=== PATIENT | female | born 1945 | race Caucasian/White ===

== ENCOUNTER → 2017-08-07 15:39 | Outpatient (CLI) | payer MEDICARE, MEDICAID, SELFPAY ==
[2017-08-07 17:14] LABS: Absolute Neutrophil Count 3.9 X10^3/uL (2.0-7.7); Basophil# 0.03 X10^3/uL; Basophil% 0.4 % (0-1); Eosinophil# 0.11 X10^3/uL; Eosinophils% 1.4 % (0-5); Hematocrit 46.2 % (37-47); Hemoglobin 15.4 g/dl (12.0-15.0); Lymphocyte % 35.1 % (19-41); Mean Corp Hgb Conc 33.3 g/gl (32-36); Mean Corpuscular Hgb 33.2 pg (27.0-32.0); Mean Corpuscular Volume 99.6 fL (81-99); Mean Platelet Vol. 10.3 fl (6.2-12.0); Monocyte# 0.91 X10^3/uL; Monocyte% 11.8 % (0-10); Neutrophil # 3.93 X10^3/uL (2.7-7.7); Platelet Count 203 K/mm3 (150-450); RBC Distribution Width CV 13.8 % (11.6-14.6); RBC Distribution Width SD 50.1 fl (35.1-43.9); Red Blood Count 4.64 M/mm3 (4.2-5.4); White Blood Count 7.7 K/mm3 (4.4-11.0)
[2017-08-07 17:15] LABS: POSITIVE COUNT NO; POSITIVE DIFFERENTIAL NO; POSITIVE MORPHOLOGY NO
[2017-08-07 17:47] LABS: AST(SGOT) 27 U/L (15-37); Alanine Aminotransfer ALT/SGPT 27 U/L (13-56); Albumin, Serum 3.8 g/dL (3.2-5.0); Alkaline Phosphatase 56 U/L (45-117); Anion Gap 10 (5-15); BUN 7 mg/dL (7-18); BUN/Creat Ratio 7.7 RATIO (10-20); Calcium,Total 9.1 mg/dL (8.5-10.1); Chloride 103 mmol/L (98-107); EST Glomerular Filtration Rate 65 mL/min (>60); Est Glom Filt Rate - Afr Amer 78 mL/min (>60); Globulin 3.9 g/dL (2.2-4.2); Glucose 137 mg/dL (74-106); Potassium 4.1 mmol/L (3.5-5.1); Protein, Total 7.7 g/dL (6.4-8.2); Sodium Level 139 mmol/L (136-145)
[2017-08-07 18:44] LABS: Hemoglobin A1c 7.1 % (4.2-6.3)
== END ==
PROVIDERS: Family Provider Family Medicine; PCP Family Medicine; Visit Provider Family Medicine
DX: E11.9 Type 2 diabetes mellitus without complications (principal); Z79.4 Long term (current) use of insulin; Z79.1 Long term (current) use of non-steroidal anti-inflammatories (NSAID)
CPT/HCPCS: 36415; 80053; 83036; 85025

== ENCOUNTER → 2017-10-03 17:30 | Outpatient (CLI) | payer MEDICARE, MEDICAID, SELFPAY | PROVIDERS: Family Provider Family Medicine; PCP Family Medicine; Visit Provider Family Medicine | DX: Z12.31 Encounter for screening mammogram for malignant neoplasm of breast (principal) | CPT/HCPCS: 77063; 77067 ==

== ENCOUNTER 2018-05-09 14:57 | Emergency (ER) | payer MEDICARE, SELFPAY ==
[2018-05-09 14:58] VITALS: BP 134/109; PULSE 110; RESP 18; TEMP 36.8; O2SAT 94; BMI 28.3
--- NOTE | 2018-05-09 15:58 | ED.DCSUM_ITS ---
- ER Visit Summary Date of Service: 05/09/18 Chief Complaint: Left flank pain with nausea History of Present Illness: The patient is a 73 F history of diabetes and COPD. Prior appendectomy and cholecystectomy. Patient states for last 3 days she has not been feeling well. Fever as high as 101. With nausea but no vomiting or diarrhea. States she had cloudy urine but drank a lot of fluids and cranberry juice and says that is clearing up. Denies any gross hematuria no history of kidney stones. She has a chronic cough that is not new. Physical Examination: Older female no acute distress vital signs are stable. Currently she is afebrile. H EENT exam was unremarkable. Moist weeks membranes. Neck nontender no lymphadenopathy. Lungs clear to auscultation bilaterally. No rales, rhonchi or wheezing. Equal symmetrical. Heart regular rhythm no murmur. Abdomen soft. Nondistended. Normal bowel sounds no peritoneal signs. No hernias or masses. No signs of obstruction. Patient is moving all 4 extremities. No edema. Neurologically she is awake alert with no focal motor deficits. She has mild left flank tenderness but not CVA tenderness. Test Results: White count of 10. Hemoglobin 13. Electrolytes unremarkable. Gap of 8. Normal BUN and creatinine. Lipase 45 and normal. Urine consistent with UTI with positive nitrates, 10-25 white cells and 2+ bacteria. Urine culture sent. Patient had several episodes of transient hypotension lactic acid was obtained and was normal at 1.1. Emergency Department Course and Treatment: 1 L normal saline. IV Zofran. Tylenol. IV Rocephin Patient's blood pressure is currently 110/65. She had a long discussion of outpatient treatment versus admission. Due to her transient hypotension her and the family were concerned because she lives alone that she would not do well and will were requesting admission overnight for further IV antibiotics. Treatment Plan: We will speak to the hospitalist about admission. I have already started her on IV Rocephin. Dr. Lux Borrero the hospitalist came down to evaluate the patient had a long lengthy discussion with her and he felt current with her being discharged to home and patient and family decided that they would be discharged. Disposition: Admission Impression: Acute left flank pain secondary to a acute UTI rule out early pyelonephritis Transient hypotension resolved History of diabetes This note was generated with [employer] software. It may contain incorrect words, spelling, and punctuation that were not noted in review of the chart prior to signing ED Disposition - Plan for ED Patient: Referrals: Reece Salas [Primary Care Provider] -
[2018-05-09 16:37] LABS: Absolute Lymphocyte Count 1.49 X10^3/ul (0.83-4.51); Absolute Neutrophil Count 8.1 X10^3/uL (2.0-7.7); Basophil# 0.01 X10^3/uL; Basophil% 0.1 % (0-1); Hematocrit 39.8 % (37-47); Hemoglobin 13.3 g/dl (12.0-15.0); Lymphocyte # 1.49 X10^3/ul (4.0); Lymphocyte % 13.8 % (19-41); Mean Corp Hgb Conc 33.4 g/gl (32-36); Mean Corpuscular Hgb 32.5 pg (27.0-32.0); Mean Corpuscular Volume 97.3 fL (81-99); Mean Platelet Vol. 9.9 fl (6.2-12.0); Monocyte# 1.21 X10^3/uL; Monocyte% 11.2 % (0-10); Neutrophil # 8.08 X10^3/uL (2.7-7.7); Neutrophil % 74.7 % (47-70); POSITIVE COUNT NO; POSITIVE DIFFERENTIAL NO; POSITIVE MORPHOLOGY NO; Platelet Count 150 K/mm3 (150-450); RBC Distribution Width CV 13.5 % (11.6-14.6); RBC Distribution Width SD 47.8 fl (35.1-43.9); Red Blood Count 4.09 M/mm3 (4.2-5.4); White Blood Count 10.8 K/mm3 (4.4-11.0)
[2018-05-09] MEDS: Acetaminophen 500 MG Tablet 1000 MG PO (16:38)
[2018-05-09] MEDS: 0.9% Normal Saline 1,000 ML 1000 ML IV (16:38)
[2018-05-09] MEDS: Ondansetron 4 MG/2 ML Vial IV (16:39)
[2018-05-09 16:44] LABS: Anion Gap 8 (5-15); BUN 7 mg/dL (7-18); BUN/Creat Ratio 6.4 RATIO (10-20); Calcium,Total 9.1 mg/dL (8.5-10.1); Chloride 100 mmol/L (98-107); Creatinine, Serum 1.09 mg/dL (0.55-1.02); EST Glomerular Filtration Rate 52 mL/min (>60); Est Glom Filt Rate - Afr Amer 63 mL/min (>60); Glucose 266 mg/dL (74-106); Lipase 45 U/L (73-393); Potassium 3.6 mmol/L (3.5-5.1); Sodium Level 135 mmol/L (136-145)
[2018-05-09 16:51] VITALS: TEMP 36.8
[2018-05-09 16:53] VITALS: BP 127/87; PULSE 94; RESP 16; O2SAT 95
[2018-05-09 17:53] LABS: Mucous, Urine 0 SEEN /hpf (<or=2+); Red Blood Cells-Urine 0 SEEN /hpf (0-5)
[2018-05-09 18:10] LABS: Color, Urine Yellow (Yellow); Glucose, Dipstick 50 mg/dl (Normal); Ketone-Dipstick Negative (Negative); Leukocyte Esterase-Dipstick 500 /ul (Negative); Nitrite-Dipstick Positive (Negative); Occult Blood-Urine 10 /ul (Negative); Protein-Dipstick 30 mg/dl (Negative); Urine Bilirubin Dipstick Negative (Negative); Urine Clarity Clear (Clear); Urine Urobilinogen Normal (Normal)
[2018-05-09 18:16] LABS: Bacteria 2+ /hpf (None Seen); Squamous Epithelial Cells - UA 0-5 SEEN /hpf (5-10); White Blood Cells 10-25 SEEN /hpf (0-5)
[2018-05-09 18:57] VITALS: BP 110/62; PULSE 84; RESP 16; O2SAT 98
[2018-05-09] MEDS: Ceftriaxone 1 GM/50 ML BAG IV (18:57)
[2018-05-09 19:03] LABS: Lactic Acid 1.1 mmol/L (0.4-2.0)
--- NOTE | 2018-05-09 20:14 | ED.DEP ---
ED Disposition - Plan for ED Patient: Disposition: Home or Assisted Living Instructions: ED UTI Cystitis Female Prescriptions: Ondansetron [Zofran Odt] 4 mg PO Q8H PRN PRN #10 tab PRN Reason: Nausea Cephalexin [Keflex] 500 mg PO Q6 10 Days cap Referrals: Reece Salas [Primary Care Provider] - 3-5 Days if not improving Additional Instructions: Plenty of fluids and rest. Keflex 1 pill 4 times a day for 10 days for the urinary tract infection. Zofran as needed for nausea. Follow-up with your doctor to be reevaluated. Return to the ER if you are feeling worse.
[2018-05-09] MEDS: Ondansetron ODT 4 MG Tablet 8 MG PO (20:21)
[2018-05-09 20:22] VITALS: BP 119/50; PULSE 91; RESP 18; O2SAT 96
== END 2018-05-09 20:23 | disposition home or self-care (01) ==
PROVIDERS: Emergency Provider Emergency Medicine; Family Provider Family Medicine; PCP Family Medicine
DX: N39.0 Urinary tract infection, site not specified (principal); I95.9 Hypotension, unspecified; E11.9 Type 2 diabetes mellitus without complications; J44.9 Chronic obstructive pulmonary disease, unspecified; Z72.0 Tobacco use; Z90.49 Acquired absence of other specified parts of digestive tract; Z79.82 Long term (current) use of aspirin; Z79.4 Long term (current) use of insulin; Z79.899 Other long term (current) drug therapy
CPT/HCPCS: 80048; 81001; 83605; 83690; 85025; 87086; 87088; 87186; 99285; J7030; J7050; A4216; J2405

== ENCOUNTER 2018-05-10 03:26 | Inpatient (IN) | payer MEDICARE, MEDICAID, SELFPAY ==
[2018-05-09 14:58] VITALS: BMI 28.3
[2018-05-10] VITALS (13 sets, daily range): BP systolic 105–132; BP diastolic 51–71; PULSE 80–129; RESP 16–24; TEMP 37–39.2; O2SAT 91–98; BMI 13.8; BMI 29.3
--- NOTE | 2018-05-10 03:35 | EKG12_ITS ---
Test Reason : TACHYCARDIA Blood Pressure : / mmHG Vent. Rate : 094 BPM Atrial Rate : 094 BPM P-R Int : 148 ms QRS Dur : 066 ms QT Int : 368 ms P-R-T Axes : 060 010 017 degrees QTc Int : 460 ms Normal sinus rhythm Nonspecific ST abnormality Abnormal ECG Confirmed by ARLEN BASURTO, DENNIS ([id number]), content editor JOYCELYN QUINTEROS ([id number]) on 05/13/2018 10:58:50 AM Referred By: Confirmed By:DENNIS MCKINLEY MD
[2018-05-10] MEDS: 0.9% Normal Saline 1,000 ML 1000 ML IV (03:39)
--- NOTE | 2018-05-10 03:45 | ED.VISSUMM ---
- ER Visit Summary Date of Service: 05/10/18 Chief Complaint: Nausea vomiting and weakness History of Present Illness: The patient is a 73 F who presents with nausea vomiting and weakness. She was seen in the ER about 8 or 9 hours ago. She complains of 3 days of nausea vomiting headache generalized weakness decreased oral intake and left flank pain. She also was having dysuria although this had improved in the last couple of days. She noted cloudy urine. She was seen in the emergency department and underwent laboratory studies. She had transient hypotension but her lactic acid was normal. She did have a UTI and was treated with IV Rocephin. She was ultimately discharged on oral antibiotics. After discharge she states she is worsened and developed worsening nausea vomiting and weakness. Physical Examination: Temperature 101.5, heart rate 129, respiratory rate 24, pulse ox 91% on room air, blood pressure normal Patient is ill-appearing Moist mucous membranes Heart is regular tachycardia Lungs are clear The abdomen is soft she does have some left flank tenderness no CVA tenderness Alert Test Results: EKG shows normal sinus rhythm at a rate of 94. Labs notable for platelets 136. Blood cultures were sent. Hepatic function and lipase are unremarkable. Lactic acid normal at 1.5. Patient Mike had urine culture from recent ER visit. Chest x-ray shows a large hiatal hernia. CT of the abdomen and pelvis on my review did show left perinephric stranding and a large hiatal hernia I did not appreciate any ureteral calculus although formal radiology read is pending at the time of this dictation. Emergency Department Course and Treatment: Patient was treated with IV fluids Tylenol. She was given Zofran prior to arrival for nausea. She meets sepsis criteria but at this time does not meet criteria for severe sepsis or septic shock. She has already received broad-spectrum antibiotics only 9 hours ago so she does not need additional antibiotics at this time. I spoke to the hospitalist who agrees to admit but also requested a CT of the abdomen to rule out calculus. Imaging as above although radiology read pending. Treatment Plan: [] Disposition: Admit Impression: Pyelonephritis Sepsis syndrome This note was generated with [employer] dictation software. It may contain incorrect words, spelling, and punctuation that were not noted in review of the chart prior to signing ED Disposition - Plan for ED Patient: Disposition: Acute Care [facility]
[2018-05-10] MEDS: Acetaminophen 325 MG Tablet 650 MG PO ×3 (03:51→15:54)
[2018-05-10 03:59] LABS: Hematocrit 37.4 % (37-47); Hemoglobin 12.6 g/dl (12.0-15.0); Mean Corp Hgb Conc 33.7 g/gl (32-36); Mean Corpuscular Hgb 32.6 pg (27.0-32.0); Mean Corpuscular Volume 96.6 fL (81-99); Mean Platelet Vol. 9.8 fl (6.2-12.0); Platelet Count 136 K/mm3 (150-450); RBC Distribution Width CV 13.2 % (11.6-14.6); RBC Distribution Width SD 45.1 fl (35.1-43.9); Red Blood Count 3.87 M/mm3 (4.2-5.4); White Blood Count 9.5 K/mm3 (4.4-11.0)
[2018-05-10 04:02] LABS: Scan Indicated on CBC? Y/N NO
[2018-05-10 04:13] LABS: AST(SGOT) 14 U/L (15-37); Alanine Aminotransfer ALT/SGPT 17 U/L (13-56); Alkaline Phosphatase 54 U/L (45-117); Anion Gap 9 (5-15); BUN 7 mg/dL (7-18); BUN/Creat Ratio 6.6 RATIO (10-20); Bilirubin, Direct 0.16 mg/dL (0.00-0.30); Calcium,Total 8.4 mg/dL (8.5-10.1); Chloride 104 mmol/L (98-107); Creatinine, Serum 1.06 mg/dL (0.55-1.02); EST Glomerular Filtration Rate 54 mL/min (>60); Est Glom Filt Rate - Afr Amer 65 mL/min (>60); Estimated Creatinine Clearance 26.87 ml/min; Globulin 3.8 g/dL (2.2-4.2); Glucose 251 mg/dL (74-106); Lipase 48 U/L (73-393); Potassium 3.5 mmol/L (3.5-5.1); Protein, Total 6.8 g/dL (6.4-8.2); Sodium Level 137 mmol/L (136-145)
[2018-05-10 04:36] LABS: Lactic Acid 1.5 mmol/L (0.4-2.0)
--- NOTE | 2018-05-10 04:50 | RAD_ITS ---
STUDY: X-RAY CHEST REASON FOR EXAM: Female, 73 years old. Cough TECHNIQUE: Single AP portable view of the chest. COMPARISON: None. FINDINGS: The lungs are clear and expanded. There is no demonstrated pleural abnormality. Normal size heart. Normal mediastinum and seun. Normal visualized pulmonary arteries. Normal visualized aortic arch and descending thoracic aorta. Normal visualized thoracic spine. Normal visualized ribs, clavicles, and shoulders. There is a hiatal hernia measures 14 cm. RAD/Chest 1 View (Portable) IMPRESSION: Hiatal hernia measures 14 cm. Electronically Signed: Guero Kwong, at 5:43 EDT Tel , Service support ,
--- NOTE | 2018-05-10 04:51 | CT_ITS ---
STUDY: CT ABDOMEN AND PELVIS WITHOUT CONTRAST REASON FOR EXAM: Female, 73 years old. FLANK PAIN,FEVER,vomiting and weakness,seen earlier and treated for uti Hx:htn,diabetes,copd,mi,mvp Surgery:appendectomy,,cholecystectomy RADIATION DOSAGE (If Supplied By Facility): CTDIvol = ( 12.15 ) mGy, DLP = ( 610.30 ) mGycm TECHNIQUE: Transaxial images were obtained from the dome of the diaphragm to the symphysis pubis without oral contrast, and without intravenous contrast. Sagittal and coronal images were reconstructed. Individualized dose optimization techniques were used for this CT. COMPARISON: None. FINDINGS: The visualized lung bases are unremarkable. The visualized portions of the heart are within normal limits. Normal liver. There are surgical clips in the gallbladder fossa consistent with a prior cholecystectomy. Normal spleen. Normal pancreas. Normal bilateral adrenal glands. Normal right kidney. There is mild left hydronephrosis with perirenal fat stranding suggesting pyelonephritis. There is possible stone measures 3 mm in the distal left ureter. Normal visualized stomach. Normal small intestine. There are multiple colonic diverticula consistent with diverticulosis. There is non-visualization of the appendix. Normal abdominal aorta. Normal inferior vena cava. Normal retroperitoneum. Normal urinary bladder. Normal abdominal wall. There are diffuse degenerative changes of the visualized lumbar spine. CT/Abdomen/Pelvis without Cont IMPRESSION: There is mild left hydronephrosis with perirenal fat stranding suggesting pyelonephritis. There is possible stone measures 3 mm in the distal left ureter. Electronically Signed: Guero Kwong, at 7:15 EDT Tel , Service support ,
--- NOTE | 2018-05-10 05:59 | PCM.HP.STD ---
Problem List (1) Nausea and vomiting Status: Acute Qualifiers: Vomiting type: unspecified Vomiting Intractability: intractable Qualified Code(s): R11.2 - Nausea with vomiting, unspecified (2) Cystitis Status: Acute History of Present Illness Date of Admission: 05/10/18 Chief Complaint: Nausea and vomiting, cystitis The patient is a 73 year old F seen in the emergency room this morning at [facility] after she returned with complaints of persistent nausea and vomiting. Patient had been seen in the evening of 05/09/18 and was diagnosed as having cystitis, at that time it was felt that she could be discharged home after she was given IV antibiotics. 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 Labs were redrawn, her white blood cell count remained normal at 9.5, creatinine was 1.06, glucose was 251. She is temperature was 101.5, her chest x-ray showed a hiatal hernia. CT of the abdomen and pelvis was pending at the time of this dictation. Patient will be admitted to PCU for acute sepsis, acute cystitis, and uncontrolled nausea and vomiting. She will be given IV fluids, IV antiemetics, and she will remain on IV Rocephin-her next scheduled dose will be at 5 PM today. Past Medical History Past Medical History (Chronic Problems): Chronic Problems (Last Updated 01/22/17 @ 08:07 by Stanton Harris NP-C) Syncope (Chronic) Hyperlipemia, mixed (Chronic) Anxiety and depression (Chronic) PTSD (post-traumatic stress disorder) (Chronic) Osteoporosis (Chronic) Panic attacks (Chronic) Hypothyroid (Chronic) MVP (mitral valve prolapse) (Chronic) ECHO at [facility] in May of 2014 showed no MVP Dyslipidemia (Chronic) COPD, mild (Chronic) PVC's (premature ventricular contractions) (Chronic) Nicotine addiction (Chronic) Medical History: Medical History (Last Updated 01/22/17 @ 08:07 by Stanton Harris NP-C) Syncope (Chronic) R55 Hyperlipemia, mixed (Chronic) E78.2 Anxiety and depression (Chronic) F41.9, F32.9 PTSD (post-traumatic stress disorder) (Chronic) F43.10 Osteoporosis (Chronic) M81.0 Panic attacks (Chronic) F41.0 Hypothyroid (Chronic) E03.9 MVP (mitral valve prolapse) (Chronic) I34.1 ECHO at [facility] in May of 2014 showed no MVP Dyslipidemia (Chronic) E78.5 COPD, mild (Chronic) J44.9 PVC's (premature ventricular contractions) (Chronic) I49.3 Dizziness (Acute) R42 Pre-syncope (Acute) Heart palpitations (Acute) R00.2 Nicotine addiction (Chronic) F17.200 COPD (chronic obstructive pulmonary disease) (Suspected) J44.9 Diabetes mellitus E11.9 Allergies Penicillins Allergy (Verified 05/10/18 03:27) Swelling Home Medications: Ambulatory Orders Medication Instructions Recorded Acetaminophen/Codeine #3 [Tylenol 1 tab PO BID PRN 05/22/14 #3 Tablet] Aspirin [Aspirin, Baby] 81 mg PO DAILY@0800 05/22/14 Gabapentin [Neurontin] 300 mg PO BIDCM 05/22/14 Levothyroxine [Synthroid] 75 mcg PO DAILY 05/22/14 Loratadine [Claritin] 10 mg PO DAILY 05/22/14 Raloxifene HCl [Evista] 60 mg PO DAILY 05/22/14 Simvastatin [Zocor] 40 mg PO QHS 05/22/14 Celecoxib [Celebrex] 200 mg PO BID 09/19/15 Magnesium Oxide [Mag-Ox 400] 400 mg PO BID 09/19/15 metoprolol succinate ER 25 mg 25 mg PO DAILY 01/18/17 tablet,extended release 24 hr alprazolam 0.25 mg tablet 0.5 mg PO .as needed tab 02/27/17 Cephalexin [Keflex] 500 mg PO Q6 10 Days cap 05/09/18 Krill/Om3/Dha/Epa/Om6/Lip/Astx 1 each PO DAILY 05/09/18 [Krill Oil 1,500 mg Softgel] Meclizine HCl 12.5 mg PO TID 05/09/18 Metformin HCl [Glucophage] 250 mg PO MOWEFR 05/09/18 Ondansetron [Zofran Odt] 4 mg PO Q8H PRN PRN #10 tab 05/09/18 Pantoprazole Sodium [Protonix] 40 mg PO DAILY 05/09/18 Surgical History: appendectomy, cholecystectomy, - - Exploratory laparotomy, , jaw surgery secondary to trauma, knee surgery Psychiatric History: Anxiety - 30 cigarettes a day 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 Denies: Anorexia, Chills, Night Sweats, Weight Change Eyes: Denies: Cataracts, Conjunctivae Inflammation, Double vision, Drainage HEENT: Denies: Difficulty Swallowing, Dysphasia, Ear Pain, Eye Pain, Hearing Changes, Nasal bleeding, Nasal Congestion, Post Nasal Drip Cardiovascular: Denies: Chest Pain, Claudication, Chest Pressure, Chest Tightness, Edema, Heaviness, Palpitations, Paroxysmal Noc. Dyspnea Respiratory: Denies: Cough, Hemoptysis, Pleuritic Pain, Shortness of Breath, Shortness of breath at rest, Shortness of breath upon exertion, Sputum production Gastrointestinal: Reports: Abdominal Pain - Complains of left flank pain. Denies: Constipation, Diarrhea, Hematemesis, Hematochezia, Nausea, Melena, Vomiting Genitourinary: Denies: Dysuria, Frequency, Hematuria, Hesitancy, Urgency Gynecological: Denies: Breast symptoms Musculoskeletal: Denies: Foot Pain, Hand Pain, Joint Pain, Joint stiffness, Joint swelling, Joint Tenderness, Leg Pain Skin: Denies: Dryness, Jaundice, Pruritis, Rash, Wounds Neurological: Denies: Blurred vision, Double vision, Change in Speech, Slurred speech, Difficulty swallowing, Focal weakness, Headaches, Incoordination, Numbness, Tingling Psychiatric: Denies: Anxiety, Depression, Homicidal Ideations, Suicidal Ideations Endocrine: Denies: Change in Body Habitus, Heat/ Cold Intolerance, Polydipsia, Polyuria Hematologic/ Lymphatic: Denies: Adenopathy, Anemia, Easy Bruising, Easy Bleeding, Petechiae, Purpura VTE Information - Inpt Only VTE Present on Admission: No VTE Mechan Device Prophylaxis: None VTE Pharm Prophylaxis ordered?: Yes Patient Problems: Active and Suspected Problems (Last Updated 01/22/17 @ 08:07 by Stanton Harris NP-C) Nausea and vomiting (Acute) Cystitis (Acute) - Physical Exam General: Alert, Oriented x3, Cooperative, No apparent distress, Well developed, Well nourished HEENT: Atraumatic, PERRLA, EOMI, Normocephalic Oral: Moist Mucosa Neck: Supple, No JVD, Negative Carotid Bruits, No Nuchal Rigidity, Trachea Midline, Thyroid Normal Size and Texture Lungs: Clear to auscultation, Normal air movement, No rhonchi, No wheeze, No rales Cardiovascular: Regular rate, Regular Rhythm, Normal S1, Normal S2, No murmurs, No Ectopic Activity Abdomen: Bowel Sounds Present, Soft, Non Tender, Non-Distended, No hernias noted Extremities: No clubbing, No cyanosis, No edema, Capillary Refill Less than 3 Seconds Skin: No rashes, No breakdown Musculoskeletal: No Tenderness to Palpation of Joints or Extremities Neurological: Cranial nerves II-XII grossly intact, Neuro grossly intact, Sensory exam intact to light touch and pain, Coordination normal Psych/Mental Status: Normal Affect, Appropriate, Alert and oriented to time, place, person, mood and affect Vital Signs Temp Pulse Resp BP Pulse Ox 99.8 F H 86 19 H 105/57 L 96 05/10/18 05:58 05/10/18 05:58 05/10/18 05:58 05/10/18 05:58 05/10/18 05:58 Oxygen Delivery Method Room Air Weight: 36.56 kg Body Mass Index (BMI) 13.8 Laboratory Tests Past 24 Hrs 05/10/18 05/10/18 05/10/18 03:45 03:45 03:45 WBC 9.5 RBC 3.87 L Hgb 12.6 Hct 37.4 MCV 96.6 MCH 32.6 H MCHC 33.7 RDW 13.2 RDW Differential 45.1 H Plt Count 136 L MPV 9.8 Sodium 137 Potassium 3.5 Chloride 104 Carbon Dioxide 24.0 Anion Gap 9 BUN 7 Creatinine 1.06 H Estim Creat Clear Calc 26.87 Est GFR (MDRD) Af Amer 65 Est GFR (MDRD) Non-Af 54 L BUN/Creatinine Ratio 6.6 L Glucose 251 H Lactic Acid 1.5 Calcium 8.4 L Total Bilirubin 0.50 Direct Bilirubin 0.16 AST 14 L ALT 17 Alkaline Phosphatase 54 Total Protein 6.8 Albumin 3.0 L Globulin 3.8 Lipase 48 L Assessment/Plan All Active Problems (Last Updated 01/22/17 @ 08:07 by Stanton Harris, [employer]-C) Nausea and vomiting (Acute) Cystitis (Acute) Dizziness (Acute) Pre-syncope (Acute) Heart palpitations (Acute) #1 acute sepsis secondary to acute cystitis-from gram-negative bacteria-patient will be admitted to [facility], IV fluids will be administered, she will remain on IV Rocephin #2 uncontrolled nausea and vomiting-etiology unclear, patient will be given IV fluids and antiemetics #3 type 2 diabetes-patient will be placed on sliding scale insulin per fingerstick blood sugar #4 chronic obstructive pulmonary disease #5 hyperlipidemia #6 hypothyroidism Code Visit Inpatient E&M: 87250 Init Hosp L3
--- NOTE | 2018-05-10 06:03 | HP.PCM_ITS ---
Problem List (1) Nausea and vomiting Status: Acute Qualifiers: Vomiting type: unspecified Vomiting Intractability: intractable Qualified Code(s): R11.2 - Nausea with vomiting, unspecified (2) Cystitis Status: Acute History of Present Illness Date of Admission: 05/10/18 Chief Complaint: Nausea and vomiting, cystitis The patient is a 73 year old F seen in the emergency room this morning at [facility] after she returned with complaints of persistent nausea and vomiting. Patient had been seen in the evening of 05/09/18 and was diagnosed as having cystitis, at that time it was felt that she could be discharged home after she was given IV antibiotics. After discussing this with the patient and her family, patient agreed that she would like to go home but she subsequently returned in the horse racer hours of 05/10/18 with persistent nausea and vomiting and malaise. Labs were redrawn, her white blood cell count remained normal at 9.5, creatinine was 1.06, glucose was 251. She is temperature was 101.5, her chest x-ray showed a hiatal hernia. CT of the abdomen and pelvis was pending at the time of this dictation. Patient will be admitted to PCU for acute sepsis, acute cystitis, and uncontrolled nausea and vomiting. She will be given IV fluids, IV antiemetics, and she will remain on IV Rocephin-her next scheduled dose will be at 5 PM today. Past Medical History Past Medical History (Chronic Problems): Chronic Problems (Last Updated 01/22/17 @ 08:07 by Stanton Harris NP-C) Syncope (Chronic) Hyperlipemia, mixed (Chronic) Anxiety and depression (Chronic) PTSD (post-traumatic stress disorder) (Chronic) Osteoporosis (Chronic) Panic attacks (Chronic) Hypothyroid (Chronic) MVP (mitral valve prolapse) (Chronic) ECHO at [facility] in May of 2014 showed no MVP Dyslipidemia (Chronic) COPD, mild (Chronic) PVC's (premature ventricular contractions) (Chronic) Nicotine addiction (Chronic) Medical History: Medical History (Last Updated 01/22/17 @ 08:07 by Stanton Harris NP-C) Syncope (Chronic) R55 Hyperlipemia, mixed (Chronic) E78.2 Anxiety and depression (Chronic) F41.9, F32.9 PTSD (post-traumatic stress disorder) (Chronic) F43.10 Osteoporosis (Chronic) M81.0 Panic attacks (Chronic) F41.0 Hypothyroid (Chronic) E03.9 MVP (mitral valve prolapse) (Chronic) I34.1 ECHO at [facility] in May of 2014 showed no MVP Dyslipidemia (Chronic) E78.5 COPD, mild (Chronic) J44.9 PVC's (premature ventricular contractions) (Chronic) I49.3 Dizziness (Acute) R42 Pre-syncope (Acute) Heart palpitations (Acute) R00.2 Nicotine addiction (Chronic) F17.200 COPD (chronic obstructive pulmonary disease) (Suspected) J44.9 Diabetes mellitus E11.9 Allergies Penicillins Allergy (Verified 05/10/18 03:27) Swelling Home Medications: Ambulatory Orders Medication Instructions Recorded Acetaminophen/Codeine #3 [Tylenol 1 tab PO BID PRN 05/22/14 #3 Tablet] Aspirin [Aspirin, Baby] 81 mg PO DAILY@0800 05/22/14 Gabapentin [Neurontin] 300 mg PO BIDCM 05/22/14 Levothyroxine [Synthroid] 75 mcg PO DAILY 05/22/14 Loratadine [Claritin] 10 mg PO DAILY 05/22/14 Raloxifene HCl [Evista] 60 mg PO DAILY 05/22/14 Simvastatin [Zocor] 40 mg PO QHS 05/22/14 Celecoxib [Celebrex] 200 mg PO BID 09/19/15 Magnesium Oxide [Mag-Ox 400] 400 mg PO BID 09/19/15 metoprolol succinate ER 25 mg 25 mg PO DAILY 01/18/17 tablet,extended release 24 hr alprazolam 0.25 mg tablet 0.5 mg PO .as needed tab 02/27/17 Cephalexin [Keflex] 500 mg PO Q6 10 Days cap 05/09/18 Krill/Om3/Dha/Epa/Om6/Lip/Astx 1 each PO DAILY 05/09/18 [Krill Oil 1,500 mg Softgel] Meclizine HCl 12.5 mg PO TID 05/09/18 Metformin HCl [Glucophage] 250 mg PO MOWEFR 05/09/18 Ondansetron [Zofran Odt] 4 mg PO Q8H PRN PRN #10 tab 05/09/18 Pantoprazole Sodium [Protonix] 40 mg PO DAILY 05/09/18 Surgical History: appendectomy, cholecystectomy, - - Exploratory laparotomy, C- section, jaw surgery secondary to trauma, knee surgery Psychiatric History: Anxiety - 30 cigarettes a day 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 Denies: Anorexia, Chills, Night Sweats, Weight Change Eyes: Denies: Cataracts, Conjunctivae Inflammation, Double vision, Drainage HEENT: Denies: Difficulty Swallowing, Dysphasia, Ear Pain, Eye Pain, Hearing Changes, Nasal bleeding, Nasal Congestion, Post Nasal Drip Cardiovascular: Denies: Chest Pain, Claudication, Chest Pressure, Chest Tightness, Edema, Heaviness, Palpitations, Paroxysmal Noc. Dyspnea Respiratory: Denies: Cough, Hemoptysis, Pleuritic Pain, Shortness of Breath, Shortness of breath at rest, Shortness of breath upon exertion, Sputum production Gastrointestinal: Reports: Abdominal Pain - Complains of left flank pain. Denies: Constipation, Diarrhea, Hematemesis, Hematochezia, Nausea, Melena, Vomiting Genitourinary: Denies: Dysuria, Frequency, Hematuria, Hesitancy, Urgency Gynecological: Denies: Breast symptoms Musculoskeletal: Denies: Foot Pain, Hand Pain, Joint Pain, Joint stiffness, Joint swelling, Joint Tenderness, Leg Pain Skin: Denies: Dryness, Jaundice, Pruritis, Rash, Wounds Neurological: Denies: Blurred vision, Double vision, Change in Speech, Slurred speech, Difficulty swallowing, Focal weakness, Headaches, Incoordination, Numbness, Tingling Psychiatric: Denies: Anxiety, Depression, Homicidal Ideations, Suicidal Ideations Endocrine: Denies: Change in Body Habitus, Heat/ Cold Intolerance, Polydipsia, Polyuria Hematologic/ Lymphatic: Denies: Adenopathy, Anemia, Easy Bruising, Easy Bleeding, Petechiae, Purpura VTE Information - Inpt Only VTE Present on Admission: No VTE Mechan Device Prophylaxis: None VTE Pharm Prophylaxis ordered?: Yes Patient Problems: Active and Suspected Problems (Last Updated 01/22/17 @ 08:07 by Stanton Harris NP- C) Nausea and vomiting (Acute) Cystitis (Acute) - Physical Exam General: Alert, Oriented x3, Cooperative, No apparent distress, Well developed, Well nourished HEENT: Atraumatic, PERRLA, EOMI, Normocephalic Oral: Moist Mucosa Neck: Supple, No JVD, Negative Carotid Bruits, No Nuchal Rigidity, Trachea Midline, Thyroid Normal Size and Texture Lungs: Clear to auscultation, Normal air movement, No rhonchi, No wheeze, No rales Cardiovascular: Regular rate, Regular Rhythm, Normal S1, Normal S2, No murmurs, No Ectopic Activity Abdomen: Bowel Sounds Present, Soft, Non Tender, Non-Distended, No hernias noted Extremities: No clubbing, No cyanosis, No edema, Capillary Refill Less than 3 Seconds Skin: No rashes, No breakdown Musculoskeletal: No Tenderness to Palpation of Joints or Extremities Neurological: Cranial nerves II-XII grossly intact, Neuro grossly intact, Sensory exam intact to light touch and pain, Coordination normal Psych/Mental Status: Normal Affect, Appropriate, Alert and oriented to time, place, person, mood and affect Vital Signs Temp Pulse Resp BP Pulse Ox 99.8 F H 86 19 H 105/57 L 96 05/10/18 05:58 05/10/18 05:58 05/10/18 05:58 05/10/18 05:58 05/10/18 05:58 Oxygen Delivery Method Room Air Weight: 36.56 kg Body Mass Index (BMI) 13.8 Laboratory Tests Past 24 Hrs 05/10/18 05/10/18 05/10/18 03:45 03:45 03:45 WBC 9.5 RBC 3.87 L Hgb 12.6 Hct 37.4 MCV 96.6 MCH 32.6 H MCHC 33.7 RDW 13.2 RDW Differential 45.1 H Plt Count 136 L MPV 9.8 Sodium 137 Potassium 3.5 Chloride 104 Carbon Dioxide 24.0 Anion Gap 9 BUN 7 Creatinine 1.06 H Estim Creat Clear Calc 26.87 Est GFR (MDRD) Af Amer 65 Est GFR (MDRD) Non-Af 54 L BUN/Creatinine Ratio 6.6 L Glucose 251 H Lactic Acid 1.5 Calcium 8.4 L Total Bilirubin 0.50 Direct Bilirubin 0.16 AST 14 L ALT 17 Alkaline Phosphatase 54 Total Protein 6.8 Albumin 3.0 L Globulin 3.8 Lipase 48 L Assessment/Plan All Active Problems (Last Updated 01/22/17 @ 08:07 by Stanton Harris, COMPUTER LANGUAGE CODER-C) Nausea and vomiting (Acute) Cystitis (Acute) Dizziness (Acute) Pre-syncope (Acute) Heart palpitations (Acute) #1 acute sepsis secondary to acute cystitis-from gram-negative bacteria-patient will be admitted to [facility], IV fluids will be administered, she will remain on IV Rocephin #2 uncontrolled nausea and vomiting-etiology unclear, patient will be given IV fluids and antiemetics #3 type 2 diabetes-patient will be placed on sliding scale insulin per fingerstick blood sugar #4 chronic obstructive pulmonary disease #5 hyperlipidemia #6 hypothyroidism Code Visit Inpatient E&M: 58034 Init Hosp L3
--- NOTE | 2018-05-10 06:40 | NURSING ---
321 TERELETSKY UNCONTROLLED N, V, SEPSIS, CYSTITIS
[2018-05-10] MEDS: 0.9% Normal Saline 1,000 ML 125 ML IV ×3 (08:01→23:55)
[2018-05-10] MEDS: 0.9% NaCl Peripheral Flush Adult/Peds IV ×2 (08:02→10:15)
[2018-05-10 08:10] LABS: Bedside Glucose 278 mg/dL (70-110)
[2018-05-10] MEDS: Insulin Lispro 100 UNIT/ML INSULN.PEN SC ×2 (08:12→21:29)
[2018-05-10] MEDS: Aspirin 81 MG TAB.CHEW PO (08:57)
[2018-05-10] MEDS: Gabapentin 300 MG Capsule PO ×2 (08:57→17:27)
[2018-05-10] MEDS: Raloxifene HCl 60 MG Tablet PO (10:08)
[2018-05-10] MEDS: Levothyroxine 75 MCG Tablet PO (10:08)
[2018-05-10] MEDS: Pantoprazole Sodium 40 MG Tablet PO (10:08)
[2018-05-10] MEDS: Enoxaparin 30 MG/0.3 ML Syringe SC (10:08)
[2018-05-10] MEDS: Metoprolol(XL)Succ 25 MG Tablet PO (10:09)
[2018-05-10] MEDS: Ondansetron 4 MG/2 ML Vial IV ×2 (10:15→21:40)
[2018-05-10 12:11] LABS: Bedside Glucose 139 mg/dL (70-110)
--- NOTE | 2018-05-10 13:10 | PN_ITS ---
Patient Problems: Active and Suspected Problems (Last Updated 01/22/17 @ 08:07 by Stanton Harris NP- C) Nausea and vomiting (Acute) Cystitis (Acute) Subjective: Rocephin day #2 The patient is a 73-year-old female admitted to the hospital on 05/10/2018 with acute sepsis secondary to urinary tract infection with uncontrolled nausea/vo miting. She had been seen in the emergency department by Dr. Snyder on 05/09/2018 and diagnosed with a urinary tract infection. She was given Rocephin and sent home with a prescription for Keflex and Zofran. Past medical history is significant for hyperlipidemia, anxiety/depression, diabetes mellitus type 2, PTSD, osteoporosis, hypothyroidism, hiatal hernia, mitral valve prolapse, COPD and tobacco dependence. All events of the past 24 hours been reviewed. T-max is 101.5 and current temp is 99.4. White blood cell count is 9.5 With mild left shift. BMP is remarkable for a creatinine of 1.06 with a BUN of 7. The creatinine in July 2017 was 0.9. Random blood sugar was 251. LFTs are unremarkable. Chest x-ray showed no infiltrates, pleural effusions or pulmonary vascular congestion. She has a large hiatal hernia. CT scan of the abdomen and pelvis showed mild left hydronephrosis with perirenal fat stranding suggesting pyelonephritis. There was a possible stone measuring 3 mm in the distal left ureter. Urine culture done on 05/09/2018 is positive for presumptive E. coli, greater than 100,000 colonies. Blood cultures are pending. Appetite is poor. She complains of mild nausea with no emesis. She has left flank pain. She denies dysuria. She denies any history of nephrolithiasis in the past. No chest pain no shortness of breath. - Physical Exam General: Alert, Oriented x3, Cooperative, No apparent distress, Well developed, Well nourished HEENT: Atraumatic, PERRLA, Normocephalic Oral: Dry Mucosa Neck: Supple, No JVD, Trachea Midline Lungs: Clear to auscultation Cardiovascular: Regular rate, Regular Rhythm, Normal S1, Normal S2, No murmurs, No rub noted, No Gallop Abdomen: Bowel Sounds Present, Soft, Non Tender, Non-Distended, - - She has pain with palpation at the left flank Extremities: No clubbing, No cyanosis, No edema, No Calf Tenderness Neurological: Cranial nerves II-XII grossly intact, Neuro grossly intact Psych/Mental Status: Normal Affect, Appropriate Vital Signs Temp Pulse Resp BP Pulse Ox 99.4 F H 88 18 118/64 98 05/10/18 09:56 05/10/18 10:15 05/10/18 09:56 05/10/18 09:56 05/10/18 09:56 Oxygen Delivery Method Room Air Weight: 170 lb 13.732 oz Body Mass Index (BMI) 29.3 Intake and Output for Last 24 Hours 05/08/18 05/09/18 05/10/18 23:59 23:59 23:59 Intake Total 659 / 659 Output Total 500 / 500 Balance 159 / 159 Laboratory Tests Past 24 Hrs 05/10/18 05/10/18 05/10/18 03:45 03:45 03:45 WBC 9.5 RBC 3.87 L Hgb 12.6 Hct 37.4 MCV 96.6 MCH 32.6 H MCHC 33.7 RDW 13.2 RDW Differential 45.1 H Plt Count 136 L MPV 9.8 Sodium 137 Potassium 3.5 Chloride 104 Carbon Dioxide 24.0 Anion Gap 9 BUN 7 Creatinine 1.06 H Estim Creat Clear Calc 26.87 Est GFR (MDRD) Af Amer 65 Est GFR (MDRD) Non-Af 54 L BUN/Creatinine Ratio 6.6 L Glucose 251 H Lactic Acid 1.5 Calcium 8.4 L Total Bilirubin 0.50 Direct Bilirubin 0.16 AST 14 L ALT 17 Alkaline Phosphatase 54 Total Protein 6.8 Albumin 3.0 L Globulin 3.8 Lipase 48 L POC Glucose 05/10/18 05/10/18 12:04 08:07 POC Glucose 139 H 278 H Medical Necessity - Tobacco Use Smoking Status: Current every day smoker Tobacco Use: Cigarettes Assessment/Plan All Active Problems (Last Updated 01/22/17 @ 08:07 by Stanton Harris NP-C) Nausea and vomiting (Acute) Cystitis (Acute) Dizziness (Acute) Pre-syncope (Acute) Heart palpitations (Acute) Impressions 1. Sepsis secondary to pyelonephritis 2. Left hydronephrosis and left hydroureter secondary to calculus in the distal left ureter 3. Nephrolithiasis 4. Diabetes mellitus type 2 5. COPD 6. Hyperlipidemia 7. Hypothyroidism Continue Rocephin Stone may pass without intervention - it is only 3 mm. If it does not pass will consult Dr. Chappell await the results of the Urine and blood cultures Recheck lab in the a.m.
--- NOTE | 2018-05-10 15:56 | CM.UR ---
RN CM Assessment Met face to face with patient for initial transition planning/care coordination assessment. Introduced myself and my role. Verb understanding and agreement for assessment. Presentation: Was sick and presented to ER. Dc w/uti and sent home on po antibiotics. Came back 8-9 hours later d/t worsening NV and weakness. PCP: Josue Specialists: Dr. Zhang. Preferred Pharmacy: [facility] Insurance: [facility] Prescription Benefit: Yes LNOK: Samara Allen (daughter) Hung Elizalde (son) Home: Mobile home w/4 steps w/railing. No access issues. 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 Does errands, house work, shower, dress, etc. Transportation: LAUNDR[employer] ROOM ATTENDANT or family. She can't drive d/t dizziness related to tinnitus. DME: Grab bars, shower chair, walker, handheld shower. SNF/HHC: No skilled Passport/waiver services mgr: Breanne Thorne or [facility]. 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 Advance Directives: None on file but states she has them. DPOA is Samara Allen (daughter) first and alternate is son, Hung Elizalde. DC PLAN: To go stay with granddaughter Liyah so that she is not left alone. She will notify [place] on Saturday. Denies any other needs at this time. Rosario Torres RN, [facility].
[2018-05-10 16:05] LABS: Bedside Glucose 142 mg/dL (70-110)
[2018-05-10] MEDS: Ensure Clear 120 ML Liquid PO (17:27)
[2018-05-10] MEDS: Ibuprofen 400 MG Tablet PO (21:27)
[2018-05-10] MEDS: Atorvastatin Calcium 20 MG Tablet PO (21:29)
[2018-05-11] VITALS (9 sets, daily range): BP systolic 101–138; BP diastolic 43–82; PULSE 68–87; RESP 16–20; TEMP 36.7–38.2; O2SAT 93–99
--- NOTE | 2018-05-11 05:55 | RAD_ITS ---
STUDY: X-RAY - ABDOMEN/PELVIS REASON FOR EXAM: Female, 73 years old. Abdominal pain TECHNIQUE: Supine COMPARISON: CT from yesterday FINDINGS: Hiatal hernia noted. There is an unremarkable bowel gas pattern. There is no demonstrated free abdominal air. The visualized liver, spleen and kidneys are grossly normal in size and morphology. Normal soft tissue structures. Stable degenerative changes and scoliosis of the lumbar spine. RAD/Abdomen Single View IMPRESSION: Nonobstructive bowel gas pattern. Electronically Signed: Nato Da Silva MD at 10:12 EDT , Service support ,
[2018-05-11] MEDS: Levothyroxine 75 MCG Tablet PO (06:31)
[2018-05-11] MEDS: Acetaminophen 325 MG Tablet 650 MG PO ×3 (06:31→20:05)
[2018-05-11] MEDS: 0.9% Normal Saline 1,000 ML 125 ML IV (06:35)
[2018-05-11] MEDS: Ondansetron 4 MG/2 ML Vial IV (06:35)
[2018-05-11 06:45] LABS: Bedside Glucose 132 mg/dL (70-110)
[2018-05-11 07:16] LABS: Absolute Neutrophil Count 4.4 X10^3/uL (2.0-7.7); Basophil# 0.01 X10^3/uL; Basophil% 0.2 % (0-1); Eosinophil# 0.01 X10^3/uL; Eosinophils% 0.2 % (0-5); Hematocrit 31.2 % (37-47); Hemoglobin 10.4 g/dl (12.0-15.0); Lymphocyte % 15.5 % (19-41); Mean Corp Hgb Conc 33.3 g/gl (32-36); Mean Corpuscular Hgb 32.5 pg (27.0-32.0); Mean Corpuscular Volume 97.5 fL (81-99); Mean Platelet Vol. 9.8 fl (6.2-12.0); Monocyte# 0.53 X10^3/uL; Monocyte% 9.1 % (0-10); Neutrophil # 4.35 X10^3/uL (2.7-7.7); Neutrophil % 74.8 % (47-70); POSITIVE COUNT NO; POSITIVE DIFFERENTIAL NO; POSITIVE MORPHOLOGY NO; Platelet Count 119 K/mm3 (150-450); RBC Distribution Width CV 13.5 % (11.6-14.6); RBC Distribution Width SD 48.8 fl (35.1-43.9); White Blood Count 5.8 K/mm3 (4.4-11.0)
[2018-05-11 07:31] LABS: Anion Gap 8 (5-15); BUN 6 mg/dL (7-18); BUN/Creat Ratio 6.7 RATIO (10-20); Calcium,Total 7.4 mg/dL (8.5-10.1); Chloride 109 mmol/L (98-107); EST Glomerular Filtration Rate 65 mL/min (>60); Est Glom Filt Rate - Afr Amer 79 mL/min (>60); Estimated Creatinine Clearance 47.36 ml/min; Glucose 139 mg/dL (74-106); Magnesium 1.7 mg/dL (1.6-2.6); Potassium 3.4 mmol/L (3.5-5.1); Sodium Level 139 mmol/L (136-145)
[2018-05-11 07:35] LABS: Phosphorus 1.8 mg/dL (2.5-4.9)
--- NOTE | 2018-05-11 07:47 | EKG12_ITS ---
Test Reason : CP Blood Pressure : / mmHG Vent. Rate : 067 BPM Atrial Rate : 067 BPM P-R Int : 142 ms QRS Dur : 066 ms QT Int : 408 ms P-R-T Axes : 064 020 005 degrees QTc Int : 431 ms Normal sinus rhythm Normal ECG Confirmed by ZAKI BASURTO, MESSI ([id number]), staff editor MEDINA CALHOUN ([id number]) on 05/19/2018 11:57:54 AM Referred By: ALEK Confirmed By:MESSI HAINES MD
--- NOTE | 2018-05-11 08:17 | RAD_ITS ---
STUDY: X-RAY CHEST REASON FOR EXAM: Female, 73 years old. Shortness of breath, chest tightness TECHNIQUE: AP COMPARISON: 05/10/2018 FINDINGS: Patient is rotated. Large size hiatal hernia is noted. No airspace consolidation. There is no demonstrated pleural abnormality. Normal size heart. Normal mediastinum and seun. Normal visualized pulmonary arteries. Normal visualized aortic arch and descending thoracic aorta. No acute bony process. There is no demonstrated abnormality of the visualized soft tissue structures of the upper abdomen. RAD/Chest 1 View (Portable) IMPRESSION: 1. Stable exam. Electronically Signed: Nato Da Silva MD at 11:59 EDT , Service support ,
[2018-05-11] MEDS: Albuterol 2.5 MG/3 ML VIAL.NEB. INHALATION (08:32)
[2018-05-11 08:40] LABS: Hemoglobin A1c 8.3 % (4.2-6.3)
[2018-05-11] MEDS: Raloxifene HCl 60 MG Tablet PO (09:29)
[2018-05-11] MEDS: Aspirin 81 MG TAB.CHEW PO (09:29)
[2018-05-11] MEDS: Enoxaparin 30 MG/0.3 ML Syringe SC (09:29)
[2018-05-11] MEDS: Gabapentin 300 MG Capsule PO ×2 (09:29→17:22)
[2018-05-11] MEDS: Ensure Clear 120 ML Liquid PO ×3 (09:29→17:22)
[2018-05-11] MEDS: Pantoprazole Sodium 40 MG Tablet PO (09:29)
[2018-05-11 10:58] LABS: BNP,B-Type NATRIURETIC PEPTIDE 206.5 pg/mL (0-100)
[2018-05-11] MEDS: Insulin Lispro 100 UNIT/ML INSULN.PEN SC ×2 (12:54→22:02)
[2018-05-11 13:16] LABS: Bedside Glucose 178 mg/dL (70-110)
[2018-05-11 17:30] LABS: Bedside Glucose 115 mg/dL (70-110)
--- NOTE | 2018-05-11 19:17 | PCM.PROGNOTE ---
Patient Problems: Active and Suspected Problems (Last Updated 01/22/17 @ 08:07 by Stanton Harris AD OPERATIONS COORDINATOR-C) Nausea and vomiting (Acute) Cystitis (Acute) Subjective: Day #3 Shanda Patient is a 73-year-old female admitted to the hospital on 05/10/2018 with a diagnosis of acute sepsis secondary to pyelonephritis with uncontrolled nausea/vomiting and mild left hydroureter and left hydronephrosis secondary to a 3 mm stone at the ureterovesical junction. Significant past medical history includes hyperlipidemia, anxiety/depression, diabetes mellitus type 2, hypothyroidism, hiatal hernia, COPD and tobacco dependence. All events of the past 24 hours been reviewed. She is now afebrile. T-max over the past 24 hours was 102.5 at 10 PM last night. Vital signs are stable Pulse ox ranges from 93-99% on room air White blood cell count is 5.8 today with 75% neutrophils. Hemoglobin is 10.4, down from 12.6 with hydration. Platelets are 119,000, down from 136,000. Potassium is 3.4 and supplementation was ordered. Creatinine is 0.9. Phosphorus is low at 1.8 and K-Phos riders were ordered. Blood sugars are well controlled. She experienced some shortness of breath today and chest tightness. EKG showed normal sinus rhythm with no ischemic changes. Chest x-ray showed no acute changes. She had no significant improvement with an albuterol aerosol. She has been laying in bed trying to use the incentive spirometer and it is not very effective this way. When I had her do it properly she had cough with deep breath. She has no rales and no wheezing. She tells me that she has less left flank pain today and she is feeling better. She denies nausea and she has had no emesis. Objective: - Physical Exam General: Alert, Oriented x3, Cooperative, No apparent distress, Well developed, Well nourished HEENT: Atraumatic, PERRLA, Normocephalic Oral: Dry Mucosa Neck: Supple, No JVD, Trachea Midline Lungs: Clear to auscultation without wheezes, rhonchi or rales. When she takes a deep breath she coughs. Cough is nonproductive. Cardiovascular: Regular rate, Regular Rhythm, Normal S1, Normal S2, No murmurs, No rub noted, No Gallop Abdomen: Bowel Sounds Present, Soft, Non Tender, Non-Distended, - - She has pain with palpation at the left flank Extremities: No clubbing, No cyanosis, No edema, No Calf Tenderness Neurological: Cranial nerves II-XII grossly intact, Neuro grossly intact Psych/Mental Status: Normal Affect, Appropriate - Physical Exam Vital Signs Temp Pulse Resp BP Pulse Ox 98.0 F 72 18 117/82 H 99 05/11/18 17:10 05/11/18 17:10 05/11/18 17:10 05/11/18 17:10 05/11/18 17:10 Oxygen Flow Rate (L/min) 2 Oxygen Delivery Method Room Air Weight: 170 lb 13.732 oz Body Mass Index (BMI) 29.3 Intake and Output for Last 24 Hours 05/09/18 05/10/18 05/11/18 23:59 23:59 23:59 Intake Total 2414 / 2414 4313 / 4313 Output Total 500 / 500 2100 / 2100 Balance 4 / 4 2213 / 2213 Laboratory Tests Past 24 Hrs 05/11/18 05/11/18 05/11/18 07:04 07:04 07:04 WBC 5.8 RBC 3.20 L Hgb 10.4 L Hct 31.2 L MCV 97.5 MCH 32.5 H MCHC 33.3 RDW 13.5 RDW Differential 48.8 H Plt Count 119 L MPV 9.8 Immature Gran % (Auto) 0.200 Neut % (Auto) 74.8 H Lymph % (Auto) 15.5 L Ripley % (Auto) 9.1 Eos % (Auto) 0.2 Baso % (Auto) 0.2 Absolute Neuts (auto) 4.4 Absolute Lymphs (auto) 0.90 Total Counted Not Reportable Sodium 139 Potassium 3.4 L Chloride 109 H Carbon Dioxide 22.0 Anion Gap 8 BUN 6 L Creatinine 0.90 Estim Creat Clear Calc 47.36 Est GFR (MDRD) Af Amer 79 Est GFR (MDRD) Non-Af 65 BUN/Creatinine Ratio 6.7 L Glucose 139 H Hemoglobin A1c Calcium 7.4 L Phosphorus 1.8 L Magnesium 1.7 B-Natriuretic Peptide 05/11/18 05/11/18 07:04 07:04 WBC RBC Hgb Hct MCV MCH MCHC RDW RDW Differential Plt Count MPV Immature Gran % (Auto) Neut % (Auto) Lymph % (Auto) Ripley % (Auto) Eos % (Auto) Baso % (Auto) Absolute Neuts (auto) Absolute Lymphs (auto) Total Counted Sodium Potassium Chloride Carbon Dioxide Anion Gap BUN Creatinine Estim Creat Clear Calc Est GFR (MDRD) Af Amer Est GFR (MDRD) Non-Af BUN/Creatinine Ratio Glucose Hemoglobin A1c 8.3 H Calcium Phosphorus Magnesium B-Natriuretic Peptide 206.5 H POC Glucose 05/11/18 05/11/18 05/11/18 17:20 12:50 06:39 POC Glucose 115 H 178 H 132 H Medical Necessity - Tobacco Use Smoking Status: Current every day smoker Tobacco Use: Cigarettes Assessment/Plan All Active Problems (Last Updated 01/22/17 @ 08:07 by Stanton Harris NP-C) Nausea and vomiting (Acute) Cystitis (Acute) Dizziness (Acute) Pre-syncope (Acute) Heart palpitations (Acute) Impressions 1. Sepsis secondary to pyelonephritis 2. Left hydronephrosis and left hydroureter secondary to calculus in the distal left ureter 3. Nephrolithiasis 4. Diabetes mellitus type 2 5. COPD 6. Hyperlipidemia 7. Hypothyroidism 8. Atelectasis 9. Hypophosphatemia 10. Hypokalemia stone was not visualized on the KUB ....she has less flank pain so it might have passed NO urine culture was sent from the ED, only blood cultures. The Rocephin is obviously effective because she is no longer febrile and she feels better....will continue and send home with a third generation cephalosporin/Omnicef Possible DC in the next 24-48 hours Supplement the phosphorus and potassium Recheck lab in the a.m. Up to the chair with meals. Use the IS for 10 breaths an hour and must be sitting upright in the bed with use or in the chair....this was explained to her Follow up in the office with Dr. Chappell after DC for the stone and also for urinary incontinence
[2018-05-11] MEDS: 0.9% Normal Saline 1,000 ML 40 ML IV (19:30)
[2018-05-11] MEDS: Atorvastatin Calcium 20 MG Tablet PO (22:02)
[2018-05-12] VITALS (12 sets, daily range): BP systolic 111–158; BP diastolic 59–78; PULSE 65–91; RESP 16–20; TEMP 37–39.2; O2SAT 92–98
[2018-05-12 01:41] LABS: Bedside Glucose 175 mg/dL (70-110)
[2018-05-12 01:56] LABS: Bedside Glucose 151 mg/dL (70-110)
[2018-05-12] MEDS: Ondansetron 4 MG/2 ML Vial IV ×2 (02:40→20:47)
[2018-05-12] MEDS: 0.9% Normal Saline 1,000 ML 40 ML IV (02:49)
[2018-05-12] MEDS: Albuterol 2.5 MG/3 ML VIAL.NEB. INHALATION ×2 (03:33→19:59)
[2018-05-12] MEDS: Acetaminophen 325 MG Tablet 650 MG PO ×3 (06:29→23:04)
[2018-05-12] MEDS: Levothyroxine 75 MCG Tablet PO (06:30)
[2018-05-12] MEDS: Insulin Lispro 100 UNIT/ML INSULN.PEN SC ×2 (06:31→22:11)
[2018-05-12 06:51] LABS: Bedside Glucose 152 mg/dL (70-110)
[2018-05-12 07:06] LABS: Anion Gap 7 (5-15); BUN 4 mg/dL (7-18); BUN/Creat Ratio 4.7 RATIO (10-20); Calcium,Total 7.7 mg/dL (8.5-10.1); Chloride 109 mmol/L (98-107); Creatinine, Serum 0.84 mg/dL (0.55-1.02); EST Glomerular Filtration Rate 70 mL/min (>60); Est Glom Filt Rate - Afr Amer 85 mL/min (>60); Estimated Creatinine Clearance 50.74 ml/min; Glucose 154 mg/dL (74-106); Phosphorus 2.2 mg/dL (2.5-4.9); Potassium 3.5 mmol/L (3.5-5.1); Sodium Level 140 mmol/L (136-145)
[2018-05-12] MEDS: Aspirin 81 MG TAB.CHEW PO (08:51)
[2018-05-12] MEDS: Raloxifene HCl 60 MG Tablet PO (08:51)
[2018-05-12] MEDS: Gabapentin 300 MG Capsule PO ×2 (08:51→18:37)
[2018-05-12] MEDS: Metoprolol(XL)Succ 25 MG Tablet PO (08:52)
[2018-05-12] MEDS: Pantoprazole Sodium 40 MG Tablet PO (08:52)
[2018-05-12] MEDS: Enoxaparin 30 MG/0.3 ML Syringe SC (08:52)
[2018-05-12 11:31] LABS: Bedside Glucose 135 mg/dL (70-110)
--- NOTE | 2018-05-12 11:50 | PCM.PN.HOSP ---
Patient Problems: Active and Suspected Problems (Last Updated 01/22/17 @ 08:07 by Stanton Harris COMPLAINTS COORDINATOR-C) Nausea and vomiting (Acute) Cystitis (Acute) Subjective: Patient was seen and examined. She complained of feeling very weak. Still having spikes of fever and chills. Nausea is better. No more vomiting. Vitals/I&O's: Vital Signs Temp Pulse Resp BP Pulse Ox 99.2 F H 73 18 111/59 L 94 05/12/18 08:20 05/12/18 08:52 05/12/18 08:20 05/12/18 08:52 05/12/18 08:20 Oxygen Flow Rate (L/min) 2 Oxygen Delivery Method Room Air Weight: 77.5 kg Body Mass Index (BMI) 29.3 Intake and Output for Last 24 Hours 05/10/18 05/11/18 05/12/18 23:59 23:59 23:59 Intake Total 2414 / 2414 4313 / 4313 411 / 411 Output Total 500 / 500 2700 / 2700 Balance 1913 / 1913 1613 / 1613 411 / 411 General: Alert, Oriented x3, Cooperative, - - in mild distress HEENT: Atraumatic, PERRLA, EOMI, Normocephalic Oral: Moist Mucosa Neck: Supple Lungs: Clear to auscultation, Normal air movement Cardiovascular: Regular rate, Regular Rhythm, Normal S1, Normal S2, No murmurs Abdomen: Bowel Sounds Present, Soft, Non-Distended, No Hepato-splenomegaly, Tender - mild left flank tenderness Extremities: No edema Skin: No rashes, No breakdown Musculoskeletal: No Tenderness to Palpation of Joints or Extremities Lymphatic: No Cervical, Supraclavicular, or Inguinal Adenopathy Neurological: Cranial nerves II-XII grossly intact, Neuro grossly intact Psych/Mental Status: Normal Affect, Appropriate Microbiology Past 72 Hours 05/10/18 03:45 Blood Culture (Wb) - Anticubital Left Blood Culture - Preliminary No growth in 48 hours. 05/10/18 03:50 Blood Culture (Wb) - Anticubital Right Blood Culture - Preliminary No growth in 48 hours. Laboratory Results 05/10/18 21:21: POC Glucose 151 H 05/11/18 12:50: POC Glucose 178 H 05/11/18 17:20: POC Glucose 115 H 05/11/18 21:58: POC Glucose 175 H 05/12/18 06:20: Sodium 140, Potassium 3.5, Chloride 109 H, Carbon Dioxide 24.0, Anion Gap 7, BUN 4 L, Creatinine 0.84, Estim Creat Clear Calc 50.74, Est GFR (MDRD) Af Amer 85, Est GFR (MDRD) Non-Af 70, BUN/Creatinine Ratio 4.7 L, Glucose 154 H, Calcium 7.7 L, Phosphorus 2.2 L 05/12/18 06:31: POC Glucose 152 H 05/12/18 11:17: POC Glucose 135 H Current Medications Acetaminophen (Tylenol) 650 mg PO Q6H PRN PRN PRN Reason: Mild Pain (1-3)/Temp > 100.7 F Last Admin: 05/12/18 06:29 Dose: 650 mg Albuterol Sulfate (Ventolin Aerosols) 2.5 mg INHALATION Q2H PRN PRN PRN Reason: SOB &/OR WHEEZING Last Admin: 05/12/18 03:33 Dose: 2.5 mg Aspirin (Aspirin, Baby) 81 mg PO DAILY@0800 [facility] Last Admin: 05/12/18 08:51 Dose: 81 mg Atorvastatin Calcium (Lipitor) 20 mg PO QHS [facility] Last Admin: 05/11/18 22:02 Dose: 20 mg Enoxaparin Sodium (Lovenox) 30 mg SC DAILY@1000 [facility] Last Admin: 05/12/18 08:52 Dose: 30 mg Gabapentin (Neurontin) 300 mg PO BIDCM [facility] Last Admin: 05/12/18 08:51 Dose: 300 mg Ceftriaxone Sodium 2 gm/ (Sodium Chloride) 50 mls @ 100 mls/hr IV Q24 [facility] Last Admin: 05/12/18 10:35 Dose: 100 mls/hr Sodium Chloride () 1,000 mls @ 40 mls/hr IV .Q25H [facility] Last Admin: 05/12/18 02:49 Dose: 40 mls/hr Insulin Human Lispro (Humalog Kwikpen (Bkc)) 0 unit SC ACHS [facility]; Protocol Last Admin: 05/12/18 06:31 Dose: 2 u Lactobacillus Acidophilus (Acidophilus) 1 tablet PO BID [facility] Last Admin: 05/12/18 08:51 Dose: 1 tablet Levothyroxine Sodium (Synthroid) 75 mcg PO DAILY@0600 [facility] Last Admin: 05/12/18 06:30 Dose: 75 mcg Metoprolol Succinate (Toprol Xl (Beta Beni)) 25 mg PO DAILY [facility] Last Admin: 05/12/18 08:52 Dose: 25 mg Nutritional Formula (Lactose Free) (Ensure Clear) 120 ml PO 4X/DAY [facility] Last Admin: 05/12/18 08:34 Dose: Not Given Ondansetron HCl (Zofran) 4 mg IV Q6H PRN PRN PRN Reason: NAUSEA Last Admin: 05/12/18 02:40 Dose: 4 mg Pantoprazole Sodium (Protonix) 40 mg PO DAILY [facility] Last Admin: 05/12/18 08:52 Dose: 40 mg Raloxifene HCl (Evista) 60 mg PO DAILY [facility] Last Admin: 05/12/18 08:51 Dose: 60 mg Sodium Chloride () 5 - 15 ml IV UD PRN PRN Reason: SALINE FLUSH Last Admin: 05/10/18 10:15 Dose: 10 ml Medical Necessity - Tobacco Use Smoking Status: Current every day smoker Tobacco Use: Cigarettes Assessment/Plan All Active Problems (Last Updated 01/22/17 @ 08:07 by Stanton Harris, COMPLAINTS COORDINATOR-C) Nausea and vomiting (Acute) Cystitis (Acute) Dizziness (Acute) Pre-syncope (Acute) Heart palpitations (Acute) 73-year-old female with multiple comorbidities admitted with intractable nausea and vomiting and found to have acute sepsis secondary to acute pyelonephritis 1. Sepsis secondary to acute pyelonephritis/cystitis, suspect gram-negative, on IV ceftriaxone 2. Type II DM, BS are controlled, continue with Accu-Cheks and insulin sliding scale 3. COPD, not in acute exacerbation 4. Hyperlipidemia, on statins 5. Hypothyroidism, on replacement 6. Hypertension, on etoprolol, continue same 7. DVT PPx- Lovenox SC Code Visit Inpatient E&M: 83913 Subs Hosp L2
--- NOTE | 2018-05-12 12:18 | CASEMGMT ---
Social Work Note RN SUSSY Fonseca updated this worker that pt would like TCU or RU at discharge. TCU doesn't take pt insurance and pt doesn't have qualifying diagnosis for RU. AMADO ordered PT/OT for pt. AMADO met with pt, introduced self and role at [facility]. Pt is alert and orientated x4. AMADO informed pt that TCU doesn't take pt's insurance and pt doesn't have qualifying diagnosis for RU. AMADO provided pt with list of area SNF and informed pt that pt will need to work with PT/OT and this worker will return to speak with pt regarding SNF once pt works with PT/OT. Pt states understanding. Plan: SNF pending acceptance and pre-cert Adele Rodriguez SUPERVISOR OVENS, MEDICAL STAFF MANAGER
--- NOTE | 2018-05-12 16:00 | CASEMGMT ---
Social Work Note PT/OT notes are still not available for pt. SW met with pt in regards to SNF. Informed pt that this worker can send initial referral to SNF but that pre-cert won't be able to be submitted until PT/OT notes are available. Pt states that her preference for [facility]. SW faxed referral to [facility]. SW will fax PT/OT notes when available. Plan: [facility] pending acceptance and pre-cert Adele Rodriguez HOSE MENDER, HAND STRIPER
[2018-05-12 16:50] LABS: Bedside Glucose 143 mg/dL (70-110)
[2018-05-12] MEDS: Glucerna Shake 120 ML LIQUID PO (18:39)
[2018-05-12] MEDS: Atorvastatin Calcium 20 MG Tablet PO (22:11)
[2018-05-12 22:26] LABS: Bedside Glucose 194 mg/dL (70-110)
[2018-05-13 02:17] VITALS: BP 112/63; PULSE 83; RESP 18; TEMP 37.6; O2SAT 93
[2018-05-13 05:49] LABS: Absolute Lymphocyte Count 1.71 X10^3/ul (0.83-4.51); Absolute Neutrophil Count 3.8 X10^3/uL (2.0-7.7); Basophil# 0.01 X10^3/uL; Basophil% 0.2 % (0-1); Eosinophil# 0.02 X10^3/uL; Eosinophils% 0.3 % (0-5); Hematocrit 30.6 % (37-47); Hemoglobin 10.2 g/dl (12.0-15.0); Lymphocyte # 1.71 X10^3/ul (4.0); Lymphocyte % 27.1 % (19-41); Mean Corp Hgb Conc 33.3 g/gl (32-36); Mean Corpuscular Hgb 32.3 pg (27.0-32.0); Mean Corpuscular Volume 96.8 fL (81-99); Mean Platelet Vol. 9.7 fl (6.2-12.0); Monocyte# 0.79 X10^3/uL; Monocyte% 12.5 % (0-10); Neutrophil # 3.77 X10^3/uL (2.7-7.7); Neutrophil % 59.6 % (47-70); Platelet Count 149 K/mm3 (150-450); RBC Distribution Width CV 13.5 % (11.6-14.6); RBC Distribution Width SD 48.2 fl (35.1-43.9); Red Blood Count 3.16 M/mm3 (4.2-5.4); White Blood Count 6.3 K/mm3 (4.4-11.0)
[2018-05-13 05:56] LABS: Anion Gap 6 (5-15); BUN 4 mg/dL (7-18); BUN/Creat Ratio 5.3 RATIO (10-20); Chloride 109 mmol/L (98-107); Creatinine, Serum 0.76 mg/dL (0.55-1.02); EST Glomerular Filtration Rate 79 mL/min (>60); Est Glom Filt Rate - Afr Amer 96 mL/min (>60); Estimated Creatinine Clearance 42.62 ml/min; Glucose 143 mg/dL (74-106); Potassium 3.3 mmol/L (3.5-5.1); Sodium Level 141 mmol/L (136-145)
[2018-05-13 06:00] LABS: POSITIVE COUNT NO; POSITIVE DIFFERENTIAL NO; POSITIVE MORPHOLOGY NO
[2018-05-13] MEDS: Levothyroxine 75 MCG Tablet PO (06:24)
[2018-05-13 06:40] LABS: Bedside Glucose 131 mg/dL (70-110)
[2018-05-13 07:03] VITALS: O2SAT 95
[2018-05-13 08:06] VITALS: TEMP 37.1
[2018-05-13] MEDS: ALPRAZolam 0.5 MG Tablet PO (08:16)
[2018-05-13] MEDS: Acetaminophen 325 MG Tablet 650 MG PO (08:16)
[2018-05-13] MEDS: Aspirin 81 MG TAB.CHEW PO (08:16)
[2018-05-13] MEDS: Gabapentin 300 MG Capsule PO ×2 (08:16→16:43)
[2018-05-13] MEDS: Glucerna Shake 120 ML LIQUID PO (08:19)
[2018-05-13 08:52] VITALS: BP 128/61; PULSE 73; RESP 20; TEMP 37.2; O2SAT 93
[2018-05-13 08:55] VITALS: PULSE 72
[2018-05-13] MEDS: Enoxaparin 30 MG/0.3 ML Syringe SC (08:55)
[2018-05-13] MEDS: Metoprolol(XL)Succ 25 MG Tablet PO (08:55)
[2018-05-13] MEDS: Pantoprazole Sodium 40 MG Tablet PO (08:55)
[2018-05-13] MEDS: Raloxifene HCl 60 MG Tablet PO (08:55)
--- NOTE | 2018-05-13 09:43 | CASEMGMT ---
Addendum entered by Adele Rodriguez 05/13/18 09:56: AMADO spoke with Raven at [facility]. Raven states she spoke with her business office who states pt's primary insurance is Medicare and secondary is [employer]. AMADO met with pt to confirm insurance. Pt confirms that her primary is Medicare and secondary is [employer]. SW updated pt on acceptance to [facility]. Pt states understanding. Original Note: Social Work Note SW received message from Raven at [facility] stating she is able to accept pt. PT/OT notes are still not available. AMADO spoke with PT who states they will evaluate pt this morning. Plan: [facility] pending pre-cert Adele Rodriguez MANUFACTURING TEAM LEADER, MYSQL DEVELOPER
--- NOTE | 2018-05-13 11:11 | PCM.TXEXTCAR ---
- Diet 05/11/18 11:48 Diet: Cardiac, Calorie Controlled Dietary Modifications:: Mechanical Soft Diet Is pt able to select menu?: Yes How many daily calories?: 1800 calorie - Routine Orders/Code Status Routine Lab Work: CBC - within 3 days, BMP - within 3 days Code Status: Full Code - Therapies Weight Bearing: Weight bearing as tolerated Physical Therapy: Eval and Treat Occupational Therapy: Eval and Treat - Allergies/Procedures Done in Hospital Allergies/Adverse Reactions: Allergies Penicillins Allergy (Verified 05/10/18 03:27) Swelling Procedures: None - Type of Care/Length of Stay Estimated LOS: Convalescent Care Less Than 30 days Type of Care Needed: Skilled Rehab Potential: Good Prognosis: Good - Additional Orders/Day of Discharge Day of Discharge: 05/13/18 - Dietary and Speech Recommendations Dietitian Recommendations/Changes: Rec diet advancement as tolerated by pt and as medically indicated to Cardiac/1600 calorie controlled diet. Will add Ensure Clear 120 ml w/ medpass to increase calorie/protein intake. - Follow Up Care Primary Care Physician: Reece Salas [Primary Care Provider] - Please follow up with your Primary Care Physician in: within 1-2 weeks post discharge from SNF
[2018-05-13] MEDS: Insulin Lispro 100 UNIT/ML INSULN.PEN SC (11:19)
--- NOTE | 2018-05-13 11:34 | DS.PCM_ITS ---
Discharge Date and Diagnosis - Problem List Patient Problems: Active and Suspected Problems (Last Updated 01/22/17 @ 08:07 by MAUDE Price) Nausea and vomiting (Acute) Cystitis (Acute) Date of Admission: 05/10/18 Date of Discharge: 05/13/18 - Primary Discharge Diagnosis Active and Suspected Problems (Last Updated 01/22/17 @ 08:07 by MAUDE Price) Intractable nausea and vomiting Sepsis secondary to acute left pyelonephritis/cystitis - Secondary Discharge Diagnosis Chronic Problems (Last Updated 01/22/17 @ 08:07 by TOBI Price) Syncope (Chronic) Hyperlipemia, mixed (Chronic) Anxiety and depression (Chronic) PTSD (post-traumatic stress disorder) (Chronic) Osteoporosis (Chronic) Panic attacks (Chronic) Hypothyroid (Chronic) MVP (mitral valve prolapse) (Chronic) ECHO at [facility] in May of 2014 showed no MVP Dyslipidemia (Chronic) COPD, mild (Chronic) PVC's (premature ventricular contractions) (Chronic) Nicotine addiction (Chronic) Hospital Course and Treatment Imaging Results: Clinical Impression(s) from Imaging Studies Chest X-Ray 05/10/18 04:50 IMPRESSION: Hiatal hernia measures 14 cm. Electronically Signed: Guero Kwong, at 5:43 EDT Tel , Service support , Abdomen/Pelvis CT 05/10/18 04:51 IMPRESSION: There is mild left hydronephrosis with perirenal fat stranding suggesting pyelonephritis. There is possible stone measures 3 mm in the distal left ureter. Electronically Signed: Guero Kwong, at 7:15 EDT Tel , Service support , KUB X-Ray 05/11/18 05:55 IMPRESSION: Nonobstructive bowel gas pattern. Electronically Signed: Nato Da Silva MD at 10:12 EDT , Service support , Chest X-Ray 05/11/18 08:17 IMPRESSION: 1. Stable exam. Electronically Signed: Nato Da Silva MD at 11:59 EDT , Service support , None Operations: None Procedures: None Summary of Care Provided: 73-year-old female with multiple comorbidities admitted with intractable nausea and vomiting and found to have acute sepsis secondary to acute pyelonephritis 1. Sepsis secondary to acute pyelonephritis/cystitis, suspect gram-negative, Blood and urine cultures were negative, managed on IV ceftriaxone, discharged on Omnicef twice daily for 5 more days 2. Type II DM, BS are controlled, managed with Accu-Cheks and insulin sliding scale 3. COPD, not in acute exacerbation 4. Hyperlipidemia, on statins 5. Hypothyroidism, on replacement 6. Hypertension, on metoprolol 7. Anxiety disorder, on prn Xanax Patient Problems: Active and Suspected Problems (Last Updated 01/22/17 @ 08:07 by Stanton Harris, SIEVE MAKER- C) Nausea and vomiting (Acute) Cystitis (Acute) Subjective: The day of discharge, patient was seen and examined. She felt a little impr abbe. No fevers. Denied any nausea or vomiting. Able to tolerate her diet. Objective: Physical exam: General: Alert, Oriented x3, Cooperative HEENT: Atraumatic, PERRLA, EOMI, Normocephalic Oral: Moist Mucosa Neck: Supple Lungs: Clear to auscultation, Normal air movement Cardiovascular: Regular rate, Regular Rhythm, Normal S1, Normal S2, No murmurs Abdomen: Bowel Sounds Present, Soft, Non-Distended, No Hepato-splenomegaly, Tender - mild left flank tenderness Extremities: No edema Skin: No rashes, No breakdown Musculoskeletal: No Tenderness to Palpation of Joints or Extremities Lymphatic: No Cervical, Supraclavicular, or Inguinal Adenopathy Neurological: Cranial nerves II-XII grossly intact, Neuro grossly intact Psych/Mental Status: Normal Affect, Appropriate - Physical Exam Vital Signs Temp Pulse Resp BP Pulse Ox 98.9 F 72 20 H 128/61 H 93 05/13/18 08:52 05/13/18 08:55 05/13/18 08:52 05/13/18 08:52 05/13/18 08:52 Oxygen Flow Rate (L/min) 2 Oxygen Delivery Method Room Air Weight: 77.5 kg Body Mass Index (BMI) 29.3 Intake and Output for Last 24 Hours 05/11/18 05/12/18 05/13/18 23:59 23:59 23:59 Intake Total 4313 / 4313 1911 / 1911 1563 / 1563 Output Total 2700 / 2700 1450 / 1450 1700 / 1700 Balance 1613 / 1613 461 / 461 -137 / -137 Microbiology Past 72 Hours 05/11/18 21:09 Urine Culture - Final Urine, Clean Catch Culture exhibits no growth. 05/10/18 03:45 Blood Culture - Preliminary Blood Culture (Wb) - Anticubital Left No growth in 48 hours. 05/10/18 03:50 Blood Culture - Preliminary Blood Culture (Wb) - Anticubital Right No growth in 48 hours. Laboratory Tests Past 24 Hrs 05/13/18 05/13/18 05:10 05:10 WBC 6.3 RBC 3.16 L Hgb 10.2 L Hct 30.6 L MCV 96.8 MCH 32.3 H MCHC 33.3 RDW 13.5 RDW Differential 48.2 H Plt Count 149 L MPV 9.7 Immature Gran % (Auto) 0.300 Neut % (Auto) 59.6 Lymph % (Auto) 27.1 Mcculloch % (Auto) 12.5 H Eos % (Auto) 0.3 Baso % (Auto) 0.2 Absolute Neuts (auto) 3.8 Absolute Lymphs (auto) 1.71 Total Counted Not Reportable Sodium 141 Potassium 3.3 L Chloride 109 H Carbon Dioxide 26.0 Anion Gap 6 BUN 4 L Creatinine 0.76 Estim Creat Clear Calc 42.62 Est GFR (MDRD) Af Amer 96 Est GFR (MDRD) Non-Af 79 BUN/Creatinine Ratio 5.3 L Glucose 143 H Calcium 8.0 L POC Glucose 05/13/18 05/12/18 05/12/18 06:23 22:10 16:41 POC Glucose 131 H 194 H 143 H Discharge Diet: Low fat/ Low Cholesterol, 2000 mg Sodium Diet Discharge Activity: Return to Normal Activity Home Medications: Medications to take at Discharge Acetaminophen/Codeine #3 [Tylenol #3 Tablet] 1 tab PO BID PRN 05/22/14 Aspirin [Aspirin, Baby] 81 mg PO DAILY@0800 04/11/15 Gabapentin [Neurontin] 300 mg PO BIDCM 05/22/14 Levothyroxine [Synthroid] 75 mcg PO DAILY 05/22/14 Loratadine [Claritin] 10 mg PO DAILY 05/22/14 Raloxifene HCl [Evista] 60 mg PO DAILY 05/22/14 Simvastatin [Zocor] 40 mg PO QHS 05/22/14 Magnesium Oxide [Mag-Ox 400] 400 mg PO BID 09/19/15 metoprolol succinate ER 25 mg tablet,extended release 24 hr 25 mg PO DAILY 01/18/17 Metformin HCl [Glucophage] 250 mg PO MOWEFR 05/09/18 Pantoprazole Sodium [Protonix] 40 mg PO DAILY 05/09/18 ALPRAZolam [Xanax] 0.5 mg PO DAILY #5 tab 05/13/18 Acetaminophen [Tylenol Tablet] 650 mg PO Q6H PRN PRN tablet 05/13/18 Albuterol Aerosols [Ventolin Aerosols] 2.5 mg INHALATION Q2H PRN PRN vial.neb. 05/13/18 Cefdinir [Omnicef [equiv]] 300 mg PO Q12H #10 capsule 05/13/18 Glucerna Shake 120 ml PO TIDCM liquid 05/13/18 Insulin Lispro [Humalog KwikPen] See Protocol SC ACHS insuln.pen 05/13/18 Lactobacillus Acidophilus [Acidophilus] 1 tablet PO BID tablet 05/13/18 Following Prescrptions Were Given to Patient: ALPRAZolam [Xanax] 0.5 mg PO DAILY #5 tab Cefdinir [Omnicef [equiv]] 300 mg PO Q12H #10 capsule Primary Care Physician: Reece Salas [Primary Care Provider] - Please follow up with your Primary Care Physician in: within 1-2 weeks post discharge from SNF Disposition: [facility]it[facility]iary facility Minutes spent on discharge:: 40 Patient Condition:: Stable Medical Necessity - Tobacco Use Smoking Status: Current every day smoker Tobacco Use: Cigarettes Meaningful Use Info Meaningful Use Diagnoses (Choose all that apply): None applicable Code Visit Inpatient E&M: 27165 Disch Hosp
[2018-05-13 11:36] LABS: Bedside Glucose 163 mg/dL (70-110)
--- NOTE | 2018-05-13 12:11 | CASEMGMT ---
Social Work Note Pt is discharging to [facility] today. AMADO faxed completed discharge paperwork to [facility] including transfer to extended care facility, signed medication list and any scripts. Original in SNF folder and copy on pt's chart. AMADO completed convalescent [facility] in [facility]. Original in SNF folder and copy on pt's chart. SW spoke with pt, updated her on discharge to [facility] today. Pt states that her granddaughter and her should be able to transport pt today and gave this worker permission to call her granddaughter to confirm she is able to transport. AMADO placed a call to pt's granddaughter Miri. Miri states that her gets off work around 4:00pm and will be able to transport pt if that time is ok. AMADO informed Miri that 4:00pm is fine and that this worker will update staff at [facility] and [facility] on transportation time. Miri states understanding and that her will be at [facility] between 4:00-5:00pm to transport pt to [facility]. AMADO updated RN and placed a call to [facility] and updated Louise on transportation time. Plan: Pt to discharge to [facility] skilled today with family transportation between 4:00-5:00pm. Adele Rodriguez FIRER KILN, CONCRETE CRUSHER LOADER OPERATOR
[2018-05-13 14:41] VITALS: BP 135/66; PULSE 68; RESP 20; TEMP 36.7; O2SAT 93
== END 2018-05-13 18:50 | disposition skilled nursing facility (03) | DRG 872 ==
LOC: ED 06:07 → MS3 06:34
PROVIDERS: Internal Medicine; Admitting Provider Internal Medicine; Emergency Provider Emergency Medicine; Family Provider Family Medicine; PCP Family Medicine; Visit Provider Internal Medicine
DX: A41.9 Sepsis, unspecified organism (principal); N10 Acute pyelonephritis; N13.6 Pyonephrosis; I95.9 Hypotension, unspecified; E78.5 Hyperlipidemia, unspecified; I34.1 Nonrheumatic mitral (valve) prolapse; J44.9 Chronic obstructive pulmonary disease, unspecified; M81.0 Age-related osteoporosis without current pathological fracture; E03.9 Hypothyroidism, unspecified; F41.9 Anxiety disorder, unspecified; F32.9 Major depressive disorder, single episode, unspecified; F43.10 Post-traumatic stress disorder, unspecified; F41.0 Panic disorder [episodic paroxysmal anxiety]; E11.9 Type 2 diabetes mellitus without complications; I10 Essential (primary) hypertension; F17.210 Nicotine dependence, cigarettes, uncomplicated; E83.39 Other disorders of phosphorus metabolism; E87.6 Hypokalemia; K44.9 Diaphragmatic hernia without obstruction or gangrene; Z79.82 Long term (current) use of aspirin; Z79.4 Long term (current) use of insulin; Z79.899 Other long term (current) drug therapy
CPT/HCPCS: 36415; 71045; 74018; 74176; 80048; 80076; 81001; 82962; 83036; 83605; 83690; 83735; 83880; 84100; 85025; 85027; 87040; 87086; 87088; 87186; 93005; 94640; 96361; 96365; 96375; 97162; 97166; 97802; 99285; 99406; J7030; J7050; A4216; J0696; J2405

== ENCOUNTER 2018-08-30 18:09 | Emergency (ER) | payer MEDICARE, MEDICAID, SELFPAY ==
[2018-05-10 07:05] VITALS: BMI 29.3
[2018-08-30 18:10] VITALS: BP 152/67; PULSE 85; RESP 18; TEMP 36.6; O2SAT 95; BMI 27.4
--- NOTE | 2018-08-30 18:27 | ED.VISSUMM ---
- ER Visit Summary Date of Service: 08/30/18 Chief Complaint: Dysuria History of Present Illness: The patient is a 73 F was admitted in June with UTI/sepsis. She went to rehab had another UTI there. She states that prior to June she had never had one before. Today she is to experience some dysuria and frequency. She notes some stress incontinence that actually has been better since June. She has 6 children. She has been referred to urology has not seen them yet. Physical Examination: Afebrile vital signs are stable Gen: Well-nourished well-developed Head: Normocephalic atraumatic Eyes: Perrl EOMI ENT: TMs clear no rhinorrhea moist mucous membranes Neck: Supple no lymphadenopathy no JVD nontender CVS: Regular rate rhythm no murmurs normal S1-S2 Respiratory: No distress clear to auscultation bilaterally chest nontender Abdomen: Soft nontender nondistended normal bowel sounds no masses Back: Nontender Extremity: Nontender no edema Skin: Normal color no rash Neuro: alert orientated ?3 CN II-XII intact normal strength sensation reflexes gait cerebellar Psych: Normal affect normal mood Test Results: Urinalysis is obtained. Positive nitrates and leukocyte esterase. Greater than 100 white blood cells 1+ bacteria. This will be sent for culture. Emergency Department Course and Treatment: Based on her last culture I am going to prescribe Cipro. We talked about discontinuing it if she starts to have pain in her tendons. I will also write for Pyridium. Follow-up with urology as scheduled. Impression: 1. Acute cystitis This note was generated with Surgient dictation software. It may contain incorrect words, spelling, and punctuation that were not noted in review of the chart prior to signing ED Disposition - Plan for ED Patient: Disposition: Home or Assisted Living Instructions: Bladder Infection, Female (Adult) Prescriptions: Ciprofloxacin [Cipro] 500 mg PO BID #14 tab Prescription Printed Phenazopyridine HCl [Pyridium] 200 mg PO TID #9 tab Prescription Printed Referrals: Zenia Chappell MD [STAFF PHYSICIAN] -
[2018-08-30 18:41] LABS: Mucous, Urine 0 SEEN /hpf (<or=2+); Red Blood Cells-Urine 0 SEEN /hpf (0-5)
[2018-08-30 18:47] LABS: Color, Urine Yellow (Yellow); Glucose, Dipstick Normal (Normal); Ketone-Dipstick 5 mg/dl (Negative); Leukocyte Esterase-Dipstick 500 /ul (Negative); Nitrite-Dipstick Positive (Negative); Occult Blood-Urine 50 /ul (Negative); Protein-Dipstick 100 mg/dl (Negative); Specific Gravity, Urine 1.015 (1.002-1.030); Urine Bilirubin Dipstick Negative (Negative); Urine Clarity Turbid (Clear); Urine Urobilinogen 1 mg/dl (Normal)
[2018-08-30 18:56] LABS: Bacteria 1+ /hpf (None Seen); Squamous Epithelial Cells - UA 0-5 SEEN /hpf (5-10); White Blood Cells >100 SEEN /hpf (0-5)
[2018-08-30 19:21] VITALS: BP 134/69
== END 2018-08-30 19:35 | disposition home or self-care (01) ==
PROVIDERS: Emergency Provider Emergency Medicine; Family Provider Family Medicine; PCP Family Medicine
DX: N30.00 Acute cystitis without hematuria (principal); R35.0 Frequency of micturition; N39.3 Stress incontinence (female) (male); J44.9 Chronic obstructive pulmonary disease, unspecified; E11.9 Type 2 diabetes mellitus without complications; I10 Essential (primary) hypertension; Z72.0 Tobacco use; Z79.82 Long term (current) use of aspirin; Z79.4 Long term (current) use of insulin; Z79.899 Other long term (current) drug therapy; Z87.440 Personal history of urinary (tract) infections
CPT/HCPCS: 81001; 87077; 87086; 87088; 87186; 99282

== ENCOUNTER → 2018-09-29 14:18 | Outpatient (CLI) | payer MEDICARE, SELFPAY ==
[2018-08-30 18:10] VITALS: BMI 27.4
--- NOTE | 2018-09-29 14:23 | US_ITS ---
STUDY: RENAL ULTRASOUND - COMPLETE REASON FOR EXAM: Female, 73 years old. Urinary tract infection. History of stones. TECHNIQUE: Ultrasound evaluation of the kidneys was performed with real-time and static goldberg-scale imaging. COMPARISON: May 10, 2018 FINDINGS: RIGHT KIDNEY: Normal location of the right kidney, which is normal in size. The right kidney measures 9.4 cm in length. There is a normal cortex of the right kidney. There is no right renal mass or cyst. There are no right renal calculi. There is no right hydronephrosis. DISTAL RIGHT URETER: There is a visualized right ureteral jet. LEFT KIDNEY: Normal location of the left kidney, which is normal in size. The left kidney measured 9.8 cm in length. There is a normal cortex of the left kidney. There is no left renal mass or cyst. There are no left renal calculi. There is no left hydronephrosis. DISTAL LEFT URETER: There is a visualized left ureteral jet. BLADDER: The distended urinary bladder has a volume of 239 ml. There is a normal wall thickness of the distended urinary bladder. There is no demonstrated mass within the urinary bladder. There are no demonstrated bladder calculi. US/Kidney and Bladder IMPRESSION: Within normal limits ultrasound of the kidneys and urinary bladder. Electronically Signed: Malissa Zuniga MD at 17:40 EDT Tel , Service support ,
== END ==
PROVIDERS: Family Provider Family Medicine; PCP Family Medicine; Referring Provider Urology; Visit Provider Urology
DX: N39.0 Urinary tract infection, site not specified (principal); N20.1 Calculus of ureter
CPT/HCPCS: 76770

== ENCOUNTER → 2018-10-24 15:06 | Outpatient (CLI) | payer MEDICARE, SELFPAY ==
[2018-10-24 15:11] LABS: Bacteria 0 SEEN /hpf (None Seen); Mucous, Urine 0 SEEN /hpf (<or=2+); Red Blood Cells-Urine 0 SEEN /hpf (0-5); White Blood Cells 0 SEEN /hpf (0-5)
[2018-10-24 17:50] LABS: Color, Urine Yellow (Yellow); Glucose, Dipstick Normal (Normal); Ketone-Dipstick Negative (Negative); Leukocyte Esterase-Dipstick Negative /ul (Negative); Nitrite-Dipstick Negative (Negative); Occult Blood-Urine Negative /ul (Negative); Protein-Dipstick Negative (Negative); Urine Bilirubin Dipstick Negative (Negative); Urine Clarity Sl. Cloudy (Clear); Urine Urobilinogen Normal (Normal)
[2018-10-24 18:05] LABS: Squamous Epithelial Cells - UA 0-5 SEEN /hpf (5-10)
== END ==
PROVIDERS: Family Provider Family Medicine; PCP Family Medicine; Referring Provider Urology; Visit Provider Urology
DX: R30.0 Dysuria (principal)
CPT/HCPCS: 81001; 87086; 87088

== ENCOUNTER → 2018-11-07 16:26 | Outpatient (CLI) | payer MEDICARE, SELFPAY ==
[2018-11-07 17:06] LABS: Absolute Lymphocyte Count 3.19 X10^3/uL (0.83-4.51); Absolute Neutrophil Count 3.7 X10^3/uL (2.0-7.7); Basophil# 0.04 X10^3/uL; Basophil% 0.5 % (0-1); Eosinophil# 0.11 X10^3/uL; Eosinophils% 1.4 % (0-5); Hematocrit 46.7 % (37-47); Lymphocyte # 3.19 X10^3/ul (4.0); Lymphocyte % 41.3 % (19-41); Mean Corp Hgb Conc 32.1 g/dL (32-36); Mean Corpuscular Hgb 32.5 pg (27.0-32.0); Mean Corpuscular Volume 101.3 fL (81-99); Mean Platelet Vol. 9.5 fl (6.2-12.0); Monocyte# 0.61 X10^3/uL; Monocyte% 7.9 % (0-10); NRBC Flagged by Analyzer 0 % (0-5); Neutrophil # 3.74 X10^3/uL (2.7-7.7); Neutrophil % 48.5 % (47-70); Platelet Count 225 K/mm3 (150-450); RBC Distribution Width CV 14.3 % (11.6-14.6); RBC Distribution Width SD 54.7 fl (35.1-43.9); Red Blood Count 4.61 M/mm3 (4.2-5.4); White Blood Count 7.7 K/mm3 (4.4-11.0)
[2018-11-07 17:23] LABS: Hemoglobin A1c 6.5 % (4.2-6.3)
[2018-11-07 17:34] LABS: ALB/GLOB Ratio 0.9 RATIO (0.9-2.4); AST(SGOT) 22 U/L (15-37); Alanine Aminotransfer ALT/SGPT 21 U/L (13-56); Albumin, Serum 3.7 g/dL (3.2-5.0); Alkaline Phosphatase 45 U/L (45-117); Anion Gap 7 (5-15); BUN 8 mg/dL (7-18); BUN/Creat Ratio 8.3 RATIO (10-20); Calcium,Total 9.5 mg/dL (8.5-10.1); Chloride 106 mmol/L (98-107); Cholesterol 167 mg/dL (200); Creatinine, Serum 0.96 mg/dL (0.55-1.02); EST Glomerular Filtration Rate 60 mL/min (>60); Est Glom Filt Rate - Afr Amer 73 mL/min (>60); Glucose 117 mg/dL (74-106); High Density Lipoprotein 55 mg/dL; Potassium 4.4 mmol/L (3.5-5.1); Protein, Total 7.7 g/dL (6.4-8.2); Sodium Level 140 mmol/L (136-145); Triglycerides 240 mg/dL; Very Low Density Lipoprotein 48 mg/dL (5-40)
== END ==
PROVIDERS: Family Provider Family Medicine; PCP Family Medicine; Referring Provider Family Medicine; Visit Provider Family Medicine
DX: E11.9 Type 2 diabetes mellitus without complications (principal); E78.2 Mixed hyperlipidemia
CPT/HCPCS: 36415; 80053; 80061; 83036; 85025

== ENCOUNTER → 2018-11-17 13:48 | Outpatient (CLI) | payer MEDICARE, SELFPAY ==
--- NOTE | 2018-11-17 13:52 | CT_ITS ---
STUDY: CT BRAIN WITH AND WITHOUT CONTRAST REASON FOR EXAM: Female, 73 years old. HEADACHE FRONTAL AREA Tamp; AROUND BILAT EYES RADIATION DOSAGE (If Supplied By Facility): CTDIvol = ( 44.99 ) mGy, DLP = ( 1547.23 ) mGycm TECHNIQUE: Transaxial CT imaging of the brain was performed pre and post contrast administration. The examination was performed with intravenous administration of IV Isovue 370 50CC. Individualized dose optimization techniques were used for this CT. COMPARISON: None. FINDINGS: Normal soft tissue structures. Normal calvarium. Normal size ventricles and extra-axial spaces for the patient's age. There are areas of decreased attenuation within the white matter tracts of the supratentorial brain, consistent with microvascular disease changes. Normal basal ganglia and thalami. Normal brainstem. Normal cerebellum. There is no intracranial hemorrhage. There are no findings of an acute ischemic infarction. Normal visualized paranasal sinuses. CT/Brain/Head W/WO Contrast IMPRESSION: Chronic involutional changes of the brain. Electronically Signed: Guero Kwong, at 3:26 EDT Tel , Service support ,
== END ==
PROVIDERS: Family Provider Family Medicine; PCP Family Medicine; Referring Provider Family Medicine; Visit Provider Family Medicine
DX: R51 Headache (principal)
CPT/HCPCS: 70470; Q9967

== ENCOUNTER 2018-11-27 13:20 | Emergency (ER) | payer MEDICARE, SELFPAY ==
[2018-11-27 13:20] VITALS: BP 156/77; PULSE 79; RESP 16; TEMP 36.8; O2SAT 98; BMI 28.3
--- NOTE | 2018-11-27 13:38 | RAD_ITS ---
STUDY: X-RAY - LEFT SHOULDER REASON FOR EXAM: Female, 73 years old. Left arm pain and shoulder pain following a lifting injury. TECHNIQUE: 4 view(s) of the shoulder. COMPARISON: None. FINDINGS: Normal glenohumeral articulation. Normal acromioclavicular joint. Normal acromion. Normal humeral head and visualized proximal humerus. The soft tissue structures are unremarkable. Normal visualized pulmonary apex. RAD/Shoulder min 2 Views IMPRESSION: Normal x-ray examination of the shoulder. Electronically Signed: Yohannes Bentley, at 14:24 EDT , Service support ,
--- NOTE | 2018-11-27 14:00 | RAD_ITS ---
STUDY: X-RAY - CERVICAL SPINE REASON FOR EXAM: Female, 73 years old. Left shoulder pain and arm pain following a lifting injury. TECHNIQUE: 5 view(s) of the cervical spine were obtained. COMPARISON: None FINDINGS: There are degenerative changes of the anterior atlantoaxial articulation. Normal odontoid process. Normal cervical lordosis. Mild degree of anterior spondylosis at the C5-C6 and C6-C7 levels. There is multi-level degenerative disc disease with multilevel disc space narrowing. Normal visualized intervertebral neuroforamina. The soft tissue structures are unremarkable. RAD/Cerv Spine 4 or 5 Views IMPRESSION: Disc space narrowing and anterior spondylosis at the C5-C6 and C6-C7 levels. Electronically Signed: Yohannes Bentley, at 14:24 EDT , Service support ,
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
[2018-11-27 14:36] LABS: Bedside Glucose 168 mg/dL (70-110)
--- NOTE | 2018-11-28 15:06 | ED.VISSUMM ---
- ER Visit Summary Date of Service: 11/28/18 Chief Complaint: Prescription was called into designated pharmacy. Apparently prescription that was written and signed for yesterday did not go to designated pharmacy. Please read/review original documentation on the date of service. History of Present Illness: The patient is a 73 F [] Physical Examination: [] Test Results: [] Emergency Department Course and Treatment: [] Treatment Plan: [] Disposition: [] Impression: [] This note was generated with [employer] dictation software. It may contain incorrect words, spelling, and punctuation that were not noted in review of the chart prior to signing ED Disposition - Plan for ED Patient: Disposition: Home or Assisted Living Diagnosis: Impingement syndrome of left shoulder region, Cervical radicular pain Instructions: NECK PAIN, No Trauma, Shoulder Impingement Syndrome Prescriptions: Prednisone [Deltasone] 40 mg PO DAILY #10 tab Prescription Printed Prednisone [Deltasone] 40 mg PO DAILY #10 tab Transmission Status: Received by [id number] Referrals: Reeec Salas [Primary Care Provider] - 1 Week if not improving
== END 2018-11-27 15:07 | disposition home or self-care (01) ==
PROVIDERS: Emergency Provider Emergency Medicine; Family Provider Family Medicine; PCP Family Medicine
DX: M75.42 Impingement syndrome of left shoulder (principal); M47.22 Other spondylosis with radiculopathy, cervical region; J44.9 Chronic obstructive pulmonary disease, unspecified; E03.9 Hypothyroidism, unspecified; E78.5 Hyperlipidemia, unspecified; I34.1 Nonrheumatic mitral (valve) prolapse; M19.90 Unspecified osteoarthritis, unspecified site; F32.9 Major depressive disorder, single episode, unspecified; F41.9 Anxiety disorder, unspecified; F43.12 Post-traumatic stress disorder, chronic; X58.XXXA Exposure to other specified factors, initial encounter; Y93.9 Activity, unspecified; Y92.9 Unspecified place or not applicable; Y99.9 Unspecified external cause status; Z79.82 Long term (current) use of aspirin; Z79.4 Long term (current) use of insulin; Z79.899 Other long term (current) drug therapy; Z87.891 Personal history of nicotine dependence; Z88.0 Allergy status to penicillin; Z90.49 Acquired absence of other specified parts of digestive tract
CPT/HCPCS: 72050; 73030; 82962; 99282

== ENCOUNTER → 2019-04-27 14:59 | Outpatient (CLI) | payer MEDICARE, SELFPAY | PROVIDERS: PCP Family Medicine; Referring Provider Urology; Visit Provider Urology | DX: N39.0 Urinary tract infection, site not specified (principal); N94.10 Unspecified dyspareunia | CPT/HCPCS: 87077; 87086; 87088; 87186 ==

== ENCOUNTER → 2020-01-28 | Outpatient (CLI) | payer MEDICARE, MEDICAID, SELFPAY | END | disposition home or self-care (01) | LOC: LABSPEC 18:12 | PROVIDERS: PCP Family Medicine; Referring Provider Family Medicine; Visit Provider Family Medicine | DX: Z20.828 Contact with and (suspected) exposure to other viral communicable diseases (principal) | CPT/HCPCS: 87635; C9803; U0003 ==

== ENCOUNTER → 2020-02-29 15:49 | Outpatient (CLI) | payer MEDICARE, MEDICAID, SELFPAY ==
--- NOTE | 2020-02-29 15:52 | BI_ITS ---
MAMMOGRAPHY - BILATERAL SCREENING REASON FOR EXAM: Female, 75 years old. Routine annual screening examination. PERTINENT HISTORY: Sister with breast cancer. TECHNIQUE: Digital bilateral breast boris (3D mammographic acquisition) in the CC and MLO projections. 2-D mediolateral oblique (MLO) and craniocaudad (CC) views of both breasts were obtained. CAD: Full Field Digital Mammography with Computer Added Detection was performed. COMPARISON: Comparison is made with prior study dated 10/03/2017 and 05/21/2016. FINDINGS: Breast Composition: The breasts are heterogeneously dense, which may obscure small masses. There are no dominant masses or suspicious calcifications. Stable 2 cm x 1.6 cm lobular density in the upper slightly medial aspect of the left breast. Stable scattered bilateral calcifications. No other significant abnormalities are identified. There has been no significant change since the prior study. BI/SCRN MAMM (CAD)W/BORIS BILAT IMPRESSION: Stable bilateral screening mammogram. Yearly follow-up mammogram recommended. (A) ASSESSMENT CATEGORY: BIRADS Category 2: Benign. A letter regarding these results will be sent to the patient by the facility within 30 days. Approximately 10% of breast cancers are not detected by mammography. A normal mammogram should not delay biopsy of a clinically suspicious abnormality. [id number] Electronically Signed: Yohannes Bentley MD at 8:22 EST , Service support ,
== END ==
PROVIDERS: PCP Family Medicine; Referring Provider Family Medicine; Visit Provider Family Medicine
DX: Z12.31 Encounter for screening mammogram for malignant neoplasm of breast (principal); Z80.3 Family history of malignant neoplasm of breast
CPT/HCPCS: 77063; 77067

== ENCOUNTER 2020-04-23 03:00 | Outpatient (RCR) | payer MEDICARE, MEDICAID, SELFPAY ==
[2020-04-19] MEDS: COVID-19 VACC, MRNA(PFIZER)/PF 30 MCG/0.3 ML SYRINGE IM (18:36)
[2020-05-26] MEDS: COVID-19 VACC, MRNA(PFIZER)/PF 30 MCG/0.3 ML SYRINGE IM (10:15)
== END 2020-07-19 23:59 ==
LOC: IMMUN 03:00
PROVIDERS: PCP Family Medicine; Visit Provider Family Medicine
DX: Z23 Encounter for immunization (principal)
CPT/HCPCS: 0001A; 0002A; 91300

== ENCOUNTER → 2020-09-08 17:58 | Outpatient (CLI) | payer MEDICARE, MEDICAID, SELFPAY ==
--- NOTE | 2020-09-08 18:03 | CT_ITS ---
STUDY: LOW DOSE CT LUNG CANCER SCREENING REASON FOR EXAM: Female, 75 years old. Current smoker 62 pack-year history. COPD and diabetes. RADIATION DOSAGE (If Supplied By Facility): CTDIvol = ( 3.02 ) mGy, DLP = ( 100.05 ) mGycm TECHNIQUE: No contrast was administered. Low dose technique was utilized (average mAS-38 and kVp 120). 1.25 mm axial source images with a slice interval of 1.25-mm were reconstructed in lung windows. 2.5 mm axial source images with a slice interval of 2.5-mm were reconstructed in lung windows. 5.0 mm axial source images with a slice interval of 5.0-mm were reconstructed in soft tissue windows. Nodule measured using lung windows on PACS and/or independent workstation with automated measurement of minimum and maximum diameter. Nodule measurement reported as average diameter rounded to the nearest whole number. Growth is defined as an increase ins size of greater than 1.5 mm. COMPARISON: Chest, 05/11/2018. NODULES: Total lung nodules (excluding granulomas): 0 Emphysema: There are diffuse emphysematous changes of lungs. There is no evidence trait. Endobronchial lesion: None Aorta: Atherosclerotic tortuosity without aneurysm. Coronary arteries: Mild coronary artery calcifications. Heart: The heart is normal in size. Pulmonary artery: Normal Mediastinal nodes: Nonspecific subcentimeter mediastinal lymphadenopathy. Other chest and abdominal findings: Large retrocardiac hiatal hernia. Mild degenerative changes of the thoracic spine. CT/Low Dose CT Lung Screening IMPRESSION: Lung-RADS category 1 - Continue annual screening with LDCT in 12 months. IMPORTANT NOTES FOR USE: ACR Lung-RADS Version 1.1 Assessment Categories Release Date: 2018 Category: Coded 0-4 bases on nodule(s) with highest degree of suspicion. Negative screen is defined as categories 1 and 2; a positive screen is defined as categories 3 and 4. Category 3 and 4A nodules that are unchanged on interval CT should be coded as category 2, and individuals returned to screening in 12 months. Category 4X: Category 3 or 4 nodules with additional imaging findings that increase the suspicion of lung cancer, such as spiculation, GGN that doubles in size in 1 year, enlarged lymph notes, etc. Category Modifiers: S (significant finding unrelated to lung cancer) Electronically Signed: Santhosh Macias DO at 21:19 EDT Tel [phone], Service support ,
== END ==
PROVIDERS: PCP Family Medicine
DX: Z12.2 Encounter for screening for malignant neoplasm of respiratory organs (principal); F17.210 Nicotine dependence, cigarettes, uncomplicated
CPT/HCPCS: 71271

== ENCOUNTER 2020-10-30 18:36 | Inpatient (IN) | payer MEDICARE, MEDICAID, SELFPAY ==
[2020-10-30 18:37] VITALS: BP 114/80; PULSE 99; RESP 18; TEMP 36.7; O2SAT 97; BMI 28.3
--- NOTE | 2020-10-30 20:07 | CT_ITS ---
STUDY: CT FACIAL BONES WITH CONTRAST REASON FOR EXAM: Female, 75 years old. Left-sided pain and swelling. Dental procedure one month ago. RADIATION DOSAGE (If Supplied By Facility): CTDIvol = ( 29.38 ) mGy, DLP = ( 657.65 ) mGycm TECHNIQUE: The patient was scanned in a multi detector CT scanner. Transaxial imaging was performed following the intravenous administration of IV 100mL Isovue-370. Sagittal and coronal images were reconstructed. Individualized dose optimization techniques were used for this CT. COMPARISON: CT brain 11/17/2018. FINDINGS: 0.6 x 1.8 x 1.5 cm TRV X AP X CC subperiosteal abscess along the outer aspect of the left distal mandibular body/proximal mandibular symphysis, overlying the left mental foramen. No acute fracture or osseous destruction. A small periapical lucency surrounds the root of the left mandibular posterior premolar. While there is no jayme osseous destruction, the adjacent mandibular marrow is heterogenous, extending toward the left mandibular mental foramen underlying the abscess. The maxilla is edentulous. The bilateral mandibular molars and right mandibular premolar are absent. The residual mandibular teeth of several small dental caries. Cerclage wire in the more proximal left mandibular angle. Fascial thickening and edema superficial to the abscess and extending inferiorly in the left neck. The submandibular and parotid glands are unremarkable. Globes have normal contour, no proptosis. Chronic right medial orbital wall fracture. Vascular structures patent. CT/Sinus/Facial Bone WITH Contras IMPRESSION: 1.5 cm in greatest dimension subperiosteal abscess along the outer aspect of the left distal mandibular body/proximal mandibular symphysis. This abscess overlies the left mental foramen, and may communicate via this foramen, with a periapical lucency surrounding the root of the nearby left mandibular posterior premolar. Overlying cellulitis extending inferiorly in the anterior neck. Electronically Signed: Kenrick Cota MD at 23:05 EDT Tel , Service support ,
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
[2020-10-30] MEDS: morphine 8 MG/ML Syringe IV (20:26)
[2020-10-30] MEDS: Ondansetron 4 MG/2 ML Vial IV (20:26)
[2020-10-30 20:27] VITALS: BP 114/80; PULSE 99; RESP 18; TEMP 36.7; O2SAT 97
[2020-10-30 20:55] LABS: Absolute Lymphocyte Count 1.98 X10^3/uL (0.83-4.51); Absolute Neutrophil Count 5.7 X10^3/uL (2.0-7.7); Basophil# 0.02 X10^3/uL; Basophil% 0.2 % (0-1); Eosinophil# 0.06 X10^3/uL; Eosinophils% 0.7 % (0-5); Hematocrit 45.3 % (37-47); Hemoglobin 14.5 g/dL (12.0-15.0); Lymphocyte # 1.98 X10^3/ul (0.83-4.51); Lymphocyte % 22.9 % (19-41); Mean Corpuscular Hgb 32.7 pg (27.0-32.0); Mean Platelet Vol. 9.9 fl (6.2-12.0); Monocyte# 0.82 X10^3/uL; Monocyte% 9.5 % (0-10); NRBC Flagged by Analyzer 0 % (0-5); Neutrophil % 66.1 % (47-70); Platelet Count 209 K/mm3 (150-450); RBC Distribution Width CV 13.5 % (11.6-14.6); RBC Distribution Width SD 51.4 fl (35.1-43.9); Red Blood Count 4.44 M/mm3 (4.2-5.4); White Blood Count 8.6 K/mm3 (4.4-11.0)
[2020-10-30 21:25] LABS: Anion Gap 5 (5-15); BUN 8 mg/dL (7-18); BUN/Creat Ratio 9.3 RATIO (10-20); Calcium,Total 9.4 mg/dL (8.5-10.1); Chloride 106 mmol/L (98-107); Creatinine, Serum 0.86 mg/dL (0.55-1.02); EST Glomerular Filtration Rate 68 mL/min (>60); Est Glom Filt Rate - Afr Amer 82 mL/min (>60); Estimated Creatinine Clearance 48.06 ml/min; Glucose 117 mg/dL (74-106); Potassium 3.9 mmol/L (3.5-5.1); Sodium Level 139 mmol/L (136-145)
[2020-10-30] MEDS: morphine 10 MG/ML Syringe 6 MG IV (22:10)
[2020-10-30 22:12] VITALS: BP 140/87; PULSE 102; RESP 18; TEMP 36.6; O2SAT 100
[2020-10-30 22:25] VITALS: BP 140/87; PULSE 102; RESP 18; TEMP 36.6; O2SAT 100
--- NOTE | 2020-10-30 22:33 | HP.PCM.HOS_ITS ---
[facility] - General General Date of Admission: 10/30/20 HPI Narrative DIAN PAUL, is a 75 F with a significant history of COPD; anxiety and depression; and a previous positive surgery who presenting to the emergency department with progressively worsening swelling of her left cheek that started 3 days before presentation. Of note patient had dental filling about a month ago. Then after he developed pain in her lips. She reported that 2 days before presentation she was started on clindamycin and because she had a severe symptoms she actually increase the dosage of her prescribed clindamycin yet her symptoms progress. Also she reported that 2 days before presentation she was given Novocain shots for her dental pain with temporary relief. [facility] Medical History Anxiety and depression COPD (chronic obstructive pulmonary disease) COPD, mild Diabetes mellitus Dizziness Dyslipidemia Heart palpitations Hyperlipemia, mixed Hypothyroid MVP (mitral valve prolapse) Nicotine addiction Osteoporosis Panic attacks Pre-syncope PTSD (post-traumatic stress disorder) PVC's (premature ventricular contractions) Syncope Home Medications acetaminophen-codeine 1 tab PO BID PRN 05/22/14 [History Last Taken Unknown] aspirin 81 mg PO DAILY@0800 05/22/14 [History Last Taken 05/09/18 81 mg] gabapentin 300 mg PO BIDCM 05/22/14 [History Last Taken 09/19/15] levothyroxine 75 mcg PO DAILY 05/22/14 [History Last Taken 05/09/18 75 mcg] loratadine 10 mg PO DAILY 05/22/14 [History Last Taken 05/09/18 10 mg] raloxifene 60 mg PO DAILY 05/22/14 [History Last Taken 05/09/18 60 mg] simvastatin 40 mg PO QHS 05/22/14 [History Last Taken 09/18/15] magnesium oxide 400 mg PO BID 09/19/15 [History Last Taken 09/19/15] metoprolol succinate 25 mg tablet,extended release 24 hr 25 mg PO DAILY 01/18/17 [History Last Taken 05/09/18 25 mg] metformin 250 mg PO MOWEFR 05/09/18 [History Last Taken Unknown] pantoprazole 40 mg PO DAILY 05/09/18 [History Last Taken Unknown] acetaminophen [Tylenol] 650 mg PO Q6H PRN PRN tablet 05/13/18 [Rx Last Taken Unknown] acidophilus-pectin, citrus 1 tab PO BID tablet 05/13/18 [Rx Last Taken Unknown] albuterol sulfate 2.5 mg INHALATION Q2H PRN PRN vial.neb. 05/13/18 [Rx Last Taken Unknown] alprazolam 0.5 mg PO DAILY PRN 10/30/20 [History Last Taken Unknown] celecoxib [Celebrex] 200 mg PO DAILY 10/30/20 [History Last Taken Unknown] clindamycin HCl 150 mg PO Q6H 10/30/20 [History Last Taken Unknown] Allergy/AdvReac Type Severity Reaction Status Date / Time Penicillins Allergy Swelling Verified 10/30/20 18:40 Family History Mother CAD (coronary artery disease) Surgical History (Updated 10/30/20 @ 23:[address] Fox Quijano MD) History of appendectomy History of gastric surgery Previous section Social History Smoking Status: Current every day smoker tobacco type: cigarettes ROS ROS Narrative Constitutional: Reports chills, and fatigue. Denies change in weight Eyes: Denies blurry vision, change in eye color, change in vision, discharge from eye(s), double vision, erythema, eye pain, loss of vision or other HEENT: Denies abnormal hearing, dysphagia, ear pain, epistaxis, headache(s), hearing loss, nasal congestion, nasal discharge, post nasal drip, sinus pressure, sore throat or other Cardiovascular: Denies chest pain or palpitations. Denies dyspnea on exertion, orthopnea and paroxysmal nocturnal dyspnea Respiratory/Chest: Denies cough, excessive phlegm production, shortness of breath with exertion and wheezing Gastrointestinal: Denies abdominal pain, coffee ground emesis, constipation, diarrhea, dyspepsia, hematemesis, hematochezia, loose stools, melena, nausea, vomiting or other Genitourinary: Denies burning urination, difficulty urinating, dysuria, hem aturia, nocturia, urinary frequency, urinary hesitancy, urinary incontinence, urinary urgency or other Musculoskeletal: Denies arthralgias, back pain, joint pain, joint stiffness, joint swelling, myalgias, neck pain or other Neurologic: Denies abnormal gait, abnormal speech, confusion, disequilibrium, dizziness, focal weakness, headache(s), numbness, paresthesias, seizure-like activity, seizures, syncope, tingling, tremor(s) or other Psychiatric: Denies anxiety, depression, homicidal ideation, suicidal ideation or other Endocrinology: Denies change in body appearance, cold intolerance, excessive sweating, heat intolerance, polydipsia, polyuria or other Hematologic/Lymphatic: Denies anemia, easy bleeding, easy bruising, lymphadenopathy or other Integumentary: Denies rashes Allergic/Immunologic: Denies rhinitis, hives, eczema, asthma or other Vital Signs Vital Signs Vital Signs: 10/30/20 18:37 10/30/20 20:27 10/30/20 22:12 Temperature 98.0 F 98.0 F 98 F Temperature Source Temporal Temporal Temporal Pulse Rate 99 99 102 H Respiratory Rate 18 18 18 Blood Pressure 114/80 114/80 140/87 H Blood Pressure Mean 91 91 104 Pulse Ox 97 97 100 Oxygen Delivery Method Room Air Room Air Room Air 10/30/20 22:25 Temperature 98 F Temperature Source Temporal Pulse Rate 102 H Respiratory Rate 18 Blood Pressure 140/87 H Blood Pressure Mean 104 Pulse Ox 100 Oxygen Delivery Method Room Air Weight Weight: 74.843 kg Body Mass Index (BMI) 28.3 Physical Exam Narrative Physical exam: General: Well-nourished, well-developed. Head: Normocephalic, atraumatic, no tenderness Eyes: PERRLA, EOMI ENT: Swelling of left jaw. moist mucous membranes. Neck: Nontender, full range of motion, no spinal tenderness, deformities, step- off CVS: Tachycardia. S1-S2 present. No murmur, gallop or rub. Respiratory : clear to auscultation bilaterally, chest wall nontender, no wh eezing Abdomen: Soft, nontender, nondistended, normal bowel sounds, no masses : Deferred Back: Nontender, no CVA tenderness, no midline spinal tenderness, deformities, step-offs Extremities: Nontender full range of motion, no trauma Skin: Normal color, no trauma, abrasions Neuro: Alert, oriented, cranial nerves II through XII grossly intact. Psychiatry: Normal mood. Normal affect. Not depressed. Not anxious. Results Lab / Micro Data Result Diagrams: 10/30/20 20:24 10/30/20 20:24 Labs: Laboratory Results - last 24 hr 10/30/20 20:24: WBC 8.6, RBC 4.44, Hgb 14.5, Hct 45.3, MCV 102.0 H, MCH 32.7 H, MCHC 32.0, RDW Std Deviation 51.4 H, RDW Coeff of Dru 13.5, Plt Count 209, MPV 9.9, Immature Gran % (Auto) 0.600, Neut % (Auto) 66.1, Lymph % (Auto) 22.9, Eddy % (Auto) 9.5, Eos % (Auto) 0.7, Baso % (Auto) 0.2, Absolute Neuts (auto) 5.7, Absolute Lymphs (auto) 1.98, Nucleated RBC % 0 10/30/20 20:24: Sodium 139, Potassium 3.9, Chloride 106, Carbon Dioxide 28.0, Anion Gap 5, BUN 8, Creatinine 0.86, Estim Creat Clear Calc 48.06, Est GFR (MDRD) Af Amer 82, Est GFR (MDRD) Non-Af 68, BUN/Creatinine Ratio 9.3 L, Glucose 117 H, Calcium 9.4 Assessment & Plan Assessment/Plan (1) Dental infection: PLAN: Dental infection CT of facial/sinus bone with contrast. Awaiting radiology interpretation Took clindamycin at home and given IV clindamycin at the emergency department. Will continue IV clindamycin. Will add vancomycin. Will consult orofacial surgeon. Facial/sinus CT is pending. Morphine IV as needed. Antiemetics and bowel protocol in place. Review of CBC showed normal white counts. BMP is unremarkable To mechanical soft diet at this time. N.p.o. after midnight. Diabetes mellitus Blood glucose is controlled. Take Metformin 3 times in a week. Hold Metformin the hospital setting. Trend BMP. Tobacco abuse Counseled Declined nicotine patch. Hypothyroidism-Synthroid continued. DVT prophylaxis: SCD ordered. Charges/Coding Multi Select Codes Visit Charges Visit Charges: 21822 Init Hosp L3
[2020-10-30 23:10] VITALS: BP 147/76; PULSE 106; RESP 18; TEMP 36.9; O2SAT 94
[2020-10-30 23:12] VITALS: BMI 28.1
--- NOTE | 2020-10-30 23:22 | NURSING ---
pandemic charting initiated
--- NOTE | 2020-10-30 23:54 | PCM.RX.CS ---
Consult Pharmacy has been consulted to manage selected antiobiotic: Vancomycin Type of Consult: New start Suspected Infection: Skin/Soft tissue Prior Doses of Antibiotics Received/Current Regimen: Medications Vancomycin HCl () 500 mg in 100 mls @ 100 mls/hr IV Q12H SHEILA Vancomycin HCl 2,000 mg/ (Sodium Chloride) 540 mls @ 250 mls/hr IV X1 ONE Stop: 10/31/20 01:39 Last Admin: 10/30/20 23:42 Dose: 250 mls/hr Labs: Sodium 139 mmol/L (136-145) 10/30/20 20:24 Potassium 3.9 mmol/L (3.5-5.1) 10/30/20 20:24 Chloride 106 mmol/L (98-107) 10/30/20 20:24 Carbon Dioxide 28.0 mmol/L (21.0-32.0) 10/30/20 20:24 Anion Gap 5 (5-15) 10/30/20 20:24 BUN 8 mg/dL (7-18) 10/30/20 20:24 Creatinine 0.86 mg/dL (0.55-1.02) 10/30/20 20:24 Est GFR (MDRD) Af Amer 82 mL/min (>60) 10/30/20 20:24 Est GFR (MDRD) Non-Af 68 mL/min (>60) 10/30/20 20:24 BUN/Creatinine Ratio 9.3 RATIO (10-20) L 10/30/20 20:24 Glucose 117 mg/dL (74-106) H 10/30/20 20:24 Weight used for dosin.5 kg Estimated Creatinine Clearance: 48 Goal Trough: 15-20 mcg/mL Pharmacy Plan for Drug Dosing: Pharmacy Service will continue to monitor and adjust dosing as required. Follow-Up Labs: Trough Vancomycin Labs to be done on [date and time ordered]: 11/01/20 @1100
[2020-10-31 05:10] VITALS: BP 128/57; PULSE 113; RESP 18; TEMP 36.9; O2SAT 93
[2020-10-31] MEDS: Levothyroxine 75 MCG Tablet PO (05:16)
[2020-10-31 05:52] LABS: Absolute Lymphocyte Count 1.46 X10^3/uL (0.83-4.51); Absolute Neutrophil Count 8.1 X10^3/uL (2.0-7.7); Basophil# 0.02 X10^3/uL; Basophil% 0.2 % (0-1); Eosinophil# 0.04 X10^3/uL; Eosinophils% 0.4 % (0-5); Hematocrit 42.3 % (37-47); Hemoglobin 13.6 g/dL (12.0-15.0); Lymphocyte # 1.46 X10^3/ul (0.83-4.51); Mean Corp Hgb Conc 32.2 g/dL (32-36); Mean Corpuscular Hgb 33.2 pg (27.0-32.0); Mean Corpuscular Volume 103.2 fL (81-99); Mean Platelet Vol. 10.1 fl (6.2-12.0); Monocyte# 0.82 X10^3/uL; Monocyte% 7.9 % (0-10); NRBC Flagged by Analyzer 0 % (0-5); Neutrophil # 8.05 X10^3/uL (2.7-7.7); Neutrophil % 77.1 % (47-70); Platelet Count 209 K/mm3 (150-450); RBC Distribution Width CV 13.9 % (11.6-14.6); RBC Distribution Width SD 52.8 fl (35.1-43.9); White Blood Count 10.4 K/mm3 (4.4-11.0)
[2020-10-31 06:32] LABS: Anion Gap 7 (5-15); BUN 6 mg/dL (7-18); BUN/Creat Ratio 7.6 RATIO (10-20); Calcium,Total 8.7 mg/dL (8.5-10.1); Chloride 104 mmol/L (98-107); Creatinine, Serum 0.79 mg/dL (0.55-1.02); EST Glomerular Filtration Rate 75 mL/min (>60); Est Glom Filt Rate - Afr Amer 91 mL/min (>60); Estimated Creatinine Clearance 41.33 ml/min; Glucose 157 mg/dL (74-106); Potassium 3.8 mmol/L (3.5-5.1); Sodium Level 138 mmol/L (136-145)
[2020-10-31 08:10] VITALS: BP 105/54; PULSE 100; RESP 18; TEMP 37.3; O2SAT 89
[2020-10-31 09:45] VITALS: BP 114/47; PULSE 106; RESP 18; TEMP 37.3; O2SAT 95
[2020-10-31] MEDS: Raloxifene HCl 60 MG Tablet PO (09:51)
[2020-10-31] MEDS: Aspirin 81 MG TAB.CHEW PO (09:51)
[2020-10-31] MEDS: Magnesium Chloride 64 MG Delay Rel.Tablet 128 MG PO ×2 (09:52→20:39)
[2020-10-31] MEDS: Loratadine 10 MG Tablet PO (09:52)
[2020-10-31] MEDS: Gabapentin 300 MG Capsule PO ×2 (09:53→17:14)
[2020-10-31] MEDS: Celecoxib 200 MG Capsule PO (09:53)
--- NOTE | 2020-10-31 10:45 | CASEMGMT ---
MALENA HI assessment: Face to Face with patient for initial transition planning/care coordination assessment. MALENA HI introduced self and role at [facility], pt voices understanding and consents to assessment. Pt is lying in bed in no distress on room air. Pt is A/Ox4 and answers all questions appropriately. Pt's granddaughter is at bedside during assessment. Care providers, pharmacy, and demographics verified/updated. Presentation: Pt has been taking antibx, tylenol, and ibuprofen since saturday after dental work and c/o increased redness/swelling since Admitting dx: Dental abscess PCP: Josue Specialists: Misti uro; Jose C pod; [place] cardio(used to see Zhang, unsure of who new provider will be) Preferred Pharmacy: [facility] Insurance: [facility] A/B, [facility] Prescription Benefit: [employer] Living Will/HPOA: Pt states does not have LW/HPOA and pt is provided with AD info per request at this time. Pt is aware that [facility] SW can complete but pt states she would like to complete with her granddaughter. LNOK: Miri Aguirre, granddaughter Living Arrangements: Pt states lives alone in mobile home with 4 steps in and states no concerns at home. Pt states is independent with ADL's. Transportation: Pt states drives self and states no transportation concerns. DME/HHC: Pt states has a cane and rollator at home. Pt states no need for any further DME. Pt states has had HHC in the past and has been to [facility]. Pt states has an aide thru [place] for a total of 10 hours on MWF. Pt states no concerns with going home at time of discharge. Pt is retired. Pt states smokes a 1-2 packs cigarettes daily and rarely drinks ETOH. Pt states no further concerns/needs. CM to follow for any further discharge planning/needs. Advised pt to ask for CM if any further questions/concerns/needs arise, voices understanding. Pt Goal: Home Plan: Home [place] MALENA HI
[2020-10-31 11:15] LABS: M R Staph aureus DNA By PCR Negative (Negative); Probe Check PASS; Specimen Processing Control PASS; Staph aureus DNA By PCR NEGATIVE (Negative)
--- NOTE | 2020-10-31 12:34 | PCM.CONS.GEN ---
Assessment & Plan Assessment/Plan (1) Dental abscess: PLAN: Would continue IV antibiotics and I feel she can return to a normal diet. If continues to get better on antibiotics would swith to oral antibiotics and she can follow up with her Dentist for extraction of the offending tooth. HPI Consult Data Date of Consult: 10/31/20 HPI Narrative Reason for Consultation: Patient seen for acute left mandibular abscess presumably teeth as source HPI Narrative: DIAN PAUL, is a 75 F who presents [facility] Medical History (Updated 10/31/20 @ 12:[address] Butch Cooley, DDS) Anxiety and depression Chronic pain COPD (chronic obstructive pulmonary disease) COPD, mild Diabetes mellitus Dizziness Dyslipidemia GERD (gastroesophageal reflux disease) Heart palpitations Hyperlipemia, mixed Hypertension Hypothyroid Kidney stones MVP (mitral valve prolapse) Nicotine addiction Osteoporosis Panic attacks Pre-syncope PTSD (post-traumatic stress disorder) PVC's (premature ventricular contractions) Rheumatoid arthritis Sleep apnea Smoker Syncope Home Medications acetaminophen-codeine 1 tab PO BID PRN 05/22/14 [History Last Taken Unknown] aspirin 81 mg PO DAILY@0800 05/22/14 [History Last Taken 05/09/18 81 mg] gabapentin 300 mg PO BIDCM 05/22/14 [History Last Taken 09/19/15] levothyroxine 75 mcg PO DAILY 05/22/14 [History Last Taken 05/09/18 75 mcg] loratadine 10 mg PO DAILY 05/22/14 [History Last Taken 05/09/18 10 mg] raloxifene 60 mg PO DAILY 05/22/14 [History Last Taken 05/09/18 60 mg] simvastatin 40 mg PO QHS 05/22/14 [History Last Taken 09/18/15] magnesium oxide 400 mg PO BID 09/19/15 [History Last Taken 09/19/15] metoprolol succinate 25 mg tablet,extended release 24 hr 25 mg PO DAILY 01/18/17 [History Last Taken 10/29/20 23:00] metformin 250 mg PO MOWEFR 05/09/18 [History Last Taken Unknown] pantoprazole 40 mg PO DAILY 05/09/18 [History Last Taken Unknown] acetaminophen [Tylenol] 650 mg PO Q6H PRN PRN tablet 05/13/18 [Rx Last Taken Unknown] acidophilus-pectin, citrus 1 tab PO BID tablet 05/13/18 [Rx Last Taken Unknown] albuterol sulfate 2.5 mg INHALATION Q2H PRN PRN vial.neb. 05/13/18 [Rx Last Taken Unknown] alprazolam 0.5 mg PO DAILY PRN 10/30/20 [History Last Taken Unknown] celecoxib [Celebrex] 200 mg PO DAILY 10/30/20 [History Last Taken Unknown] clindamycin HCl 150 mg PO Q6H 10/30/20 [History Last Taken Unknown] Allergy/AdvReac Type Severity Reaction Status Date / Time Penicillins Allergy Swelling Verified 10/30/20 18:40 Family History Mother CAD (coronary artery disease) Surgical History (Updated 10/30/20 @ 23:[address] Fox Quijano MD) History of appendectomy History of gastric surgery Previous section Social History Smoking Status: Current every day smoker tobacco type: cigarettes ROS Constitutional Constitutional: Reports as per HPI Eyes Eyes: Reports other Details: no eye signs for maxillofacial involvement ENT HEENT: Reports other Details: Patient states swelling has decreased since admission. Respiratory/Chest Respiratory/Chest: Reports as per HPI Gastrointestinal Gastrointestinal: Reports as per HPI Genitourinary Genitourinary: Reports as per HPI Musculoskeletal Musculoskeletal: Reports as per HPI Integumentary Integumentary: Reports as per HPI Neurologic Neurologic: Reports as per HPI Psychiatric Psychiatric: Reports as per HPI Endocrine Endocrinology: Reports as per HPI Hematologic/Lymphatic Hematologic/Lymphatic: Reports as per HPI Allergic/Immunologic Allergic/Immunologic: Reports as per HPI Physical Exam Const alert, oriented x3 and no apparent distress Constitutional Narrative: Improved dramatically from admission. General Appearance: cooperative, comfortable, well developed and other Does not appear toxic Orientation / Consciousness: awake, oriented to person, oriented to place and oriented to time Exam Limitations: no limitations HEENT normocephalic and head/scalp atraumatic HEENT Narrative: Left cheek swelling with erythema into submandibular region. No trismus or inability to swallow or breathe Head and Scalp: normocephalic and atraumatic Face and Sinus: facial erythema left and fluctuance Nose: external nose normal External Ear: external ears normal and no preauricular adenopathy Mouth: oral and palatal mucosa normal, tongue normal and other Other Details: left buccal vestibule swelling which is soft. Teeth and Gingiva: other Other Details: Probable abscessed lower left bicuspid tooth by history and clinical exam Throat: posterior oropharynx normal and uvula midline Eyes PERRL Neck Neck Narrative: Leftt submandibular swelling and erythema General: trachea midline and lymphadenopathy submandibular (left submandibular lymphadenopathy) Lab / Micro Data Result Diagrams: 10/31/20 04:30 10/31/20 04:30 Labs: Laboratory Results - last 24 hr 10/30/20 20:24: WBC 8.6, RBC 4.44, Hgb 14.5, Hct 45.3, MCV 102.0 H, MCH 32.7 H, MCHC 32.0, RDW Std Deviation 51.4 H, RDW Coeff of Dru 13.5, Plt Count 209, MPV 9.9, Immature Gran % (Auto) 0.600, Neut % (Auto) 66.1, Lymph % (Auto) 22.9, Conway % (Auto) 9.5, Eos % (Auto) 0.7, Baso % (Auto) 0.2, Absolute Neuts (auto) 5.7, Absolute Lymphs (auto) 1.98, Nucleated RBC % 0 10/30/20 20:24: Sodium 139, Potassium 3.9, Chloride 106, Carbon Dioxide 28.0, Anion Gap 5, BUN 8, Creatinine 0.86, Estim Creat Clear Calc 48.06, Est GFR (MDRD) Af Amer 82, Est GFR (MDRD) Non-Af 68, BUN/Creatinine Ratio 9.3 L, Glucose 117 H, Calcium 9.4 10/31/20 04:30: WBC 10.4, RBC 4.10 L, Hgb 13.6, Hct 42.3, MCV 103.2 H, MCH 33.2 H, MCHC 32.2, RDW Std Deviation 52.8 H, RDW Coeff of Dru 13.9, Plt Count 209, MPV 10.1, Immature Gran % (Auto) 0.400, Neut % (Auto) 77.1 H, Lymph % (Auto) 14.0 L, Conway % (Auto) 7.9, Eos % (Auto) 0.4, Baso % (Auto) 0.2, Absolute Neuts (auto) 8.1 H, Absolute Lymphs (auto) 1.46, Nucleated RBC % 0 10/31/20 04:30: Sodium 138, Potassium 3.8, Chloride 104, Carbon Dioxide 27.0, Anion Gap 7, BUN 6 L, Creatinine 0.79, Estim Creat Clear Calc 41.33, Est GFR (MDRD) Af Amer 91, Est GFR (MDRD) Non-Af 75, BUN/Creatinine Ratio 7.6 L, Glucose 157 H, Calcium 8.7 10/31/20 09:01: S.aureus Protein A PCR NEGATIVE, MRSA (PCR) Negative Radiology Impression Facial/Sinus 10/30/20 20:07 IMPRESSION: 1.5 cm in greatest dimension subperiosteal abscess along the outer aspect of the left distal mandibular body/proximal mandibular symphysis. This abscess overlies the left mental foramen, and may communicate via this foramen, with a periapical lucency surrounding the root of the nearby left mandibular posterior premolar. Overlying cellulitis extending inferiorly in the anterior neck. Electronically Signed: Kenrick Cota MD at 23:05 EDT Tel , Service support ,
[2020-10-31 15:30] VITALS: BP 111/65; PULSE 98; RESP 16; TEMP 37; O2SAT 94
--- NOTE | 2020-10-31 16:30 | NURSING ---
This RN reviewed SN charting
[2020-10-31] MEDS: Pantoprazole Sodium 40 MG Tablet PO (17:14)
[2020-10-31] MEDS: Acetaminophen 325 MG Tablet 650 MG PO (17:14)
--- NOTE | 2020-10-31 17:52 | PCM.PN.HOSP ---
Subjective Subjective Patient states her pain is controlled but she is feeling that the swelling has moved a little bit into the anterior neck on the left side. She indicates she did have some drainage from her tooth yesterday but no further drainage today. She does indicate she had recent dental work done. Objective Data Objective Data Vital Signs: Vital Signs Temp Pulse Resp BP Pulse Ox 98.6 F 98 16 111/65 94 10/31/20 15:30 10/31/20 15:30 10/31/20 15:30 10/31/20 15:30 10/31/20 15:30 Oxygen Delivery Method Room Air Weight: 74.5 kg Body Mass Index (BMI) 28.1 Intake & Output: Intake and Output for Last 24 Hours 10/29/20 10/30/20 10/31/20 23:59 23:59 23:59 Intake Total 346 / 346 1608 / 1608 Balance 346 / 346 1608 / 1608 Lab / Micro Data Result Diagrams: 10/31/20 04:30 10/31/20 04:30 Labs: Laboratory Results - last 24 hr 10/30/20 20:24: WBC 8.6, RBC 4.44, Hgb 14.5, Hct 45.3, MCV 102.0 H, MCH 32.7 H, MCHC 32.0, RDW Std Deviation 51.4 H, RDW Coeff of Dru 13.5, Plt Count 209, MPV 9.9, Immature Gran % (Auto) 0.600, Neut % (Auto) 66.1, Lymph % (Auto) 22.9, [place] % (Auto) 9.5, Eos % (Auto) 0.7, Baso % (Auto) 0.2, Absolute Neuts (auto) 5.7, Absolute Lymphs (auto) 1.98, Nucleated RBC % 0 10/30/20 20:24: Sodium 139, Potassium 3.9, Chloride 106, Carbon Dioxide 28.0, Anion Gap 5, BUN 8, Creatinine 0.86, Estim Creat Clear Calc 48.06, Est GFR (MDRD) Af Amer 82, Est GFR (MDRD) Non-Af 68, BUN/Creatinine Ratio 9.3 L, Glucose 117 H, Calcium 9.4 10/31/20 04:30: WBC 10.4, RBC 4.10 L, Hgb 13.6, Hct 42.3, MCV 103.2 H, MCH 33.2 H, MCHC 32.2, RDW Std Deviation 52.8 H, RDW Coeff of Dru 13.9, Plt Count 209, MPV 10.1, Immature Gran % (Auto) 0.400, Neut % (Auto) 77.1 H, Lymph % (Auto) 14.0 L, [place] % (Auto) 7.9, Eos % (Auto) 0.4, Baso % (Auto) 0.2, Absolute Neuts (auto) 8.1 H, Absolute Lymphs (auto) 1.46, Nucleated RBC % 0 10/31/20 04:30: Sodium 138, Potassium 3.8, Chloride 104, Carbon Dioxide 27.0, Anion Gap 7, BUN 6 L, Creatinine 0.79, Estim Creat Clear Calc 41.33, Est GFR (MDRD) Af Amer 91, Est GFR (MDRD) Non-Af 75, BUN/Creatinine Ratio 7.6 L, Glucose 157 H, Calcium 8.7 10/31/20 09:01: S.aureus Protein A PCR NEGATIVE, MRSA (PCR) Negative Radiography Diagnostic Testing: Radiology Impression Facial/Sinus 10/30/20 20:07 IMPRESSION: 1.5 cm in greatest dimension subperiosteal abscess along the outer aspect of the left distal mandibular body/proximal mandibular symphysis. This abscess overlies the left mental foramen, and may communicate via this foramen, with a periapical lucency surrounding the root of the nearby left mandibular posterior premolar. Overlying cellulitis extending inferiorly in the anterior neck. Electronically Signed: Kenrick Cota MD at 23:05 EDT Tel , Service support , Physical Exam Const alert, oriented x3, no apparent distress and healthy appearing Constitutional Narrative: Overweight white female lying in bed lying on her right side, appears comfortable, nontoxic Exam Limitations: no limitations HEENT head/scalp atraumatic and moist oral mucous membranes HEENT Narrative: Edema with some firmness in the left jaw, some erythema in the left face spread to the left anterior neck, patient managing secretions well, able to open jaw adequately Head and Scalp: normocephalic Resp normal respiratory effort, no retractions and no use of accessory muscles Resp Narrative: Diminished but clear Cardio regular rate, regular rhythm, S1 normal heart sound, S2 normal heart sound, no murmurs, no rub, no gallops, no clicks and no JVD GI normal to inspection, nondistended, normoactive bowel sounds, soft to palpation, non-tender and non-distended Extremity no clubbing, cyanosis or edema Peripheral Pulses: Yes pulses 2+ throughout Neuro oriented x3, moves all extremities and no focal motor deficits Sensorium / Orientation: awake and alert Speech: speech normal Psych affect normal Assessment & Plan Assessment/Plan (1) Dental abscess: (2) Facial cellulitis: PLAN: Left facial cellulitis secondary to left-sided dental abscess -CT of the face shows a 1.5 cm subperiosteal abscess along the outer aspect of the left distal mandibular body and overlying cellulitis extending inferiorly into the anterior neck -Continue clindamycin -Stop vancomycin as there are no signs of necrotizing fasciitis -Patient with penicillin allergy at baseline -Oral surgery consulted and they would like us to continue antibiotics with possible I&D tomorrow if she does not improve clinically -Continue to monitor and if no improvement we discussed case with oral surgery -Continue morphine for pain at this time and convert to orals if patient tolerates p.o. diet Hyperlipidemia -Continue simvastatin Osteoporosis -Continue raloxifene GERD -Continue Protonix DM-2 -Patient takes very low-dose Metformin at baseline -Hold while inpatient and restart at discharge -Glucose is not markedly elevated Hypothyroidism -Continue levothyroxine Neuropathy -Continue gabapentin Hypertension -continue metoprolol DVT prophylaxis -Patient low risk -Ambulation protocol Charges/Coding Visit Charges Inpatient E&M: 73702 [facility] L2
--- NOTE | 2020-10-31 20:37 | NURSING ---
RNs cannot access [facility] in rooms. All medications and pt verified with Ni GUY
[2020-10-31] MEDS: Atorvastatin Calcium 20 MG Tablet PO (20:39)
[2020-10-31 21:00] VITALS: BP 108/87; PULSE 79; RESP 16; TEMP 36.4; O2SAT 98
[2020-11-01 00:58] VITALS: BP 131/69; PULSE 82; RESP 14; TEMP 37; O2SAT 97
[2020-11-01] MEDS: Acetaminophen 325 MG Tablet 650 MG PO ×2 (01:00→21:04)
[2020-11-01] MEDS: ALPRAZolam 0.5 MG Tablet PO (03:37)
[2020-11-01 05:27] VITALS: BP 116/55; PULSE 74; RESP 12; TEMP 36.6; O2SAT 98
[2020-11-01] MEDS: 0.9% Saline Lock 10 ML Syringe IV ×2 (05:30→21:04)
[2020-11-01] MEDS: Levothyroxine 75 MCG Tablet PO (05:30)
--- NOTE | 2020-11-01 08:23 | PN.HOSP_ITS ---
Subjective Subjective Patient seen still complains of significant swelling involving the left face. Remains on broad-spectrum antibiotic therapy with clindamycin. Added Solu- Medrol to her therapy. Objective Data Objective Data Vital Signs: Vital Signs Temp Pulse Resp BP Pulse Ox 97.8 F 74 12 116/55 L 98 11/01/20 05:27 11/01/20 05:27 11/01/20 05:27 11/01/20 05:27 11/01/20 05:27 Oxygen Delivery Method Room Air Weight: 74.5 kg Body Mass Index (BMI) 28.1 Intake & Output: Intake and Output for Last 24 Hours 10/30/20 10/31/20 11/01/20 23:59 23:59 23:59 Intake Total 346 / 346 1662 / 1662 54 / 54 Balance 346 / 346 1662 / 1662 54 / 54 Lab / Micro Data Result Diagrams: 10/31/20 04:30 10/31/20 04:30 Labs: Laboratory Results - last 24 hr 10/31/20 09:01: S.aureus Protein A PCR NEGATIVE, MRSA (PCR) Negative Physical Exam Narrative GENERAL: cooperative HEENT: Significant swelling involving the lower part of the face and left submandibular region EYES; Anicteric, Normal Conjunctiva NECK; supple, normal thyroid, RESPIRATORY: Diminished to auscultation CARDIOVASCULAR: Regular S1 S2, GI: soft, normoactive bowel sounds, : No Renal angle tenderness; EXTREMITIES: No edema, no clubbing, MUSCULOSKELETAL: no muscle waisting NEURO: Awake; no lateralizing signs. SKIN: No Rash PSYCH; Flat affect Assessment & Plan Assessment/Plan (1) Dental abscess: (2) Facial cellulitis: PLAN: Patient is a 75-year-old lady admitted with left-sided facial swelling. An assessment of left facial cellulitis secondary to left-sided dental abscess made admitted to regular nursing floor for further management 1. Left facial cellulitis secondary to left-sided dental abscess ?Admitted to regular nursing floor started on broad-spectrum antibiotic therapy with clindamycin. CT ordered demonstrated a 1.5 cm subperiosteal abscess along the outer aspect of the left distal mandibular body and overlying cellulitis extending inferiorly into the anterior neck consult was also placed to maxillofacial surgery Dr. Cooley 2. Dyslipidemia -Patient is on statin therapy, continued at home dose 3. Hyperlipidemia -Continue simvastatin 4. Osteoporosis -Continue raloxifene 5. GERD -Continue Protonix 6. Hypothyroidism - Patient is on levothyroxine home dose continued 7. Diabetes mellitus type II -patient's oral hypoglycemics held. Placed on long acting insulin, Accu-Cheks a.c. and at bedtime and covered with sliding scale insulin 8. Neuropathy -Continue gabapentin 9. Hypertension -continue metoprolol 10. DVT prophylaxis - On enoxaparin Charges/Coding Visit Charges Inpatient E&M: 86140 Subs Hosp L2
[2020-11-01] MEDS: Morphine 2 MG/ML Syringe IV (09:11)
[2020-11-01] MEDS: Gabapentin 300 MG Capsule PO ×2 (09:11→17:45)
[2020-11-01] MEDS: Aspirin 81 MG TAB.CHEW PO (09:11)
[2020-11-01] MEDS: Magnesium Chloride 64 MG Delay Rel.Tablet 128 MG PO ×2 (09:12→21:04)
[2020-11-01] MEDS: Raloxifene HCl 60 MG Tablet PO (09:12)
[2020-11-01] MEDS: Celecoxib 200 MG Capsule PO (09:12)
[2020-11-01 09:13] VITALS: PULSE 65
[2020-11-01] MEDS: Metoprolol(XL)Succ 25 MG Tablet PO (09:13)
[2020-11-01] MEDS: Loratadine 10 MG Tablet PO (09:13)
[2020-11-01 09:17] VITALS: BP 140/78; PULSE 65; RESP 14; TEMP 36.6; O2SAT 94
[2020-11-01] MEDS: MethylPREDNISolone 125 MG/2 ML Vial 60 MG IV (09:21)
[2020-11-01 11:37] LABS: Vancomycin, Trough Level 4.6 ug/mL (5.0-15.0)
[2020-11-01 15:53] VITALS: BP 132/64; PULSE 74; RESP 16; TEMP 36.8; O2SAT 96
[2020-11-01] MEDS: Pantoprazole Sodium 40 MG Tablet PO (17:45)
[2020-11-01] MEDS: Atorvastatin Calcium 20 MG Tablet PO (21:04)
[2020-11-01 21:50] VITALS: BP 147/79; PULSE 65; RESP 14; TEMP 36.6; O2SAT 97
[2020-11-02] VITALS (13 sets, daily range): BP systolic 92–143; BP diastolic 49–98; PULSE 51–106; RESP 14–20; TEMP 35.9–36.7; O2SAT 92–99; BMI 28.1
[2020-11-02] MEDS: ALPRAZolam 0.5 MG Tablet PO ×2 (02:24→22:44)
[2020-11-02] MEDS: Levothyroxine 75 MCG Tablet PO (05:57)
--- NOTE | 2020-11-02 07:20 | PCM.PN.BLA ---
Progress Note Patient is doing well this morning and reports feeling good. She is able to open her mouth well and swallows without difficulty. The abscess is well localized and the presumed source is from an infected tooth. If able to get OR time today I would drain the abscess and remove the offending tooth. The patient has been on IV antibiotics for several days now without resolution and feel discharge home on oral antibiotics is not the best choice. If I can not get operative time today then will perform tomorrow. She is very stable for now.
[2020-11-02] MEDS: Morphine 2 MG/ML Syringe IV (07:54)
[2020-11-02] MEDS: 0.9% Saline Lock 10 ML Syringe IV ×2 (07:57→22:43)
--- NOTE | 2020-11-02 08:10 | PCM.PN.HOSP ---
Subjective Subjective Patient seen still complains of significant pain as well as swelling involving the left lower jaw. Objective Data Objective Data Vital Signs: Vital Signs Temp Pulse Resp BP Pulse Ox 98.0 F 64 14 140/65 H 96 11/02/20 03:50 11/02/20 03:50 11/02/20 03:50 11/02/20 03:50 11/02/20 03:50 Oxygen Delivery Method Room Air Weight: 74.5 kg Body Mass Index (BMI) 28.1 Intake & Output: Intake and Output for Last 24 Hours 10/31/20 11/01/20 11/02/20 23:59 23:59 23:59 Intake Total 1662 / 1662 1362 / 1362 54 / 54 Balance 1662 / 1662 1362 / 1362 54 / 54 Lab / Micro Data Result Diagrams: 11/02/20 09:12 11/02/20 09:12 Labs: Laboratory Results - last 24 hr 11/01/20 11:00: Vancomycin Trough 4.6 L Physical Exam Narrative GENERAL: cooperative HEENT: Significant swelling involving the lower part of the face and left submandibular region EYES; Anicteric, Normal Conjunctiva NECK; supple, normal thyroid, RESPIRATORY: Diminished to auscultation CARDIOVASCULAR: Regular S1 S2, GI: soft, normoactive bowel sounds, : No Renal angle tenderness; EXTREMITIES: No edema, no clubbing, MUSCULOSKELETAL: no muscle waisting NEURO: Awake; no lateralizing signs. SKIN: No Rash PSYCH; Flat affect Assessment & Plan Assessment/Plan (1) Dental abscess: (2) Facial cellulitis: PLAN: Patient is a 75-year-old lady admitted with left-sided facial swelling. An assessment of left facial cellulitis secondary to left-sided dental abscess made admitted to regular nursing floor for further management 1. Left facial cellulitis secondary to left-sided dental abscess ?Admitted to regular nursing floor started on broad-spectrum antibiotic therapy with clindamycin. CT ordered demonstrated a 1.5 cm subperiosteal abscess along the outer aspect of the left distal mandibular body and overlying cellulitis extending inferiorly into the anterior neck consult was also placed to maxillofacial surgery Dr. Cooley -11/02/2020; patient scheduled to undergo surgical intervention 2. Dyslipidemia -Patient is on statin therapy, continued at home dose 3. Hyperlipidemia -Continue simvastatin 4. Osteoporosis -Continue raloxifene 5. GERD -Continue Protonix 6. Hypothyroidism - Patient is on levothyroxine home dose continued 7. Diabetes mellitus type II -patient's oral hypoglycemics held. Placed on long acting insulin, Accu-Cheks a.c. and at bedtime and covered with sliding scale insulin 8. Neuropathy -Continue gabapentin 9. Hypertension -continue metoprolol 10. DVT prophylaxis - On enoxaparin Charges/Coding Visit Charges Inpatient E&M: 40894 Subs Hosp L2
--- NOTE | 2020-11-02 08:32 | EKG12_ITS ---
Test Reason : PRE-OP Blood Pressure : / mmHG Vent. Rate : 055 BPM Atrial Rate : 055 BPM P-R Int : 146 ms QRS Dur : 070 ms QT Int : 468 ms P-R-T Axes : 061 015 029 degrees QTc Int : 447 ms Sinus bradycardia Otherwise normal ECG When compared with ECG of 11-MAY-2018 08:00, No significant change was found Confirmed by ARLEN BASURTO, DENNIS ([id number]), order editor LLOYD KENYON ([id number]) on 11/03/2020 1:50:55 PM Referred By: TIM Confirmed By:DENNIS MCKINLEY MD
[2020-11-02 09:27] LABS: Mean Corp Hgb Conc 32.5 g/dL (32-36); Mean Corpuscular Hgb 32.9 pg (27.0-32.0); Mean Corpuscular Volume 101.3 fL (81-99); Mean Platelet Vol. 9.5 fl (6.2-12.0); Platelet Count 229 K/mm3 (150-450); RBC Distribution Width CV 13.2 % (11.6-14.6); RBC Distribution Width SD 49.4 fl (35.1-43.9); Red Blood Count 3.95 M/mm3 (4.2-5.4); White Blood Count 8.7 K/mm3 (4.4-11.0)
[2020-11-02 09:39] LABS: Anion Gap 4 (5-15); BUN 5 mg/dL (7-18); BUN/Creat Ratio 6.8 RATIO (10-20); Calcium,Total 9.1 mg/dL (8.5-10.1); Chloride 109 mmol/L (98-107); Creatinine, Serum 0.74 mg/dL (0.55-1.02); EST Glomerular Filtration Rate 82 mL/min (>60); Est Glom Filt Rate - Afr Amer 99 mL/min (>60); Estimated Creatinine Clearance 41.33 ml/min; Glucose 133 mg/dL (74-106); Potassium 3.9 mmol/L (3.5-5.1); Sodium Level 138 mmol/L (136-145)
[2020-11-02] MEDS: Metoprolol(XL)Succ 25 MG Tablet PO (10:10)
[2020-11-02] MEDS: Lidocaine 2% /Epi 1:100 (50ml) 50 ML Vial (14:25)
--- NOTE | 2020-11-02 14:55 | PCM.OPRPT ---
Report of Operation Date of Procedure: 11/02/20 Pre-Operative Diagnosis: Left buccal space abscess mandible Post-Operative Diagnosis: Same Surgery/Procedure Performed:: Incision and drainage of left buccal space and left lingual space abscess Type of Anesthesia: General/Regional Special Medications: None Specimen's removed: Abscessed tooth #20 Drains: Drains none Estimated Blood Loss (mL): Less than Description of Procedure: Patient was seen in preoperative holding area with daughter where the indications for the procedure were given including failure to respond to antibiotics. After consent was obtained patient was taken to the operating room placed into the supine position on the operating room table. Appropriate anesthetic monitors were then placed. IV general anesthesia was given and the patient was intubated via the oral endotracheal route without complications. Patient was then prepped and draped in a sterile fashion for oral and maxillofacial procedures. At this time local anesthesia was given by left inferior alveolar nerve block injections. Full-thickness mucoperiosteal incision was made along the left buccal vestibule carried anteriorly and dissection to the inferior border of the mandible both on the buccal and lingual aspects. There was no actual purulent exudate expressed tooth #20 was grossly fractured and removed. The surgical sites were then irrigated and loose suturing with 3-0 Chromic Gut suture was performed. This essentially ended the operation patient was then extubated awakened in the operating room in stable condition and taken to PACU in stable condition. Grafts/Implants Used: None Complications None
[2020-11-02] MEDS: Albuterol 2.5 MG/3 ML VIAL.NEB. INHALATION (15:10)
[2020-11-02] MEDS: Lactated Ringers 1,000 ML 75 ML IV (17:04)
[2020-11-02] MEDS: Acetaminophen 325 MG Tablet 650 MG PO (22:44)
[2020-11-02] MEDS: Magnesium Chloride 64 MG Delay Rel.Tablet 128 MG PO (22:44)
[2020-11-02] MEDS: Atorvastatin Calcium 20 MG Tablet PO (22:44)
[2020-11-03 00:32] VITALS: BP 110/64; PULSE 65; RESP 14; TEMP 36.6; O2SAT 98
--- NOTE | 2020-11-03 03:44 | NURSING ---
Pt called in RN complaining of SOB and abd pain. Having excessive wheezing. RT gave breathing tx around 0200. TC to . x1 dose of Ativan 0.5mg PO given. RT in room at this time to give a second breathing tx. Pt more relaxed. will continue to monitor.
[2020-11-03 04:32] VITALS: BP 124/74; PULSE 55; RESP 14; TEMP 36.4; O2SAT 100
[2020-11-03] MEDS: Levothyroxine 75 MCG Tablet PO (05:20)
[2020-11-03] MEDS: 0.9% Saline Lock 10 ML Syringe IV (05:20)
[2020-11-03] MEDS: ALPRAZolam 0.5 MG Tablet PO (05:24)
[2020-11-03 07:52] VITALS: BP 123/66; PULSE 55; RESP 14; TEMP 36.3; O2SAT 96
[2020-11-03] MEDS: Acetaminophen 325 MG Tablet 650 MG PO (07:54)
[2020-11-03] MEDS: Loratadine 10 MG Tablet PO (07:55)
[2020-11-03] MEDS: Gabapentin 300 MG Capsule PO ×2 (07:55→17:08)
[2020-11-03 07:56] VITALS: BP 123/66; PULSE 55
[2020-11-03] MEDS: Aspirin 81 MG TAB.CHEW PO (07:56)
[2020-11-03] MEDS: Metoprolol(XL)Succ 25 MG Tablet PO (07:56)
[2020-11-03] MEDS: Pantoprazole Sodium 40 MG Tablet PO (07:57)
[2020-11-03] MEDS: Raloxifene HCl 60 MG Tablet PO (07:58)
[2020-11-03] MEDS: Celecoxib 200 MG Capsule PO (07:58)
[2020-11-03] MEDS: Magnesium Chloride 64 MG Delay Rel.Tablet 128 MG PO (08:04)
--- NOTE | 2020-11-03 08:08 | PN.HOSP_ITS ---
Subjective Subjective Patient underwent incision and drainage of left buccal space and left lingual space abscess on 11/02/2020 Objective Data Objective Data Vital Signs: Vital Signs Temp Pulse Resp BP Pulse Ox 97.4 F L 55 L 14 123/66 H 96 11/03/20 07:52 11/03/20 07:56 11/03/20 07:52 11/03/20 07:56 11/03/20 07:52 Oxygen Flow Rate (L/min) 2 Oxygen Delivery Method Room Air Weight: 74.5 kg Body Mass Index (BMI) 28.1 Intake & Output: Intake and Output for Last 24 Hours 11/01/20 11/02/20 11/03/20 23:59 23:59 23:59 Intake Total 1362 / 1362 533 / 533 754 / 754 Balance 1362 / 1362 533 / 533 754 / 754 Lab / Micro Data Result Diagrams: 11/02/20 09:12 11/02/20 09:12 Labs: Laboratory Results - last 24 hr 11/02/20 09:12: WBC 8.7, RBC 3.95 L, Hgb 13.0, Hct 40.0, MCV 101.3 H, MCH 32.9 H , MCHC 32.5, RDW Std Deviation 49.4 H, RDW Coeff of Dru 13.2, Plt Count 229, MPV 9.5 11/02/20 09:12: Sodium 138, Potassium 3.9, Chloride 109 H, Carbon Dioxide 25.0, Anion Gap 4 L, BUN 5 L, Creatinine 0.74, Estim Creat Clear Calc 41.33, Est GFR (MDRD) Af Amer 99, Est GFR (MDRD) Non-Af 82, BUN/Creatinine Ratio 6.8 L, Glucose 133 H, Calcium 9.1 Physical Exam Narrative GENERAL: cooperative HEENT: Significant swelling involving the lower part of the face and left submandibular region EYES; Anicteric, Normal Conjunctiva NECK; supple, normal thyroid, RESPIRATORY: Diminished to auscultation CARDIOVASCULAR: Regular S1 S2, GI: soft, normoactive bowel sounds, : No Renal angle tenderness; EXTREMITIES: No edema, no clubbing, MUSCULOSKELETAL: no muscle waisting NEURO: Awake; no lateralizing signs. SKIN: No Rash PSYCH; Flat affect Assessment & Plan Assessment/Plan (1) Dental abscess: (2) Facial cellulitis: PLAN: Patient is a 75-year-old lady admitted with left-sided facial swelling. An assessment of left facial cellulitis secondary to left-sided dental abscess made admitted to regular nursing floor for further management 1. Left facial cellulitis secondary to left-sided dental abscess ?Admitted to regular nursing floor started on broad-spectrum antibiotic therapy with clindamycin. CT ordered demonstrated a 1.5 cm subperiosteal abscess along the outer aspect of the left distal mandibular body and overlying cellulitis extending inferiorly into the anterior neck consult was also placed to maxillofacial surgery Dr. Cooley -11/02/2020; patient scheduled to undergo surgical intervention -11/03/2020; patient underwent incision and drainage of left buccal space and left lingual space abscess on 11/02/2020. Plan is to observe patient for 1 additional day with possible discharge in a.m. 2. Dyslipidemia -Patient is on statin therapy, continued at home dose 3. Hyperlipidemia -Continue simvastatin 4. Osteoporosis -Continue raloxifene 5. GERD -Continue Protonix 6. Hypothyroidism - Patient is on levothyroxine home dose continued 7. Diabetes mellitus type II -patient's oral hypoglycemics held. Placed on long acting insulin, Accu-Cheks a.c. and at bedtime and covered with sliding scale insulin 8. Neuropathy -Continue gabapentin 9. Hypertension -continue metoprolol 10. DVT prophylaxis - On enoxaparin Charges/Coding Visit Charges Inpatient E&M: 67633 [facility] Hosp L2
--- NOTE | 2020-11-03 13:52 | DS.PCM_ITS ---
Providers Date of Admission: 10/30/20 Primary Care Physician: Dr. Reece Salas, DO Consultations 10/31/20 08:15 Consult: Oral Surgeon Routine Consulting Provider: Butch Cooley Reason for Consult: dental abcess EMERGENT Consult: No MD Notified: Yes Date Notified: 10/31/20 Time Notified: 08:15 Method of Notification: telephone Reason For Visit: DENTAL ABSCESS Diagnosis Discharge Diagnosis (1) Dental abscess: Status: Acute Code(s): K04.7 - Periapical abscess without sinus (2) Facial cellulitis: Status: Acute Code(s): L03.211 - Cellulitis of face Medications at Discharge Home Medications acetaminophen-codeine 1 tab PO BID PRN 05/22/14 aspirin 81 mg PO DAILY@0800 05/22/14 gabapentin 300 mg PO BIDCM 05/22/14 levothyroxine 75 mcg PO DAILY 05/22/14 loratadine 10 mg PO DAILY 05/22/14 raloxifene 60 mg PO DAILY 05/22/14 simvastatin 40 mg PO QHS 05/22/14 magnesium oxide 400 mg PO BID 09/19/15 metoprolol succinate 25 mg tablet,extended release 24 hr 25 mg PO DAILY 01/18/17 metformin 250 mg PO MOWEFR 05/09/18 pantoprazole 40 mg PO DAILY 05/09/18 acetaminophen [Tylenol] 650 mg PO Q6H PRN PRN tablet 05/13/18 acidophilus-pectin, citrus 1 tab PO BID tablet 05/13/18 albuterol sulfate 2.5 mg INHALATION Q2H PRN PRN vial.neb. 05/13/18 alprazolam 0.5 mg PO BID 10/30/20 celecoxib [Celebrex] 200 mg PO DAILY 10/30/20 clindamycin HCl 150 mg PO Q6H #20 cap 11/03/20 Hospital Course Summary of Care Provided Minutes Spent on Discharge: 35 Hospital Course: Patient is a 75-year-old lady admitted with left-sided facial swelling. An assessment of left facial cellulitis secondary to left-sided dental abscess made admitted to regular nursing floor for further management 1. Left facial cellulitis secondary to left-sided dental abscess ?Admitted to regular nursing floor started on broad-spectrum antibiotic therapy with clindamycin. CT ordered demonstrated a 1.5 cm subperiosteal abscess along the outer aspect of the left distal mandibular body and overlying cellulitis extending inferiorly into the anterior neck consult was also placed to [facility] Dr. Cooley -11/02/2020; patient scheduled to undergo surgical intervention -11/03/2020; patient underwent incision and drainage of left buccal space and left lingual space abscess on 11/02/2020. Patient was discharged home with 5 more days of clindamycin with instructions for patient to follow-up with PCP within 1 week 2. Dyslipidemia -Patient is on statin therapy, continued at home dose 3. Hyperlipidemia -Continue simvastatin 4. Osteoporosis -Continue raloxifene 5. GERD -Continue Protonix 6. Hypothyroidism - Patient is on levothyroxine home dose continued 7. Diabetes mellitus type II -patient's oral hypoglycemics held. Placed on long acting insulin, Accu-Cheks a.c. and at bedtime and covered with sliding scale insulin 8. Neuropathy -Continue gabapentin 9. Hypertension -continue metoprolol 10. DVT prophylaxis - On enoxaparin Physical Exam Narrative GENERAL: cooperative HEENT: swelling involving the lower part of the face and left submandibular region significantly down EYES; Anicteric, Normal Conjunctiva NECK; supple, normal thyroid, RESPIRATORY: Diminished to auscultation CARDIOVASCULAR: Regular S1 S2, GI: soft, normoactive bowel sounds, : No Renal angle tenderness; EXTREMITIES: No edema, no clubbing, MUSCULOSKELETAL: no muscle waisting NEURO: Awake; no lateralizing signs. SKIN: No Rash PSYCH; Flat affect Weight / BMI Weight Weight: 74.5 kg Body Mass Index (BMI) 28.1 ABG / Lab / Microbiology Data Result Diagrams: 11/02/20 09:12 11/02/20 09:12 Microbiology: Microbiology 11/02/20 Unknown Wound Abcess - Aerobic & Anaerobic Swabs Gram Stain - Final 11/02/20 Unknown Wound Abcess - Aerobic & Anaerobic Swabs Wound Culture - Preliminary Mixed Gram Positive Organisms D/C Instructions Discharge Diet: No restrictions Discharge Activity: Return to Normal Activity Call your doctor if you observe: Fever of 101 or Higher, Shortness of breath, Fainting spells and Chest pain Meaningful Use Info Meaningful Use Diagnoses (Choose all that apply): None applicable Discharge Plan Admission Admit Date/Time: 10/30/20 22:21 Attending Provider: Randall León Primary Care Provider: Reece Salas Consulting Providers: Butch Cooley Discharge Orders/Prescriptions Prescriptions: Continued acetaminophen-codeine 1 TABLET tablet 1 tab PO BID PRN (Reason: Pain) RF: 0 levothyroxine 75 MCG tablet 75 mcg PO DAILY RF: 0 simvastatin 20 MG tablet 40 mg PO QHS RF: 0 aspirin 81 MG tablet,chewable 81 mg PO DAILY@0800 RF: 0 raloxifene 60 MG tablet 60 mg PO DAILY RF: 0 loratadine 10 MG tablet 10 mg PO DAILY RF: 0 gabapentin 300 MG capsule 300 mg PO BIDCM RF: 0 magnesium oxide 400 MG tablet 400 mg PO BID RF: 0 metformin 500 MG tablet 250 mg PO MOWEFR RF: 0 pantoprazole 40 MG tablet 40 mg PO DAILY RF: 0 acetaminophen [Tylenol] 325 MG tablet 650 mg PO Q6H PRN PRN (Reason: Mild Pain (1-3)/Temp > 100.7 F) RF: 0 albuterol sulfate 2.5 MG/3 ML solution for nebulization 2.5 mg inhalation Q2H PRN PRN (Reason: SOB &/OR WHEEZING) RF: 0 acidophilus-pectin, citrus 1 TABLET tablet 1 tab PO BID RF: 0 celecoxib [Celebrex] 200 mg Capsule 200 mg PO DAILY RF: 0 alprazolam 0.25 mg tablet 0.5 mg PO BID RF: 0 clindamycin HCl 150 mg capsule 150 mg PO Q6H Qty: 20 RF: 0 metoprolol succinate [Toprol XL] 25 mg tablet extended release 24 hr 25 mg PO DAILY RF: 0 Referrals / Follow Up: Reece Salas DO [Primary Care Provider] - In 1 Week Disposition Disposition (needs filled in before D/C Order can be placed): Home, Self Care Charges/Coding Visit Charges Inpatient E&M: 28955 Disch Hosp
[2020-11-03 15:00] VITALS: BP 105/50; PULSE 73; RESP 16; O2SAT 93
--- NOTE | 2020-11-04 13:41 | CASEMGMT ---
[facility] F/U Phone Call LACE: 12 Strata: 3 Discharge date: 11/03/20 Call date: 11/04/20 Admission dx: Dental abscess Pt states awoke this am with some swelling to jaw again and pt states doesn't know what to do. [facility] provided pt with number to reach Dr. Cooley and she states she will call him at this time. Pt voices no further questions/concerns/needs for this [facility] at this time. [place] [facility]
== END 2020-11-03 21:05 | disposition home or self-care (01) | DRG 137 ==
LOC: ED 22:19 → PCU 22:45
PROVIDERS: Anesthesiology; Dentist Oral and Maxillofacial Surgery; Internal Medicine; Admitting Provider Hospitalist; Emergency Provider Emergency Medicine; PCP Family Medicine; Visit Provider Internal Medicine
PROC: 0C940ZZ Drainage of Buccal Mucosa, Open Approach (ICD-10-PCS; principal; 2020-11-02 13:50)
DX: K04.7 Periapical abscess without sinus (principal); L03.211 Cellulitis of face; I10 Essential (primary) hypertension; I34.1 Nonrheumatic mitral (valve) prolapse; E78.2 Mixed hyperlipidemia; E03.9 Hypothyroidism, unspecified; E11.40 Type 2 diabetes mellitus with diabetic neuropathy, unspecified; J44.9 Chronic obstructive pulmonary disease, unspecified; K21.9 Gastro-esophageal reflux disease without esophagitis; M81.0 Age-related osteoporosis without current pathological fracture; M06.9 Rheumatoid arthritis, unspecified; F17.210 Nicotine dependence, cigarettes, uncomplicated; Z79.82 Long term (current) use of aspirin; Z79.890 Hormone replacement therapy; Z79.84 Long term (current) use of oral hypoglycemic drugs; Z79.899 Other long term (current) drug therapy
CPT/HCPCS: 36415; 70487; 80048; 80202; 85025; 85027; 87070; 87075; 87077; 87186; 87205; 87640; 93005; 94640; 99283; 99406; J7030; J7040; J7120; Q9967; A4216; J2405

== ENCOUNTER 2021-04-07 14:36 | Outpatient (CLI) | payer MEDICARE, MEDICAID, SELFPAY ==
[2021-04-07 14:48] LABS: Mucous, Urine 0 SEEN /hpf (<or=2+); Squamous Epithelial Cells - UA 0 SEEN /hpf (5-10)
[2021-04-07 15:23] LABS: Absolute Neutrophil Count 3.4 X10^3/uL (2.0-7.7); Basophil# 0.04 X10^3/uL; Basophil% 0.6 % (0-1); Eosinophil# 0.19 X10^3/uL; Eosinophils% 2.7 % (0-5); Hematocrit 39.5 % (37-47); Hemoglobin 13.1 g/dL (12.0-15.0); Lymphocyte % 35.6 % (19-41); Mean Corp Hgb Conc 33.2 g/dL (32-36); Mean Corpuscular Hgb 31.9 pg (27.0-32.0); Mean Corpuscular Volume 96.1 fL (81-99); Mean Platelet Vol. 9.6 fl (6.2-12.0); Monocyte# 0.85 X10^3/uL; Monocyte% 12.1 % (0-10); NRBC Flagged by Analyzer 0 % (0-5); Neutrophil % 48.4 % (47-70); Platelet Count 220 K/mm3 (150-450); RBC Distribution Width CV 14.1 % (11.6-14.6); RBC Distribution Width SD 49.8 fl (35.1-43.9); Red Blood Count 4.11 M/mm3 (4.2-5.4)
[2021-04-07 15:45] LABS: Color, Urine Yellow (Yellow); Glucose, Dipstick Normal (Normal); Ketone-Dipstick Negative (Negative); Leukocyte Esterase-Dipstick 500 /ul (Negative); Nitrite-Dipstick Negative (Negative); Occult Blood-Urine Negative /ul (Negative); Protein-Dipstick Negative (Negative); Urine Bilirubin Dipstick Negative (Negative); Urine Clarity Sl. Cloudy (Clear); Urine Urobilinogen Normal (Normal)
[2021-04-07 15:58] LABS: Bacteria RARE /hpf (None Seen); Red Blood Cells-Urine 0-5 SEEN /hpf (0-5); White Blood Cells 25-50 SEEN /hpf (0-5)
[2021-04-07 16:03] LABS: Hemoglobin A1c 7.4 % (3.8-5.6)
[2021-04-07 16:05] LABS: ALB/GLOB Ratio 0.9 RATIO (0.9-2.4); AST(SGOT) 18 U/L (15-37); Alanine Aminotransfer ALT/SGPT 16 U/L (13-56); Albumin, Serum 3.3 g/dL (3.2-5.0); Alkaline Phosphatase 56 U/L (45-117); Anion Gap 4 (5-15); BUN 9 mg/dL (7-18); BUN/Creat Ratio 9.8 RATIO (10-20); Calcium,Total 9.2 mg/dL (8.5-10.1); Chloride 106 mmol/L (98-107); Cholesterol 163 mg/dL (200); Creatinine, Serum 0.92 mg/dL (0.55-1.02); EST Glomerular Filtration Rate 63 mL/min (>60); Est Glom Filt Rate - Afr Amer 76 mL/min (>60); Globulin 3.6 g/dL (2.2-4.2); Glucose 159 mg/dL (74-106); High Density Lipoprotein 55 mg/dL; Potassium 4.1 mmol/L (3.5-5.1); Protein, Total 6.9 g/dL (6.4-8.2); Sodium Level 139 mmol/L (136-145); Triglycerides 199 mg/dL; Very Low Density Lipoprotein 40 mg/dL (5-40)
== END 2021-04-07 23:59 | disposition home or self-care (01) ==
PROVIDERS: PCP Family Medicine; Visit Provider Family Medicine
DX: N39.0 Urinary tract infection, site not specified (principal); E11.9 Type 2 diabetes mellitus without complications; E78.2 Mixed hyperlipidemia
CPT/HCPCS: 36415; 80053; 80061; 81001; 83036; 85025

== ENCOUNTER 2021-05-03 15:58 | Outpatient (CLI) | payer MEDICARE, MEDICAID, SELFPAY ==
--- NOTE | 2021-05-03 16:07 | US_ITS ---
EXAM: US RETROPERITONEAL LIMITED, RENAL : 1945 CLINICAL INDICATION: L FLANK PAIN TECHNIQUE: Limited grayscale and color Doppler sonographic evaluation of the retroperitoneum was performed. This report was created using Ever[employer] report generation technology. COMPARISON: 09/29/18 FINDINGS: RIGHT KIDNEY: Atrophic, measuring 8.3 cm. No hydronephrosis. No shadowing calculus. No perinephric collection is demonstrated. LEFT KIDNEY: Atrophic, measuring 8.4 cm. No hydronephrosis. No shadowing calculus. No perinephric collection is demonstrated. BLADDER: No filling defects identified in the bladder. US/Kidney and Bladder IMPRESSION: 1. No acute abnormality is identified involving the kidneys or bladder. 2. Bilateral renal atrophy likely indicating chronic medical renal disease. at 2332 Reported and signed by: Beck Doss MD Electronically Signed: Beck Doss MD at 23:31 EDT ,
== END 2021-05-03 23:59 | disposition home or self-care (01) ==
PROVIDERS: PCP Family Medicine; Visit Provider Family Medicine
DX: R10.9 Unspecified abdominal pain (principal); G89.29 Other chronic pain
CPT/HCPCS: 76770

== ENCOUNTER → 2021-10-09 | Outpatient (CLI) | payer MEDICARE, MEDICAID, SELFPAY ==
--- NOTE | 2021-10-09 14:18 | CT_ITS ---
STUDY: CT ABDOMEN AND PELVIS WITH AND WITHOUT CONTRAST REASON FOR EXAM: Female, 76 years old. FLANK PAIN RADIATION DOSAGE (If Supplied By Facility): CTDIvol = ( 22.67 ) mGy, DLP = ( 3781.83 ) mGycm TECHNIQUE: Transaxial images were obtained from the dome of the diaphragm to the symphysis pubis without oral contrast. IV 100mL Isovue-300 was administered. Sagittal and coronal images were reconstructed. Individualized dose optimization techniques were used for this CT. COMPARISON: Comparison is made with prior study dated 05/10/2018. FINDINGS: The visualized lung bases are unremarkable. The visualized portions of the heart are within normal limits. There is decreased attenuation of the liver consistent with steatosis. Small cysts are seen in the right and left lobes of the liver. There has been no change. The patient is status post cholecystectomy. Normal spleen. There is diffuse atrophy of the pancreas. Normal bilateral adrenal glands. Normal right kidney. Normal left kidney. There is a large hiatal hernia composed mostly of the fundus of the stomach. Normal small intestine. There are scattered colonic diverticula consistent with diverticulosis. The appendix is visualized and appears normal. There is scattered atherosclerotic calcification of the abdominal aorta, without a demonstrated aneurysm. Normal inferior vena cava. Normal retroperitoneum. Normal urinary bladder. The patient is status post right ventral hernia repair. There are degenerative changes of the visualized lumbar spine. Stable grade 1 anterior listhesis of L4 on L5. CT/CT Abd/Pelvis W/WO Contrast IMPRESSION: Large hiatal hernia. Stable hepatic cysts. Fatty infiltration of the liver. Electronically Signed: Yohannes Bentley MD at 14:37 EDT ,
[2021-10-09 14:26] LABS: CREATININE FINGERSTICK 1.1 mg/dL (0.55-1.02)
--- NOTE | 2021-10-09 14:57 | BI_ITS ---
MAMMOGRAPHY - BILATERAL SCREENING REASON FOR EXAM: Female, 76 years old. Routine annual screening examination. PERTINENT HISTORY: Sister with breast cancer. TECHNIQUE: Digital bilateral breast boris (3D mammographic acquisition) in the CC and MLO projections. 2-D mediolateral oblique (MLO) and craniocaudad (CC) views of both breasts were obtained. CAD: Full Field Digital Mammography with Computer Added Detection was performed. COMPARISON: Comparison is made with prior study dated 02/29/2020 and 10/03/2017. FINDINGS: Breast Composition: The breasts are heterogeneously dense, which may obscure small masses. Stable 1.7 cm x 0.9 cm lobulated nodule in the slightly upper central portion of the left breast. This most likely represents a small lymph node. Stable bilateral scattered microcalcifications. There are no dominant masses or suspicious calcifications. No other significant abnormalities are identified. There has been no significant change since the prior study. BI/SCRN MAMM (CAD)W/BORIS BILAT IMPRESSION: Stable bilateral screening mammogram. Yearly follow-up mammogram recommended. (A) ASSESSMENT CATEGORY: BIRADS Category 2: Benign. A letter regarding these results will be sent to the patient by the facility within 30 days. Approximately 10% of breast cancers are not detected by mammography. A normal mammogram should not delay biopsy of a clinically suspicious abnormality. [id number] Electronically Signed: Yohannes Bentley MD at 15:28 EDT ,
== END | disposition home or self-care (01) ==
PROVIDERS: PCP Family Medicine; Referring Provider Urology; Visit Provider Family Medicine
DX: N39.0 Urinary tract infection, site not specified (principal); K44.9 Diaphragmatic hernia without obstruction or gangrene; K76.0 Fatty (change of) liver, not elsewhere classified; K76.89 Other specified diseases of liver; Z12.31 Encounter for screening mammogram for malignant neoplasm of breast; Z80.3 Family history of malignant neoplasm of breast
CPT/HCPCS: 74178; 77063; 77067; Q9967

== ENCOUNTER → 2021-11-14 | Outpatient (CLI) | payer MEDICARE, MEDICAID, SELFPAY ==
--- NOTE | 2021-11-14 14:40 | US_ITS ---
HISTORY: RECURRENT CYSTITIS. TECHNIQUE: Estrada scale and color doppler images were obtained of the kidneys. 51 images. COMPARISON: CT 10/09/2021. FINDINGS: RIGHT KIDNEY: 8 cm in length with a cortical thickness of 1.1 cm. Echogenicity unremarkable. No hydronephrosis. No gross renal mass demonstrated. LEFT KIDNEY: 9.5 cm in length with a cortical thickness of 1.2 cm. Echogenicity unremarkable. No hydronephrosis. No gross renal mass demonstrated. URINARY BLADDER: Partially distended at 63 cc with a wall thickness of 6 mm. US/Kidney and Bladder IMPRESSION: Unremarkable examination of the kidneys. Electronically Signed: Katie Dutta MD at 16:34 EDT ,
--- NOTE | 2021-11-14 14:40 | CT_ITS ---
STUDY: LOW DOSE CT LUNG CANCER SCREENING REASON FOR EXAM: Female, 76 years old. SCREENING. 1PPD X 63 YEARS RADIATION DOSAGE (If Supplied By Facility): CTDIvol = ( 3.02 ) mGy, DLP = ( 87.99 ) mGycm TECHNIQUE: No contrast was administered. Low dose technique was utilized (average mAS-38 and kVp 120). 1.25 mm axial source images with a slice interval of 1.25-mm were reconstructed in lung windows. 2.5 mm axial source images with a slice interval of 2.5-mm were reconstructed in lung windows. 5.0 mm axial source images with a slice interval of 5.0-mm were reconstructed in soft tissue windows. COMPARISON: 09/08/2020 FINDINGS: Lung windows show underlying emphysema. Chronic interstitial changes noted in both lung santiago without a superimposed acute pulmonary process. Stable 3 mm pleural-based nodule in the left lower lobe on axial image 151. No new suspicious noncalcified mass or nodule. There is a prominent hiatal hernia causing bilateral lower lobe atelectasis. Soft tissue windows show no suspicious adenopathy. Peripheral calcifications noted in the thoracic aorta without aneurysm. There are calcified coronary vessels. Limited cuts through the upper abdomen do not show a suspicious solid organ abnormality. Bony structures show degenerative change. CT/Low Dose CT Lung Screening IMPRESSION: Lung-RADS category 1 - Continue annual screening with LDCT in 12 months. IMPORTANT NOTES FOR USE: ACR Lung-RADS Version 1.1 Assessment Categories Release Date: 2018 Category: Coded 0-4 bases on nodule(s) with highest degree of suspicion. Negative screen is defined as categories 1 and 2; a positive screen is defined as categories 3 and 4. Category 3 and 4A nodules that are unchanged on interval CT should be coded as category 2, and individuals returned to screening in 12 months. Category 4X: Category 3 or 4 nodules with additional imaging findings that increase the suspicion of lung cancer, such as spiculation, GGN that doubles in size in 1 year, enlarged lymph notes, etc. Category Modifiers: S (significant finding unrelated to lung cancer) Electronically Signed: Franky Valencia MD at 15:39 EDT ,
--- NOTE | 2021-11-14 15:20 | RAD_ITS ---
HISTORY: DDD -- HAS CT AND US. TECHNIQUE: XR Spine Lumbar Min 4 Views. COMPARISON: 09/11/2016. FINDINGS: VERTEBRAE: Vertebral body heights preserved. Posterior elements appear intact. ALIGNMENT: Chronic mild retrolisthesis of L1-2 and L2-3. Chronic anterolisthesis of L4-5. Increased levoscoliosis. INTERVERTEBRAL DISCS: Degenerative endplate changes with intervertebral disc space narrowing at T11-12. Degenerative endplate changes with intervertebral disc space narrowing at multiple levels in the lumbar spine, progressed at L5-S1. SOFT TISSUES: Postoperative changes over the right upper quadrant. RAD/L/S Spine Min 4 Views IMPRESSION: No acute fracture or dislocation identified in the lumbar spine. Multilevel degenerative changes above. Electronically Signed: Katie Dutta MD at 16:39 EDT ,
== END | disposition home or self-care (01) ==
LOC: CT 14:38
PROVIDERS: PCP Family Medicine; Referring Provider Family Medicine; Visit Provider Family Medicine
DX: Z12.2 Encounter for screening for malignant neoplasm of respiratory organs (principal); F17.210 Nicotine dependence, cigarettes, uncomplicated; N30.90 Cystitis, unspecified without hematuria; M51.36 Other intervertebral disc degeneration, lumbar region
CPT/HCPCS: 71271; 72110; 76770

== ENCOUNTER → 2022-05-04 | Outpatient (CLI) | payer MEDICAID, MEDICARE, SELFPAY ==
--- NOTE | 2022-05-04 15:11 | RAD_ITS ---
INDICATION: BRONCHITIS EXAMINATION/TECHNIQUE: X-RAY - XR Chest 2 Views COMPARISON: 05/11/2018 FINDINGS: LINES/DEVICES: None. LUNGS: Patient rotated. No consolidation, vascular congestion or pleural effusion. MEDIASTINUM AND CARDIOVASCULAR STRUCTURES: Cardiac silhouette stable within normal limits. Large retrocardiac hiatal hernia with fluid level again demonstrated. BONES AND SOFT TISSUES: No acute changes. RAD/Chest PA and Lateral IMPRESSION: No radiographic evidence of acute cardiopulmonary disease. Electronically Signed: Navi Monahan MD at 20:38 EDT ,
== END | disposition home or self-care (01) ==
LOC: RAD 15:05
PROVIDERS: PCP Family Medicine; Referring Provider Family Medicine; Visit Provider Family Medicine
DX: J40 Bronchitis, not specified as acute or chronic (principal)
CPT/HCPCS: 71046

== ENCOUNTER → 2022-10-12 | Outpatient (CLI) | payer MEDICARE, MEDICAID, SELFPAY ==
[2022-10-12 14:58] LABS: Absolute Lymphocyte Count 2.88 X10^3/uL (0.83-4.51); Absolute Neutrophil Count 3.1 X10^3/uL (2.0-7.7); Basophil# 0.05 X10^3/uL; Basophil% 0.7 % (0-1); Eosinophil# 0.17 X10^3/uL; Eosinophils% 2.5 % (0-5); Hematocrit 41.3 % (37-47); Hemoglobin 12.7 g/dL (12.0-15.0); Lymphocyte # 2.88 X10^3/ul (0.83-4.51); Lymphocyte % 41.6 % (19-41); Mean Corp Hgb Conc 30.8 g/dL (32-36); Mean Corpuscular Hgb 30.2 pg (27.0-32.0); Mean Corpuscular Volume 98.1 fL (81-99); Mean Platelet Vol. 10.1 fl (6.2-12.0); Monocyte# 0.73 X10^3/uL; Monocyte% 10.5 % (0-10); NRBC Flagged by Analyzer 0 % (0-5); Neutrophil # 3.06 X10^3/uL (2.7-7.7); Neutrophil % 44.3 % (47-70); Platelet Count 234 K/mm3 (150-450); RBC Distribution Width CV 15.1 % (11.6-14.6); RBC Distribution Width SD 54.2 fl (35.1-43.9); Red Blood Count 4.21 M/mm3 (4.2-5.4); White Blood Count 6.9 K/mm3 (4.4-11.0)
[2022-10-12 15:30] LABS: Thyroid Stim Hormone (TSH) 7.55 uIU/mL (0.358-3.74)
[2022-10-12 15:32] LABS: Hemoglobin A1c 7.6 % (3.8-5.6)
== END | disposition home or self-care (01) ==
PROVIDERS: PCP Family Medicine; Referring Provider Family Medicine; Visit Provider Family Medicine
DX: I10 Essential (primary) hypertension (principal)
CPT/HCPCS: 36415; 83036; 84443; 85025

== ENCOUNTER 2023-02-08 16:47 | Emergency (ER) | payer MEDICARE, MEDICAID, SELFPAY ==
[2023-02-08 16:48] VITALS: BP 169/82; PULSE 103; RESP 18; TEMP 36.8; O2SAT 96
[2023-02-08 16:59] VITALS: BP 147/78; PULSE 104; RESP 16; O2SAT 97
[2023-02-08 17:00] VITALS: BMI 30.2
--- NOTE | 2023-02-08 17:29 | CT_ITS ---
EXAM: CT ABDOMEN AND PELVIS WITH INTRAVENOUS CONTRAST CLINICAL INDICATION: distension -- OK to wait for labs TECHNIQUE: Helically acquired images were obtained of the abdomen and pelvis with intravenous contrast. This CT exam was performed using one or more of the following dose reduction techniques: automated exposure control, adjustment of the mA and/or kV according to patient size, and/or use of iterative reconstruction technique. CONTRAST: IV 100mL Isovue-370 COMPARISON: 10/09/2021. FINDINGS: LOWER THORAX: Moderate hiatal hernia containing the gastric body and pancreatic body and tail. No change compared to prior. Lung bases are clear. No cardiomegaly. No significant pericardial effusion. ABDOMEN: LIVER: Multiple low-attenuation lesions in the liver measuring up to 1.3 cm. These are not characterized on the current examination but show no significant change compared to the prior study. GALLBLADDER AND BILE DUCTS: Unremarkable. No calcified gallstones. No gallbladder distention or wall edema. No intra- or extrahepatic biliary ductal dilation. PANCREAS: Unremarkable. No focal cystic or solid mass. SPLEEN: Unremarkable. Normal size without focal cystic or solid mass. ADRENALS: Unremarkable. No nodules. KIDNEYS AND URETERS: Unremarkable. Normal renal size and position. No hydronephrosis. STOMACH AND BOWEL: Diverticulosis. No acute diverticulitis. No stomach or bowel distention. PELVIS: APPENDIX: No evidence of acute appendicitis. BLADDER: Unremarkable. REPRODUCTIVE: Unremarkable as visualized. No mass. ABDOMEN and PELVIS: INTRAPERITONEAL SPACE: Unremarkable. No ascites or other fluid collection. No free air. BONES/JOINTS: Unremarkable. No suspicious lytic or blastic abnormality. SOFT TISSUES: Unremarkable. No discrete abdominal or pelvic wall hernia. VASCULATURE: Unremarkable. Abdominal aorta is normal in caliber. LYMPH NODES: Unremarkable. No enlarged lymph nodes. CT/Abdomen/Pelvis W IV Cont ONLY IMPRESSION: 1. No acute findings. 2. Moderate hiatal hernia, unchanged. 3. Multiple hepatic hypodensities, unchanged. Electronically Signed: Rosy Ho MD at 19:39 EST Reading Location ID and State: [id number] / Tel , Service support ,
--- NOTE | 2023-02-08 17:31 | EDS_ITS ---
HPI History of Present Illness Chief Complaint: Lower Extremity Injury Informant: patient Narrative Narrative: Patient presents to the ER because of 2 weeks of swelling in the right foot and ankle that seems worse today to her, as well as what feels like swelling in her abdomen. She states she does not know how to describe her abdominal discomfort other than when she moves back and forth and walks, my belly feels like a bowl of jelly. She states this is new and different for her and she has never had this before. She denies having any pain or nausea/vomiting, or any changes in bowel movements. She is afraid that the swelling is all coming from the same place. She denies any history of blood clots in the past and is not anticoagulated for any reason. She has chronic mild dyspnea with exertion in context of her COPD and states that is no different in the past couple weeks. She states that seem to start after she was on clindamycin for a tooth ache. She had a little bit of loose stool with the clindamycin when she was on it, but she took some home remedies and that resolved. This was all 2-3 weeks ago. She denies any orthopnea or chest discomfort. No fevers or chills. She denies any pain in her leg or abdomen. [facility] Medical History Anxiety and depression Chronic pain COPD (chronic obstructive pulmonary disease) COPD, mild Diabetes mellitus Dizziness Dyslipidemia GERD (gastroesophageal reflux disease) Heart palpitations Hyperlipemia, mixed Hypertension Hypothyroid Kidney stones MVP (mitral valve prolapse) Nicotine addiction Osteoporosis Panic attacks Pre-syncope PTSD (post-traumatic stress disorder) PVC's (premature ventricular contractions) Rheumatoid arthritis Sleep apnea Smoker Syncope Home Medications acetaminophen 300 mg-codeine 30 mg tablet 1 tab PO BID PRN Pain 05/22/14 [History Last Taken Unknown] aspirin 81 mg chewable tablet 81 mg PO DAILY@0800 cardiovascular 05/22/14 [History Last Taken 05/09/18 81 mg] gabapentin 300 mg capsule 300 mg PO BIDCM nerve pain 05/22/14 [History Last Taken 09/19/15] levothyroxine 75 mcg tablet 75 mcg PO DAILY hypothyroid 05/22/14 [History Last Taken 05/09/18 75 mcg] loratadine 10 mg tablet 10 mg PO DAILY allergies 05/22/14 [History Last Taken 05/09/18 10 mg] raloxifene 60 mg tablet 60 mg PO DAILY osteoarthritis 05/22/14 [History Last Taken 05/09/18 60 mg] simvastatin 20 mg tablet 40 mg PO QHS high cholesterol 05/22/14 [History Last Taken 09/18/15] magnesium oxide 400 mg (241.3 mg magnesium) tablet 400 mg PO BID electrolyte 09/19/15 [History Last Taken 09/19/15] metoprolol succinate 25 mg tablet,extended release 24 hr (Toprol XL) 25 mg PO DAILY Cardiovascular 01/18/17 [History Last Taken 10/29/20 23:00] metformin 500 mg tablet 250 mg PO MOWEFR diabetes 05/09/18 [History Last Taken Unknown] pantoprazole 40 mg tablet,delayed release 40 mg PO DAILY reflux 05/09/18 [History Last Taken Unknown] acetaminophen 325 mg tablet (Tylenol) 650 mg (2 x 325 mg) PO Q6H PRN PRN Mild Pain (1-3)/Temp > 100.7 F 05/13/18 [Rx Last Taken Unknown] acidophilus 25 million cell-pectin, citrus 100 mg tablet 1 tab PO BID 05/13/18 [Rx Last Taken Unknown] albuterol sulfate 2.5 mg/3 mL (0.083 %) solution for nebulization 2.5 mg (3 mL) inhalation Q2H PRN PRN SOB &/OR WHEEZING 05/13/18 [Rx Last Taken Unknown] alprazolam 0.25 mg tablet 0.5 mg PO BID anxiety 10/30/20 [History Last Taken Unknown] celecoxib 200 mg capsule (Celebrex) 200 mg PO DAILY 10/30/20 [History Last Taken Unknown] clindamycin HCl 150 mg capsule 150 mg PO Q6H #20 caps 11/03/20 [Rx Last Taken Unknown] hydrochlorothiazide 25 mg tablet 25 mg PO DAILY #30 tabs 02/08/23 [Rx Last Taken Unknown] Allergy/AdvReac Type Severity Reaction Status Date / Time Penicillins Allergy Swelling Verified 02/08/23 16:48 Family History Mother CAD (coronary artery disease) Surgical History History of appendectomy History of gastric surgery Previous section Social History Smoking Status: Current every day smoker tobacco type: cigarettes ROS ROS ED Constitutional Constitutional ED: Denies chills or fever(s) Eyes Eyes: Denies change in vision or diplopia ENT ENT ED: Denies rhinorrhea or sore throat Cardiovascular Cardiovascular: Reports other Details: Right lower leg edema only ; Denies chest pain or palpitations Respiratory/Chest Respiratory/Chest: Denies cough or dyspnea Gastrointestinal Gastrointestinal: Reports other Details: Abdominal distention see HPI ; Denies abdominal pain, diarrhea, hematemesis, hematochezia, melena, nausea or vomiting Genitourinary Genitourinary ED: Denies dysuria or hematuria Musculoskeletal Musculoskeletal: Denies back pain or neck pain Integumentary Denies abscess or rash Neurologic Neurologic: Denies headache(s), paresthesias or weakness Psychiatric Psychiatric: Denies anxiety or suicidal thoughts EXAM Physical Exam Const Vital Signs: 02/08/23 16:48 02/08/23 16:59 02/08/23 17:02 Temperature 98.3 F Temperature Source Temporal Pulse Rate 103 H 104 H Respiratory Rate 18 16 Respiratory Effort Normal Non-Labored Respiratory Pattern Normal Blood Pressure 169/82 H 147/78 H Blood Pressure Mean 111 101 Pulse Ox 96 97 Oxygen Delivery Method Room Air Room Air Positive well nourished and well developed General Appearance ED: well developed and NAD HEENT Reports moist mucous membranes normocephalic and atraumatic Eyes PERRL and EOMs intact bilaterally Neck full ROM, supple and no JVD Resp normal respiratory effort and clear to auscultation bilaterally Cardio regular rate, regular rhythm and no murmurs GI non-tender and non-distended GI Narrative: Mid section of abdomen feels fatty, no gross distention on exam. No hernias palpable. Auscultation: normoactive bowel sounds Palpation: soft Back/Spine no CVA tenderness General Back: other FROM Extremity normal to inspection Extremity Narrative: No calf tenderness bilaterally. No palpable cords. No inguinal lymphadenopathy. General Extremety ED: Yes edema; Negative for pulses abnormal or tenderness General Extremity: edema right lower extremity (No edema left.) moderate (Only in peroneal aspect of right foot and the right ankle); Negative for pulses abnormal Neuro oriented x3, CN's II-XII intact bilaterally and no sensory deficits noted Sensorium / Orientation: awake and alert Motor Exam: strength 5/5 throughout Skin no rashes or lesions noted and no wounds MDM MDM MDM Narrative Medical decision making narrative: Edema in the right leg and possibly the abdomen, although I do not see any peau d'orange appearance of the abdominal wall and I do not grossly detect any ascites, differential here if it includes the abdomen includes DVT that may be also involving the IVC, liver pathology, renal pathology, cancer, etc. Given all this, duplex ultrasound of the right lower extremity was obtained in addition to labs including liver enzymes and renal function and obtaining urinalysis to assess for proteinuria or other kidney issues, and a CT of the abdomen/pelvis with IV contrast she does not have anemia, elevated liver enzymes, signs of cirrhosis on the CT, or renal failure. Furthermore her BNP is 37.3, ruling out acute decompensated congestive heart failure. I reviewed the CT images and report which I agree with, it is negative for anything acute. She does have a moderate hiatal hernia which I think is incidental. She does have subcutaneous fat of the abdominal wall as well as mesenteric fat but there is no ascites or any signs of inflammation or edema. DVT duplex ultrasound right lower extremity is negative for any clots. This time there is no emergent condition, and she is stable to follow-up as an outpatient with regards to the swelling in the right foot and ankle. I do not think we need to be aggressive in treating this right now since it is not painful or limiting her. She does not appear to be on any calcium channel blockers that we could discontinue. She is a little hypertensive so may be reasonable to add a mild diuretic such as HCTZ. Lab Data Attestation: I reviewed the patient's lab results. Labs: Laboratory Results - last 24 hr 02/08/23 17:10 WBC 6.8 RBC 4.02 L Hgb 12.2 Hct 38.5 MCV 95.8 MCH 30.3 MCHC 31.7 L RDW Std Deviation 52.7 H RDW Coeff of Dru 15.1 H Plt Count 221 MPV 10.2 Immature Gran % (Auto) 0.400 Neut % (Auto) 58.7 Lymph % (Auto) 26.8 Keith % (Auto) 9.7 Eos % (Auto) 3.7 Baso % (Auto) 0.7 Absolute Neuts (auto) 4.0 Absolute Lymphs (auto) 1.82 Nucleated RBC % 0 Sodium 142 Potassium 4.0 Chloride 109 H Carbon Dioxide 25.0 Anion Gap 8 BUN 8 Creatinine 0.94 Estim Creat Clear Calc 42.59 Est GFR (MDRD) Af Amer 74 Est GFR (MDRD) Non-Af 61 BUN/Creatinine Ratio 8.5 L Glucose 173 H Calcium 8.6 Total Bilirubin 0.20 AST 34 ALT 22 Alkaline Phosphatase 45 B-Natriuretic Peptide 37.3 Total Protein 6.7 Albumin 3.2 Globulin 3.5 Albumin/Globulin Ratio 0.9 Radiography Diagnostic Testing: Clinical Impression(s) from Imaging Studies Abdomen/Pelvis CT 02/08/23 17:29 IMPRESSION: 1. No acute findings. 2. Moderate hiatal hernia, unchanged. 3. Multiple hepatic hypodensities, unchanged. Electronically Signed: Rosy Ho MD at 19:39 EST Reading Location ID and State: Kenisha Small MD Tel , Service support , Venous Duplex 02/08/23 17:35 IMPRESSION: No DVT. Small popliteal cyst. Electronically Signed: Rosy Ho MD at 19:41 EST Reading Location ID and State: Kenisha Small MD Tel , Service support , Discharge Plan Triage Chief Complaint: Lower Extremity Injury ED Provider: Dagoberto Hein Dx/Rx/DC Orders Clinical Impression: Abdominal distension, Right ankle swelling, Accelerated hypertension Instructions: ED Peripheral Edema, Unilateral Prescriptions: New hydrochlorothiazide 25 mg tablet 25 mg PO DAILY Qty: 30 0RF No Action acetaminophen-codeine 1 TABLET tablet 1 tab PO BID PRN (Reason: Pain) Patient Comments: pain levothyroxine 75 MCG tablet 75 mcg PO DAILY Patient Comments: thyroid simvastatin 20 MG tablet 40 mg PO QHS Patient Comments: cholesterol aspirin 81 MG tablet,chewable 81 mg PO DAILY@0800 Patient Comments: heart health raloxifene 60 MG tablet 60 mg PO DAILY Patient Comments: bone health loratadine 10 MG tablet 10 mg PO DAILY Patient Comments: allergies gabapentin 300 MG capsule 300 mg PO BIDCM Patient Comments: neuropathy/pain magnesium oxide 400 MG tablet 400 mg PO BID Patient Comments: supplement metformin 500 MG tablet 250 mg PO MOWEFR pantoprazole 40 MG tablet 40 mg PO DAILY acetaminophen [Tylenol] 325 MG tablet 650 mg PO Q6H PRN PRN (Reason: Mild Pain (1-3)/Temp > 100.7 F) 0RF albuterol sulfate 2.5 MG/3 ML solution for nebulization 2.5 mg inhalation Q2H PRN PRN (Reason: SOB &/OR WHEEZING) 0RF acidophilus-pectin, citrus 1 TABLET tablet 1 tab PO BID 0RF celecoxib [Celebrex] 200 mg Capsule 200 mg PO DAILY alprazolam 0.25 mg tablet 0.5 mg PO BID clindamycin HCl 150 mg capsule 150 mg PO Q6H Qty: 20 0RF metoprolol succinate [Toprol XL] 25 mg tablet extended release 24 hr 25 mg PO DAILY Primary Care Provider: Reece Salas Referrals: Reece Salas DO [Primary Care Provider] - 1-2 Weeks Disposition Disposition: Home, Self Care
--- NOTE | 2023-02-08 17:35 | US_ITS ---
EXAM: US DUPLEX RIGHT LOWER EXTREMITY VEINS CLINICAL INDICATION: RT FOOT SWELLING TECHNIQUE: Real-time duplex ultrasound scan of the right lower extremity veins integrating B-mode two-dimensional vascular structure, Doppler spectral analysis, color flow Doppler imaging and compression. COMPARISON: No relevant prior studies available. FINDINGS: DEEP VEINS: Unremarkable. No DVT in the visualized common femoral, femoral, proximal deep femoral or popliteal veins. The veins demonstrate normal color flow, are normally compressible, with normal phasic flow and/or augmentation response. SUPERFICIAL VEINS: Unremarkable. No thrombus in the visualized great saphenous vein. SOFT TISSUES: No acute findings. Small popliteal cyst. US/Venous Duplex Imag/Limited/Uni IMPRESSION: No DVT. Small popliteal cyst. Electronically Signed: Rosy Ho MD at 19:41 EST Reading Location ID and State: [id number] / Tel , Service support ,
[2023-02-08 17:54] LABS: Absolute Lymphocyte Count 1.82 X10^3/uL (0.83-4.51); Basophil# 0.05 X10^3/uL; Basophil% 0.7 % (0-1); Eosinophil# 0.25 X10^3/uL; Eosinophils% 3.7 % (0-5); Hematocrit 38.5 % (37-47); Hemoglobin 12.2 g/dL (12.0-15.0); Lymphocyte # 1.82 X10^3/ul (0.83-4.51); Lymphocyte % 26.8 % (19-41); Mean Corp Hgb Conc 31.7 g/dL (32-36); Mean Corpuscular Hgb 30.3 pg (27.0-32.0); Mean Corpuscular Volume 95.8 fL (81-99); Mean Platelet Vol. 10.2 fl (6.2-12.0); Monocyte# 0.66 X10^3/uL; Monocyte% 9.7 % (0-10); NRBC Flagged by Analyzer 0 % (0-5); Neutrophil # 3.99 X10^3/uL (2.7-7.7); Neutrophil % 58.7 % (47-70); Platelet Count 221 K/mm3 (150-450); RBC Distribution Width CV 15.1 % (11.6-14.6); RBC Distribution Width SD 52.7 fl (35.1-43.9); Red Blood Count 4.02 M/mm3 (4.2-5.4); White Blood Count 6.8 K/mm3 (4.4-11.0)
[2023-02-08 18:17] LABS: ALB/GLOB Ratio 0.9 RATIO (0.9-2.4); AST(SGOT) 34 U/L (15-37); Alanine Aminotransfer ALT/SGPT 22 U/L (13-56); Albumin, Serum 3.2 g/dL (3.2-5.0); Alkaline Phosphatase 45 U/L (45-117); Anion Gap 8 (5-15); BUN 8 mg/dL (7-18); BUN/Creat Ratio 8.5 RATIO (10-20); Calcium,Total 8.6 mg/dL (8.5-10.1); Chloride 109 mmol/L (98-107); Creatinine, Serum 0.94 mg/dL (0.55-1.02); EST Glomerular Filtration Rate 61 mL/min (>60); Est Glom Filt Rate - Afr Amer 74 mL/min (>60); Estimated Creatinine Clearance 42.59 ml/min; Globulin 3.5 g/dL (2.2-4.2); Glucose 173 mg/dL (74-106); Protein, Total 6.7 g/dL (6.4-8.2); Sodium Level 142 mmol/L (136-145)
[2023-02-08 18:25] LABS: BNP,B-Type NATRIURETIC PEPTIDE 37.3 pg/mL (0-100)
[2023-02-08 19:48] LABS: Bacteria 0 SEEN /hpf (None Seen); Mucous, Urine 0 SEEN /hpf (<or=2+); Red Blood Cells-Urine 0 SEEN /hpf (0-5); White Blood Cells 0 SEEN /hpf (0-5)
[2023-02-08 19:52] LABS: Color, Urine Yellow (Yellow); Glucose, Dipstick Normal (Normal); Ketone-Dipstick Negative (Negative); Leukocyte Esterase-Dipstick Negative /ul (Negative); Nitrite-Dipstick Negative (Negative); Occult Blood-Urine Negative /ul (Negative); Protein-Dipstick Negative (Negative); Specific Gravity, Urine 1.005 (1.002-1.030); Urine Bilirubin Dipstick Negative (Negative); Urine Clarity Clear (Clear); Urine Urobilinogen Normal (Normal)
[2023-02-08 20:05] VITALS: PULSE 69; RESP 16
[2023-02-08 20:06] VITALS: PULSE 69; RESP 16; O2SAT 94
[2023-02-08 20:06] LABS: Squamous Epithelial Cells - UA 0-5 SEEN /hpf (5-10); Yeast-Urine RARE /hpf (None Seen)
--- OUTSIDE RECORDS SUMMARY | 2023-02-08 20:47 | XMS RPT_ITS | CCD ---
Author Name Unknown Address [address] [place] [address] Organization [facility] Care Team Providers Care Child Advocate Name Role Phone Reece Salas Primary Care Provider [phone] REECE SALAS Primary Care Unavailable CRISS, LENI Referring Unavailable YUAN, LENI Attending Unavailable YUAN, LENI Referring Unavailable CRISS, LENI Attending Unavailable REECE SALAS Primary Care Unavailable Reece Salas DO Primary Care Provider [phone] Reece Salas DO Primary Care Provider [phone] REECE SALAS Attending Unavailable HA CARRASCO Attending Unavailable PETRIEUGENIAA, REECE Primary Care Unavailable JOSUE, REECE Attending Unavailable JOSUE, REECE Primary Care Unavailable JOSUE, REECE Attending Unavailable PETRILLA, REECE Primary Care Unavailable LINHA, REECE Attending Unavailable LINHA, REECE Primary Care Unavailable Allergies Allergy Classification Reported Allergen(s) Allergy Type Date of Onset Reaction(s) Facility (8 sources) Penicillin; Translations: [PENICILLIN] Drug Allergy 9 Hives [facility] (18 sources) Penicillins Drug Intolerance 5 Hives, Rash [facility] (6 sources) Other Propensity to adverse reactions 3 Other [facility] Medications Current Medications Medication Drug Class(es) Dates Sig (Normalized) Sig (Original) acetaminophen 300 mg / codeine phosphate 30 mg oral tablet (20 sources) Opioid Agonist Start: 12-19-2022 End: 03-01-2023 take 1 tablet by mouth twice daily as needed for pain acetaminophen-cod eine (Tylenol #3) 300-30 MG tablet Indications: DDD (degenerative disc disease), lumbar Take 1 tablet by mouth 2 times daily as needed for severe pain (7-10). 60 tablet 1 12/31/2022 03/01/2023 Active Completed/Discontinued Medications Medication Drug Class(es) Dates Sig (Normalized) Sig (Original) benzonatate 100 mg oral capsule (3 sources) Non-narcotic Antitussive Start: 04-11-2018 End: 07-28-2021 take 1-2 capsules by mouth three times daily as needed benzonatate (TESSALON PERLES) 100 mg capsule Indications: Bronchitis , Influenza-like illness Take 1-2 capsules by mouth three times daily as needed. 30 capsule 0 04/11/2018 07/28/2021 Discontinued Problems Active Problems Problem Classification Problem Date Documented Date Episodic/Chronic Anxiety disorders (20 sources) Anxiety; Translations: [Anxiety disorder, unspecified] Onset: 10-29-1912-21-2020 Chronic Cardiac dysrhythmias (20 sources) Ventricular premature beats; Translations: [Ventricular premature depolarization] Onset: 10-29-1912-21-2020 Chronic Chronic obstructive pulmonary disease and bronchiectasis (13 sources) Mild chronic obstructive pulmonary disease; Translations: [Chronic obstructive pulmonary disease, unspecified] Onset: 12-22-1912-21-2020 Chronic Diabetes mellitus with complications (20 sources) Type 2 diabetes mellitus; Translations: [Type 2 diabetes mellitus with hyperglycemia] Onset: 04-25-19 Chronic Diabetes mellitus without complication (10 sources) Type 2 diabetes mellitus without complication; Translations: [Type 2 diabetes mellitus without complications] Onset: 08-23-19 Chronic Disorders of lipid metabolism (20 sources) Mixed hypercholesterolemia and hypertriglyceridemia; Translations: [Mixed hyperlipidemia] Onset: 10-29-1912-21-2020 Chronic Esophageal disorders (20 sources) Gastroesophageal reflux disease; Translations: [Gastro-esophageal reflux disease without esophagitis] Onset: 10-29-1912-21-2020 Chronic Esophageal disorders (2 sources) Esophageal disorders; Translations: [Gastro-esophageal reflux disease with esophagitis, without bleeding] Onset: 11-26-19 Essential hypertension (20 sources) Essential hypertension; Translations: [Essential (primary) hypertension] Onset: 06-26-1912-21-2020 Chronic Genitourinary symptoms and ill-defined conditions (1 source) Dysuria; Translations: [Dysuria] Episodic Heart valve disorders (20 sources) Mitral valve prolapse; Translations: [Nonrheumatic mitral (valve) prolapse] Onset: 10-29-1912-21-2020 Chronic Osteoarthritis (20 sources) Arthritis of hip; Translations: [Unilateral primary osteoarthritis, unspecified hip] Onset: 10-29-1912-21-2020 Chronic Osteoporosis (20 sources) Osteoporosis; Translations: [Age-related osteoporosis without current pathological fracture] Onset: 10-29-1912-21-2020 Chronic Other ear and sense organ disorders (20 sources) Hearing loss; Translations: [Unspecified hearing loss, unspecified ear] Onset: 03-08-1912-21-2020 Chronic Other eye disorders (3 sources) Posterior vitreous detachment of right eye; Translations: [Vitreous degeneration, right eye] Chronic Other gastrointestinal disorders (2 sources) Dysphagia; Translations: [Dysphagia, unspecified] 12-19-2022 Episodic Other gastrointestinal disorders (2 sources) Dysphagia, unspecified; Translations: [Dysphagia, unspecified] Onset: 12-20-19 Episodic Other hereditary and degenerative nervous system conditions (20 sources) Mild cognitive impairment, so stated; Translations: [Mild cognitive impairment, so stated] Onset: 06-12-1912-21-2020 Chronic Other injuries and conditions due to external causes (3 sources) Blunt injury of eye; Translations: [Other injuries of left eye and orbit, subsequent encounter] Episodic Other liver diseases (20 sources) Liver cyst; Translations: [Other specified diseases of liver] Onset: 10-29-1912-21-2020 Chronic Other nervous system disorders (2 sources) Other chronic pain; Translations: [Other chronic pain] Onset: 08-22-19 Chronic Other upper respiratory disease (20 sources) Allergic rhinitis; Translations: [Allergic rhinitis, unspecified] Onset: 10-05-1912-21-2020 Chronic Retinal detachments; defects; vascular occlusion; and retinopathy (20 sources) Pattern dystrophy of macula; Translations: [Dystrophies primarily involving the retinal pigment epithelium] Onset: 08-22-19 Chronic Spondylosis; intervertebral disc disorders; other back problems (20 sources) Cervical spondylosis; Translations: [Spondylosis without myelopathy or radiculopathy, cervical region] Onset: 10-29-1912-21-2020 Chronic Substance-related disorders (20 sources) Nicotine dependence; Translations: [Nicotine dependence, unspecified, uncomplicated] Onset: 01-17-2012-21-2020 Chronic Thyroid disorders (20 sources) Hypothyroidism; Translations: [Hypothyroidism, unspecified] Onset: 10-29-1912-21-2020 Chronic Unclassified (1 source) Subacute cough; Translations: [Subacute cough] Onset: 04-28-19 Urinary tract infections (3 sources) Recurrent urinary tract infection; Translations: [Urinary tract infection, site not specified] Onset: 12-20-19 Episodic Past or Other Problems Problem Classification Problem Date Documented Da te Episodic/Chronic Chronic obstructive pulmonary disease and bronchiectasis (2 sources) Bronchitis, not specified as acute or chronic; Translations: [Bronchitis, not specified as acute or chronic] Onset: 02-28-2022 Episodic Other aftercare (18 sources) Patient encounter status; Translations: [penitentiary (current) use of non-steroidal anti-inflammatories (NSAID)] Onset: 10-28-2014 11-25-2021 Episodic Other aftercare (2 sources) manager acquisition (current) use of non-steroidal anti-inflammatories (NSAID); Translations: [manager acquisition (current) use of non-steroidal anti-inflammatories (nsaid)] Onset: 11-25-2021 Episodic Other connective tissue disease (7 sources) Impingement syndrome of shoulder region; Translations: [Impingement syndrome of unspecified shoulder] Onset: 12-21-2020 12-21-2020 Episodic Other lower respiratory disease (20 sources) Nodule of lung; Translations: [Solitary pulmonary nodule] Onset: 10-28-2014 11-25-2021 Episodic Other non-traumatic joint disorders (4 sources) Pain in right knee; Translations: [Pain in joint, lower leg] Onset: 08-21-2022 08-21-2022 Episodic Residual codes; unclassified (7 sources) Insomnia; Translations: [Insomnia, unspecified] Onset: 05-18-2018 12-21-2020 Episodic Residual codes; unclassified (18 sources) Family history of breast cancer; Translations: [Family history of malignant neoplasm of breast] Onset: 10-28-2014 11-25-2021 Episodic Spondylosis; intervertebral disc disorders; other back problems (7 sources) Cervical nerve root pain; Translations: [Radiculopathy, cervical region] Onset: 12-21-2020 12-21-2020 Episodic Syncope (7 sources) Syncope; Translations: [Syncope and collapse] Onset: 12-21-2020 12-21-2020 Episodic Unclassified (1 source) Subacute cough; Translations: [Subacute cough] Onset: 04-27-2022 Viral infection (18 sources) Disease caused by 2019-nCoV; Translations: [COVID-19] Onset: 02-22-2021 11-25-2021 Episodic Results Test Name Value Interpretation Reference Range Facil ity Vital Signs Date Time Vital Sign Value Performing Clinician Faci lity 12-19-2022 17:21-0500 Diastolic blood pressure 76 mm[Hg] Reece Salas DO Work Phone: [facility] 12-19-2022 17:21-0500 Systolic blood pressure 138 mm[Hg] Reece Salas DO Work Phone: [facility] 12-19-2022 16:28-0500 Body mass index (BMI) [Ratio] 29.94 kg/m2 Reece Salas DO Work Phone: [facility] 12-19-2022 16:28-0500 Body weight 79.11 kg Reece Salas DO Work Phone: [facility] 08-21-2022 16:15-0400 Body height 162.6 cm Reece Salas DO Work Phone: [facility] 08-21-2022 16:15-0400 Body mass index (BMI) [Ratio] 29.87 kg/m2 Reece Salas DO Work Phone: [facility] 08-21-2022 16:15-0400 Body temperature 97.11 [degF] Reece Salas DO Work Phone: [facility] 08-21-2022 16:15-0400 Body weight 78.93 kg Reece Salas DO Work Phone: [facility] 08-21-2022 16:15-0400 Diastolic blood pressure 75 mm[Hg] Reece Salas DO Work Phone: [facility] 08-21-2022 16:15-0400 Systolic blood pressure 117 mm[Hg] Reece Salas DO Work Phone: [facility] 05-21-2022 15:56-0400 Body height 162.6 cm Reece Salas DO Work Phone: [facility] 05-21-2022 15:56-0400 Body mass index (BMI) [Ratio] 29.01 kg/m2 Reece Salas DO Work Phone: [facility] 05-21-2022 15:56-0400 Body temperature 97.3 [degF] Reece Salas DO Work Phone: [facility] 05-21-2022 15:56-0400 Body weight 76.66 kg Reece Salas DO Work Phone: [facility] 05-21-2022 15:56-0400 Diastolic blood pressure 83 mm[Hg] Reece Salas DO Work Phone: [facility] 05-21-2022 15:56-0400 Heart rate 68 /min Reece Salas DO Work Phone: [facility] 05-21-2022 15:56-0400 SaO2% (BldA) [Mass fraction] 97 % Reece Salas DO Work Phone: [facility] 05-21-2022 15:56-0400 Systolic blood pressure 124 mm[Hg] Reece Salas DO Work Phone: [facility] 07-28-2021 18:12-0400 Body weight 75.75 kg Bethrocky Artisaugh PA-C Work Phone: [facility] 07-28-2021 18:12-0400 Diastolic blood pressure 87 mm[Hg] Beth Slabaugh PA-C Work Phone: [facility] 07-28-2021 18:12-0400 Heart rate 67 /min Bethrocky Artisaugh PA-C Work Phone: [facility] 07-28-2021 18:12-0400 Systolic blood pressure 101 mm[Hg] Beth Slabaugh PA-C Work Phone: [facility] Encounters Encounter Date Encounter Type Care Provider Facility Start: 01-08-2023 Refill Reece islas DO Work Phone: [facility] Procedures Date Procedure Procedure Detail Performing Clinician Start: 08-09-2022 Computerized ophthal sushma imaging retina Leni Cintron MD, PhD Work Phone: Start: 02-28-2022 Adult depression scr eening assessment Reece Lamareugeniabuffy DO Work Phone: Start: 02-28-2022 Thyrotropin [Units/v olume] in Serum or Plasma Reece Josue DO Work Phone: Start: 12-14-2021 Computerized ophthal susmha imaging retina Leni Cintron MD, PhD Work Phone: Start: 08-21-2021 Lipid 1996 panel - S nani or Plasma Reece Josue DO Work Phone: Start: 07-28-2021 Urnls dip stick/tabl et rgnt auto w/o microscopy [facility] Provider Start: 06-01-2021 Computerized ophthal sushma imaging retina Leni Cintron MD, PhD Work Phone: Plan of Treatment Date Care Activity Detail Author Start: 08-24-2023 End: 01-31-2024 OCT MACULA CIRRUS OU (BOTH EYES) OCT MACULA CIRRUS OU (BOTH EYES) OPHT Imaging Routine Pattern dystrophy of macula Type 2 diabetes mellitus without complication, without long-term current use of insulin (HCC) Blunt trauma of left eye, subsequent encounter Posterior vitreous detachment of right eye 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 Expected: 08/24/2023, Expires: 01/31/2024 [facility] Work Phone: Immunizations Immunization Date Immunization Notes Care Provider Tenzin meyer 12-19-2022 Influenza, Seasonal, Quadrivalent, Adjuvanted Reece Josue DO Work Phone: [facility] 11-20-2021 Influenza, Seasonal, Quadrivalent, Adjuvanted Reece Josue DO Work Phone: [facility] 11-20-2021 unknown vaccine or i mmune globulin Reece Salas DO Work Phone: [facility] 11-20-2021 influenza virus vacc ine, unspecified formulation Reece Newtonlla DO Work Phone: [facility] 11-09-2020 Influenza, High-dose Seasonal, Quadrivalent, Preservative Free Reece Meltona DO Work Phone: [facility] 01-16-2018 influenza, high dose seasonal, preservative-free Reece Meltona DO Work Phone: [facility] 12-12-2017 influenza virus vacc ine, unspecified formulation Reece Salas DO Work Phone: [facility] 12-12-2017 influenza, seasonal, injectable Reece Meltona DO Work Phone: [facility] 12-12-2017 influenza, seasonal, injectable, preservative free Reece Meltona DO Work Phone: [facility] 01-27-2015 pneumococcal conjuga te vaccine, 13 valent Reece Meltona DO Work Phone: [facility] 12-03-2013 influenza virus vacc ine, unspecified formulation Reece Meltona DO Work Phone: [facility] Work Phone: 12-03-2013 influenza, seasonal, injectable Reece Newtonlla DO Work Phone: [facility] 11-11-2013 influenza virus vacc ine, unspecified formulation Reece Newtonlla DO Work Phone: [facility] 11-11-2013 influenza, seasonal, injectable Reece Newtonlla DO Work Phone: [facility] 11-11-2013 influenza, seasonal, injectable, preservative free Reece Newtonlla DO Work Phone: [facility] 02-12-2012 pneumococcal conjuga te vaccine, 10 valent Reece Petrilla DO Work Phone: [facility] 02-12-2012 pneumococcal polysaccharide vaccine, 23 valent Erece Petrilla DO Work Phone: [facility] 02-12-2012 pneumococcal vaccine , unspecified formulation Reece Salas DO Work Phone: [facility] 10-28-2009 pneumococcal Conjuga te, unspecified formulation Reece Salas DO Work Phone: [facility] 10-28-2009 pneumococcal polysaccharide vaccine, 23 valent Reece Salas DO Work Phone: [facility] Payers Date Payer Category Payer Unknown [id number] 2018 Medicaid [facility] MEDICA[facility] MYC ARE [facility] MEDICAID [id number] 2018-Present [phone] [address] [place] [address] Medicaid [id number] 2018 Medicaid [id number] 2017 Medicaid [id number] 2017 Medicaid [id number] 2005 Medicare MEDICARE MEDICAR E A AND B [id number] 2005-Present [phone] [address] [address] [place] [address] Medicare [id number] 2005 Medicare [id number] 2005 Medicare [id number] Social History Date Type Detail Facility Start: 04-11-2018 End: 12-19-2022 Tobacco smoking status GAIS Smokes tobacco daily [facility] Start: 04-11-2018 End: 12-19-2022 Tobacco use and exposure Smokeless tobacco non-user [facility] Start: 1945 Sex Assigned At Not on file [facility] Start: 05-22-2021 End: 08-21-2022 Exposure to SARS-CoV-2 (event) Not sure [facility] End: 11-27-2013 History of tobacco use Cigarette Smoker [facility] Start: 05-21-2022 End: 12-19-2022 Alcohol intake Current non-drinker of alcohol (finding) [facility] Start: 02-28-2022 End: 05-21-2022 Alcohol intake [facility] Start: 1945 Sex Assigned At Female [facility] Start: 02-28-2022 End: 05-21-2022 Tobacco use panel [facility] Start: 02-14-2022 Gender identity Identifies as female gender (finding) [facility] Start: 02-14-2022 Sexual orientation Heterosexual (fin janna) [facility] Medical Equipment Procedure Code Equipment Code Equipment Origin al Text Equipment Identifier Dates Use as directed day. Type: ( E11.9) [id number] Start: 01-29-2019 Clinical Notes 06-01-2021 to 01-08-2023 Telephone Encounter - Kim Snyder MA - 01/08/2023 10:19 AM ESTTelephone Encounter - Kim Snyder MA - 01/08/2023 10:19 AM ESTTelephone Encounter - Melissa Lovell - 12/25/2022 8:06 AM EST Note Date & Type Note Facility 01-08-2023 Telephone encounter Note Rx loaded Patient says if you can change her sugar pill to a smaller pill that will really help so please switch that one she says she can take all her pills when her aid is there in the morning its just at night its difficult. [facility] 01-08-2023 Miscellaneous Notes Rx loaded Patient says if you can change her sugar pill to a smaller pill that will really help so please switch that one she says she can take all her pills when her aid is there in the morning its just at night its difficult. documented in this encounter [facility] 12-25-2022 Telephone encounter Note Orders pended for doctor's signature [facility] 12-25-2022 Miscellaneous Notes Orders pended for doctor's signature documented in this encounter [facility] 12-24-2022 Note Referrals and Orders pended for dx and doctor's signature [facility] 12-24-2022 Telephone encounter Note Referrals and Orders pended for dx and doctor's signature [facility] 12-24-2022 Miscellaneous Notes Referrals and Orders pended for dx and doctor's signature documented in this encounter [facility] 12-19-2022 History of Present illness Narrative Medication requesting liquid form if available: Celebrex Gabapentin Krill Oil Magnesium Oxide Metformin Zocor Images from the original note were not included. [facility] [address] [place] [address] [address] [facility] [id number] Visit type: Established Patient Reason for Visit: 4 month follow up , Diabetes (Has never received the astrid - would like to assistance in getting this device ), and Medication Problem (Has started choking when trying to swallow pills. Requesting to have all meds converted to liquid when available //Feels Synthroid is to strong ) Assessment / Plan: Javier was seen today for 4 month follow up , diabetes and medication problem. Diagnoses and all orders for this visit: Dysphagia, unspecified type (Primary) Comments: New onset, GI referral for EGD Essential hypertension Comments: Stable, continue metoprolol Smoker Comments: Recurrent, LDCT chest urged cessation Generalized anxiety disorder Type 2 diabetes mellitus with hyperglycemia, without long-term current use of insulin (HCC) Comments: Stable, continue metformin calorie restriction Orders: - Continuous Blood Gluc Sensor (FreeStyle Astrid 2 Sensor) misc; E11.9 Change sensor every 14 days Pattern dystrophy of macula Acquired hypothyroidism Mixed hypercholesterolemia and hypertriglyceridemia Pulmonary emphysema, unspecified emphysema type (HCC) Comments: Noted, continue Advair and albuterol and stop smoking Post traumatic stress disorder (PTSD) Comments: Stable, continue Xanax as needed. Risk of benzodiazepines discussed Orders: - ALPRAZolam (Xanax) 0.5 MG tablet; Take 1 tablet (0.5 mg) by mouth 2 times daily as needed for anxiety. DDD (degenerative disc disease), lumbar Comments: Stable, continue Gabapentin and Tylenol #3 as needed. OARRS report done Orders: - acetaminophen-codeine (Tylenol #3) 300-30 MG tablet; Take 1 tablet by mouth 2 times daily as needed for severe pain (7-10). Localized osteoarthritis of right knee Comments: Worsening pain, Ortho referral Orders: - XR knee 3 views right; Future Other orders - Continuous Blood Gluc Windows Application Packager (FreeStyle Astrid 14 Day [place]) device; 1 each 2 times daily. E11.9 - Flu vaccine quadrivalent, for patients ages 65+, (Fluad) preservative free Subjective: Patient ID: Javier Lu is a 77 y.o. female. HPI decently controlled type II diabetic with history of hypertension, COPD arrhythmia chronic anxiety and low back pain presents for checkup. Unfortunately did not acquire the labs she had done in August for disease management. Cannot check her glucose levels well due to essentially blindness. Chronic right knee pain is getting worse and she would like a orthopedic consultation. Most markedly she has had 3 episodes of out right choking swallowing her pills and eating food. No early satiety or abdominal pain or weight loss. No melena or blood. 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 No recent earache sore throat or change in cough. Is due for LDCT. No hemoptysis or chest pain. No wheezing. She was apprised is here that she has emphysema . Still smoking. She has not been taking Advair routinely. No worsening palpitations. No abdominal pain. No melena or blood. No recent dysuria frequency or urgency. No change in quality low back pain. Her right knee is very painful. She uses a cane and a walker Allergies Allergen Reactions Other Other Hair Dye Penicillins Hives and Rash Current Outpatient Medications on File Prior to Visit Medication Sig Dispense Refill albuterol 108 (90 Base) MCG/ACT inhaler Inhale 2 puffs every 4 hours as needed for shortness of breath or wheezing. 18 g 2 Alcohol Swabs (Easy Touch Alcohol Prep Medium) 70 % pads Inject 1 each under the skin 2 times daily. 100 each 2 Ascorbic Acid (vitamin C) 500 MG tablet Take 500 mg by mouth daily. Aspirin-Calcium Carbonate 81-777 MG tablet Take 81 mg by mouth in the morning. celecoxib (CeleBREX) 200 MG capsule Take 1 capsule (200 mg) by mouth 2 times daily. 180 capsule 0 fluticasone-salmeterol (Advair) 115-21 MCG/ACT inhaler Inhale 2 puffs in the morning and 2 puffs in the evening. Rinse mouth with water after use to reduce aftertaste and incidence of candidiasis. Do not swallow.. 12 g 11 gabapentin (Neurontin) 300 MG capsule Take 1 capsule (300 mg) by mouth 2 times daily. 180 capsule 0 Glucose Blood (Blood Glucose Test) strip Use as directed 2x day. Type: ( E11.9) levothyroxine (Synthroid, Levoxyl) 75 MCG tablet Take 1 tablet (75 mcg) by mouth daily for 180 doses. 90 tablet 1 loratadine (Claritin) 10 MG tablet Take 1 tablet (10 mg) by mouth in the morning. 90 tablet 3 magnesium oxide (Mag-Ox) 400 (240 Mg) MG tablet Take 1 tablet (400 mg) by mouth 2 times daily. 180 tablet 0 melatonin 3 MG tablet Take 1 tablet (3 mg) by mouth daily. 90 tablet 0 metFORMIN (Glucophage) 500 MG tablet Take one tablet in the am and one half tab with supper 135 tablet 0 metoprolol succinate XL (Toprol-XL) 25 MG 24 hr tablet Take 1 tablet (25 mg) by mouth daily for 180 doses. Do not crush or chew. 90 tablet 1 pantoprazole (ProtoNix) 40 MG EC tablet Take 1 tablet (40 mg) by mouth every morning (before breakfast). 90 tablet 0 raloxifene (Evista) 60 MG tablet Take 1 tablet (60 mg) by mouth daily. 90 tablet 0 simvastatin (Zocor) 40 MG tablet Take 1 tablet (40 mg) by mouth every evening. 90 tablet 0 [DISCONTINUED] ALPRAZolam (Xanax) 0.5 MG tablet Take 1 tablet (0.5 mg) by mouth 2 times daily as needed for anxiety. 60 tablet 2 Krill Oil Ultra Strength 1500 MG capsule Take 1 capsule by mouth in the morning. [DISCONTINUED] acetaminophen-codeine (Tylenol #3) 300-30 MG tablet Take 1 tablet by mouth 2 times daily as needed for severe pain (7-10). 60 tablet 0 [DISCONTINUED] Continuous Blood Gluc Windows Application Packager (FreeStyle Astrid 14 Day [place]) device 1 each 2 times daily. E11.9 (Patient not taking: Reported on 12/19/2022) 1 each 0 [DISCONTINUED] Continuous Blood Gluc Sensor (FreeStyle Astrid 2 Sensor) [facility] [place] Change sensor every 14 days (Patient not taking: Reported on 12/19/2022) 2 each 11 No current facility-administered medications on file prior to visit. 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, hypnotic or anxiolytic-induced disorder (HCC) Localized osteoarthritis of right knee Generalized anxiety disorder Cervical spine degeneration Essential hypertension Allergic rhinitis Pattern dystrophy of macula COVID-19 virus infection Hearing loss Mild cognitive impairment with memory loss Post traumatic stress disorder (PTSD) Social History Tobacco Use Smoking status: Every Day Packs/day: 1 Types: Cigarettes Last attempt to quit: 11/27/2013 Years since quittin.0 Smokeless tobacco: Never Tobacco comments: Quit smoking: E-cigg Substance Use Topics Alcohol use: No Alcohol/week: 0.0 standard drinks of alcohol Past Surgical History: Procedure Laterality Date APPENDECTOMY 1995 CHOLECYSTECTOMY [address] Hamlet reis 2015, pt deferred exam KNEE ARTHROSCOPY Right 1994 twice in the 90s PALATE SURGERY 2015 torus lesion per [facility] Family History Problem Relation Name Age of Onset Heart disease Mother SC at age 58 Other ([id number]) Father unknown Breast cancer Sister 74 Coronary artery disease Sister age 80 in 10/2019 Cancer Sister Renal CA No Known Problems Brother Objective: BP 138/76 Wt 174 lb 6.4 oz (79.1 kg) BMI 29.94 kg/m Physical Exam pleasant alert cooperative. Normal ear canals. Clear oropharynx. No tongue lesions. No JVD adenopathy or thyroid masses or carotid bruits. Heart is regular with a rare ectopy. No new murmurs. Lungs are diminished but clear of rales wheezes or egophony. Abdomen soft nontender without pain hepatosplenomegaly masses bruits or ascites. She has asymmetric adipose in the right abdomen above her cholecystectomy scar. No mass lesions. Extremities are pink without appreciable edema. Peripheral pulses are diminished but palpable. Substantial right knee osteoarthritic changes with a valgus stress noted. documented in this encounter [facility] 11-13-2022 History of Present illness Narrative Per chart review patient is getting the Astrid and not the dexcom, LM for patient to call back to to clarify documented in this encounter [facility] 10-19-2022 Telephone encounter Note Rx loaded looks like wasn't sent. [facility] 10-19-2022 Miscellaneous Notes Rx loaded looks like wasn't sent. Pt called in requesting the acetaminophen-codeine (Tylenol #3) 300-30 MG tablet be sent to the pharmacy. It looks like the naloxone (Narcan) 4 mg/0.1 mL nasal spray was sent and authorized yesterday. Pt stated the pharmacy did not have the prescription there. Please advise. Pharmacy called and states patient was wanting to bean picker a Rx that was sent in on 08.21.22 They no longer have this Rx after 14 days. documented in this encounter [facility] 10-19-2022 Telephone encounter Note Pt called in requesting the acetaminophen-codeine (Tylenol #3) 300-30 MG tablet be sent to the pharmacy. It looks like the naloxone (Narcan) 4 mg/0.1 mL nasal spray was sent and authorized yesterday. Pt stated the pharmacy did not have the prescription there. Please advise. [facility] 10-16-2022 Telephone encounter Note Pharmacy called and states patient was wanting to bean picker a Rx that was sent in on 08.21.22 They no longer have this Rx after 14 days. [facility] 10-10-2022 Telephone encounter Note Name of caller: Divya [employer] Contact phone number: [phone] Relationship to Patient: n/a Provider: Reece Salas Practice: [facility] Chief Complaint/Reason for Call: Order request was faxed from [employer] on 10/06/22 for Dexcom Sensor and Windows Application Packager. Divya calling to check on status. It is not listed in Media Tab or Order tab. Divya is requesting the ORDER be faxed to fax# [phone]. She also needs OFFICE NOTE faxed to a different number: fax [phone] Best time of day caller can be reached: any Patient advised that office/PCP has 24-48 business hours to return their call: Yes Divya was advised office is moving and may not receive a response until 10/16 or 10/17. [facility] 10-10-2022 Miscellaneous Notes Name of caller: [employer] Contact phone number: [phone] Relationship to Patient: n/a Provider: Reece Salas Practice: [facility] Chief Complaint/Reason for Call: Order request was faxed from [employer] on 10/06/22 for Dexcom Sensor and Windows Application Packager. Divya calling to check on status. It is not listed in Media Tab or Order tab. Divya is requesting the ORDER be faxed to fax# [phone]. She also needs OFFICE NOTE faxed to a different number: fax [phone] Best time of day caller can be reached: any Patient advised that office/PCP has 24-48 business hours to return their call: Yes Divya was advised office is moving and may not receive a response until 10/16 or 10/17. documented in this encounter [facility] 10-10-2022 Miscellaneous Notes Name of caller: [employer] Contact phone number: [phone] Relationship to Patient: n/a Provider: Reece Salas Practice: [facility] Chief Complaint/Reason for Call: Order request was faxed from [employer] on 10/06/22 for Dexcom Sensor and Windows Application Packager. Divya calling to check on status. It is not listed in Media Tab or Order tab. Divya is requesting the ORDER be faxed to fax# [phone]. She also needs OFFICE NOTE faxed to a different number: fax [phone] Best time of day caller can be reached: any Patient advised that office/PCP has 24-48 business hours to return their call: Yes Divya was advised office is moving and may not receive a response until 10/16 or 10/17. documented in this encounter [facility] 08-21-2022 Note Referral pended for doctor's signature [facility] 08-21-2022 Telephone encounter Note Referral pended for doctor's signature [facility] 08-21-2022 Miscellaneous Notes Referral pended for doctor's signature documented in this encounter [facility] 08-21-2022 History of Present illness Narrative Images from the original note were not included. [facility] [address] [facility] [id number] Visit type: Established Patient Reason for Visit: Follow-up (Follow up on medications) Assessment / Plan: Javier was seen today for follow-up. Diagnoses and all orders for this visit: Type 2 diabetes mellitus with hyperglycemia, without long-term current use of insulin ([facility]) (HCC) (Primary) Comments: Stable, continue metformin calorie restriction Orders: - Continuous Blood Gluc Sensor (FreeStyle Astrid 2 Sensor) misc; E11.9 Change sensor every 14 days DDD (degenerative disc disease), lumbar Comments: Stable, continue Gabapentin and Tylenol #3 as needed. OARRS report done Orders: - acetaminophen-codeine (Tylenol #3) 300-30 MG tablet; Take 1 tablet by mouth 2 times daily as needed for severe pain (7-10). - XR lumbar spine 4-5 view; Future Post traumatic stress disorder (PTSD) Comments: Stable, continue Ativan as needed. Risk of benzodiazepines discussed Orders: - ALPRAZolam (Xanax) 0.5 MG tablet; Take 1 tablet (0.5 mg) by mouth 2 times daily as needed for anxiety. 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 - fluticasone-salmeterol (Advair) 115-21 MCG/ACT inhaler; Inhale 2 puffs in the morning and 2 puffs in the evening. Rinse mouth with water after use to reduce aftertaste and incidence of candidiasis. Do not swallow.. - albuterol 108 (90 Base) MCG/ACT inhaler; Inhale 2 puffs every 4 hours as needed for shortness of breath or wheezing. - gabapentin (Neurontin) 300 MG capsule; Take 1 capsule (300 mg) by mouth 2 times daily. - Alcohol Swabs (Easy Touch Alcohol Prep Medium) 70 % pads; Inject 1 each under the skin 2 times daily. - levothyroxine (Synthroid, Levoxyl) 75 MCG tablet; Take 1 tablet (75 mcg) by mouth daily for 180 doses. - metFORMIN (Glucophage) 500 MG tablet; Take one tablet in the am and one half tab with supper - metoprolol succinate XL (Toprol-XL) 25 MG 24 hr tablet; Take 1 tablet (25 mg) by mouth daily for 180 doses. Do not crush or chew. - pantoprazole (ProtoNix) 40 MG EC tablet; Take 1 tablet (40 mg) by mouth every morning (before breakfast). - raloxifene (Evista) 60 MG tablet; Take 1 tablet (60 mg) by mouth daily. - simvastatin (Zocor) 40 MG tablet; Take 1 tablet (40 mg) by mouth every evening. - Continuous Blood Gluc Windows Application Packager (FreeStyle Astrid 14 Day [place]) device; 1 each 2 times daily. E11.9 Subjective: Patient ID: Javier Lu is a 77 y.o. female. HPI obese hypertensive smoker with history of well-controlled diabetes. COPD, arrhythmia, and severe lumbar and right knee arthritis presents for checkup. She is interested in getting continuous glucose monitor. Glucose levels however well at home. Recent A1c in the 6 range. Biggest concern is somewhat acute worsening of her left buttock and back pain. Some radiation to the left thigh. Also very weak and painful right knee. She would like to know prescription options. Taking Celebrex with partial relief Review of Systems no change in vision which is severe but due to her chronic ophthalmologic illness. No recent earache sore throat or purulent phlegm. Chronic cough is unchanged. No pleurisy. No heartburn or dysphagia on meds. Bowels are regular. No melena or blood. No recent dysuria. She would like a hip injection. Has not had a work-up on her back and hip and knee for quite a while due to troubles with transportation. She might be interested in a right knee injection or replacement Allergies Allergen Reactions Penicillins Hives and Rash Current Outpatient Medications on File Prior to Visit Medication Sig Dispense Refill Ascorbic Acid (vitamin C) 500 MG tablet Take 500 mg by mouth daily. Aspirin-Calcium Carbonate 81-777 MG tablet Take 81 mg by mouth in the morning. Glucose Blood (Blood Glucose Test) strip Use as directed 2x day. Type: ( E11.9) Krill Oil Ultra Strength 1500 MG capsule Take 1 capsule by mouth in the morning. loratadine (Claritin) 10 MG tablet Take 10 mg by mouth in the morning. magnesium oxide (Mag-Ox) 400 (240 Mg) MG tablet Take 1 tablet (400 mg) by mouth 2 times daily. 180 tablet 0 melatonin 3 MG tablet Take 1 tablet (3 mg) by mouth daily. 90 tablet 0 [DISCONTINUED] acetaminophen-codeine (Tylenol #3) 300-30 MG tablet Take 1 tablet by mouth 2 times daily as needed for severe pain (7-10). 60 tablet 2 [DISCONTINUED] albuterol 108 (90 Base) MCG/ACT inhaler Inhale 2 puffs every 4 hours as needed for shortness of breath or wheezing. 18 g 2 [DISCONTINUED] Alcohol Swabs (Easy Touch Alcohol Prep Medium) 70 % pads [DISCONTINUED] ALPRAZolam (Xanax) 0.5 MG tablet Take 1 tablet (0.5 mg) by mouth 2 times daily as needed for anxiety. 60 tablet 2 [DISCONTINUED] celecoxib (CeleBREX) 200 MG capsule Take 1 capsule (200 mg) by mouth 2 times daily. 180 capsule 0 [DISCONTINUED] Continuous Blood Gluc Windows Application Packager ([employer] Astrid 14 Day [place]) device 1 each 2 times daily. [DISCONTINUED] Continuous Blood Gluc Sensor (FreeStyle Astrid 2 Sensor) misc Change sensor every 14 days 2 each 11 [DISCONTINUED] fluticasone-salmeterol (Advair) 115-21 MCG/ACT inhaler Inhale 2 puffs in the morning and 2 puffs in the evening. Rinse mouth with water after use to reduce aftertaste and incidence of candidiasis. Do not swallow.. 12 g 11 [DISCONTINUED] gabapentin (Neurontin) 300 MG capsule Take 1 capsule (300 mg) by mouth 2 times daily. 180 capsule 0 [DISCONTINUED] levothyroxine (Synthroid, Levoxyl) 75 MCG tablet Take 1 tablet (75 mcg) by mouth daily for 90 doses. 90 tablet 1 [DISCONTINUED] metFORMIN (Glucophage) 500 MG tablet Take one tablet in the am and one half tab with supper 135 tablet 1 [DISCONTINUED] metoprolol succinate XL (Toprol-XL) 25 MG 24 hr tablet Take 1 tablet (25 mg) by mouth daily for 90 doses. Do not crush or chew. 90 tablet 1 [DISCONTINUED] pantoprazole (ProtoNix) 40 MG EC tablet Take 1 tablet (40 mg) by mouth every morning (before breakfast). 90 tablet 0 [DISCONTINUED] raloxifene (Evista) 60 MG tablet Take 1 tablet (60 mg) by mouth daily. 90 tablet 0 [DISCONTINUED] simvastatin (Zocor) 40 MG tablet Take 1 tablet (40 mg) by mouth every evening. 90 tablet 0 [DISCONTINUED] simvastatin (Zocor) 40 MG tablet Take 1 tablet (40 mg) by mouth Nightly for 90 doses. 90 tablet 0 No current facility-administered medications on file prior to visit. 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, hypnotic or anxiolytic-induced disorder (HCC) Localized osteoarthritis of right knee Generalized anxiety disorder Cervical spine degeneration Essential hypertension Allergic rhinitis Pattern dystrophy of macula COVID-19 virus infection Hearing loss Mild cognitive impairment with memory loss Post traumatic stress disorder (PTSD) Social History Tobacco Use Smoking status: Every Day Packs/day: 1.00 Types: Cigarettes Last attempt to quit: 11/27/2013 Years since quittin.7 Smokeless tobacco: Never Tobacco comments: Quit smoking: E-cigg Substance Use Topics Alcohol use: No Alcohol/week: 0.0 standard drinks of alcohol Past Surgical History: Procedure Laterality Date APPENDECTOMY 1966 CHOLECYSTECTOMY [address] Mcnulty - due 2015, pt deferred exam KNEE ARTHROSCOPY Right 1994 twice in the PALATE SURGERY 12/26 torus lesion per [facility] Family History Problem Relation Name Age of Onset Heart disease Mother SC at age 58 Other ([id number]) Father unknown Breast cancer Sister 74 Coronary artery disease Sister age 80 in 10/2019 Kidney cancer Sister Renal CA No Known Problems Brother Objective: BP 117/75 Temp 36.2 C (97.1 F) (Temporal) Ht 5' 4 (1.626 m) Wt 174 lb (78.9 kg) BMI 29.87 kg/m Physical Exam Pleasant cooperative. Well-hydrated. Nonicteric. Moist mucous membranes. No thyroid or neck masses. No JVD or adenopathy. Heart is regular with outs ectopy. No new murmurs. Lungs have crackles in both bases which is chronic. No wheezing. Abdomen obese nontender without pain hepatosplenomegaly masses bruits or ascites. Femoral pulses are fair. Diminished range of motion of her LS spine. Pain along the L5 area. Fair range of motion of both hips without deficits in strength or weakness. Positive right leg raising on the left. Negative contralateral straight leg raising. There is no motor loss of the distal legs or feet. Thigh flexion normal. No clonus. Substantial osteoarthritic changes of the right knee are evident. Chronic joint effusion noted. documented in this encounter [facility] 08-09-2022 Note HNO ID: [id number] Author: Leni Cintron MD, PhD Service: ? Author Type: Physician Type: Progress Notes Filed: 08/09/2022 4:09 PM Note Text: Referred for macular scars both eyes. From Dr. Berry Lost vision about 1 yr ago, lost quickly 1. Pattern dystrophy vs vitelliform dystrophy vs mac tel both eyes vs cone dystrophy vs AMD -right eye with atrophic appearance and macular hole-like appearance -left eye with cystoid degenerative response -does have bladder problems but no history of pentosan use -most resembles pattern Dystrophy, no family history -no angioid streaks on exam -discussed that there was nothing she could have done to prevent this from happening, that it is genetic 2. Remote history of trauma left eye, blunt trauma 3. not visually significant cataracts both eyes 4. Diabetes mellitus without retinopathy 5. Posterior vitreous detachment (PVD) right eye Retinal detachment Precautions reviewed 6. Dry eye both eyes -rec artificial tears and warm compresses Plan: Put in consult for genetic testing, she is interested However, the testing needed to be done downtown and she did not want to go Rec avoiding sunlight and stop smoking Return 6mo, sooner prn I have confirmed and edited as necessary the relevant ophthalmic history, ROS, and the neuro exam findings as obtained by others. I have seen and examined this patient. I have discussed the case and the management of this patient's care with the Resident/Fellow, if applicable. I also have reviewed and agree with the assessment and plan as stated above and agree with all of its relevant components. Leni Cintron MD [facility] 08-09-2022 History of Present illness Narrative Referred for macular scars both eyes. From Dr. Berry Lost vision about 1 yr ago, lost quickly 1. Pattern dystrophy vs vitelliform dystrophy vs mac tel both eyes vs cone dystrophy vs AMD -right eye with atrophic appearance and macular hole-like appearance -left eye with cystoid degenerative response -does have bladder problems but no history of pentosan use -most resembles pattern Dystrophy, no family history -no angioid streaks on exam -discussed that there was nothing she could have done to prevent this from happening, that it is genetic 2. Remote history of trauma left eye, blunt trauma 3. not visually significant cataracts both eyes 4. Diabetes mellitus without retinopathy 5. Posterior vitreous detachment (PVD) right eye Retinal detachment Precautions reviewed 6. Dry eye both eyes -rec artificial tears and warm compresses Plan: Put in consult for genetic testing, she is interested However, the testing needed to be done downtown and she did not want to go Rec avoiding sunlight and stop smoking Return 6mo, sooner prn I have confirmed and edited as necessary the relevant ophthalmic history, ROS, and the neuro exam findings as obtained by others. I have seen and examined this patient. I have discussed the case and the management of this patient's care with the Resident/Fellow, if applicable. I also have reviewed and agree with the assessment and plan as stated above and agree with all of its relevant components. Leni Cintron MD documented in this encounter [facility] 08-03-2022 Note Patient Outreach (ANA MARÍA TNAV) BEVERLYJAVIER ([id number]) 1945 F Date Time Provider Department 08/03/22 DAVION MALIK During your visit today, we recorded the following information about you: Davion Malik RN 08/03/2022 8:38 AM Signed GIGI CHUNG RN Action/FYI: Medication Adherence review completed per request of payer. NO PROVIDER ACTION REQUIRED Please see requests in the Summary/Findings section below Patient identified by name and date of . Patient Attributed To: QAE Payer: [facility] Reason for review or outreach: Medication Adherence Medication Adherence Review Details: Hypertension Summary / Findings: Patient has switched to a [facility] PCP Action Taken: Data submitted to Payer Other Contact made with patient: No, Chart review only. Signature: Davion Malik RN Allergies As of Date: 08/03/2022 Noted Allergy Reaction PENICILLIN 04/11/2018 4 - Hives Date Reviewed: 12/14/2021 Reviewed by: Leni Cintron MD, PhD - Fully Assessed Reason for Visit: GIGI CHUNG RN [[id number]] Cmt: Medication Adherence review per request of payer Prescriptions as of 08/03/2022 - metFORMIN (GLUCOPHAGE) 500 mg tablet - ALPRAZolam (XANAX) 0.5 mg tablet Take 0.5 mg by mouth twice daily as needed for Anxiety. - aspirin-calcium carbonate 81 mg-300 mg calcium(777 mg) tab Take 81 mg by mouth once daily. - celecoxib (CELEBREX) 200 mg capsule Take 1 capsule by mouth twice daily. - gabapentin (NEURONTIN) 300 mg capsule Take 300 mg by mouth twice daily. - [id number]-[id number]-[id number] 1,500-165-67.5 mg cap Take 1 capsule by mouth once daily. - levothyroxine (SYNTHROID) 75 mcg tablet Take 1 tablet by mouth once daily. - loratadine (CLARITIN) 10 mg tablet Take 10 mg by mouth once daily. - magnesium oxide 400 mg cap Take 1 capsule by mouth twice daily. - meclizine (ANTIVERT) 25 mg tab Take 12.5 mg by mouth three times daily as needed. - metoprolol tartrate, short acting, (LOPRESSOR) 25 mg tablet Take 1 tablet by mouth once daily. - pantoprazole DR (PROTONIX) 40 mg tablet Take 1 tablet by mouth once daily. - raloxifene (EVISTA) 60 mg tablet Take 1 tablet by mouth once daily. - simvastatin (ZOCOR) 40 mg tablet Take 1 tablet by mouth once daily. - albuterol HFA (PROVENTIL HFA, VENTOLIN HFA) 90 mcg/actuation inhaler Inhale 2 Puffs as instructed every 4 hours as needed. Problem List As Of Date 08/03/2022 Noted Resolved Allergic rhinitis [J30.9] 12/21/2020 Anxiety [F41.9] 12/21/2020 Cervical radicular pain [M54.12] 12/21/2020 Cervical spine degeneration [M47.812] 11/11/2018 DDD (degenerative disc disease), lumbar [M51.36]12/21/2020 Essential hypertension [I10] 06/26/2019 GERD (gastroesophageal reflux disease) [K21.9] 05/18/2018 Hearing loss [H91.90] 12/21/2020 Hepatic cyst [K76.89] 12/21/2020 Hip arthritis [M16.10] 12/21/2020 Hypothyroidism [E03.9] 12/21/2020 Insomnia [G47.00] 05/18/2018 Impingement syndrome of shoulder region [M75.40]12/21/2020 Mild chronic obstructive pulmonary disease (HCC*12/21/2020 Mild cognitive impairment with memory loss [G31*06/11/2014 Mitral valve prolapse [I34.1] 12/21/2020 Mixed hypercholesterolemia and hypertriglycerid*12/21/2020 Nicotine dependence [F17.200] 12/21/2020 Osteoporosis [M81.0] 12/21/2020 Post traumatic stress disorder (PTSD) [F43.10] 12/21/2020 Type 2 diabetes mellitus (HCC) [E11.9] 08/22/2017 PVC (premature ventricular contraction) [I49.3] 12/21/2020 Syncope [R55] 12/21/2020 Encounter Status:Closed by DAVION MALIK on 08/03/22 [facility] 08-03-2022 Telephone encounter Note Noted. [facility] 08-03-2022 Miscellaneous Notes Noted. Message released to patient as written. Patient's further questions if applicable: Yes The patient called in and set up an appointment. Were all questions from office addressed or relayed to the patient from encounter: Yes Talked to patient and relayed message and she will call for an appointment if she doesn't get any better. Name of caller: javier Contact phone number: [phone] Relationship to Patient: patient Provider: josue Practice: yaneli ley Chief Complaint/Reason for Call: pt called in and wanted to know if cipro could be alled in. Pt reported that she had another UTI and that she had some left over from last tie and she took them yesterday. Best time of day caller can be reached: any Patient advised that office/PCP has 24-48 business hours to return their call: No documented in this encounter [facility] 08-03-2022 Telephone encounter Note Message released to patient as written. Patient's further questions if applicable: Yes The patient called in and set up an appointment. Were all questions from office addressed or relayed to the patient from encounter: Yes [facility] 08-03-2022 Note HNO ID: [id number] Author: Davion Malik RN Service: ? Author Type: Registered Nurse Type: Progress Notes Filed: 08/03/2022 8:38 AM Note Text: AC JULIET RN Action/FYI: Medication Adherence review completed per request of payer. NO PROVIDER ACTION REQUIRED Please see requests in the Summary/Findings section below Patient identified by name and date of . Patient Attributed To: QAE Payer: [employer] Reason for review or outreach: Medication Adherence Medication Adherence Review Details: Hypertension Summary / Findings: Patient has switched to a [facility] PCP Action Taken: Data submitted to Payer Other Contact made with patient: No, Chart review only. Signature: Davion Malik RN [facility] 08-03-2022 History of Present illness Narrative [facility] JULIET RN Action/FYI: Medication Adherence review completed per request of payer. NO PROVIDER ACTION REQUIRED Please see requests in the Summary/Findings section below Patient identified by name and date of . Patient Attributed To: QAE Payer: [facility] Reason for review or outreach: Medication Adherence Medication Adherence Review Details: Hypertension Summary / Findings: Patient has switched to a [facility] PCP Action Taken: Data submitted to Payer Other Contact made with patient: No, Chart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 components. 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 involving the retinal pigment epithelium documented in this encounter [facility] note* Diagnosis Recurrent UTI (urinary tract infection)- Primary Urinary tract infection, site not specified Dysuria documented in this encounter [facility] note* Diagnosis 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 Type 2 diabetes mellitus without complication, without long-term current use of insulin ([facility]) Blunt trauma of left eye, subsequent encounter Posterior vitreous detachment of right eye 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 documented in this encounter [facility] note* Diagnosis Chronic obstructive pulmonary disease, unspecified COPD type ([facility])- Primary DDD (degenerative disc disease), lumbar Degeneration of lumbar or lumbosacral intervertebral disc Post traumatic stress disorder (PTSD) Type 2 diabetes mellitus with hyperglycemia, without long-term current use of insulin ([facility]) ([facility]) Essential hypertension Unspecified essential hypertension Acquired hypothyroidism Unspecified hypothyroidism documented in this encounter [facility] note* Diagnosis 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 Type 2 diabetes mellitus without complication, without long-term current use of insulin ([facility]) Blunt trauma of left eye, subsequent encounter Posterior vitreous detachment of right eye 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 documented in this encounter [facility] note* Diagnosis Chronic pain of right knee documented [facility]* Diagnosis Type 2 diabetes mellitus with hyperglycemia, without long-term current use of insulin ([facility]) ([facility])- Primary DDD (degenerative disc disease), lumbar Degeneration of lumbar or lumbosacral intervertebral disc Post traumatic stress disorder (PTSD) Essential hypertension Unspecified essential hypertension Generalized anxiety disorder Sedative, 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, hypnotic or anxiolytic-induced disorder (HCC) Primary osteoarthritis of left hip Chronic pain of right knee Acquired hypothyroidism Unspecified hypothyroidism Smoker Tobacco use disorder documented in this encounter [facility] note* Diagnosis DDD (degenerative disc disease), lumbar Degeneration of lumbar or lumbosacral intervertebral disc [facility]* Diagnosis Dysphagia, unspecified type- Primary Essential hypertension Unspecified essential hypertension Smoker Tobacco use disorder Generalized anxiety disorder Type 2 diabetes mellitus with hyperglycemia, without long-term current use of insulin (HCC) Pattern dystrophy of macula Acquired hypothyroidism Unspecified hypothyroidism Mixed hypercholesterolemia and hypertriglyceridemia Mixed hyperlipidemia Pulmonary emphysema, unspecified emphysema type (HCC) Post traumatic stress disorder (PTSD) DDD (degenerative disc disease), lumbar Degeneration of lumbar or lumbosacral intervertebral disc Localized osteoarthritis of right knee documented in this encounter [facility]* Diagnosis Localized osteoarthritis of right knee- Primary Moderate smoker (20 or less per day) Tobacco use disorder Dysphagia, unspecified type Gastroesophageal reflux disease with esophagitis, unspecified whether hemorrhage documented in this encounter [facility]* Diagnosis Smoker- Primary Tobacco use disorder Moderate smoker (20 or less per day) Tobacco use disorder Pulmonary nodule Other diseases of lung, not elsewhere classified documented in this encounter [facility]* Diagnosis Post traumatic stress disorder (PTSD) documented in this encounter [facility] for referral (narrative)* Consultation (Routine) - Pending Review Specialty Diagnoses / Procedures Referred By Waldo ortiz Referred To Contact Orthopedic Surgery Diagnoses Chronic pain of right knee Reece Salas DO [address] [place] [address] Jerry Jennings MD [address] [address] Referral ID Status Reason Start Date Expiration Date Visits Requested Visits Authorized [id number] Pending Review Specialty Services Required 08/21/2022 08/21/2023 1 1 Scheduling Instructions Possible (R) Knee replacement [facility] for referral (narrative)* Consultation (Routine) - Pending Review Specialty Diagnoses / Procedures Referred By Waldo ortiz Referred To Contact Orthopedic Surgery Diagnoses Localized osteoarthritis of right knee Reece Salas DO [address] [facility] [address] [place] [address] Aaron Shoemaker MD [address] [facility] [address] [place] [address] Referral ID Status Reason Start Date Expiration Date Visits Requested Visits Authorized [id number] Pending Review Specialty Services Required 3 12/24/2023 1 1 * Consultation (Routine) - Pending Review Specialty Diagnoses / Procedures Referred By Waldo ortiz Referred To Contact Gastroenterology Diagnoses Dysphagia, unspecified type Gastroesophageal reflux disease with esophagitis, unspecified whether hemorrhage Procedures CO OFFICE/OUTPATIENT [facility] 60-74 MINUTES Reece Salas, DO [address] [facility] [address] [place] [address] Friend Alexi [address], [address] [place] [address] Referral ID Status Reason Start Date Expiration Date Visits Requested Visits Authorized [id number] Pending Review Specialty Services Required 3 12/24/2023 1 1 [facility] Reason for Referral Specialty Diagnoses / Procedures Referred By Waldo ortiz Referred To Contact Diagnoses 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 Procedures CONSULT TO OPHTHALMIC GENETIC COUNSELING MEDICAL GENETICS COUNSELING EACH 30 MINUTES Leni Cintron MD, PhD [address] [place] [address] [address] Referral ID Status Reason Start Date Expiration Date Visits Requested Visits Authorized [id number] Authorized PCP Requested Referral Auto-Generate d Referral 07/16/2021 07/16/2022 1 1 Specialty Diagnoses / Procedures Referred By Waldo ortiz Referred To Contact Diagnoses 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 Procedures CONSULT TO OPHTHALMIC GENETIC COUNSELING MEDICAL GENETICS COUNSELING EACH 30 MINUTES Leni Cintron MD, PhD [address] [place] [address] [address] Referral ID Status Reason Start Date Expiration Date Visits Requested Visits Authorized [id number] Authorized PCP Requested Referral Auto-Generate d Referral 12/14/2021 12/14/2022 1 1 Specialty Diagnoses / Procedures Referred By Waldo ortiz Referred To Contact Radiology Diagnoses Smoker Pulmonary nodule Procedures CT lung screening low dose Reece Salas Mere, DO [address] [place] [address] Referral ID Status Reason Start Date Expiration Date V isits Requested Visits Authorized [id number] Pending Review 12/27/2022 12/27/2023 1 1 Medications Administered Section Active Administered Medications - up to 3 most recent administrations Medication Order MAR Action Action Date Dose Rate Site PHENYLephrine 2.5 % 1 Drop (AK-DILATE, SINCERE-SYNEPHRINE) 1 Drop, BOTH EYES, DIRECTED, Starting on Emi 12/14/21 at 1430, Until Sat12/15/21 at 0229, Administer for dilation PROTECT FROM LIGHT, OPHT CLINIC MED ORDERS Given 12/14/2021 2:30 PM EDT 1 Drop proparacaine 0.5 % 1 Drop (ALCAINE) 1 Drop, BOTH EYES, DIRECTED, Starting on Emi 12/14/21 at 1430, Until Sat12/15/21 at 0229, Administer for pneumo tonometry, tonopen tonometry, or pachymetry. 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 DNR (Do Not Resuscitate) 12/16/2014 Documents on File Type Date Recorded Patient City 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 Expl 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 DNR (Do Not Resuscitate) 12/16/2014 Summary Purpose Family History No Family History Records FoundNo Family History Records Found Additional Source Comments Source Comments (unrecognize d section and content) In the event this informatio n is protected by the Federal Confidentiality of Alcohol and Drug Abuse Patient Records regulations: The Federal rules restrict any use of the information to criminally investigate or prosecute any alcohol or drug abuse patient.[facility] the event this information is protected by the Federal Confidentiality of Alcohol and Drug Abuse Patient Records regulations: The Federal rules restrict any use of the information to criminally investigate or prosecute any alcohol or drug abuse patient.[facility] the event this information is protected by the Federal Confidentiality of Alcohol and Drug Abuse Patient Records regulations: The Federal rules restrict any use of the information to criminally investigate or prosecute any alcohol or drug abuse patient.[facility] the event this information is protected by the Federal Confidentiality of Alcohol and Drug Abuse Patient Records regulations: The Federal rules restrict any use of the information to criminally investigate or prosecute any alcohol or drug abuse patient.[facility] the event this information is protected by the Federal Confidentiality of Alcohol and Drug Abuse Patient Records regulations: The Federal rules restrict any use of the information to criminally investigate or prosecute any alcohol or drug abuse patient.[facility] the event this information is protected by the Federal Confidentiality of Alcohol and Drug Abuse Patient Records regulations: The Federal rules restrict any use of the information to criminally investigate or prosecute any alcohol or drug abuse patient.[facility] the event this information is protected by the Federal Confidentiality of Alcohol and Drug Abuse Patient Records regulations: The Federal rules restrict any use of the information to criminally investigate or prosecute any alcohol or drug abuse patient.[facility] Reason for Visit (unrecogniz ed section and content) Reason Comments UTI chronic uti's for th e past 2 years. Last month Cipro was called in, but no culture was ran. Reason Comments Appointment Reason Comments Macular Dystrophy Follow Up Diabetes Reason Comments Follow-up 3 month med check Cough Reason Onset Date Comments usp 06/12/2022 Reason Onset Date Comments ACM JULIET RN 08/03/2022 Medication Ad herence review per request of payer Reason Onset Date Comments New Med Request 07/10/2022 Reason Comments Pattern Dystrophy Both Eyes Reason Onset Date Comments Orders 08/21/[address] Awa mckeon or Dr Truong Reason Comments Follow-up Follow up on medicat ions Reason Onset Date Comments Med Refill 10/15/2022 Reason Onset Date Comments Orders 10/10/2022 Follow up on ord er faxed 10/06/22 for Dexcom sensor & Receive along with Clinical Note. Reason Comments 4 month follow up Diabetes Has never received t he astrid - would like to assistance in getting this device Medication Problem Has started choking when trying to swallow pills. Requesting to have all meds converted to liquid when available Feels Synthroid is to strong Reason Onset Date Comments Orders 12/24/2022 LDCT / Dr Dominique pozo / Dr Aguilera Reason Onset Date Comments Orders 12/25/2022 LDCT Reason Onset Date Comments Med Refill 01/08/2023 Care Teams (unrecognized sec tion and content) Child Advocate Relationship Specialty Start Date End Date Josue Reece Mere PCP - General 11/02/04 Child Advocate Relationship Specialty Start Date End Date LinhReece baer PCP - General 11/02/04 Child Advocate Relationship Specialty Start Date End Date Josue Reece Severino PCP - General 11/02/04 Child Advocate Relationship Specialty Start Date End Date Josue Reece Severino PCP - General 11/02/04 Child Advocate Relationship Specialty Start Date End Date Reece Salas, [address] [place] [address] PCP - General 07/12/18 Child Advocate Relationship Specialty Start Date End Date Reece Salas DO [address] [place] [address] PCP - General 07/12/18 Child Advocate Relationship Specialty Start Date End Date LamarReece islas, DO [address] [facility] [place] [address] PCP - General 07/12/18 Child Advocate Relationship Specialty Start Date End Date Reece Salas PCP - General 11/02/04 Child Advocate Relationship Specialty Start Date End Date LamarReece islas, DO [address] [facility] [place] [place] [address] PCP - General 07/12/18 Child Advocate Relationship Specialty Start Date End Date Reece Salas PCP - General 11/02/04 Child Advocate Relationship Specialty Start Date End Date LamarReece islas, DO [address] [facility] [place] [address] PCP - General 07/12/18 Child Advocate Relationship Specialty Start Date End Date Reece Salas, DO [address] [facility] [place] [address] PCP - General 07/12/18 Child Advocate Relationship Specialty Start Date End Date LamarReece islas, DO [address] [facility] [place] [address] PCP - General 07/12/18 Child Advocate Relationship Specialty Start Date End Date LamarReece islas, DO [address] [facility] [place] [address] PCP - General 07/12/18 Child Advocate Relationship Specialty Start Date End Date Reece Salas DO [address] [place], [place] [id number] PCP - General 07/12/18 Child Advocate Relationship Specialty Start Date End Date Reece Salas DO [address] [place], [place] [id number] PCP - General 07/12/18 Child Advocate Relationship Specialty Start Date End Date Reece Salas DO [address] [place] [address] PCP - General 07/12/18 Child Advocate Relationship Specialty Start Date End Date Reece Salas DO [address] [place] [phone] PCP - General 07/12/18 Child Advocate Relationship Specialty Start Date End Date Reece Salas DO [address] [place] [phone] PCP - General 07/12/18 Child Advocate Relationship Specialty Start Date End Date Reece Salas DO [address] [place] [phone] PCP - General 07/12/18 Child Advocate Relationship Specialty Start Date End Date Reece Salas DO [address] [place] [phone] PCP - General 07/12/18 INFORMATION SOURCE (unrecogn ized section and content) DATE CREATED AUTHOR AUTHOR'S ORGANIZ ATION 01/18/2023 [facility] FOR RECORDS PERTAINING TO PATIENTS WHO ARE OR HAVE BEEN ENROLLED IN A CHEMICAL DEPENDENCY/SUBSTANCEABUSE PROGRAM, SOME INFORMATION MAY BE OMITTED. This clinical summary was aggregated from multiple sources. Caution should be exercised in using it in the provision of clinical care. This summary normalizes information from multiple sources, and as a consequence, information in this document may materially change the coding, format and clinical context of patient data. In addition, data may be omitted in some cases. CLINICAL DECISIONS SHOULD BE BASED ON THE PRIMARY CLINICAL RECORDS. [employer] [facility]. provides no warranty or guarantee of the accuracy or completeness of information in this document.
== END 2023-02-08 20:07 | disposition home or self-care (01) ==
PROVIDERS: Emergency Provider Emergency Medicine; PCP Family Medicine; Visit Provider Emergency Medicine
DX: R60.0 Localized edema (principal); J44.9 Chronic obstructive pulmonary disease, unspecified; E11.9 Type 2 diabetes mellitus without complications; I10 Essential (primary) hypertension; F17.210 Nicotine dependence, cigarettes, uncomplicated; R06.09 Other forms of dyspnea; G47.30 Sleep apnea, unspecified
CPT/HCPCS: 74177; 80053; 81001; 83880; 85025; 93971; 99284; Q9967; A4216

== ENCOUNTER 2023-02-13 13:53 | Emergency (ER) | payer MEDICARE, MEDICAID, SELFPAY ==
[2023-02-13 13:58] VITALS: BP 136/76; PULSE 70; RESP 14; TEMP 37.1; O2SAT 97
[2023-02-13] MEDS: Ipratropium/Albuterol Sulfate 3 ML AMPUL.NEB INHALATION (15:46)
[2023-02-13] MEDS: predniSONE 20 MG Tablet 60 MG PO (15:46)
[2023-02-13] MEDS: Albuterol 2.5 MG/3 ML VIAL.NEB. INHALATION ×3 (15:55)
[2023-02-13 15:56] VITALS: PULSE 86; RESP 20; O2SAT 98
[2023-02-13 16:02] LABS: Absolute Lymphocyte Count 0.87 X10^3/uL (0.83-4.51); Absolute Neutrophil Count 2.1 X10^3/uL (2.0-7.7); Basophil# 0.04 X10^3/uL; Basophil% 1.1 % (0-1); Eosinophil# 0.03 X10^3/uL; Eosinophils% 0.8 % (0-5); Hematocrit 40.2 % (37-47); Hemoglobin 12.9 g/dL (12.0-15.0); Lymphocyte # 0.87 X10^3/ul (0.83-4.51); Lymphocyte % 24.4 % (19-41); Mean Corp Hgb Conc 32.1 g/dL (32-36); Mean Corpuscular Hgb 29.7 pg (27.0-32.0); Mean Corpuscular Volume 92.6 fL (81-99); Mean Platelet Vol. 10.1 fl (6.2-12.0); Monocyte# 0.47 X10^3/uL; Monocyte% 13.2 % (0-10); NRBC Flagged by Analyzer 0 % (0-5); Neutrophil # 2.14 X10^3/uL (2.7-7.7); Neutrophil % 59.9 % (47-70); Platelet Count 188 K/mm3 (150-450); RBC Distribution Width CV 14.6 % (11.6-14.6); RBC Distribution Width SD 50.4 fl (35.1-43.9); Red Blood Count 4.34 M/mm3 (4.2-5.4); White Blood Count 3.6 K/mm3 (4.4-11.0)
[2023-02-13 16:22] LABS: Anion Gap 6 (5-15); BUN 7 mg/dL (7-18); BUN/Creat Ratio 5.8 RATIO (10-20); Calcium,Total 9.2 mg/dL (8.5-10.1); Chloride 99 mmol/L (98-107); EST Glomerular Filtration Rate 46 mL/min (>60); Est Glom Filt Rate - Afr Amer 56 mL/min (>60); Glucose 176 mg/dL (74-106); Potassium 3.5 mmol/L (3.5-5.1); Sodium Level 132 mmol/L (136-145)
--- NOTE | 2023-02-13 16:26 | EX.ED.DYSGE1 ---
HPI History of Present Illness Chief Complaint: Dizziness Detail of Chief Complaint: Patient presents with reported dizziness. Patient has complaint of diarrhe Informant: patient Onset/Context/Timing Onset: Days (Diarrhea started 3 days ago) and Weeks (Respiratory symptoms with wheezing and nonproductive cough started greater than 1 week ago) Context: Sudden Onset Timing: Continuous Quality: Upper respiratory tract infectious symptoms and diarrhea Location: Respiratory and GI Current Severity: Mild Maximum Severity: Moderate Worsened by: Activity increases shortness of breath and wheezing Relieved by: Nothing Associated Symptoms Associated Symptoms: Per HPI narrative Narrative Narrative: Patient is a 77-year-old woman with history of hypertension, hyperlipidemia, COPD, tobacco use who presents with upper respiratory symptoms started 1 week ago and diarrhea of 2-3 loose stools per day for the past 3 days. She denies vomiting. She does report temperature of 100.0 ?F this past weekend. She does report mild head discomfort. Denies double vision, blurred vision loss of vision. She denies photophobia, neck pain or neck stiffness. She does report dyspnea on exertion. She does have a cough which is nonproductive. She also reports wheezing. She does have history of COPD. She denies pleuritic chest pain. She denies history of VTE. She denies leg pain, swelling discoloration. She does complain of foot pain and was seen on February 08 for foot pain. She had extensive workup which was unremarkable. She does not give symptoms of claudication. Patient denies abdominal pain or vomiting. Patient denies dysuria, frequency, urgency or hematuria. Prior similar symptoms: No Recent Illness/Hospitalization: No [facility] Medical History Anxiety and depression Chronic pain COPD (chronic obstructive pulmonary disease) COPD, mild Diabetes mellitus Dizziness Dyslipidemia GERD (gastroesophageal reflux disease) Heart palpitations Hyperlipemia, mixed Hypertension Hypothyroid Kidney stones MVP (mitral valve prolapse) Nicotine addiction Osteoporosis Panic attacks Pre-syncope PTSD (post-traumatic stress disorder) PVC's (premature ventricular contractions) Rheumatoid arthritis Sleep apnea Smoker Syncope Home Medications acetaminophen 300 mg-codeine 30 mg tablet 1 tab PO BID PRN Pain 05/22/14 [History Last Taken Unknown] aspirin 81 mg chewable tablet 81 mg PO DAILY@0800 cardiovascular 05/22/14 [History Last Taken 05/09/18 81 mg] gabapentin 300 mg capsule 300 mg PO BIDCM nerve pain 05/22/14 [History Last Taken 09/19/15] levothyroxine 75 mcg tablet 75 mcg PO DAILY hypothyroid 05/22/14 [History Last Taken 05/09/18 75 mcg] loratadine 10 mg tablet 10 mg PO DAILY allergies 05/22/14 [History Last Taken 05/09/18 10 mg] raloxifene 60 mg tablet 60 mg PO DAILY osteoarthritis 05/22/14 [History Last Taken 05/09/18 60 mg] simvastatin 20 mg tablet 40 mg PO QHS high cholesterol 05/22/14 [History Last Taken 09/18/15] magnesium oxide 400 mg (241.3 mg magnesium) tablet 400 mg PO BID electrolyte 09/19/15 [History Last Taken 09/19/15] metoprolol succinate 25 mg tablet,extended release 24 hr (Toprol XL) 25 mg PO DAILY Cardiovascular 01/18/17 [History Last Taken 10/29/20 23:00] metformin 500 mg tablet 250 mg PO MOWEFR diabetes 05/09/18 [History Last Taken Unknown] pantoprazole 40 mg tablet,delayed release 40 mg PO DAILY reflux 05/09/18 [History Last Taken Unknown] acetaminophen 325 mg tablet (Tylenol) 650 mg (2 x 325 mg) PO Q6H PRN PRN Mild Pain (1-3)/Temp > 100.7 F 05/13/18 [Rx Last Taken Unknown] acidophilus 25 million cell-pectin, citrus 100 mg tablet 1 tab PO BID 05/13/18 [Rx Last Taken Unknown] albuterol sulfate 2.5 mg/3 mL (0.083 %) solution for nebulization 2.5 mg (3 mL) inhalation Q2H PRN PRN SOB &/OR WHEEZING 05/13/18 [Rx Last Taken Unknown] alprazolam 0.25 mg tablet 0.5 mg PO BID anxiety 10/30/20 [History Last Taken Unknown] celecoxib 200 mg capsule (Celebrex) 200 mg PO DAILY 10/30/20 [History Last Taken Unknown] clindamycin HCl 150 mg capsule 150 mg PO Q6H #20 caps 11/03/20 [Rx Last Taken Unknown] hydrochlorothiazide 25 mg tablet 25 mg PO DAILY #30 tabs 02/08/23 [Rx Last Taken Unknown] dexamethasone 6 mg tablet 6 mg PO DAILY #7 tabs 02/13/23 [Rx Last Taken Unknown] Allergy/AdvReac Type Severity Reaction Status Date / Time Penicillins Allergy Swelling Verified 02/13/23 14:00 clindamycin AdvReac Intermediate Abd Verified 02/13/23 14:00 cramps/diarrhea Family History Mother CAD (coronary artery disease) Surgical History History of appendectomy History of gastric surgery Previous section Social History (Updated 02/13/23 @ 17:[address] Clem Blake MD) household members: none Smoking Status: Current every day smoker tobacco type: cigarettes substance use type: does not use ROS ROS ED Constitutional Constitutional ED: Reports chills, fever(s), subjective and sweats; Denies weight loss Eyes Eyes: Denies blurry vision, change in vision or diplopia ENT ENT ED: Reports rhinorrhea and sore throat; Denies ear pain Cardiovascular Cardiovascular: Denies chest pain, orthopnea, palpitations or paroxysmal nocturnal dyspnea Respiratory/Chest Respiratory/Chest: Reports cough, dyspnea and dyspnea on exertion; Denies orthopnea, paroxysmal nocturnal dyspnea or sputum Gastrointestinal Gastrointestinal: Reports diarrhea; Denies abdominal pain, constipation, melena or vomiting Genitourinary Genitourinary ED: Denies dysuria, hematuria or urinary frequency Musculoskeletal Musculoskeletal: Reports myalgias; Denies arthralgias, back pain or neck pain Integumentary Denies rash Neurologic Neurologic: Denies headache(s), paresthesias or weakness Endocrine Endocrinology: Denies cold intolerance or heat intolerance Hematologic/Lymphatic Hematologic/Lymphatic: Reports systems reviewed and no addt'l complaints, except as documented EXAM Physical Exam Const Vital Signs: 02/13/23 13:58 02/13/23 14:59 02/13/23 15:56 Temperature 98.7 F Temperature Source Oral Pulse Rate 70 86 Respiratory Rate 14 20 H Respiratory Effort Normal Respiratory Pattern Normal Normal Blood Pressure 136/76 H Blood Pressure Mean 96 Pulse Ox 97 Oxygen Delivery Method Room Air 02/13/23 15:56 Temperature Temperature Source Pulse Rate Respiratory Rate Respiratory Effort Respiratory Pattern Blood Pressure Blood Pressure Mean Pulse Ox 98 Oxygen Delivery Method Room Air Positive well nourished and well developed Constitutional Narrative: Patient does not appear well. She does not appear toxic. Vital signs are unremarkable. She is not hypoxic on room air. General Appearance ED: well developed and NAD; Negative for cyanotic, diaphoretic or pallor HEENT Reports moist mucous membranes HEENT Narrative: Head is atraumatic and normocephalic. Ears are normal. Nares patent with slight discharge. Posterior pharynx out erythema exudate. Uvula is midline. There is no deviation tongue with protrusion. Eyes PERRL and EOMs intact bilaterally General Eye ED: Negative for pale conjunctiva or scleral icterus Neck no lymphadenopathy, supple and no JVD Chest Wall inspection of chest normal and palpation of chest normal Resp normal respiratory effort and No clear to auscultation bilaterally Auscultation: rales bilateral base and wheezes expiratory wheezes, scattered wheezes and throughout (There is increased expiratory phase.) Cardio regular rate, regular rhythm, S1 normal heart sound, S2 normal heart sound and no murmurs GI normal to inspection, nondistended, normoactive bowel sounds, non-tender, non-distended and no masses; Negative for hepatosplenomegaly Auscultation: normoactive bowel sounds Palpation: soft Back/Spine no CVA tenderness Thoracic Spine / Upper Back: Negative for thoracic spinal tenderness Lumbar Spine / Lower Back: Negative for lumbar spinal tenderness Extremity normal to inspection Extremity Narrative: Patient has absence of hair on her toes. DP pulses palpable but diminished. Cap refill is normal. Sensation is normal. There is noes soft tissue swelling noted. There is no erythema, warmth or induration. There is no point bony tenderness. Patient does have thickened toenails. General Extremety ED: Negative for edema or tenderness General Extremity: Negative for edema Neuro oriented x3, CN's II-XII intact bilaterally and no sensory deficits noted Sensorium / Orientation: alert Motor Exam: strength 5/5 throughout Psych mental status grossly normal Skin no rashes or lesions noted, no wounds and skin turgor normal General Skin Exam: Negative for jaundice or pallor MDM MDM MDM Narrative Medical decision making narrative: Differential diagnosis includes viral illness, viral versus bacterial pneumonia, exacerbation COPD, with patient having neutropenia and diarrhea with x-ray symptoms concerned she may have COVID will obtain COVID test. CBC was obtained assess white count differential. BMP to assess renal function electrolytes. Also discussed glucose since she did report mild increased urination. Chest x-ray was obtained to assess for pneumonia, pneumothorax. Records from most recent visit the end of January were reviewed. Patient has significant workup to assess her symptoms and foot pain with no known etiology found. History & Record Review Additional record(s) reviewed:: Prior outpatient record, Prior ED visit and Prior labs Lab Data Attestation: I reviewed the patient's lab results. Lab results narrative: Patient has neutropenia. Differential is unremarkable. Basic metabolic panel is unremarkable. Labs: Laboratory Results - last 24 hr 02/13/23 02/13/23 15:53 16:47 WBC 3.6 L RBC 4.34 Hgb 12.9 Hct 40.2 MCV 92.6 MCH 29.7 MCHC 32.1 RDW Std Deviation 50.4 H RDW Coeff of Dru 14.6 Plt Count 188 MPV 10.1 Immature Gran % (Auto) 0.600 Neut % (Auto) 59.9 Lymph % (Auto) 24.4 [place] % (Auto) 13.2 H Eos % (Auto) 0.8 Baso % (Auto) 1.1 H Absolute Neuts (auto) 2.1 Absolute Lymphs (auto) 0.87 Nucleated RBC % 0 Sodium 132 L Potassium 3.5 Chloride 99 Carbon Dioxide 27.0 Anion Gap 6 BUN 7 Creatinine 1.20 H Est GFR (MDRD) Af Amer 56 L Est GFR (MDRD) Non-Af 46 L BUN/Creatinine Ratio 5.8 L Glucose 176 H Calcium 9.2 POC Glucose 187 H Radiography Diagnostic Testing: Clinical Impression(s) from Imaging Studies Chest X-Ray 02/13/23 16:55 IMPRESSION: No acute cardiopulmonary disease. Large hiatal hernia, unchanged Electronically Signed: Araseli Mon MD at 17:06 EST , Treatment and Re-Evaluation :: Patient wheezing has improved markedly. Patient states she cannot go home because she lives by herself. Will ambulate. If patient does not desaturate she will be discharged home. She is outside the window for treatment with Paxlovid since her symptoms started over a week ago. Since she has a positive COVID test will treat with Decadron versus prednisone for her wheezing. Comments:: Patient ambulated from room 20 to the restroom down the hou. Her pulse ox did not go below 96%. Since patient able ambulate does not become hypoxic she was discharged home Discharge Plan Triage Chief Complaint: Dizziness Other Complaint: Abd Pain Fever ED Provider: Clem Blake Dx/Rx/DC Orders Clinical Impression: COVID-19 virus infection, Dizziness, Acute exacerbation of chronic obstructive pulmonary disease, Acute bronchospasm due to viral infection, Type 2 diabetes mellitus with hyperglycemic coma Instructions: Coronavirus Disease 2019 (COVID-19): Caring for Yourself or Others Prescriptions: New dexamethasone 6 mg tablet 6 mg PO DAILY Qty: 7 0RF No Action acetaminophen-codeine 1 TABLET tablet 1 tab PO BID PRN (Reason: Pain) Patient Comments: pain levothyroxine 75 MCG tablet 75 mcg PO DAILY Patient Comments: thyroid simvastatin 20 MG tablet 40 mg PO QHS Patient Comments: cholesterol aspirin 81 MG tablet,chewable 81 mg PO DAILY@0800 Patient Comments: heart health raloxifene 60 MG tablet 60 mg PO DAILY Patient Comments: bone health loratadine 10 MG tablet 10 mg PO DAILY Patient Comments: allergies gabapentin 300 MG capsule 300 mg PO BIDCM Patient Comments: neuropathy/pain magnesium oxide 400 MG tablet 400 mg PO BID Patient Comments: supplement metformin 500 MG tablet 250 mg PO MOWEFR pantoprazole 40 MG tablet 40 mg PO DAILY acetaminophen [Tylenol] 325 MG tablet 650 mg PO Q6H PRN PRN (Reason: Mild Pain (1-3)/Temp > 100.7 F) 0RF albuterol sulfate 2.5 MG/3 ML solution for nebulization 2.5 mg inhalation Q2H PRN PRN (Reason: SOB &/OR WHEEZING) 0RF acidophilus-pectin, citrus 1 TABLET tablet 1 tab PO BID 0RF celecoxib [Celebrex] 200 mg Capsule 200 mg PO DAILY alprazolam 0.25 mg tablet 0.5 mg PO BID clindamycin HCl 150 mg capsule 150 mg PO Q6H Qty: 20 0RF hydrochlorothiazide 25 mg tablet 25 mg PO DAILY Qty: 30 0RF metoprolol succinate [Toprol XL] 25 mg tablet extended release 24 hr 25 mg PO DAILY Primary Care Provider: Reece Salas Referrals: Reece Salas DO [Primary Care Provider] - Activity Restrictions/Additional Instructions: Your blood sugar is may elevated due to Decadron. Take the Decadron until gone. Use your inhaler every 2-4 hours while awake for the next 3 to 5 days then every 4-6 hours as needed for wheezing. Disposition Disposition: Home, Self Care
--- NOTE | 2023-02-13 16:55 | RAD_ITS ---
STUDY: X-RAY CHEST REASON FOR EXAM: Female, 77 years old. Cough, wheezing and dyspnea TECHNIQUE: PA and lateral views of the chest. COMPARISON: 05/04/2022. FINDINGS: The lungs are clear and expanded. There is no demonstrated pleural abnormality. Normal size heart. Normal mediastinum and seun. Normal visualized pulmonary arteries. There is atherosclerotic calcification of the aortic arch with tortuosity. There are diffuse degenerative changes of the visualized thoracic spine. Normal visualized ribs, clavicles, and shoulders. Large hiatal hernia. RAD/Chest PA and Lateral IMPRESSION: No acute cardiopulmonary disease. Large hiatal hernia, unchanged Electronically Signed: Araseli Mon MD at 17:06 EST ,
[2023-02-13 17:04] LABS: Bedside Glucose 187 mg/dL (74-106)
[2023-02-13 17:33] VITALS: BP 132/76; PULSE 99; RESP 20; O2SAT 96
[2023-02-13 17:59] VITALS: BMI 30.2
== END 2023-02-13 18:04 | disposition home or self-care (01) ==
PROVIDERS: Emergency Provider Emergency Medicine; PCP Family Medicine; Visit Provider Emergency Medicine
DX: U07.1 COVID-19 (principal); J44.1 Chronic obstructive pulmonary disease with (acute) exacerbation; E11.00 Type 2 diabetes mellitus with hyperosmolarity without nonketotic hyperglycemic-hyperosmolar coma (NKHHC); J98.01 Acute bronchospasm; I10 Essential (primary) hypertension; F17.210 Nicotine dependence, cigarettes, uncomplicated; Z79.82 Long term (current) use of aspirin; Z79.84 Long term (current) use of oral hypoglycemic drugs; Z79.899 Other long term (current) drug therapy
CPT/HCPCS: 71046; 80048; 82962; 85025; 87811; 93005; 94640; 99284; A4216

== ENCOUNTER 2023-02-22 19:11 | Inpatient (IN) | payer MEDICARE, MEDICAID, SELFPAY ==
[2023-02-22] VITALS (7 sets, daily range): BP systolic 134–144; BP diastolic 78–92; PULSE 77–88; RESP 16–20; TEMP 35.6; O2SAT 91–95; BMI 29.2
--- OUTSIDE RECORDS SUMMARY | 2023-02-22 19:34 | XMS RPT_ITS | CCD ---
Author Name Unknown Address [address] [place] [address] Organization [facility] Care Team Providers Care Hangersmith Name Role Phone Reece Salas Primary Care Provider REECE SALAS Primary Care Unavailable CRISS, LENI Referring Unavailable YUAN, LENI Attending Unavailable YUAN, LENI Referring Unavailable CRISS, LENI Attending Unavailable REECE SALAS Primary Care Unavailable Reece Salas DO Primary Care Provider Reece Salas DO Primary Care Provider [phone] REECE SALAS Primary Care Unavailable PETRILLA, REECE Attending Unavailable PETRILLA, REECE Attending Unavailable PETRILLA, REECE Primary Care Unavailable HA CARRASCO Attending Unavailable PETRILLA, REECE Primary Care Unavailable PETRILLA, REECE Attending Unavailable PETRILLA, REECE Attending Unavailable PETRILLA, REECE Primary Care Unavailable Allergies Allergy Classification Reported Allergen(s) Allergy Type Date of Onset Reaction(s) Facility (8 sources) Penicillin; Translations: [PENICILLIN] Drug Allergy 9 Hives [facility] (20 sources) Penicillins Drug Intolerance 5 Hives, Rash [facility] (8 sources) Other Propensity to adverse reactions 3 Other [facility] Medications Current Medications Medication Drug Class(es) Dates Sig (Normalized) Sig (Original) acetaminophen 300 mg / codeine phosphate 30 mg oral tablet (20 sources) Opioid Agonist Start: 12-19-2022 End: 03-17-2023 take 1 tablet by mouth twice daily as needed for pain acetaminophen-cod eine (Tylenol #3) 300-30 MG tablet Indications: DDD (degenerative disc disease), lumbar Take 1 tablet by mouth 2 times daily as needed for severe pain (7-10). 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) use of non-steroidal anti-inflammatories (NSAID)] Onset: 10-28-2014 11-25-2021 Episodic Other aftercare (2 sources) salvage determiner (current) use of non-steroidal anti-inflammatories (NSAID); Translations: [salvage determiner (current) use of non-steroidal anti-inflammatories (nsaid)] Onset: [...] Onset: 05-18-2018 12-21-2020 Episodic Residual codes; unclassified (20 sources) Family history of breast cancer; Translations: [Family history of malignant neoplasm of breast] Onset: 10-28-2014 11-25-2021 Episodic Spondylosis; intervertebral disc disorders; other back problems (7 sources) Cervical nerve root pain; Translations: [Radiculopathy, cervical region] Onset: 12-21-2020 12-21-2020 Episodic Syncope (7 sources) Syncope; Translations: [Syncope and collapse] Onset: 12-21-2020 12-21-2020 Episodic Unclassified (1 source) Subacute cough; Translations: [Subacute cough] Onset: 04-27-2022 Viral infection (20 sources) Disease caused by 2019-nCoV; Translations: [COVID-19] Onset: 02-22-2021 11-25-2021 Episodic Results Test Name Value Interpretation Reference Range Facil ity Vital Signs Date Time Vital Sign Value Performing Clinician Faci lity 12-19-2022 17:21-0500 Diastolic blood pressure 76 mm[Hg] Reece Salas DO Work Phone: [facility] 12-19-2022 17:21-0500 Systolic blood pressure 138 mm[Hg] Reece Salas DO Work Phone: [facility] 12-19-2022 16:28-0500 Body mass index (BMI) [Ratio] 29.94 kg/m2 Reece Salas DO Work Phone: [facility] 12-19-2022 16:28-0500 Body weight 79.11 kg Reece Salas DO Work Phone: [facility] 08-21-2022 16:15-0400 Body height 162.6 cm Reece Salas DO Work Phone: [facility] 08-21-2022 16:15-0400 Body mass index (BMI) [Ratio] 29.87 kg/m2 Reece Salas DO Work Phone: [facility] 08-21-2022 16:15-0400 Body temperature 97.11 [degF] Reece Salas DO Work Phone: [facility] 08-21-2022 16:15-0400 Body weight 78.93 kg Reece Salas DO Work Phone: [facility] 08-21-2022 16:15-0400 Diastolic blood pressure 75 mm[Hg] Reece Salas DO Work Phone: [facility] 08-21-2022 16:15-0400 Systolic blood pressure 117 mm[Hg] Reece Salas DO Work Phone: [facility] 05-21-2022 15:56-0400 Body height 162.6 cm Reece Salas DO Work Phone: [facility] 05-21-2022 15:56-0400 Body mass index (BMI) [Ratio] 29.01 kg/m2 Reece Salas DO Work Phone: [facility] 05-21-2022 15:56-0400 Body temperature 97.3 [degF] Reece Salas DO Work Phone: [facility] 05-21-2022 15:56-0400 Body weight 76.66 kg Reece Salas DO Work Phone: [facility] 05-21-2022 15:56-0400 Diastolic blood pressure 83 mm[Hg] Reece Salas DO Work Phone: [facility] 05-21-2022 15:56-0400 Heart rate 68 /min Reece Salas DO Work Phone: [facility] 05-21-2022 15:56-0400 SaO2% (BldA) [Mass fraction] 97 % Reece Salas DO Work Phone: [facility] 05-21-2022 15:56-0400 Systolic blood pressure 124 mm[Hg] Reece Salas DO Work Phone: [facility] 07-28-2021 18:12-0400 Body weight 75.75 kg Bethrocky Artisaugh PA-C Work Phone: [facility] 07-28-2021 18:12-0400 Diastolic blood pressure 87 mm[Hg] Beth Slabaugh PA-C Work Phone: [facility] 07-28-2021 18:12-0400 Heart rate 67 /min Beth Slabaugh PA-C Work Phone: [facility] 07-28-2021 18:12-0400 Systolic blood pressure 101 mm[Hg] Beth Slabaugh PA-C Work Phone: [facility] Encounters Encounter Date Encounter Type Care Provider Facility Start: 02-21-2023 Orders Only Reece islas DO Work Phone: [facility] Start: 01-08-2023 Refill Reece islas DO Work Phone: [facility] Procedures Date Procedure Procedure Detail Performing Clinician Start: 08-09-2022 Computerized ophthal sushma imaging retina Leni Cintron MD, PhD Work Phone: Start: 02-28-2022 Adult depression scr eening assessment Reece Josue DO Work Phone: Start: 02-28-2022 Thyrotropin [Units/v olume] in Serum or Plasma Reece Salas DO Work Phone: Start: 12-14-2021 Computerized ophthal usshma imaging retina Leni Cintron MD, PhD Work Phone: Start: 08-21-2021 Lipid 1996 panel - S nani or Plasma Reece Newtonroshan DO Work Phone: Start: 07-28-2021 Urnls dip [...] Vitelliform macular dystrophy Expected: 08/24/2023, Expires: 01/31/[address] [facility] Work Phone: Immunizations Immunization Date Immunization Notes Care Provider Fa betsy 12-19-2022 Influenza, Seasonal, Quadrivalent, Adjuvanted Reece Salas DO Work Phone: [facility] 11-20-2021 Influenza, Seasonal, Quadrivalent, Adjuvanted Reece Salas DO Work Phone: [facility] 11-20-2021 unknown vaccine or i mmune globulin Reece Meltona DO Work Phone: [facility] 11-20-2021 influenza virus vacc ine, unspecified formulation Reece Meltona DO Work Phone: [facility] 11-09-2020 Influenza, High-dose Seasonal, Quadrivalent, Preservative Free Reece Meltona DO Work Phone: [facility] 01-16-2018 influenza, high dose seasonal, preservative-free Reece Newtonlla DO Work Phone: [facility] 12-12-2017 influenza virus vacc ine, unspecified formulation Reece Meltona DO Work Phone: [facility] 12-12-2017 influenza, seasonal, injectable Reece Meltona DO Work Phone: [facility] 12-12-2017 influenza, seasonal, injectable, preservative free Reece Meltona DO Work Phone: [facility] 01-27-2015 pneumococcal conjuga te vaccine, 13 valent Reece Newtonlla DO Work Phone: [facility] 12-03-2013 influenza virus vacc ine, unspecified formulation Reece Meltona DO Work Phone: [facility] Work Phone: 12-03-2013 influenza, seasonal, injectable Reece Newtonlla DO Work Phone: [facility] 11-11-2013 influenza virus vacc ine, unspecified formulation Reece Newtonlla DO Work Phone: [facility] 11-11-2013 influenza, seasonal, injectable Reece Lamarlla DO Work Phone: [facility] 11-11-2013 influenza, seasonal, injectable, preservative free Reece Newtonlla DO Work Phone: [facility] 02-12-2012 pneumococcal conjuga te vaccine, 10 valent Reece Petrilla DO Work Phone: [facility] 02-12-2012 pneumococcal polysaccharide vaccine, 23 valent Reece Salas DO Work Phone: [facility] 02-12-2012 pneumococcal vaccine , unspecified formulation Reece Salas DO Work Phone: [facility] 10-28-2009 pneumococcal Conjuga te, unspecified formulation Reece Salas DO Work Phone: [facility] 10-28-2009 pneumococcal polysaccharide vaccine, 23 valent Reece Salas DO Work Phone: [facility] Payers Date Payer Category Payer Unknown [id number] 2018 Medicaid [facility] MEDICAID MYC ARE [facility] MEDICAID [id number] 2018-Present [phone] [address] [place] [address] Medicaid [id number] 51430.[facility] 2018 Medicaid [id number] 2017 Medicaid [id number] 2017 Medicaid [id number] 2005 Medicare MEDICARE MEDICAR E A AND B [id number] 2005-Present [phone] [address] [address] [place] [address] Medicare [id number] 2005 Medicare [id number] 2005 Medicare [id number] Social History Date Type Detail Facility Start: 04-11-2018 End: 12-19-2022 Tobacco smoking status NHIS Smokes tobacco daily [facility] Start: 04-11-2018 End: 12-19-2022 Tobacco use and exposure Smokeless tobacco non-user [facility] Start: 1945 Sex Assigned At Not on file [facility] Start: 05-22-2021 End: 08-21-2022 Exposure to SARS-CoV-2 (event) Not sure [facility] End: 11-27-2013 History of tobacco use Cigarette Smoker [facility] Start: 05-21-2022 End: 12-19-2022 Alcohol intake Current non-drinker of alcohol (finding) [facility] Start: 02-28-2022 End: 05-21-2022 Alcohol intake [facility] Start: 1945 Sex Assigned At Female S [facility] Start: 02-28-2022 End: 05-21-2022 Tobacco use panel [facility] Start: 02-14-2022 Gender identity Identifies as female gender (finding) [facility] Start: 02-14-2022 Sexual orientation Heterosexual (fin ding) [facility] Medical Equipment Procedure Code Equipment Code Equipment Origin al Text Equipment Identifier Dates Use as directed 2x day. Type: ( E11.9) [id number] Start: 01-29-2019 Clinical Notes 06-01-2021 to 02-21-2023 Telephone Encounter - Yajaira Manley LPN - 02/21/2023 4:52 PM ESTTelephone Encounter - Yajaira Manley LPN - 02/21/2023 4:52 PM ESTTelephone Encounter - Kirill Servin RN - 02/21/2023 1:41 PM EST Note Date & Type Note Facility 02-21-2023 Telephone encounter Note Placed call to patient. Two patient identifers confirmed. Was able to speak to patient. All concerns in message have been addressed. No questions at this time. Call ended [facility] 02-21-2023 Miscellaneous Notes Placed call to patient. Two patient identifers confirmed. Was able to speak to patient. All concerns in message have been addressed. No questions at this time. Call ended S: Patient spoke with [facility] nurse regarding Covid positive. Short of breath and wheezing. B: Onset of symptoms/concern A: Patient seen in [place] ED 1/3 for Covid and missed follow up today. Temp up to 100.5 taking tylenol. Finished steroid today and using inhalers albuterol and advair. Some shortness of breath and wheezing which improves with coughing. Sputum is grayish. Advised to use ED but requesting medication and or telephone appt with Dr. Salas. Patient states she is 45 minutes away. R: Pharmacy and allergies verified. Patient understands care advice. No further needs at this time. Patient instructed to call back with new or worsening symptoms. Reason for Disposition Fever > 100.0 F (37.8 C) and bedridden (e.g., prison patient, stroke, chronic illness, recovering from surgery) Protocols used: Breathing [id number]-[id number]-JQ documented in this encounter [facility] 02-21-2023 Telephone encounter Note S: Patient spoke with [facility] nurse regarding Covid positive. Short of breath and wheezing. B: Onset of symptoms/concern A: Patient seen in [place] ED 1/3 for Covid and missed follow up today. Temp up to 100.5 taking tylenol. Finished steroid today and using inhalers albuterol and advair. Some shortness of breath and wheezing which improves with coughing. Sputum is grayish. Advised to use ED but requesting medication and or telephone appt with Dr. Salas. Patient states she is 45 minutes away. R: Pharmacy and allergies verified. Patient understands care advice. No further needs at this time. Patient instructed to call back with new or worsening symptoms. Reason for Disposition Fever > 100.0 F (37.8 C) and bedridden (e.g., prison patient, stroke, chronic illness, recovering from surgery) Protocols used: Breathing Oeollijqlr-[id number] [facility] 01-08-2023 Telephone encounter Note Rx loaded Patient says if you can change her sugar pill to a smaller pill that will really help so please switch that one she says she can take all her pills when her aid is there in the morning its just at night its difficult. [facility] 01-08-2023 Miscellaneous Notes Rx loaded Patient says if you can change her sugar pill to a smaller pill that will really help so please switch that one she says she can take all her pills when her aid is there in the morning its just at night its difficult. documented in this encounter [facility] 12-25-2022 Telephone encounter Note Orders pended for doctor's signature [facility] 12-25-2022 Miscellaneous Notes Orders pended for doctor's signature documented in this encounter [facility] 12-24-2022 Note Referrals and Orders pended for dx and doctor's signature [facility] 12-24-2022 Telephone encounter Note Referrals and Orders pended for dx and doctor's signature [facility] 12-24-2022 Miscellaneous Notes Referrals and Orders pended for dx and doctor's signature documented in this encounter [facility] 12-19-2022 History of Present illness Narrative Medication requesting liquid form if available: Celebrex Gabapentin Krill Oil Magnesium Oxide Metformin Zocor Images from the original note were not included. [facility] [address] [place] [address] [address] [facility] [id number] Visit type: Established Patient Reason for [...] Future Other orders - Continuous Blood Gluc Human Resource Assistant (FreeStyle Astrid 14 Day [place]) device; 1 each 2 times daily. E11.9 [...] 60 tablet 0 [DISCONTINUED] Continuous Blood Gluc Human Resource Assistant (FreeStyle Astrid 14 Day [place]) device 1 each 2 times daily. E11.9 (Patient not taking: Reported on 12/19/2022) 1 each 0 [DISCONTINUED] Continuous Blood Gluc Sensor (FreeStyle Astrid 2 Sensor) [facility] E11.9 Change sensor every 14 days (Patient [...] Laterality Date APPENDECTOMY 1995 CHOLECYSTECTOMY [address] 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 documented in this encounter [facility] 11-13-2022 History of Present illness Narrative Per chart review patient is getting the Astrid and not the dexcom, LM for patient to call back to to clarify documented in this encounter [facility] 10-19-2022 Telephone encounter Note Rx loaded looks like wasn't sent. [facility] 10-19-2022 Miscellaneous Notes Rx loaded looks like wasn't sent. Pt called in requesting the acetaminophen-codeine (Tylenol #3) 300-30 MG tablet be sent to the pharmacy. It looks like the naloxone (Narcan) 4 mg/0.1 mL nasal spray was sent and authorized yesterday. Pt stated the pharmacy did not have the prescription there. Please advise. Pharmacy called and states patient was wanting to meat pickler a Rx that was sent in on 08.21.22 They no longer have this Rx after 14 days. documented in this encounter [facility] 10-19-2022 Telephone encounter Note Pt called in requesting the acetaminophen-codeine (Tylenol #3) 300-30 MG tablet be sent to the pharmacy. It looks like the naloxone (Narcan) 4 mg/0.1 mL nasal spray was sent and authorized yesterday. Pt stated the pharmacy did not have the prescription there. Please advise. [facility] 10-16-2022 Telephone encounter Note Pharmacy called and states patient was wanting to meat pickler a Rx that was sent in on 08.21.22 They no longer have this Rx after 14 days. [facility] 10-10-2022 Telephone encounter Note Name of caller: Divya - [employer] Contact phone number: [phone] Relationship to Patient: n/a Provider: Reece Salas Practice: [facility] Chief Complaint/Reason for Call: Order request was faxed from [employer] on 10/06/22 for Dexcom Sensor and Human Resource Assistant. Divya calling to check on status. It is not listed in Media Tab or Order tab. Divya is requesting the ORDER be faxed to fax# [phone]. She also needs OFFICE NOTE faxed to a different number: fax [phone] Best time of day caller can be reached: any Patient advised that office/PCP has 24-48 business hours to return their call: Yes Dviya was advised office is moving and may not receive a response until 10/16 or 10/17. [facility] 10-10-2022 Miscellaneous Notes Name of caller: Divya - [employer] Contact phone number: [phone] Relationship to Patient: n/a Provider: Reece Melton Practice: [facility] Chief Complaint/Reason for Call: Order request was faxed from [employer] on 10/06/22 for Dexcom Sensor and Human Resource Assistant. Divya calling to check on status. It is not listed in Media Tab or Order tab. Divya is requesting the ORDER be faxed to fax# [phone]. She also needs OFFICE NOTE faxed to a different number: fax [phone] Best time of day caller can be reached: any Patient advised that office/PCP has 24-48 business hours to return their call: Yes Divya was advised office is moving and may not receive a response until 10/16 or 10/17. documented in this encounter [facility] 10-10-2022 Miscellaneous Notes Name of caller: Divya Malave [employer] Contact phone number: [phone] Relationship to Patient: n/a Provider: Reece Salas Practice: [facility] Chief Complaint/Reason for Call: Order request was faxed from [employer] on 10/06/22 for Dexcom Sensor and Human Resource Assistant. Divya calling to check on status. It is not listed in Media Tab or Order tab. Divya is requesting the ORDER be faxed to fax# [phone]. She also needs OFFICE NOTE faxed to a different number: fax [phone] Best time of day caller can be reached: any Patient advised that office/PCP has 24-48 business hours to return their call: Yes Divya was advised office is moving and may not receive a response until 10/16 or 10/17. documented in this encounter [facility] 08-21-2022 Note Referral pended for doctor's signature [facility] 08-21-2022 Telephone encounter Note Referral pended for doctor's signature [facility] 08-21-2022 Miscellaneous Notes Referral pended for doctor's signature documented in this encounter [facility] 08-21-2022 History of Present illness Narrative Images from the original note were not included. [facility] [address] [address] Visit type: Established Patient Reason for Visit: Follow-up (Follow up on medications) Assessment / Plan: Javier was seen today for follow-up. Diagnoses and all orders for this visit: Type 2 diabetes mellitus with hyperglycemia, without long-term current use of insulin (CMS/HCC) ([facility]) (Primary) Comments: Stable, continue metformin calorie restriction [...] mouth every evening. - Continuous Blood Gluc Human Resource Assistant (PervasipStyle Astrid 14 Day [place]) device; 1 each 2 times daily. E11.9 [...] 180 capsule 0 [DISCONTINUED] Continuous Blood Gluc Human Resource Assistant (FreeStyle Astrid 14 Day [place]) device 1 each 2 times daily. [DISCONTINUED] [...] hyperglycemia, without long-term current use of insulin ([facility]) ([facility]) MVP (mitral valve prolapse) Osteoporosis DDD (degenerative [...] APPENDECTOMY 1966 CHOLECYSTECTOMY [address] Hamlet reis 2015, pt deferred exam KNEE ARTHROSCOPY Right 1994 twice in the PALATE SURGERY 12/26 torus lesion per [facility] Family History Problem Relation Name Age of Onset Heart disease Mother [place] at age 58 Other ([address]) Father unknown Breast cancer Sister 74 Coronary [...] joint effusion noted. documented in this encounter [facility] 08-09-2022 Note HNO ID: [id number] Author: Leni Cintron MD, PhD Service: ? [...] of its relevant components. Leni Cintron MD [facility] 08-09-2022 History of Present illness Narrative Referred [...] Leni Cintron MD documented in this encounter [facility] 08-03-2022 Note Patient Outreach (NE TNAV) JAVIER LU ([id number]) 1945 F Date Time Provider Department 08/03/22 DAVION MALIK During your visit today, we recorded the following information about you: Davion Malik RN 08/03/2022 8:38 AM Signed [facility] JULIET RN Action/FYI: Medication Adherence review completed per request of payer. NO PROVIDER ACTION REQUIRED Please see requests in the Summary/Findings section below Patient identified by name and date of . Patient Attributed To: QAE Payer: [facility] Reason for review or outreach: Medication Adherence Medication Adherence Review Details: Hypertension Summary / Findings: Patient has switched to a [facility] PCP Action Taken: Data submitted to Payer Other Contact made with patient: No, Chart review only. Signature: Davion Malik RN Allergies As of Date: 08/03/2022 Noted Allergy Reaction PENICILLIN 04/11/2018 4 - Hives Date Reviewed: 12/14/2021 Reviewed by: Leni Cintron MD, PhD - Fully Assessed Reason for Visit: ACM JULIET RN [[id number]] Cmt: Medication Adherence review per request of [...] 300 mg by mouth twice daily. - [id number] 1,500-165-67.5 mg cap Take 1 capsule by [...] Encounter Status:Closed by DAVION MALIK on 08/03/22 [facility] 08-03-2022 Telephone encounter Note Noted. [facility] 08-03-2022 Miscellaneous Notes Noted. Message released [...] Name of caller: javier Contact phone number: [phone] Relationship to Patient: patient Provider: josue Practice: [...] their call: No documented in this encounter [facility] 08-03-2022 Telephone encounter Note Message released to patient as written. Patient's further questions if applicable: Yes The patient called in and set up an appointment. Were all questions from office addressed or relayed to the patient from encounter: Yes [facility] 08-03-2022 Note HNO ID: [id number] Author: Davion Malik RN Service: ? Author Type: Registered Nurse Type: Progress Notes Filed: 08/03/2022 8:38 AM Note Text: GIGI CHUNG RN Action/FYI: Medication Adherence review completed per request of payer. NO PROVIDER ACTION REQUIRED Please see requests in the Summary/Findings section below Patient identified by name and date of . Patient Attributed To: QAE Payer: [employer] [place] Reason for review or outreach: Medication Adherence Medication Adherence Review Details: Hypertension Summary / Findings: Patient has switched to a [facility] PCP Action Taken: Data submitted to Payer Other Contact made with patient: No, Chart review only. Signature: Davion Malik RN [facility] 08-03-2022 History of Present illness Narrative GIGI CHUNG RN Action/FYI: Medication Adherence review completed per request of payer. NO PROVIDER ACTION REQUIRED Please see requests in the Summary/Findings section below Patient identified by name and date of . Patient Attributed To: QAE Payer: [employer] [place] Reason for review or outreach: Medication Adherence Medication Adherence Review Details: Hypertension Summary / Findings: Patient has switched to a [facility] PCP Action Taken: Data submitted to Payer Other Contact made with patient: No, Chart review only. Signature: Davion Malik RN documented in this encounter [facility] 07-10-2022 Telephone encounter Note Talked to patient and relayed message and she will call for an appointment if she doesn't get any better. [facility] 07-10-2022 Telephone encounter Note Name of caller: javier Contact phone number: [phone] Relationship to Patient: patient Provider: josue Practice: [...] business hours to return their call: No [facility] 06-12-2022 Telephone encounter Note Spoke to Tali and she said she needs a Med box set up that patient can't see the pills and this would be 1 x a wk. [facility] 06-12-2022 Miscellaneous Notes Spoke to Tali and she said she needs a Med box set up that patient can't see the pills and this would be 1 x a wk. Please assist Name of caller: Tali Contact phone number: [phone] Relationship to Patient: [facility] Provider: Josue Practice: [facility] Chief Complaint/Reason for Call: Tali called stating they will start fpc for med set ups weekly. This will start Saturday06/18/2022. Will the doctor follow and sign orders. Please advise Best time of day caller can be reached: any Patient advised that office/PCP has 24-48 business hours to return their call: no documented in this encounter [facility] 06-12-2022 Telephone encounter Note Please assist [facility] 06-12-2022 Telephone encounter Note Name of caller: Tali Contact phone number: [phone] Relationship to Patient: [facility] Provider: Josue Practice: [facility] Chief Complaint/Reason for Call: Tali called stating they will start fpc for med set ups weekly. This will start Saturday06/18/2022. Will the doctor follow and sign orders. Please advise Best time of day caller can be reached: any Patient advised that office/PCP has 24-48 business hours to return their call: no [facility] 05-21-2022 History of Present illness Narrative Images from the original note were not included. [facility] [address] [facility] [address] Visit type: Established Patient Reason for Visit: Follow-up (3 month med check) and Cough Assessment / Plan: Javier was seen today for follow-up and cough. Diagnoses and all orders for this visit: Chronic obstructive pulmonary disease, unspecified COPD type (HCC) (Primary) Comments: Recurrent, defers PFTs. Add Advair, [...] without long-term current use of insulin (CMS/HCC) ([facility]) Comments: Stable with some hyperglycemia, decrease metformin [...] in the morning. Continuous Blood Gluc Sensor (FreeStyle Astrid 2 [...] APPENDECTOMY 1966 CHOLECYSTECTOMY [address] 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 documented in this encounter [facility] 12-14-2021 Note HNO ID: [id number] Author: Leni Cintron MD, PhD Service: ? [...] of its relevant components. Leni Cintron MD [facility] 12-14-2021 History of Present illness Narrative Referred [...] Leni Cintron MD documented in this encounter [facility] 09-21-2021 Miscellaneous Notes Left voicemail following up on [employer] message that had been sent regarding genetics consult received from Dr. Cintron. Provided instructions and Genetics appt line to call. documented in this encounter [facility] 07-28-2021 Instructions Beth Jennings PA-C - [...] Beth Jennings PA-C documented in this encounter [facility] 07-28-2021 History of Present illness Narrative [...] Take 300 mg by mouth twice daily. [id number] (KRILL OIL, OMEGA 3 AND 6,) [id number] [...] which included preparing to see the patient, [id number]-[id number] patient care, completing clinical documentation, performing a medically appropriate examination, counseling and educating the patient/family/caregiver, ordering medications, tests, or procedures and communicating results to the patient/family/caregiver. documented in this encounter [facility] 06-01-2021 History of Present illness Narrative [...] Leni Cintron MD documented in this encounter [facility] documented 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 documented in this encounter [facility] note* Diagnosis Chronic obstructive pulmonary disease, unspecified COPD type ([facility])- Primary DDD (degenerative disc disease), lumbar Degeneration of lumbar or lumbosacral intervertebral disc Post traumatic stress disorder (PTSD) Type 2 diabetes mellitus with hyperglycemia, without long-term current use of insulin ([facility]) ([facility]) Essential hypertension Unspecified essential hypertension Acquired hypothyroidism Unspecified hypothyroidism [facility]* Diagnosis 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 Type 2 diabetes mellitus without complication, without long-term current use of insulin ([facility]) Blunt trauma of left eye, subsequent encounter Posterior vitreous detachment of right eye 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 [facility] Diagnosis Chronic pain of right knee [facility] Diagnosis Type 2 diabetes mellitus with hyperglycemia, without long-term current use of insulin ([facility]) (HCC)- Primary DDD (degenerative disc disease), lumbar Degeneration of lumbar or lumbosacral intervertebral disc Post traumatic stress disorder (PTSD) Essential hypertension Unspecified essential hypertension Generalized anxiety disorder Sedative, 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, hypnotic or anxiolytic-induced disorder (HCC) Primary osteoarthritis of left hip Chronic pain of right knee Acquired hypothyroidism Unspecified hypothyroidism Smoker Tobacco use disorder [facility] Diagnosis DDD (degenerative disc disease), lumbar Degeneration of lumbar or lumbosacral intervertebral disc [facility] Diagnosis Dysphagia, unspecified type- Primary Essential hypertension Unspecified essential hypertension Smoker Tobacco use disorder Generalized anxiety disorder Type 2 diabetes mellitus with hyperglycemia, without long-term current use of insulin ([facility]) Pattern dystrophy of macula Acquired hypothyroidism Unspecified hypothyroidism Mixed hypercholesterolemia and hypertriglyceridemia Mixed hyperlipidemia Pulmonary emphysema, unspecified emphysema type ([facility]) Post traumatic stress disorder (PTSD) DDD (degenerative disc disease), lumbar Degeneration of lumbar or lumbosacral intervertebral disc Localized osteoarthritis of right knee [facility] Diagnosis Localized osteoarthritis of right knee- Primary Moderate smoker (20 or less per day) Tobacco use disorder Dysphagia, unspecified type Gastroesophageal reflux disease with esophagitis, unspecified whether hemorrhage [facility] Diagnosis Smoker- Primary Tobacco use disorder Moderate smoker (20 or less per day) Tobacco use disorder Pulmonary nodule Other diseases of lung, not elsewhere classified [facility]* Diagnosis Post traumatic stress disorder (PTSD) documented in this encounter [facility] for referral (narrative)* Consultation (Routine) - Pending Review Specialty Diagnoses / Procedures Referred By Waldo ortiz Referred To Contact Orthopedic Surgery Diagnoses Chronic pain of right knee Reece Salas DO [address] [place] [address] Jerry Jennings MD [address] [address] Referral ID Status Reason Start Date Expiration Date Visits Requested Visits Authorized [id number] Pending Review Specialty Services Required 08/21/2022 08/21/2023 1 1 Scheduling Instructions Possible (R) [facility] Consultation (Routine) - Pending Review Specialty Diagnoses / Procedures Referred By Contac t Referred To Contact Orthopedic Surgery Diagnoses Localized osteoarthritis of right knee Reece Salas DO [address] [place] [address] Aaron Shoemaker MD [address] [facility] [address] [place] [address] Referral ID Status Reason Start Date Expiration Date Visits Requested Visits Authorized [id number] Pending Review Specialty Services Required 3 12/24/2023 1 1 * Consultation (Routine) - Pending Review Specialty Diagnoses / Procedures Referred By Contac t Referred To Contact Gastroenterology Diagnoses Dysphagia, unspecified type Gastroesophageal reflux disease with esophagitis, unspecified whether hemorrhage Procedures MD OFFICE/OUTPATIENT NEW HIGH MDM 60-74 MINUTES Reece Salas DO [address] [place] [address] Alexi Aguilera [address], [address] [place] [address] Referral ID Status Reason Start Date Expiration Date Visits Requested Visits Authorized [id number] Pending Review Specialty Services Required 3 12/24/2023 1 1 [facility] Reason for Referral Specialty Diagnoses / Procedures Referred By Contac t Referred To Contact Diagnoses 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 Procedures CONSULT TO OPHTHALMIC GENETIC COUNSELING MEDICAL GENETICS COUNSELING EACH 30 MINUTES Leni Cintron MD, PhD [address] [place] [address] [address] Referral ID Status Reason Start Date Expiration Date Visits Requested Visits Authorized [id number] Authorized PCP Requested Referral Auto-Generate d Referral 07/16/2021 07/16/2022 1 1 Specialty Diagnoses / Procedures Referred By [facility] Referred To Contact Diagnoses 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 Procedures CONSULT TO OPHTHALMIC GENETIC COUNSELING MEDICAL GENETICS COUNSELING EACH 30 MINUTES [place] [address] [place] [address] [address] Referral ID Status Reason Start Date Expiration Date Visits Requested Visits Authorized [id number] Authorized PCP Requested Referral Auto-Generate d Referral 12/14/2021 12/14/2022 1 1 Specialty Diagnoses / Procedures [facility] Referred To Contact Radiology Diagnoses Smoker Pulmonary nodule Procedures CT lung screening low dose Reece Salas, DO [address] [place] [address] Referral ID Status Reason Start Date Expiration Date V isits Requested Visits Authorized [id number] Pending Review 12/27/2022 12/27/2023 1 1 Medications Administered Section Active Administered Medications - up to 3 most recent administrations Medication Order MAR Action Action Date Dose Rate Site PHENYLephrine 2.5 % 1 Drop (AK-DILATE, SINCERE-SYNEPHRINE) 1 Drop, BOTH EYES, DIRECTED, Starting on Sat12/14/21 at 1430, Until Sat12/15/21 at 0229, Administer for dilation PROTECT FROM LIGHT, OPHT CLINIC MED ORDERS Given 12/14/2021 2:30 PM EDT 1 Drop proparacaine 0.5 % 1 Drop (ALCAINE) 1 Drop, BOTH EYES, DIRECTED, Starting on Sat12/14/21 at 1430, Until Sat12/15/21 at 0229, Administer [...] Starting on Emi 12/14/21 at 1430, Until 12/15/21 at 0229, Administer for dilation, OPHT CLINIC MED ORDERS Given 12/14/2021 2:30 PM EDT 1 Drop Advance Directives Documents on File Type Date Recorded Patient Topography Technician Expl anation DNR (Do Not Resuscitate) 12/16/2014 Documents on File Type Date Recorded Patient Topography Technician Expl anation DNR (Do Not Resuscitate) 12/16/2014 [...] or prosecute any alcohol or drug abuse patient.[facility] the event this information is protected by the Federal Confidentiality of Alcohol and Drug Abuse Patient Records regulations: The Federal rules restrict any use of the information to criminally investigate or prosecute any alcohol or drug abuse patient.[facility] the event this information is protected by the Federal Confidentiality of Alcohol and Drug Abuse Patient Records regulations: The Federal rules restrict any use of the information to criminally investigate or prosecute any alcohol or drug abuse patient.[facility] the event this information is protected by the Federal Confidentiality of Alcohol and Drug Abuse Patient Records regulations: The Federal rules restrict any use of the information to criminally investigate or prosecute any alcohol or drug abuse patient.[facility] the event this information is protected by the Federal Confidentiality of Alcohol and Drug Abuse Patient Records regulations: The Federal rules restrict any use of the information to criminally investigate or prosecute any alcohol or drug abuse patient.[facility] the event this information is protected by the Federal Confidentiality of Alcohol and Drug Abuse Patient Records regulations: The Federal rules restrict any use of the information to criminally investigate or prosecute any alcohol or drug abuse patient.[facility] the event this information is protected by the Federal Confidentiality of Alcohol and Drug Abuse Patient Records regulations: The Federal rules restrict any use of the information to criminally investigate or prosecute any alcohol or drug abuse patient.[facility] Reason for Visit (unrecogniz ed section and content) Reason Comments UTI chronic uti's for th e past 2 years. Last month Cipro was called in, but no culture was ran. Reason Comments Appointment Reason Comments Macular Dystrophy Follow Up Diabetes Reason Comments Follow-up 3 month med check Cough Reason Onset Date Comments fpc 06/12/2022 Reason Onset Date Comments ACM JULIET [...] Reason Onset Date Comments Med Refill 01/08/2023 Reason Onset Date Comments Shortness of Breath 02/21/2023 Care Teams (unrecognized sec tion and content) [employer] Relationship Specialty Start Date End Date Reece Salas PCP - General 11/02/04 [employer] Relationship Specialty Start Date End Date Reece Salas PCP - General 11/02/04 [place] Relationship Specialty Start Date End Date Reece Salas PCP - General 11/02/04 [place] Relationship Specialty Start Date End Date Reece Salas PCP - General 11/02/04 [employer] Relationship Specialty Start Date End Date Reece Salas, DO [address] [place] [address] PCP - General 07/12/18 [employer] Relationship Specialty Start Date End Date Reece Salas, DO [address] [place] [address] PCP - General 07/12/18 [employer] Relationship Specialty Start Date End Date Reece Salas, DO [address] [place] [address] PCP - General 07/12/18 [employer] Relationship Specialty Start Date End Date Reece Salas PCP - General 11/02/04 [employer] Relationship Specialty Start Date End Date Reece Salas DO [address] [place] [address] PCP - General 07/12/18 [employer] Relationship Specialty Start Date End Date Reece Salas PCP - General 11/02/04 [place] Relationship Specialty Start Date End Date Reece Salas DO [address] [place] [address] PCP - General 07/12/18 [place] Relationship Specialty Start Date End Date Reece Salas, DO [address] [place] [address] PCP - General 07/12/18 [employer] Relationship Specialty Start Date End Date Reece Salas, DO [address] [place] [address] PCP - General 07/12/18 [place] Relationship Specialty Start Date End Date Reece Salas, DO [address] [place] [address] PCP - General 07/12/18 [place] Relationship Specialty Start Date End Date Reece Salas, DO [address] [place] [address] PCP - General 07/12/18 [employer] Relationship Specialty Start Date End Date Reece Salas, DO [address] [place] [id number] PCP - General 07/12/18 [employer] Relationship Specialty Start Date End Date Reece Salas, DO [address] [place] [phone] PCP - General 07/12/18 [employer] Relationship Specialty Start Date End Date Reece Salas, DO [address] [place] [phone] PCP - General 07/12/18 [employer] Relationship Specialty Start Date End Date Reece Salas, DO [address] [place] [phone] PCP - General 07/12/18 [employer] Relationship Specialty Start Date End Date Reece Salas DO [address] [place] [address] PCP - General 07/12/18 [employer] Relationship Specialty Start Date End Date Reece Salas DO [address] [place] [address] PCP - General 07/12/18 [employer] Relationship Specialty Start Date End Date Reece Salas DO [address] [place] [address] PCP - General 07/12/18 [employer] Relationship Specialty Start Date End Date Reece Salas DO [address] [place] [address] PCP - General 07/12/18 INFORMATION SOURCE (unrecogn ized section and content) DATE CREATED AUTHOR AUTHOR'S SHEFALI BUTT 02/17/2023 [facility] FOR RECORDS PERTAINING TO PATIENTS WHO [...] BE BASED ON THE PRIMARY CLINICAL RECORDS. [employer] provides no warranty or guarantee of the accuracy or completeness of information in this document.
--- NOTE | 2023-02-22 20:10 | EKG12_ITS ---
Test Reason : DYSRHYTHMIA Blood Pressure : / mmHG Vent. Rate : 074 BPM Atrial Rate : 074 BPM P-R Int : 136 ms QRS Dur : 068 ms QT Int : 408 ms P-R-T Axes : 049 001 031 degrees QTc Int : 452 ms Normal sinus rhythm Normal ECG Confirmed by ARLEN BASURTO, DENNIS ([id number]), medical editor LYLY ALTAMIRANO ([id number]) on 02/25/2023 6:39:42 AM Referred By: Confirmed By:DENNIS MCKINLEY MD
--- NOTE | 2023-02-22 20:11 | EX.ED.DYSGE1 ---
HPI History of Present Illness Chief Complaint: Weakness Informant: patient and family Narrative Narrative: Presents with weakness dyspnea. Patient started feeling sick on the first of this month. She was seen on the second. Diagnosed with COVID. She is gone home. She states she is just slowly gotten worse. She has had lots of diarrhea but no blood. She has had nausea but never vomited. Her appetite is way down. She is having trouble eating and drinking due to nausea and lack of appetite. She is having fevers but they seem to have gotten a little better. She still has myalgias. She is getting more short of breath. She had a phone conversation with her physician yesterday and they started prednisone and Levaquin but she has gotten worse. She has no energy. She is having trouble getting up and walking around. Family states that she occasionally seems even a little confused. She does have a history of mild COPD but has never been on oxygen. When I see her in the room she is on oxygen. Although is not on the chart the family states that her oxygen level hit 85% here and that is why she was placed on oxygen. Patient's med list shows hydrochlorothiazide but she was evidently only on this for a few days for peripheral swelling the end of January. She is not on it now. [facility] Medical History Anxiety and depression Chronic pain COPD (chronic obstructive pulmonary disease) COPD, mild Diabetes mellitus Dizziness Dyslipidemia GERD (gastroesophageal reflux disease) Heart palpitations Hyperlipemia, mixed Hypertension Hypothyroid Kidney stones MVP (mitral valve prolapse) Nicotine addiction Osteoporosis Panic attacks Pre-syncope PTSD (post-traumatic stress disorder) PVC's (premature ventricular contractions) Rheumatoid arthritis Sleep apnea Smoker Syncope Home Medications acetaminophen 300 mg-codeine 30 mg tablet 1 tab PO BID PRN Pain 05/22/14 [History Last Taken Unknown] aspirin 81 mg chewable tablet 81 mg PO DAILY@0800 cardiovascular 05/22/14 [History Last Taken 05/09/18 81 mg] gabapentin 300 mg capsule 300 mg PO BIDCM nerve pain 05/22/14 [History Last Taken 09/19/15] levothyroxine 75 mcg tablet 75 mcg PO DAILY hypothyroid 05/22/14 [History Last Taken 05/09/18 75 mcg] loratadine 10 mg tablet 10 mg PO DAILY allergies 05/22/14 [History Last Taken 05/09/18 10 mg] raloxifene 60 mg tablet 60 mg PO DAILY osteoarthritis 05/22/14 [History Last Taken 05/09/18 60 mg] simvastatin 20 mg tablet 40 mg PO QHS high cholesterol 05/22/14 [History Last Taken 09/18/15] magnesium oxide 400 mg (241.3 mg magnesium) tablet 400 mg PO BID electrolyte 09/19/15 [History Last Taken 09/19/15] metoprolol succinate 25 mg tablet,extended release 24 hr (Toprol XL) 25 mg PO DAILY Cardiovascular 01/18/17 [History Last Taken 10/29/20 23:00] metformin 500 mg tablet 250 mg PO MOWEFR diabetes 05/09/18 [History Last Taken Unknown] pantoprazole 40 mg tablet,delayed release 40 mg PO DAILY reflux 05/09/18 [History Last Taken Unknown] acetaminophen 325 mg tablet (Tylenol) 650 mg (2 x 325 mg) PO Q6H PRN PRN Mild Pain (1-3)/Temp > 100.7 F 05/13/18 [Rx Last Taken Unknown] acidophilus 25 million cell-pectin, citrus 100 mg tablet 1 tab PO BID 05/13/18 [Rx Last Taken Unknown] albuterol sulfate 2.5 mg/3 mL (0.083 %) solution for nebulization 2.5 mg (3 mL) inhalation Q2H PRN PRN SOB &/OR WHEEZING 05/13/18 [Rx Last Taken Unknown] alprazolam 0.25 mg tablet 0.5 mg PO BID anxiety 10/30/20 [History Last Taken Unknown] celecoxib 200 mg capsule (Celebrex) 200 mg PO DAILY 10/30/20 [History Last Taken Unknown] clindamycin HCl 150 mg capsule 150 mg PO Q6H #20 caps 11/03/20 [Rx Last Taken Unknown] hydrochlorothiazide 25 mg tablet 25 mg PO DAILY #30 tabs 02/08/23 [Rx Last Taken Unknown] dexamethasone 6 mg tablet 6 mg PO DAILY #7 tabs 02/13/23 [Rx Last Taken Unknown] Allergy/AdvReac Type Severity Reaction Status Date / Time Penicillins Allergy Swelling Verified 02/13/23 14:00 clindamycin AdvReac Intermediate Abd Verified 02/13/23 14:00 cramps/diarrhea Family History Mother CAD (coronary artery disease) Surgical History History of appendectomy History of gastric surgery Previous section Social History household members: none Smoking Status: Current every day smoker tobacco type: cigarettes substance use type: does not use ROS ROS ED ROS Narrative A complete review of systems was performed and is negative except as documented in the history of present illness. Some specific details below. Constitutional: Still has chills but no longer having fevers as much as she was. EYE: No discharge, visual complaints, or pain. ENT: She feels her mouth is dry. No sore throat at this time. CV: No chest pain or palpitations. Respiratory: She is still coughing. She still feels short of breath and actually slowly has gotten more short of breath over the 10 to 12 days. GI: No abdominal pain. But she has had nausea without vomiting. She is still having some watery diarrhea. No blood ever seen. : No frequency dysuria or hematuria. But she has had less urine volume. Musculoskeletal: No recent trauma. She is still having myalgias. Skin: No rash. Nondiaphoretic. Neuro: No weakness or numbness. Endocrine: No polyuria or polydipsia. EXAM Physical Exam Narrative Exam Narrative: CONSTITUTIONAL: Patient is nontoxic in appearance. The patient looks comfortable. Work of breathing looks normal. But patient does look tired and worn out. HEENT: No notable trauma. Mucous membranes are rather dry. No sinus tenderness. No indication of pain with swallowing. EYES: No conjunctival injection. No proptosis. NECK:No JVD. No stridor. CARDIOVASCULAR: Regular rate. Regular rhythm. No notable murmur. No JVD. RESPIRATORY: No respiratory distress. She does have coarse breath sounds slightly more at the right base. Hint of expiratory wheeze. When she tries to take a breath it will induce a cough but does not cause chest pain. GASTROINTESTINAL: Not distended. Bowel sounds are normal. No tenderness. No guarding. No rebound. No palpable mass. No bruit is heard. GENITOURINARY: No tenderness over the bladder. No CVA tenderness. MUSCULOSKELETAL: Atraumatic. Trace if any pretibial distal peripheral edema. No cord. No tenderness along the deep venous system. No asymmetry. No distended veins. NEUROLOGICAL: Patient is alert and appropriate. No focal deficit noted. SKIN: No noted rashes. No diaphoresis. PSYCHIATRIC: Patient is calm. Mood is appropriate. Const Vital Signs: 02/22/23 19:12 02/22/23 19:28 02/22/23 19:28 Temperature 96.0 F L Temperature Source Temporal Pulse Rate 82 Respiratory Rate 20 H Respiratory Effort Normal Respiratory Pattern Tachypnea Blood Pressure 140/92 H Blood Pressure Mean 108 Pulse Ox 91 Oxygen Delivery Method Room Air Oxygen Flow Rate (L/min) 02/22/23 20:33 02/22/23 21:18 02/22/23 20:57 Temperature Temperature Source Pulse Rate 80 82 Respiratory Rate 16 20 H Respiratory Effort Respiratory Pattern Normal Blood Pressure 134/83 H Blood Pressure Mean 100 Pulse Ox 95 95 Oxygen Delivery Method Nasal Cannula Nasal Cannula Oxygen Flow Rate (L/min) 2 2 MDM MDM MDM Narrative Medical decision making narrative: My independent interpretation the patient's single view chest x-ray does show a hiatal hernia which was seen before but I do not see any notable acute process. Final read is no active is. Patient CBC is normal. Patient's electrolytes show minimally low sodium. Mild elevation in creatinine but lower than recently. Her glucose is elevated. She is given IV fluids which should help this. patient's BNP is normal at 70.2. Patient has been weak. She states she is eating or drinking much. She is having diarrhea. But her blood work looks good. Her vitals will is good and we had to get up and walk. She is unable to get better even with assistance. She refuses to walk she and her family states she is far too weak to attempt walking. We could not walk her to check for desaturation. I have reports that she was about 87 or 85% sitting in bed while resting. But I have not seen that recorded in. I will call regarding putting her in the hospital as she is unsafe to go home if she cannot get out of bed at all. She cannot care for herself. She does live alone at home. She and her family are not comfortable going home. She is still positive for COVID on her screen after about 10 days. I will call the hospitalist. Lab Data Attestation: I reviewed the patient's lab results. Labs: Laboratory Results - last 24 hr 02/22/23 20:26 WBC 6.5 RBC 4.25 Hgb 12.7 Hct 38.5 MCV 90.6 MCH 29.9 MCHC 33.0 RDW Std Deviation 50.1 H RDW Coeff of Dru 15.0 H Plt Count 219 MPV 9.4 Immature Gran % (Auto) 1.200 H Neut % (Auto) 83.6 H Lymph % (Auto) 11.4 L [place] % (Auto) 3.5 Eos % (Auto) 0.0 Baso % (Auto) 0.3 Absolute Neuts (auto) 5.4 Absolute Lymphs (auto) 0.74 L Nucleated RBC % 0 Sodium 133 L Potassium 4.6 Chloride 99 Carbon Dioxide 28.0 Anion Gap 6 BUN 11 Creatinine 1.12 H Estim Creat Clear Calc 41.01 Est GFR (MDRD) Af Amer 60 Est GFR (MDRD) Non-Af 50 L BUN/Creatinine Ratio 9.8 L Glucose 324 H Calcium 9.1 B-Natriuretic Peptide 70.2 Radiography Diagnostic Testing: Clinical Impression(s) from Imaging Studies Chest X-Ray 02/22/23 20:42 IMPRESSION: No active disease. Electronically Signed: David Thomson MD at 21:08 EST , Management Discussion w/another healthcare provider: Hospitalist Discharge Plan Triage Chief Complaint: Weakness ED Provider: Manny Wong Dx/Rx/DC Orders Clinical Impression: COVID, Generalized weakness, Unable to ambulate Prescriptions: No Action acetaminophen-codeine 1 TABLET tablet 1 tab PO BID PRN (Reason: Pain) Patient Comments: pain levothyroxine 75 MCG tablet 75 mcg PO DAILY Patient Comments: thyroid simvastatin 20 MG tablet 40 mg PO QHS Patient Comments: cholesterol aspirin 81 MG tablet,chewable 81 mg PO DAILY@0800 Patient Comments: heart health raloxifene 60 MG tablet 60 mg PO DAILY Patient Comments: bone health loratadine 10 MG tablet 10 mg PO DAILY Patient Comments: allergies gabapentin 300 MG capsule 300 mg PO BIDCM Patient Comments: neuropathy/pain magnesium oxide 400 MG tablet 400 mg PO BID Patient Comments: supplement metformin 500 MG tablet 250 mg PO MOWEFR pantoprazole 40 MG tablet 40 mg PO DAILY acetaminophen [Tylenol] 325 MG tablet 650 mg PO Q6H PRN PRN (Reason: Mild Pain (1-3)/Temp > 100.7 F) 0RF albuterol sulfate 2.5 MG/3 ML solution for nebulization 2.5 mg inhalation Q2H PRN PRN (Reason: SOB &/OR WHEEZING) 0RF acidophilus-pectin, citrus 1 TABLET tablet 1 tab PO BID 0RF celecoxib [Celebrex] 200 mg Capsule 200 mg PO DAILY alprazolam 0.25 mg tablet 0.5 mg PO BID clindamycin HCl 150 mg capsule 150 mg PO Q6H Qty: 20 0RF hydrochlorothiazide 25 mg tablet 25 mg PO DAILY Qty: 30 0RF dexamethasone 6 mg tablet 6 mg PO DAILY Qty: 7 0RF metoprolol succinate [Toprol XL] 25 mg tablet extended release 24 hr 25 mg PO DAILY Primary Care Provider: Recee Salas Referrals: Reece Salas DO [Primary Care Provider] - Disposition Disposition: Acute Care Hospital [facility]
[2023-02-22] MEDS: 0.9% Normal Saline (500mL Bag) 500 ML 999 ML IV (20:30)
[2023-02-22 20:38] LABS: Absolute Lymphocyte Count 0.74 X10^3/uL (0.83-4.51); Absolute Neutrophil Count 5.4 X10^3/uL (2.0-7.7); Basophil# 0.02 X10^3/uL; Basophil% 0.3 % (0-1); Hematocrit 38.5 % (37-47); Hemoglobin 12.7 g/dL (12.0-15.0); Lymphocyte # 0.74 X10^3/ul (0.83-4.51); Lymphocyte % 11.4 % (19-41); Mean Corpuscular Hgb 29.9 pg (27.0-32.0); Mean Corpuscular Volume 90.6 fL (81-99); Mean Platelet Vol. 9.4 fl (6.2-12.0); Monocyte# 0.23 X10^3/uL; Monocyte% 3.5 % (0-10); NRBC Flagged by Analyzer 0 % (0-5); Neutrophil # 5.41 X10^3/uL (2.7-7.7); Neutrophil % 83.6 % (47-70); Platelet Count 219 K/mm3 (150-450); RBC Distribution Width SD 50.1 fl (35.1-43.9); Red Blood Count 4.25 M/mm3 (4.2-5.4); White Blood Count 6.5 K/mm3 (4.4-11.0)
--- NOTE | 2023-02-22 20:42 | RAD_ITS ---
STUDY: X-RAY CHEST REASON FOR EXAM: Female, 78 years old. cough, SOB TECHNIQUE: Single AP portable view of the chest. COMPARISON: 02/13/2023 FINDINGS: The lungs are clear and expanded. There is no demonstrated pleural abnormality. Normal size heart. Normal mediastinum and seun. Normal visualized pulmonary arteries. Normal visualized aortic arch and descending thoracic aorta. Normal visualized thoracic spine. Normal visualized ribs, clavicles, and shoulders. There is no demonstrated abnormality of the visualized soft tissue structures of the upper abdomen. RAD/Chest 1 View (Portable) IMPRESSION: No active disease. Electronically Signed: David Thomson MD at 21:08 [facility] ,
[2023-02-22] MEDS: Ipratropium/Albuterol Sulfate 3 ML AMPUL.NEB INHALATION (20:57)
[2023-02-22 20:59] LABS: Anion Gap 6 (5-15); BUN 11 mg/dL (7-18); BUN/Creat Ratio 9.8 RATIO (10-20); Calcium,Total 9.1 mg/dL (8.5-10.1); Chloride 99 mmol/L (98-107); Creatinine, Serum 1.12 mg/dL (0.55-1.02); EST Glomerular Filtration Rate 50 mL/min (>60); Est Glom Filt Rate - Afr Amer 60 mL/min (>60); Estimated Creatinine Clearance 41.01 ml/min; Glucose 324 mg/dL (74-106); Potassium 4.6 mmol/L (3.5-5.1); Sodium Level 133 mmol/L (136-145)
[2023-02-22 21:00] LABS: BNP,B-Type NATRIURETIC PEPTIDE 70.2 pg/mL (0-100)
--- NOTE | 2023-02-22 22:43 | HP.PCM_ITS ---
HPI - General General Date of Admission: 02/22/23 Date of Service: 02/22/23 Chief Complaint: weakness, shortness of breath HPI Narrative DIAN PAUL, is a 78 F with a PMH as outlined who presents via the ED On 02/22/2022 with a complaint of shortness of breath and weakness. She had started feeling unwell on 02/11/2023, with associated nausea and diarrhea but no vomiting. She was diagnosed with COVID on 02/11/2023 and was discharged home as she had been on room air. She denied any fever or chills, chest pain, palpitations or dizziness or any other symptoms. She has not been eating or drinking well. She has had some fevers at home though they have improved. She has been very weak at home and unable to ambulate and get around at home. Family therefore brought her to the ED. Family also said her oxygen level was low at 85% requiring her to be placed on oxygen. Review of systems was otherwise negative. Vitals in the ED were BP of 144/80, TN of 88, RR of 16 and oxygen sats of 91% on 2L of oxygen. CBC was unremarkable and BMP showed sodium of 1.12 but was otherwise negative. Respiratory panel was positive for covid. CXR showed no acute cardiopulmonary pathology. She is being admitted to be managed for debility and weakness in setting of COVID. [facility] Medical History (Updated 02/23/23 @ 00:48 by Elena Melchor) Anxiety and depression Chronic pain COPD (chronic obstructive pulmonary disease) COPD, mild Diabetes mellitus Dizziness Dyslipidemia GERD (gastroesophageal reflux disease) Hearing loss, left Hearing loss, right Heart palpitations Hyperlipemia, mixed Hypertension Hypothyroid Irregular heart beat Kidney stones MVP (mitral valve prolapse) Nicotine addiction Osteoporosis Panic attacks Pre-syncope PTSD (post-traumatic stress disorder) PVC's (premature ventricular contractions) Rheumatoid arthritis Sleep apnea Smoker Syncope Vision loss of left eye Vision loss of right eye Home Medications acetaminophen 300 mg-codeine 30 mg tablet 1 tab PO BID PRN Pain 05/22/14 [History Last Taken Unknown] aspirin 81 mg chewable tablet 81 mg PO DAILY@0800 cardiovascular 05/22/14 [History Last Taken 05/09/18 81 mg] gabapentin 300 mg capsule 300 mg PO BIDCM nerve pain 05/22/14 [History Last Taken 09/19/15] loratadine 10 mg tablet 10 mg PO DAILY allergies 05/22/14 [History Last Taken 05/09/18 10 mg] raloxifene 60 mg tablet 60 mg PO DAILY osteoarthritis 05/22/14 [History Last Taken 05/09/18 60 mg] simvastatin 20 mg tablet 40 mg PO QHS high cholesterol 05/22/14 [History Last Taken 09/18/15] magnesium oxide 400 mg (241.3 mg magnesium) tablet 400 mg PO BID electrolyte 09/19/15 [History Last Taken 09/19/15] metoprolol succinate 25 mg tablet,extended release 24 hr (Toprol XL) 25 mg PO DAILY Cardiovascular 01/18/17 [History Last Taken 10/29/20 23:00] metformin 500 mg tablet 250 mg PO MOWEFR diabetes 05/09/18 [History Last Taken Unknown] pantoprazole 40 mg tablet,delayed release 40 mg PO DAILY reflux 05/09/18 [Hi story Last Taken Unknown] acetaminophen 325 mg tablet (Tylenol) 650 mg (2 x 325 mg) PO Q6H PRN PRN Mild Pain (1-3)/Temp > 100.7 F 05/13/18 [Rx Last Taken Unknown] albuterol sulfate 2.5 mg/3 mL (0.083 %) solution for nebulization 2.5 mg (3 mL) inhalation Q2H PRN PRN SOB &/OR WHEEZING 05/13/18 [Rx Last Taken Unknown] alprazolam 0.25 mg tablet 0.5 mg PO BID PRN anxiety 10/30/20 [History Last Taken Unknown] celecoxib 200 mg capsule (Celebrex) 200 mg PO DAILY 10/30/20 [History Last Taken Unknown] glimepiride 2 mg tablet 2 mg PO DAILY 02/22/23 [History Last Taken Unknown] levofloxacin 500 mg tablet 500 mg PO DAILY 02/22/23 [History Last Taken Unknown] levothyroxine 100 mcg tablet (Euthyrox) 100 mcg PO DAILY 02/22/23 [History Last Taken Unknown] prednisone 10 mg tablet See Taper PO DAILY 02/22/23 [History Last Taken Unknown] Allergy/AdvReac Type Severity Reaction Status Date / Time Penicillins Allergy Swelling Verified 02/13/23 14:00 clindamycin AdvReac Intermediate Abd Verified 02/13/23 14:00 cramps/diarrhea Family History Mother CAD (coronary artery disease) Surgical History (Updated 02/23/23 @ 00:48 by Elena Melchor) History of appendectomy History of appendectomy History of cholecystectomy History of gastric surgery Previous section Social History household members: none Smoking Status: Current every day smoker tobacco type: cigarettes substance use type: does not use ROS Review of Systems ROS Unobtainable: Denies due to encephalopathy Constitutional Constitutional: Reports anorexia, fatigue, fever(s), malaise and weakness; Denies change in weight or chills Eyes Eyes: Denies change in vision ENT HEENT: Denies dysphagia, headache(s) or sore throat Cardiovascular Cardiovascular: Denies chest pain, edema, orthopnea, palpitations, paroxysmal nocturnal dyspnea or syncope Respiratory/Chest Respiratory/Chest: Reports shortness of breath at rest; Denies cough, shortness of breath with exertion or wheezing Gastrointestinal Gastrointestinal: Reports nausea and vomiting; Denies abdominal pain, constipation, diarrhea, dyspepsia, hematemesis, hematochezia or melena Genitourinary Genitourinary: Denies dysuria Musculoskeletal Musculoskeletal: Reports muscle weakness; Denies back pain, extremity pain or stiffness Integumentary Integumentary: Denies dry skin Neurologic Neurologic: Reports weakness; Denies confusion, dizziness, focal weakness, headache(s), lack of coordination, numbness or seizures Psychiatric Psychiatric: Denies anxiety or depression Endocrine Endocrinology: Denies change in body appearance Vital Signs Vital Signs Vital Signs: 02/22/23 19:12 02/22/23 19:28 02/22/23 19:28 Temperature 96.0 F L Temperature Source Temporal Pulse Rate 82 Respiratory Rate 20 H Respiratory Effort Normal Respiratory Pattern Tachypnea Blood Pressure 140/92 H Blood Pressure Mean 108 Pulse Ox 91 Oxygen Delivery Method Room Air Oxygen Flow Rate (L/min) 02/22/23 20:33 02/22/23 21:18 02/22/23 20:57 Temperature Temperature Source Pulse Rate 80 82 Respiratory Rate 16 20 H Respiratory Effort Respiratory Pattern Normal Blood Pressure 134/83 H Blood Pressure Mean 100 Pulse Ox 95 95 Oxygen Delivery Method Nasal Cannula Nasal Cannula Oxygen Flow Rate (L/min) 2 2 Weight Weight: 170 lb 10.205 oz Body Mass Index (BMI) 29.2 Physical Exam Const alert and oriented x3 Constitutional Narrative: very frail and weak HEENT normocephalic and head/scalp atraumatic Mouth: dry mucous membranes Eyes PERRL and EOMs intact bilaterally Neck no lymphadenopathy and supple Lymph Lymphatic: no lymphadenopathy noted and no lymphedema noted Resp Resp Narrative: diminished breath sounds, no wheezes or crackles. Cardio regular rate, regular rhythm, S1 normal heart sound, S2 normal heart sound and no murmurs GI normal to inspection, nondistended, normoactive bowel sounds, soft to palpation and non-tender Extremity normal capillary refill, no clubbing, cyanosis or edema and no calf tenderness General Extremity: no tenderness to palpation of joints or extremities Skin General Skin Exam: no breakdown Neuro CN's II-XII intact bilaterally, no focal motor deficits and no sensory deficits noted Motor Exam: strength 5/5 throughout and general weakness Psych thought process normal, cooperative and affect normal Appearance: appropriate Results Lab / Micro Data 02/22/23 20:26 02/22/23 20:26 Labs: Laboratory Results - last 24 hr 02/22/23 20:26: WBC 6.5, RBC 4.25, Hgb 12.7, Hct 38.5, MCV 90.6, MCH 29.9, MCHC 33.0, RDW Std Deviation 50.1 H, RDW Coeff of Dru 15.0 H, Plt Count 219, MPV 9.4, Immature Gran % (Auto) 1.200 H, Neut % (Auto) 83.6 H, Lymph % (Auto) 11.4 L, [place] % (Auto) 3.5, Eos % (Auto) 0.0, Baso % (Auto) 0.3, Absolute Neuts (auto) 5.4, Absolute Lymphs (auto) 0.74 L, Nucleated RBC % 0, Sodium 133 L, Potassium 4.6, Chloride 99, Carbon Dioxide 28.0, Anion Gap 6, BUN 11, Creatinine 1.12 H, Estim Creat Clear Calc 41.01, Est GFR (MDRD) Af Amer 60, Est GFR (MDRD) Non-Af 50 L, BUN/Creatinine Ratio 9.8 L, Glucose 324 H, Calcium 9.1, B-Natriuretic Peptide 70.2 Micro: Microbiology 02/22/23 20:28 Mucosa - Nose SARS-CoV-2, Influenza & RSV (PCR) - Final SARS-CoV-2 (COVID 19) Imagaing Radiology Impression Chest X-Ray 02/22/23 20:42 IMPRESSION: No active disease. Electronically Signed: David Thomson MD at 21:08 EST , Assessment & Plan Assessment/Plan (1) Generalized weakness: (2) COVID: PLAN: Plan #Debility and weakness in setting of COVID 19 infection * admit under observation to Med Surg * diagnosed with covid on 02/11/2023 in the ED. Still testing positive for COVID * CXR shwoed no acute cardiopulmonary pathology * reportedly was saturating at 85% on room air, so now on 2L of oxygen * PT/OT consult. Fall precautions * hydrate gently with iVF NS @ 125cc/hr * #COVID 19 infection: 11 days since initial diagnosis, so remdesivir and decadron will be of limited utility. #Dyslipidemia: on statin. #COPD: not in exacerbation. Breathing treatment with bronchodilators. #Hypothyroidism: on synthroid #Type 2 diabetes mellitus: hold oral meds in light of her decreased appetite. ISS. Accuchecks ACHS. DVT prophylaxis: lovenox Code status: full code * Patient counseled extensively about different types of CODE STATUS including full code, DNR CCA and DNR CCA. Patient elects to be full code. Total [id number] time 16 minutes. * Total time spent on evaluation and management of patient, reviewing chart and specialist notes, discussing plan with patient and his , discussion with nursing and ancillary staff as well as documentation: 57 mins Charges/Coding Visit Charges Inpatient E&M: 93692 Init Hosp L2 Procedures Hospitalists Procedures: 08026 Advncd Care Plan 30 Min
--- OUTSIDE RECORDS SUMMARY | 2023-02-22 23:09 | XMS RPT_ITS | CCD ---
Author Name Unknown Address [address] [place] [address] Organization [facility] Care Team Providers Care Shank Skinner Name Role Phone Reece Salas Primary Care Provider [phone] REECE SALAS Primary Care Unavailable CRISS, LENI Referring Unavailable YUAN, LENI Attending Unavailable YUAN, LENI Referring Unavailable CRISS, LENI Attending Unavailable REECE SALAS Primary Care Unavailable Reece Salas DO Primary Care Provider Reece Salas DO Primary Care Provider [phone] REECE SALAS Primary Care Unavailable PETRILLA, REECE Attending Unavailable PETRILLA, REECE Attending Unavailable PETRILLA, REECE Primary Care Unavailable HA ACRRASCO Attending Unavailable PETRILLA, REECE Primary Care Unavailable PETRILLA, REECE Attending Unavailable PETRILLA, REECE Attending Unavailable PETRILLA, REECE Primary Care Unavailable Allergies Allergy Classification Reported Allergen(s) Allergy Type Date of Onset Reaction(s) Facility (8 sources) Penicillin; Translations: [PENICILLIN] Drug Allergy 9 Hives [facility] (20 sources) Penicillins Drug Intolerance 5 Hives, Rash [facility] (8 sources) Other Propensity to adverse reactions 3 Other [facility] Medications Current Medications Medication Drug Class(es) [...] aftercare (20 sources) Patient encounter status; Translations: [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 (NSAID)] Onset: 10-28-2014 11-25-2021 Episodic Other aftercare (2 sources) 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 (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); Translations: [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 (nsaid)] Onset: [...] 76 mm[Hg] Reece Salas DO Work Phone: [facility] [employer] 12-19-2022 17:21-0500 Systolic blood pressure 138 mm[Hg] Reece Salas DO Work Phone: [facility] [employer] 12-19-2022 16:28-0500 Body mass index (BMI) [Ratio] 29.94 kg/m2 Reece Salas DO Work Phone: [facility] [employer] 12-19-2022 16:28-0500 Body weight 79.11 kg Reece Salas DO Work Phone: [facility] [employer] 08-21-2022 16:15-0400 Body height 162.6 cm Reece Salas DO Work Phone: [facility] [employer] 08-21-2022 16:15-0400 Body mass index (BMI) [Ratio] 29.87 kg/m2 Reece Salas DO Work Phone: [facility] [employer] 08-21-2022 16:15-0400 Body temperature 97.11 [degF] Reece Salas DO Work Phone: [facility] [employer] 08-21-2022 16:15-0400 Body weight 78.93 kg Reece Salas DO Work Phone: [facility] [employer] 08-21-2022 16:15-0400 Diastolic blood pressure 75 mm[Hg] Reece Salas DO Work Phone: [facility] [employer] 08-21-2022 16:15-0400 Systolic blood pressure 117 mm[Hg] Reece Salas DO Work Phone: [facility] [employer] 05-21-2022 15:56-0400 Body height 162.6 cm Reece Salas DO Work Phone: [facility] [employer] 05-21-2022 15:56-0400 Body mass index (BMI) [Ratio] 29.01 kg/m2 Reece Salas DO Work Phone: [facility] [employer] 05-21-2022 15:56-0400 Body temperature 97.3 [degF] Reece Salas DO Work Phone: [facility] [employer] 05-21-2022 15:56-0400 Body weight 76.66 kg Reece Salas DO Work Phone: [facility] [employer] 05-21-2022 15:56-0400 Diastolic blood pressure 83 mm[Hg] Reece Salas DO Work Phone: [facility] [employer] 05-21-2022 15:56-0400 Heart rate 68 /min Reece Salas DO Work Phone: [facility] [employer] 05-21-2022 15:56-0400 SaO2% (BldA) [Mass fraction] 97 % Reece Salas DO Work Phone: [facility] [employer] 05-21-2022 15:56-0400 Systolic blood pressure 124 mm[Hg] Reece Salas DO Work Phone: [facility] 07-28-2021 18:12-0400 Body weight 75.75 kg Bethrocky Artisaugh PA-C Work Phone: [facility] 07-28-2021 18:12-0400 Diastolic blood pressure 87 mm[Hg] Beth Slabaugh PA-C Work Phone: [facility] 07-28-2021 18:12-0400 Heart rate 67 /min Beth Slabaugh PA-C Work Phone: [facility] 07-28-2021 18:12-0400 Systolic blood pressure 101 mm[Hg] Beth Slabaugh PA-C Work Phone: [facility] Encounters Encounter Date Encounter Type Care Provider Facility Start: 02-21-2023 Orders Only Reece islas DO Work Phone: [facility] Start: 01-08-2023 Refill Reece islas DO Work Phone: [facility] Procedures Date Procedure Procedure Detail Performing Clinician Start: 08-09-2022 Computerized ophthal sushma imaging retina Leni Cintron MD, PhD Work Phone: Start: 02-28-2022 Adult depression scr eening assessment Reece Josue DO Work Phone: Start: 02-28-2022 Thyrotropin [Units/v olume] in Serum or Plasma Reece Salas DO Work Phone: Start: 12-14-2021 Computerized ophthal sushma imaging retina Leni Cintron [...] Vitelliform macular dystrophy Expected: 08/24/2023, Expires: 01/31/2024 [facility] Work Phone: Immunizations Immunization Date Immunization Notes Care Provider Fa betsy 12-19-2022 Influenza, Seasonal, Quadrivalent, Adjuvanted Reece Salas DO Work Phone: [facility] 11-20-2021 Influenza, Seasonal, Quadrivalent, Adjuvanted Reece Salas DO Work Phone: [facility] 11-20-2021 unknown vaccine or i mmune globulin Reece Meltona DO Work Phone: [facility] 11-20-2021 influenza virus vacc ine, unspecified formulation Reece Meltona DO Work Phone: [facility] 11-09-2020 Influenza, High-dose Seasonal, Quadrivalent, Preservative Free Reece Meltona DO Work Phone: [facility] 01-16-2018 influenza, high dose seasonal, preservative-free Reece Newtonlla DO Work Phone: [facility] 12-12-2017 influenza virus vacc ine, unspecified formulation Reece Meltona DO Work Phone: [facility] 12-12-2017 influenza, seasonal, injectable Reece Meltona DO Work Phone: [facility] 12-12-2017 influenza, seasonal, injectable, preservative free Reece Meltona DO Work Phone: [facility] 01-27-2015 pneumococcal conjuga te vaccine, 13 valent Reece Newtonlla DO Work Phone: [facility] 12-03-2013 influenza virus vacc ine, unspecified formulation Reece Meltona DO Work Phone: [facility] [employer] Work Phone: 12-03-2013 influenza, seasonal, injectable Reece Newtonlla DO Work Phone: [facility] 11-11-2013 influenza virus vacc ine, unspecified formulation Reece Newtonlla DO Work Phone: [facility] 11-11-2013 influenza, seasonal, injectable Reece Lamarlla DO Work Phone: [facility] 11-11-2013 influenza, seasonal, injectable, preservative free Reece Newtonlla DO Work Phone: [facility] 02-12-2012 pneumococcal conjuga te vaccine, 10 valent Reece Petrilla DO Work Phone: [facility] [employer] 02-12-2012 pneumococcal polysaccharide vaccine, 23 valent Reece Salas DO Work Phone: [facility] [employer] 02-12-2012 pneumococcal vaccine , unspecified formulation Reece Salas DO Work Phone: [facility] [employer] 10-28-2009 pneumococcal Conjuga te, unspecified formulation Reece Salas DO Work Phone: [facility] [employer] 10-28-2009 pneumococcal polysaccharide vaccine, 23 valent Reece Salas DO Work Phone: [facility] [employer] Payers Date Payer Category Payer Unknown [id number] 2018 Medicaid [facility] MEDICAID MYC ARE [facility] MEDICAID [id number] 2018-Present [phone] [address] [place] [address] Medicaid [id number] [address]751[facility] 2018 Medicaid [id number] 2017 Medicaid [id number] 2017 Medicaid [id number] 2005 Medicare MEDICARE MEDICAR E A AND B [id number] 2005-Present [phone] [address] [address] [place] [address] Medicare [id number] 2005 Medicare [id number] 2005 Medicare [id number] Social History Date Type Detail Facility Start: 04-11-2018 End: 12-19-2022 Tobacco smoking status NHIS Smokes tobacco daily [facility] Start: 04-11-2018 End: 12-19-2022 Tobacco use and exposure Smokeless tobacco non-user [facility] Start: 1945 Sex Assigned At Not on file C [facility] Start: 05-22-2021 End: 08-21-2022 Exposure to SARS-CoV-2 (event) Not sure [facility] End: 11-27-2013 History of tobacco use Cigarette Smoker [facility] Start: 05-21-2022 End: 12-19-2022 Alcohol intake Current non-drinker of alcohol (finding) [facility] Start: 02-28-2022 End: 05-21-2022 Alcohol intake [facility] Start: 1945 Sex Assigned At Female S [facility] Start: 02-28-2022 End: 05-21-2022 Tobacco use panel [facility] Start: 02-14-2022 Gender identity Identifies as female gender (finding) [facility] Start: 02-14-2022 Sexual orientation Heterosexual (fin ding) [facility] Medical Equipment Procedure Code Equipment Code Equipment Origin al Text Equipment Identifier Dates Use as directed 2x day. Type: ( E11.9) [id number] Start: 01-29-2019 Clinical Notes 06-01-2021 to 02-21-2023 [...] No questions at this time. Call ended [facility] 02-21-2023 Miscellaneous Notes Placed call to patient. Two patient identifers confirmed. Was able to speak to patient. All concerns in message have been addressed. No questions at this time. Call ended S: Patient spoke with [facility] nurse regarding Covid positive. Short of breath and wheezing. B: Onset of symptoms/concern A: Patient seen in [facility] 1/3 for Covid and missed follow [...] 100.0 F (37.8 C) and bedridden (e.g., snf patient, stroke, chronic illness, recovering from surgery) Protocols used: Breathing [id number] documented in this encounter [facility] [employer] 02-21-2023 Telephone encounter Note S: Patient spoke with [facility] nurse regarding Covid positive. Short of breath and wheezing. B: Onset of symptoms/concern A: Patient seen in [facility] 1/3 for Covid and missed follow [...] 100.0 F (37.8 C) and bedridden (e.g., snf patient, stroke, chronic illness, recovering from surgery) Protocols used: Breathing [id number] [facility] [employer] 01-08-2023 Telephone encounter Note Rx loaded Patient says if you can change her sugar pill to a smaller pill that will really help so please switch that one she says she can take all her pills when her aid is there in the morning its just at night its difficult. [facility] 01-08-2023 Miscellaneous Notes Rx loaded Patient says if you can change her sugar pill to a smaller pill that will really help so please switch that one she says she can take all her pills when her aid is there in the morning its just at night its difficult. documented in this encounter [facility] 12-25-2022 Telephone encounter Note Orders pended for doctor's signature [facility] 12-25-2022 Miscellaneous Notes Orders pended for doctor's signature documented in this encounter [facility] 12-24-2022 Note Referrals and Orders pended for dx and doctor's signature [facility] 12-24-2022 Telephone encounter Note Referrals and Orders pended for dx and doctor's signature [facility] 12-24-2022 Miscellaneous Notes Referrals and Orders pended for dx and doctor's signature documented in this encounter [facility] 12-19-2022 History of Present illness Narrative Medication requesting liquid form if available: Celebrex Gabapentin Krill Oil Magnesium Oxide Metformin Zocor Images from the original note were not included. [facility] [address] [place] [address] [address] [facility] [address] Visit type: Established Patient Reason [...] Future Other orders - Continuous Blood Gluc Senior Construction Estimator (FreeStyle Astrid [address]) device; 1 each 2 times daily. E11.9 [...] 60 tablet 0 [DISCONTINUED] Continuous Blood Gluc Senior Construction Estimator (FreeStyle Astrid [address] Flat) device 1 each 2 times daily. 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 documented in this encounter [facility] 11-13-2022 History of Present illness Narrative Per chart review patient is getting the Astrid and not the dexcom, LM for patient to call back to to clarify documented in this encounter [facility] 10-19-2022 Telephone encounter Note Rx loaded looks like wasn't sent. [facility] 10-19-2022 Miscellaneous Notes Rx loaded looks like wasn't sent. Pt called in requesting the acetaminophen-codeine (Tylenol #3) 300-30 MG tablet be sent to the pharmacy. It looks like the naloxone (Narcan) 4 mg/0.1 mL nasal spray was sent and authorized yesterday. Pt stated the pharmacy did not have the prescription there. Please advise. Pharmacy called and states patient was wanting to crop picker a Rx that was sent in on 08.21.22 They no longer have this Rx after 14 days. documented in this encounter [facility] [employer] 10-19-2022 Telephone encounter Note Pt called in requesting the acetaminophen-codeine (Tylenol #3) 300-30 MG tablet be sent to the pharmacy. It looks like the naloxone (Narcan) 4 mg/0.1 mL nasal spray was sent and authorized yesterday. Pt stated the pharmacy did not have the prescription there. Please advise. [facility] 10-16-2022 Telephone encounter Note Pharmacy called and states patient was wanting to crop picker a Rx that was sent in on 08.21.22 They no longer have this Rx after 14 days. [facility] [employer] 10-10-2022 Telephone encounter Note Name of caller: Divya - [employer] Contact phone number: [phone] Relationship to Patient: n/a Provider: Reece Salas Practice: [facility] Chief Complaint/Reason for Call: Order request was faxed from [employer] on 10/06/22 for Dexcom Sensor and Senior Construction Estimator. Divya calling to check on status. It is not listed in Media Tab or Order tab. Divya is requesting the ORDER be faxed to fax# [phone]. She also needs OFFICE NOTE faxed to a different number: fax [phone] Best time of day caller can be reached: any Patient advised that office/PCP has 24-48 business hours to return their call: Yes Divya was advised office is moving and may not receive a response until 10/16 or 10/17. [facility] 10-10-2022 Miscellaneous Notes Name of caller: Divya - [employer] Contact phone number: [phone] Relationship to Patient: n/a Provider: Reece Melton Practice: [facility] Chief Complaint/Reason for Call: Order request was faxed from [employer] on 10/06/22 for Dexcom Sensor and Senior Construction Estimator. Divya calling to check on status. It is not listed in Media Tab or Order tab. Divya is requesting the ORDER be faxed to fax# [phone]. She also needs OFFICE NOTE faxed to a different number: fax [phone] Best time of day caller can be reached: any Patient advised that office/PCP has 24-48 business hours to return their call: Yes Divya was advised office is moving and may not receive a response until 10/16 or 10/17. documented in this encounter [facility] 10-10-2022 Miscellaneous Notes Name of caller: Divya Malave [employer] Contact phone number: [phone] Relationship to Patient: n/a Provider: Reece Salas Practice: [facility] Chief Complaint/Reason for Call: Order request was faxed from [employer] on 10/06/22 for Dexcom Sensor and Senior Construction Estimator. Divya calling to check on status. It is not listed in Media Tab or Order tab. Divya is requesting the ORDER be faxed to fax# [phone]. She also needs OFFICE NOTE faxed to a different number: fax [phone] Best time of day caller can be reached: any Patient advised that office/PCP has 24-48 business hours to return their call: Yes Divya was advised office is moving and may not receive a response until 10/16 or 10/17. documented in this encounter [facility] 08-21-2022 Note Referral pended for doctor's signature [facility] 08-21-2022 Telephone encounter Note Referral pended for doctor's signature [facility] 08-21-2022 Miscellaneous Notes Referral pended for doctor's signature documented in this encounter [facility] 08-21-2022 History of Present illness Narrative Images from the original note were not included. [facility] [address] [facility] [address] Visit type: Established Patient Reason for Visit: Follow-up (Follow up on medications) Assessment / Plan: Javier was seen today for follow-up. Diagnoses and all orders for this visit: Type 2 diabetes mellitus with hyperglycemia, without long-term current use of insulin (CMS/HCC) ([facility]) (Primary) Comments: Stable, continue metformin calorie restriction [...] mouth every evening. - Continuous Blood Gluc Senior Construction Estimator (ZALPStyle Astrid [address] Flat) device; 1 each 2 times daily. E11.9 [...] 180 capsule 0 [DISCONTINUED] Continuous Blood Gluc Senior Construction Estimator (FreeStyle Astrid [address] Flat) device 1 each 2 times daily. [DISCONTINUED] [...] hyperglycemia, without long-term current use of insulin ([facility]) ([facility]) MVP (mitral valve prolapse) Osteoporosis DDD (degenerative [...] Name Age of Onset Heart disease Mother [place] at age 58 Other ([id number]) Father unknown Breast cancer Sister 74 Coronary [...] joint effusion noted. documented in this encounter [facility] 08-09-2022 Note HNO ID: [id number] Author: Leni Cintron MD, PhD Service: ? [...] of its relevant components. Leni Cintron MD [facility] 08-09-2022 History of Present illness Narrative [...] Leni Cintron MD documented in this encounter [facility] 08-03-2022 Note Patient Outreach (NE TNAV) JAVIER LU ([id number]) 1945 F Date Time Provider Department 08/03/22 DAVION MALIK During your visit today, we recorded the following information about you: Davion Malik RN 08/03/2022 8:38 AM Signed [facility] JULIET RN Action/FYI: Medication Adherence review completed per request of payer. NO PROVIDER ACTION REQUIRED Please see requests in the Summary/Findings section below Patient identified by name and date of . Patient Attributed To: QAE Payer: [facility] Reason for review or outreach: Medication Adherence Medication Adherence Review Details: Hypertension Summary / Findings: Patient has switched to a [facility] [employer] PCP Action Taken: Data submitted to Payer Other Contact made with patient: No, Chart review only. Signature: Davion Malik RN Allergies As of Date: 08/03/2022 Noted Allergy Reaction PENICILLIN 04/11/2018 4 - Hives Date Reviewed: 12/14/2021 Reviewed by: Leni Cintron MD, PhD - Fully Assessed Reason for Visit: ACM JULIET RN [[id number]] Cmt: Medication Adherence review per request of [...] 300 mg by mouth twice daily. - [id number] 1,500-165-67.5 mg cap Take 1 capsule by [...] Encounter Status:Closed by DAVION MALIK on 08/03/22 [facility] 08-03-2022 Telephone encounter Note Noted. [facility] 08-03-2022 Miscellaneous Notes Noted. Message released [...] Name of caller: javier Contact phone number: [phone] Relationship to Patient: patient Provider: josue Practice: [...] their call: No documented in this encounter [facility] 08-03-2022 Telephone encounter Note Message released to patient as written. Patient's further questions if applicable: Yes The patient called in and set up an appointment. Were all questions from office addressed or relayed to the patient from encounter: Yes [facility] 08-03-2022 Note HNO ID: [id number] Author: Davion Malik RN Service: ? Author Type: Registered Nurse Type: Progress Notes Filed: 08/03/2022 8:38 AM Note Text: GIGI CHUNG RN Action/FYI: Medication Adherence review completed per request of payer. NO PROVIDER ACTION REQUIRED Please see requests in the Summary/Findings section below Patient identified by name and date of . Patient Attributed To: QAE Payer: [employer] [place] Reason for review or outreach: Medication Adherence Medication Adherence Review Details: Hypertension Summary / Findings: Patient has switched to a [facility] PCP Action Taken: Data submitted to Payer Other Contact made with patient: No, Chart review only. Signature: Davion Malik RN [facility] 08-03-2022 History of Present illness Narrative GIGI CHUNG RN Action/FYI: Medication Adherence review completed per request of payer. NO PROVIDER ACTION REQUIRED Please see requests in the Summary/Findings section below Patient identified by name and date of . Patient Attributed To: QAE Payer: [employer] [place] Reason for review or outreach: Medication Adherence Medication Adherence Review Details: Hypertension Summary / Findings: Patient has switched to a [facility] [employer] PCP Action Taken: Data submitted to Payer Other Contact made with patient: No, Chart review only. Signature: Davion Malik RN documented in this encounter [facility] 07-10-2022 Telephone encounter Note Talked to patient and relayed message and she will call for an appointment if she doesn't get any better. [facility] 07-10-2022 Telephone encounter Note Name of caller: javier Contact phone number: [phone] Relationship to Patient: patient Provider: josue Practice: [...] business hours to return their call: No [facility] 06-12-2022 Telephone encounter Note Spoke to Tali and she said she needs a Med box set up that patient can't see the pills and this would be 1 x a wk. [facility] 06-12-2022 Miscellaneous Notes Spoke to Tali and she said she needs a Med box set up that patient can't see the pills and this would be 1 x a wk. Please assist Name of caller: Tali Contact phone number: [phone] Relationship to Patient: [facility] Provider: Josue Practice: [facility] Chief Complaint/Reason for Call: Tali called stating they will start longterm for med set ups weekly. This will start Saturday06/18/2022. Will the doctor follow and sign orders. Please advise Best time of day caller can be reached: any Patient advised that office/PCP has 24-48 business hours to return their call: no documented in this encounter [facility] 06-12-2022 Telephone encounter Note Please assist [facility] 06-12-2022 Telephone encounter Note Name of caller: Tali Contact phone number: [phone] Relationship to Patient: [facility] Provider: Josue Practice: [facility] Chief Complaint/Reason for Call: Tali called stating they will start longterm for med set ups weekly. This will start Saturday06/18/2022. Will the doctor follow and sign orders. Please advise Best time of day caller can be reached: any Patient advised that office/PCP has 24-48 business hours to return their call: no [facility] 05-21-2022 History of Present illness Narrative Images from the original note were not included. 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 documented in this encounter [facility] 12-14-2021 Note HNO ID: [id number] Author: Leni Cintron MD, PhD Service: ? [...] of its relevant components. Leni Cintron MD [facility] 12-14-2021 History of Present illness Narrative [...] Leni Cintron MD documented in this encounter [facility] 09-21-2021 Miscellaneous Notes Left voicemail following up on [employer] message that had been sent regarding genetics consult received from Dr. Cintron. Provided instructions and Genetics appt line to call. documented in this encounter [facility] 07-28-2021 Instructions Beth Jennings PA-C - [...] Beth Jennings PA-C documented in this encounter [facility] 07-28-2021 History of Present illness Narrative [...] Take 300 mg by mouth twice daily. [id number] (KRILL OIL, OMEGA 3 AND 6,) [id number] [...] which included preparing to see the patient, [id number] patient care, completing clinical documentation, performing a medically appropriate examination, counseling and educating the patient/family/caregiver, ordering medications, tests, or procedures and communicating results to the patient/family/caregiver. documented in this encounter [facility] 06-01-2021 History of Present illness Narrative [...] Leni Cintron MD documented in this encounter [facility] documented 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 documented in this encounter [facility] note* Diagnosis Chronic obstructive pulmonary disease, unspecified COPD type ([facility])- Primary DDD (degenerative disc disease), lumbar Degeneration of lumbar or lumbosacral intervertebral disc Post traumatic stress disorder (PTSD) Type 2 diabetes mellitus with hyperglycemia, without long-term current use of insulin ([facility]) ([facility]) Essential hypertension Unspecified essential hypertension Acquired hypothyroidism Unspecified hypothyroidism [facility] Diagnosis 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 Type 2 diabetes mellitus without complication, without long-term current use of insulin ([facility]) Blunt trauma of left eye, subsequent encounter Posterior vitreous detachment of right eye 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 [facility] Diagnosis Chronic pain of right knee [facility] Diagnosis Type 2 diabetes mellitus with hyperglycemia, without long-term current use of insulin ([facility]/HCC) (HCC)- Primary DDD (degenerative disc disease), lumbar Degeneration of lumbar or lumbosacral intervertebral disc Post traumatic stress disorder (PTSD) Essential hypertension Unspecified essential hypertension Generalized anxiety disorder Sedative, 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, hypnotic or anxiolytic-induced disorder (HCC) Primary osteoarthritis of left hip Chronic pain of right knee Acquired hypothyroidism Unspecified hypothyroidism Smoker Tobacco use disorder [facility] Diagnosis DDD (degenerative disc disease), lumbar Degeneration of lumbar or lumbosacral intervertebral disc [facility] Diagnosis Dysphagia, unspecified type- Primary Essential hypertension Unspecified essential hypertension Smoker Tobacco use disorder Generalized anxiety disorder Type 2 diabetes mellitus with hyperglycemia, without long-term current use of insulin ([facility]) Pattern dystrophy of macula Acquired hypothyroidism Unspecified hypothyroidism Mixed hypercholesterolemia and hypertriglyceridemia Mixed hyperlipidemia Pulmonary emphysema, unspecified emphysema type ([facility]) Post traumatic stress disorder (PTSD) DDD (degenerative disc disease), lumbar Degeneration of lumbar or lumbosacral intervertebral disc Localized osteoarthritis of right knee [facility] Diagnosis Localized osteoarthritis of right knee- Primary Moderate smoker (20 or less per day) Tobacco use disorder Dysphagia, unspecified type Gastroesophageal reflux disease with esophagitis, unspecified whether hemorrhage [facility] Diagnosis Smoker- Primary Tobacco use disorder Moderate smoker (20 or less per day) Tobacco use disorder Pulmonary nodule Other diseases of lung, not elsewhere classified [facility] Diagnosis Post traumatic stress disorder (PTSD) documented in this encounter [facility] for referral (narrative)* Consultation (Routine) - Pending Review Specialty Diagnoses / Procedures Referred By Waldo ortiz Referred To Contact Orthopedic Surgery Diagnoses Chronic pain of right knee Reece aSlas DO [address] [place] [address] Jerry Jennings MD [address] [address] Referral ID Status Reason Start Date Expiration Date Visits Requested Visits Authorized [id number] Pending Review Specialty Services Required 08/21/2022 08/21/2023 1 1 Scheduling Instructions Possible (R) [facility] Consultation (Routine) - Pending Review Specialty Diagnoses / Procedures Referred By Contac t Referred To Contact Orthopedic Surgery Diagnoses Localized osteoarthritis of right knee Reece Salas DO [address] [place] [address] Aaron Shoemaker MD [address] [facility] [address] [place] [address] Referral ID Status Reason Start Date Expiration Date Visits Requested Visits Authorized [id number] Pending Review Specialty Services Required 3 12/24/2023 1 1 * Consultation (Routine) - Pending Review Specialty Diagnoses / Procedures Referred By Contac t Referred To Contact Gastroenterology Diagnoses Dysphagia, unspecified type Gastroesophageal reflux disease with esophagitis, unspecified whether hemorrhage Procedures MA OFFICE/OUTPATIENT NEW HIGH MDM 60-74 MINUTES Reece Salas DO [address] [place] [address] Alexi Aguilera [address], [address] [place] [address] Referral ID Status Reason Start Date Expiration Date Visits Requested Visits Authorized [id number] Pending Review Specialty Services Required 3 12/24/2023 1 1 [facility] Reason for Referral Specialty Diagnoses / Procedures Referred By Contac t Referred To Contact Diagnoses 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 Procedures CONSULT TO OPHTHALMIC GENETIC COUNSELING MEDICAL GENETICS COUNSELING EACH 30 MINUTES Leni Cintron [place], PhD [address] [place] [address] [address] Referral ID Status Reason Start Date Expiration Date Visits Requested Visits Authorized [id number] Authorized PCP Requested Referral Auto-Generate d Referral 12/14/2021 12/14/2022 1 1 Specialty Diagnoses / Procedures [facility] Referred To Contact Radiology Diagnoses Smoker Pulmonary nodule Procedures CT lung screening low dose Reece Salas, DO [address] [place] [address] Referral ID Status Reason Start Date Expiration Date V isits Requested Visits Authorized [id number] Pending Review 12/27/2022 12/27/2023 1 1 Medications [...] Documents on File Type Date Recorded 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 DNR (Do Not Resuscitate) 12/16/2014 Documents on File Type Date Recorded 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 DNR (Do Not Resuscitate) 12/16/2014 [...] or prosecute any alcohol or drug abuse patient.[facility] the event this information is protected by the Federal Confidentiality of Alcohol and Drug Abuse Patient Records regulations: The Federal rules restrict any use of the information to criminally investigate or prosecute any alcohol or drug abuse patient.[facility] the event this information is protected by the Federal Confidentiality of Alcohol and Drug Abuse Patient Records regulations: The Federal rules restrict any use of the information to criminally investigate or prosecute any alcohol or drug abuse patient.[facility] the event this information is protected by the Federal Confidentiality of Alcohol and Drug Abuse Patient Records regulations: The Federal rules restrict any use of the information to criminally investigate or prosecute any alcohol or drug abuse patient.[facility] the event this information is protected by the Federal Confidentiality of Alcohol and Drug Abuse Patient Records regulations: The Federal rules restrict any use of the information to criminally investigate or prosecute any alcohol or drug abuse patient.[facility] the event this information is protected by the Federal Confidentiality of Alcohol and Drug Abuse Patient Records regulations: The Federal rules restrict any use of the information to criminally investigate or prosecute any alcohol or drug abuse patient.[facility] the event this information is protected by the Federal Confidentiality of Alcohol and Drug Abuse Patient Records regulations: The Federal rules restrict any use of the information to criminally investigate or prosecute any alcohol or drug abuse patient.[facility] Reason for Visit (unrecogniz ed section and content) Reason Comments UTI chronic uti's for th e past 2 years. Last month Cipro was called in, but no culture was ran. Reason Comments Appointment Reason Comments Macular Dystrophy Follow Up Diabetes Reason Comments Follow-up 3 month med check Cough Reason Onset Date Comments longterm 06/12/2022 Reason Onset Date Comments ACM JULIET [...] Care Teams (unrecognized sec tion and content) Shank Skinner Relationship Specialty Start Date End Date Reece Salas PCP - General 11/02/04 Shank Skinner Relationship Specialty Start Date End Date Reece Salas PCP - General 11/02/04 Shank Skinner Relationship Specialty Start Date End Date Reece Salas PCP - General 11/02/04 Shank Skinner Relationship Specialty Start Date End Date Reece Salas PCP - General 11/02/04 Shank Skinner Relationship Specialty Start Date End Date Reece Salas, DO [address] [place] [address] PCP - General 07/12/18 Shank Skinner Relationship Specialty Start Date End Date Reece Salas, DO [address] [place] [address] PCP - General 07/12/18 Shank Skinner Relationship Specialty Start Date End Date Reece Salas, DO [address] [place] [address] PCP - General 07/12/18 Shank Skinner Relationship Specialty Start Date End Date Reece Salas PCP - General 11/02/04 Shank Skinner Relationship Specialty Start Date End Date Reece Salas DO [address] [place] [address] PCP - General 07/12/18 Shank Skinner Relationship Specialty Start Date End Date Reece Salas PCP - General 11/02/04 Shank Skinner Relationship Specialty Start Date End Date Reece Salas DO [address] [place] [address] PCP - General 07/12/18 Shank Skinner Relationship Specialty Start Date End Date Reece Salas, DO [address] [place] [address] PCP - General 07/12/18 Shank Skinner Relationship Specialty Start Date End Date Reece Salas, DO [address] [place] [address] PCP - General 07/12/18 Shank Skinner Relationship Specialty Start Date End Date Reece Salas, DO [address] [place] [address] PCP - General 07/12/18 Shank Skinner Relationship Specialty Start Date End Date Reece Salas, DO [address] [place] [address] PCP - General 07/12/18 Shank Skinner Relationship Specialty Start Date End Date Reece Salas, DO [address] [place] [id number] PCP - General 07/12/18 Shank Skinner Relationship Specialty Start Date End Date Reece Salas, DO [address] [place] [phone] PCP - General 07/12/18 Shank Skinner Relationship Specialty Start Date End Date Reece Salas, DO [address] [place] [phone] PCP - General 07/12/18 Shank Skinner Relationship Specialty Start Date End Date Reece Salas, DO [address] [place] [phone] PCP - General 07/12/18 Shank Skinner Relationship Specialty Start Date End Date Reece Salas DO [address] [place] [address] PCP - General 07/12/18 Shank Skinner Relationship Specialty Start Date End Date Reece Salas DO [address] [place] [address] PCP - General 07/12/18 Shank Skinner Relationship Specialty Start Date End Date Reece Salas DO [address] [place] [address] PCP - General 07/12/18 Shank Skinner Relationship Specialty Start Date End Date Reece Salas DO [address] [place] [address] PCP - General 07/12/18 INFORMATION SOURCE (unrecogn ized section and content) DATE CREATED AUTHOR AUTHOR'S SHEFALI BUTT 02/17/2023 [facility] FOR RECORDS PERTAINING TO PATIENTS WHO [...] BE BASED ON THE PRIMARY CLINICAL RECORDS. [employer] provides no warranty or guarantee of the accuracy or completeness of information in this document.
[2023-02-23] VITALS (16 sets, daily range): BP systolic 121–167; BP diastolic 68–91; PULSE 63–100; RESP 18–20; TEMP 36.6–37.2; O2SAT 85–98; BMI 27.9
[2023-02-23] MEDS: 0.9% Normal Saline (1000mL) 1,000 ML 125 ML IV ×2 (01:03→09:31)
[2023-02-23] MEDS: ALPRAZolam 0.5 MG Tablet PO ×2 (04:35→16:31)
[2023-02-23] MEDS: Gabapentin 300 MG Capsule PO ×2 (04:41→16:31)
[2023-02-23] MEDS: Levothyroxine 100 MCG Tablet PO (06:20)
[2023-02-23] MEDS: Insulin Lispro 100 UNIT/ML INSULN.PEN SC ×4 (06:26→21:34)
[2023-02-23 06:50] LABS: Bedside Glucose 224 mg/dL (74-106)
[2023-02-23 07:21] LABS: Absolute Neutrophil Count 3.3 X10^3/uL (2.0-7.7); Basophil# 0.01 X10^3/uL; Basophil% 0.2 % (0-1); Hematocrit 34.6 % (37-47); Hemoglobin 11.2 g/dL (12.0-15.0); Mean Corp Hgb Conc 32.4 g/dL (32-36); Mean Corpuscular Hgb 29.7 pg (27.0-32.0); Mean Corpuscular Volume 91.8 fL (81-99); Mean Platelet Vol. 9.6 fl (6.2-12.0); Monocyte# 0.22 X10^3/uL; Monocyte% 4.8 % (0-10); NRBC Flagged by Analyzer 0 % (0-5); Neutrophil # 3.25 X10^3/uL (2.7-7.7); Neutrophil % 71.7 % (47-70); Platelet Count 212 K/mm3 (150-450); RBC Distribution Width SD 50.4 fl (35.1-43.9); Red Blood Count 3.77 M/mm3 (4.2-5.4); White Blood Count 4.5 K/mm3 (4.4-11.0)
[2023-02-23 08:39] LABS: Anion Gap 8 (5-15); BUN 9 mg/dL (7-18); BUN/Creat Ratio 10.6 RATIO (10-20); Calcium,Total 8.2 mg/dL (8.5-10.1); Chloride 106 mmol/L (98-107); Creatinine, Serum 0.85 mg/dL (0.55-1.02); EST Glomerular Filtration Rate 69 mL/min (>60); Est Glom Filt Rate - Afr Amer 83 mL/min (>60); Estimated Creatinine Clearance 52.83 ml/min; Glucose 209 mg/dL (74-106); Potassium 3.9 mmol/L (3.5-5.1); Sodium Level 136 mmol/L (136-145)
[2023-02-23] MEDS: Pantoprazole Sodium 40 MG Tablet PO (09:33)
[2023-02-23] MEDS: Aspirin 81 MG TAB.CHEW PO (09:33)
[2023-02-23] MEDS: Celecoxib 200 MG Capsule PO (09:33)
[2023-02-23] MEDS: Loratadine 10 MG Tablet PO (09:33)
[2023-02-23] MEDS: Metoprolol(XL)Succ 25 MG Tablet PO (09:34)
[2023-02-23] MEDS: Raloxifene HCl 60 MG Tablet PO (09:35)
[2023-02-23 11:57] LABS: Bedside Glucose 158 mg/dL (74-106)
[2023-02-23] MEDS: guaiFENesin Dm 10 ML UDC PO (12:22)
[2023-02-23 16:56] LABS: Bedside Glucose 183 mg/dL (74-106)
--- NOTE | 2023-02-23 17:18 | CASEMGMT ---
RN SUSSY NOTE: RN CM to room. Pt sitting up in chair in room. Family @ bedside. Intro role of CM to patient and ALANIZ form explained re: Observation status for treatment of debility and weakness and COVID.? Explained hospitalization will be paid per?her insurance policy for Outpatient billing?and condition will continue to be evaluated for Inpt necessity. Also let pt know that [facility] sends paper in the billing packet with their phone number if questions arise. Pt and family verbalize understanding and does not have further questions. ?Form signed, copy made and placed in chart, and original given to pt. Jens SY RN CM
--- NOTE | 2023-02-23 17:59 | CASEMGMT ---
Social Work SW notified that pt would benefit from SNF. SW received a call from Granddaughter regarding placement and she req [facility] or [facility]. Pt has been to [facility] before. [facility] is not on insurance list. SW introduced self and role to patient and was providing patient with SNF list when other granddaughter arrived. Liyah Ortiz [phone] present and pt requests her to be added to her contacts. 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 Granddaughter reports they take pt's insurance and she confirmed pt can get a private room. [facility]. Delmi Ledbetter CAR RENTAL MANAGER, METHODS ANALYST DATA PROCESSING
[2023-02-23] MEDS: NYSTATIN 500,000 UNIT/5 ML UDC 500000 UNIT PO ×2 (18:20→21:42)
[2023-02-23] MEDS: Ipratropium/Albuterol Sulfate 3 ML AMPUL.NEB INHALATION (19:40)
[2023-02-23] MEDS: Budesonide Respules 0.5 MG/2 ML AMPUL.NEB. INHALATION (19:40)
--- NOTE | 2023-02-23 20:00 | PCM.PN.HOSP ---
Reason for Visit Reason for Visit: Diagnoses Weakness (02/22/23) COVID-19 (02/22/23) Subjective Subjective Patient was seen and examined today, I had extensive conversation with several of the patient's family members in the room, they question why the patient was not on corticosteroids, I explained that her COVID was more than 10 days ago and I did not feel this would add anything to her care. She does take inhaled steroids at home for COPD and I suggested that we start Pulmicort and they agreed. Family this afternoon requested pulmonary medicine see the patient. Patient is currently on 3 L of oxygen via nasal cannula, I added aerosol treatments with DuoNeb. Patient has some mild confusion today but is able to carry on a conversation with this examiner, her memory just seems to be poor. Objective Data Objective Data Vital Signs: Vital Signs Temp Pulse Resp BP Pulse Ox O2 Del Method O2 Flow Rate 97.8 F 74 20 H 124/72 H 97 Nasal Cannula 3 02/23/23 14:48 02/23/23 18:22 02/23/23 18:22 02/23/23 14:48 02/23/23 18:22 02/23/23 18:22 02/23/23 18:22 Oxygen Flow Rate (L/min) [ 2 AMBULATING with Oxygen #1] Oxygen Flow Rate (L/min) 3 Oxygen Delivery Method Nasal Cannula Weight: 73.9 kg Body Mass Index (BMI) 27.9 Intake & Output: Intake and Output for Last 24 Hours 02/21/23 02/22/23 02/23/23 23:59 23:59 23:59 Intake Total 500 / 500 1999 / 1999 Balance 500 / 500 1999 Lab / Micro Data 02/23/23 07:05 02/23/23 07:05 Labs: Laboratory Results - last 24 hr 02/22/23 20:26: WBC 6.5, RBC 4.25, Hgb 12.7, Hct 38.5, MCV 90.6, MCH 29.9, MCHC 33.0, RDW Std Deviation 50.1 H, RDW Coeff of Dru 15.0 H, Plt Count 219, MPV 9.4, Immature Gran % (Auto) 1.200 H, Neut % (Auto) 83.6 H, Lymph % (Auto) 11.4 L, Graves % (Auto) 3.5, Eos % (Auto) 0.0, Baso % (Auto) 0.3, Absolute Neuts (auto) 5.4, Absolute Lymphs (auto) 0.74 L, Nucleated RBC % 0, Sodium 133 L, Potassium 4.6, Chloride 99, Carbon Dioxide 28.0, Anion Gap 6, BUN 11, Creatinine 1.12 H, Estim Creat Clear Calc 41.01, Est GFR (MDRD) Af Amer 60, Est GFR (MDRD) Non-Af 50 L, BUN/Creatinine Ratio 9.8 L, Glucose 324 H, Calcium 9.1, B-Natriuretic Peptide 70.2 02/23/23 06:22: POC Glucose 224 H 02/23/23 07:05: WBC 4.5, RBC 3.77 L, Hgb 11.2 L, Hct 34.6 L, MCV 91.8, MCH 29.7, MCHC 32.4, RDW Std Deviation 50.4 H, RDW Coeff of Dru 15.0 H, Plt Count 212, MPV 9.6, Immature Gran % (Auto) 1.300 H, Neut % (Auto) 71.7 H, Lymph % (Auto) 22.0, Graves % (Auto) 4.8, Eos % (Auto) 0.0, Baso % (Auto) 0.2, Absolute Neuts (auto) 3.3, Absolute Lymphs (auto) 1.00, Nucleated RBC % 0, Sodium 136, Potassium 3.9, Chloride 106, Carbon Dioxide 22.0, Anion Gap 8, BUN 9, Creatinine 0.85, Estim Creat Clear Calc 52.83, Est GFR (MDRD) Af Amer 83, Est GFR (MDRD) Non-Af 69, BUN/Creatinine Ratio 10.6, Glucose 209 H, Calcium 8.2 L 02/23/23 11:38: POC Glucose 158 H 02/23/23 16:29: POC Glucose 183 H Micro: Microbiology 02/22/23 20:28 Mucosa - Nose SARS-CoV-2, Influenza & RSV (PCR) - Final SARS-CoV-2 (COVID 19) Radiography Diagnostic Testing: Radiology Impression Chest X-Ray 02/22/23 20:42 IMPRESSION: No active disease. Electronically Signed: David Thomson MD at 21:08 EST , Physical Exam Const alert and no apparent distress Constitutional Narrative: Patient exhibits some mild cognitive impairment General Appearance: cooperative, well kempt and well developed Orientation / Consciousness: awake, oriented to person and oriented to place HEENT normocephalic, head/scalp atraumatic and moist oral mucous membranes Eyes PERRL, EOMs intact bilaterally and conjunctivae normal Neck supple, no JVD, thyroid normal and no carotid bruits General: trachea midline Resp normal respiratory effort, no retractions and no use of accessory muscles Resp Narrative: Breath sounds are distant bilaterally Auscultation: Negative for rales, rhonchi or wheezes Cardio regular rate, regular rhythm, S1 normal heart sound, S2 normal heart sound, no murmurs, no rub and no gallops GI normal to inspection, nondistended, normoactive bowel sounds, soft to palpation, non-tender and non-distended Extremity no clubbing, cyanosis or edema Skin no rashes or lesions noted General Skin Exam: no breakdown Neuro CN's II-XII intact bilaterally, moves all extremities, no focal motor deficits and no sensory deficits noted Sensorium / Orientation: awake, alert, oriented to person and oriented to place Speech: speech normal Psych affect normal Psych Narrative: Patient has some mild cognitive impairment, she is able to carry on conversation and answer questions appropriately Assessment & Plan Assessment/Plan (1) Generalized weakness: PLAN: Plan 1. Acute hypoxia secondary to chronic obstructive pulmonary disease-I do not hear any wheezing today during my examination, I have elected to place patient on DuoNeb aerosol treatments and Pulmicort aerosol treatments. Patient's chest x-ray on admission showed no active disease. #2 acute debility secondary to recent COVID-19 infection and chronic obstructive pulmonary disease-PT and OT are seeing the patient, she will need to go to an extended care facility upon discharge from the hospital, her caregiver at home has COVID and is unable to take care of her. #3 chronic anxiety-patient takes Xanax twice a day as needed anxiety, she has not been asking for this medication, I discussed this with the patient and the patient's family. #4 type 2 diabetes-patient's blood sugars will be monitored, sliding scale insulin will be given as needed #5 hyperlipidemia-patient is on a statin #6 hypothyroidism-patient is currently on Synthroid Total clinical time spent by myself addressing patient's medical issues, reviewing all of her data, and collaborating with patient's care team: 50 minutes Charges/Coding Visit Charges Inpatient E&M: 35040 Subs Hosp L3
[2023-02-23] MEDS: Heparin Injection (Vial) 5,000 UNIT/ML VIAL 5000 UNIT SC (21:42)
[2023-02-23] MEDS: Magnesium Chloride 64 MG Delay Rel.Tablet 128 MG PO (21:42)
[2023-02-23] MEDS: Atorvastatin Calcium 20 MG Tablet PO (21:42)
[2023-02-23 21:56] LABS: Bedside Glucose 179 mg/dL (74-106)
[2023-02-23 23:49] LABS: Color, Urine Yellow (Yellow); Glucose, Dipstick Normal (Normal); Ketone-Dipstick Negative (Negative); Leukocyte Esterase-Dipstick 500 /ul (Negative); Mucous, Urine 0 SEEN /hpf (<or=2+); Nitrite-Dipstick Positive (Negative); Occult Blood-Urine 25 /ul (Negative); Protein-Dipstick 15 mg/dl (Negative); Red Blood Cells-Urine 0 SEEN /hpf (0-5); Urine Bilirubin Dipstick Negative (Negative); Urine Clarity Sl. Cloudy (Clear); Urine Urobilinogen Normal (Normal)
[2023-02-24] VITALS (14 sets, daily range): BP systolic 123–159; BP diastolic 67–84; PULSE 56–90; RESP 16–24; TEMP 36.6–37.2; O2SAT 88–96
[2023-02-24 00:16] LABS: Bacteria 1+ /hpf (None Seen); Squamous Epithelial Cells - UA 0-5 SEEN /hpf (5-10); White Blood Cells >100 SEEN /hpf (0-5); Yeast-Urine 1+ /hpf (None Seen)
[2023-02-24] MEDS: guaiFENesin Dm 10 ML UDC PO (03:11)
[2023-02-24] MEDS: ALPRAZolam 0.5 MG Tablet PO ×2 (03:11→22:04)
[2023-02-24] MEDS: Levothyroxine 100 MCG Tablet PO (03:12)
[2023-02-24] MEDS: Insulin Lispro 100 UNIT/ML INSULN.PEN SC ×4 (03:15→21:55)
--- NOTE | 2023-02-24 05:20 | CON.PCM.CC_ITS ---
Assessment & Plan Assessment/Plan (1) COVID: PLAN: Plan RECOMMENDATIONS: 1. Wean supplemental oxygen for saturations greater than 90%. 2. Continue bronchodilator therapy. 3. Encourage incentive spirometer use and mobilize patient as tolerated. 4. Walking oximetry study prior to consideration for discharge home. 5. Outpatient pulmonary follow-up after discharge. 6. Ongoing tobacco cessation is strongly recommended. 7. Please call with any additional questions. IMPRESSIONS: 1. Shortness of breath and hypoxia Most likely secondary to underlying obstructive lung disease coupled with recent diagnosis of COVID-19. The patient is almost 2 weeks out from her diagnosis. No additional pharmacologic intervention is required at this time. The patient has an extensive tobacco abuse history with a self-reported history of COPD of unclear severity. She has never been evaluated by a allopathic doctor. There are no pulmonary function studies available in our system. Therefore, I would recommend that the patient follow-up in the pulmonary medicine clinic after discharge so that baseline PFTs can be obtained. In the interim, continue supplemental oxygen to maintain saturations at or above 90%. Continue bronchodilators as ordered. No additional inpatient workup or intervention is required from a pulmonary perspective. 2. Generalized deconditioning/chronic anxiety/diabetes mellitus/hypothyroidism/hyperlipidemia Complicates care, management, recovery and prognosis. Continue home medications as indicated. The patient may require discharge to an extended care facility for rehabilitation. This note was generated with [employer] dictation software. It may contain incorrect words, spelling, and punctuation that were not noted in checking the note before signing. HPI Consult Data Date of Consult: 02/24/23 HPI Narrative Reason for Consultation: Family request HPI Narrative: The patient is a 78-year-old female, with a history as outlined below, who presented to the emergency department on February 22 with generalized weakness and shortness of breath. The patient was previously diagnosed with COVID-19 on February 11, 2023. The patient was initially diagnosed in the emergency department and sent home on [place]. The patient reported that she was previously a smoker of 1 pack/day since the age of 14, having quit completely 1 week ago. She has never been evaluated by a allopathic doctor. However, she did report that she was diagnosed with COPD by her primary care provider. She does have access to albuterol at her baseline. On presentation to the emergency department, the patient was documented to be afebrile and hemodynamically stable. She was requiring 2 L/min of supplemental oxygen to maintain saturations. Urine analysis completed on February 23 was positive for nitrites, leukocyte Estrace and 1+ urine bacteria. Urine culture is pending. COVID PCR was again positive on February 22. Chest x-ray demonstrated no acute cardiopulmonary process. This morning, the patient denied any significant shortness of breath. However, she did report issues with a dry mouth and difficulty with sleep. [facility] Medical History (Updated 02/23/23 @ 00:48 by Elena Melchor) Anxiety and depression Chronic pain COPD (chronic obstructive pulmonary disease) COPD, mild Diabetes mellitus Dizziness Dyslipidemia GERD (gastroesophageal reflux disease) Hearing loss, left Hearing loss, right Heart palpitations Hyperlipemia, mixed Hypertension Hypothyroid Irregular heart beat Kidney stones MVP (mitral valve prolapse) Nicotine addiction Osteoporosis Panic attacks Pre-syncope PTSD (post-traumatic stress disorder) PVC's (premature ventricular contractions) Rheumatoid arthritis Sleep apnea Smoker Syncope Vision loss of left eye Vision loss of right eye Home Medications acetaminophen 300 mg-codeine 30 mg tablet 1 tab PO BID PRN Pain 05/22/14 [History Last Taken Unknown] aspirin 81 mg chewable tablet 81 mg PO DAILY@0800 cardiovascular 05/22/14 [History Last Taken 05/09/18 81 mg] gabapentin 300 mg capsule 300 mg PO BIDCM nerve pain 05/22/14 [History Last Taken 09/19/15] loratadine 10 mg tablet 10 mg PO DAILY allergies 05/22/14 [History Last Taken 05/09/18 10 mg] raloxifene 60 mg tablet 60 mg PO DAILY osteoarthritis 05/22/14 [History Last Taken 05/09/18 60 mg] simvastatin 20 mg tablet 40 mg PO QHS high cholesterol 05/22/14 [History Last Taken 09/18/15] magnesium oxide 400 mg (241.3 mg magnesium) tablet 400 mg PO BID electrolyte 09/19/15 [History Last Taken 09/19/15] metoprolol succinate 25 mg tablet,extended release 24 hr (Toprol XL) 25 mg PO DAILY Cardiovascular 01/18/17 [History Last Taken 10/29/20 23:00] metformin 500 mg tablet 250 mg PO MOWEFR diabetes 05/09/18 [History Last Taken Unknown] pantoprazole 40 mg tablet,delayed release 40 mg PO DAILY reflux 05/09/18 [History Last Taken Unknown] acetaminophen 325 mg tablet (Tylenol) 650 mg (2 x 325 mg) PO Q6H PRN PRN Mild Pain (1-3)/Temp > 100.7 F 05/13/18 [Rx Last Taken Unknown] albuterol sulfate 2.5 mg/3 mL (0.083 %) solution for nebulization 2.5 mg (3 mL) inhalation Q2H PRN PRN SOB &/OR WHEEZING 05/13/18 [Rx Last Taken Unknown] alprazolam 0.25 mg tablet 0.5 mg PO BID PRN anxiety 10/30/20 [History Last Taken Unknown] celecoxib 200 mg capsule (Celebrex) 200 mg PO DAILY 10/30/20 [History Last Taken Unknown] glimepiride 2 mg tablet 2 mg PO DAILY 02/22/23 [History Last Taken Unknown] levofloxacin 500 mg tablet 500 mg PO DAILY 02/22/23 [History Last Taken Unknown] levothyroxine 100 mcg tablet (Euthyrox) 100 mcg PO DAILY 02/22/23 [History Last Taken Unknown] prednisone 10 mg tablet See Taper PO DAILY 02/22/23 [History Last Taken Unknown] Allergy/AdvReac Type Severity Reaction Status Date / Time Penicillins Allergy Swelling Verified 02/13/23 14:00 clindamycin AdvReac Intermediate Abd Verified 02/13/23 14:00 cramps/diarrhea Family History Mother CAD (coronary artery disease) Surgical History (Updated 02/23/23 @ 00:48 by Elena Melchor) History of appendectomy History of appendectomy History of cholecystectomy History of gastric surgery Previous section Social History household members: none Smoking Status: Current every day smoker tobacco type: cigarettes substance use type: does not use ROS ROS Narrative 10 systems were reviewed with pertinent positives as noted in the HPI above. Physical Exam Const alert and no apparent distress General Appearance: cooperative HEENT normocephalic and head/scalp atraumatic Eyes PERRL, EOMs intact bilaterally and conjunctivae normal Neck supple General: trachea midline Chest inspection of chest normal Resp normal respiratory effort Auscultation: rales and diminished lung sounds Cardio regular rate and regular rhythm GI normal to inspection, nondistended, normoactive bowel sounds Extremity no clubbing, cyanosis or edema Skin no rashes or lesions noted Neuro CN's II-XII intact bilaterally, moves all extremities and no focal motor deficits Psych cooperative and affect normal Lab / Micro Data 02/23/23 07:05 02/23/23 07:05 Labs: Laboratory Results - last 24 hr 02/23/23 06:22: POC Glucose 224 H 02/23/23 07:05: WBC 4.5, RBC 3.77 L, Hgb 11.2 L, Hct 34.6 L, MCV 91.8, MCH 29.7, MCHC 32.4, RDW Std Deviation 50.4 H, RDW Coeff of Dru 15.0 H, Plt Count 212, MPV 9.6, Immature Gran % (Auto) 1.300 H, Neut % (Auto) 71.7 H, Lymph % (Auto) 22.0, [place] % (Auto) 4.8, Eos % (Auto) 0.0, Baso % (Auto) 0.2, Absolute Neuts (auto) 3.3, Absolute Lymphs (auto) 1.00, Nucleated RBC % 0, Sodium 136, Potassium 3.9, Chloride 106, Carbon Dioxide 22.0, Anion Gap 8, BUN 9, Creatinine 0.85, Estim Creat Clear Calc 52.83, Est GFR (MDRD) Af Amer 83, Est GFR (MDRD) Non-Af 69, BUN/Creatinine Ratio 10.6, Glucose 209 H, Calcium 8.2 L 02/23/23 11:38: POC Glucose 158 H 02/23/23 16:29: POC Glucose 183 H 02/23/23 21:33: POC Glucose 179 H 02/23/23 23:25: Urine Color Yellow, Urine Clarity Sl. Cloudy, Urine pH 6.0, Ur Specific [place] 1.010, Urine Protein 15 H, Urine Glucose (UA) Normal, Urine Ketones Negative, Urine Occult Blood 25 H, Urine Nitrite Positive H, Urine Bilirubin Negative, Urine Urobilinogen Normal, Ur Leukocyte Esterase 500 H, Urine RBC 0 SEEN, Urine WBC >100 SEEN, Ur Squamous Epith Cells 0-5 SEEN, Urine Bacteria 1+, Urine Mucus 0 SEEN, Urine Yeast 1+ Charges/Coding Visit Charges Inpatient E&M: 25848 Init Hosp L3
[2023-02-24 05:38] LABS: Bedside Glucose 228 mg/dL (74-106)
[2023-02-24] MEDS: Ipratropium/Albuterol Sulfate 3 ML AMPUL.NEB INHALATION ×3 (07:52→19:43)
[2023-02-24] MEDS: Budesonide Respules 0.5 MG/2 ML AMPUL.NEB. INHALATION ×2 (07:52→19:43)
[2023-02-24] MEDS: Ondansetron 4 MG/2 ML Vial IV (07:56)
[2023-02-24] MEDS: 0.9% Saline Lock 10 ML Syringe IV (07:56)
[2023-02-24] MEDS: Magnesium Chloride 64 MG Delay Rel.Tablet 128 MG PO ×2 (09:46→21:54)
[2023-02-24] MEDS: Metoprolol(XL)Succ 25 MG Tablet PO (09:46)
[2023-02-24] MEDS: Aspirin 81 MG TAB.CHEW PO (09:47)
[2023-02-24] MEDS: Gabapentin 300 MG Capsule PO ×2 (09:47→16:54)
[2023-02-24] MEDS: Heparin Injection (Vial) 5,000 UNIT/ML VIAL 5000 UNIT SC ×2 (09:47→21:58)
[2023-02-24] MEDS: Pantoprazole Sodium 40 MG Tablet PO (09:47)
[2023-02-24] MEDS: Loratadine 10 MG Tablet PO (09:47)
[2023-02-24] MEDS: Acetaminophen 325 MG Tablet 650 MG PO (09:47)
[2023-02-24] MEDS: Raloxifene HCl 60 MG Tablet PO (09:48)
[2023-02-24] MEDS: NYSTATIN 500,000 UNIT/5 ML UDC 500000 UNIT PO ×4 (09:48→21:54)
[2023-02-24] MEDS: Celecoxib 200 MG Capsule PO (09:48)
--- NOTE | 2023-02-24 11:12 | NURSING ---
while resting in bed with eyes closed. turned oxygen off and will monitor on room air.
[2023-02-24 11:47] LABS: Bedside Glucose 190 mg/dL (74-106)
[2023-02-24] MEDS: Cephalexin 500 MG Capsule PO ×2 (13:33→21:54)
[2023-02-24 17:14] LABS: Bedside Glucose 205 mg/dL (74-106)
--- NOTE | 2023-02-24 18:43 | PN.HOSP_ITS ---
Reason for Visit Reason for Visit: Diagnoses Weakness (02/22/23) COVID-19 (02/22/23) Subjective Subjective Patient was seen and examined today, she remains on 2 L of oxygen, she does not appear to be short of breath at rest. Patient asked me if she was going to I told her she was not in critical condition and that I did not feel she was in danger of dying. Patient's UA appeared to show evidence of cystitis, I elected to place her on Keflex, she was seen by pulmonary medicine today which advised continuing her other medications as ordered. Objective Data Objective Data Vital Signs: Vital Signs Temp Pulse Resp BP Pulse Ox O2 Del Method O2 Flow Rate 98.8 F 71 18 123/67 H 93 Nasal Cannula 2 02/24/23 14:21 02/24/23 16:57 02/24/23 14:21 02/24/23 14:21 02/24/23 16:57 02/24/23 16:57 02/24/23 16:57 Oxygen Flow Rate (L/min) [ 2 AMBULATING with Oxygen #1] Oxygen Flow Rate (L/min) 2 Oxygen Delivery Method Nasal Cannula Weight: 73.9 kg Body Mass Index (BMI) 27.9 Intake & Output: Intake and Output for Last 24 Hours 02/22/23 02/23/23 02/24/23 23:59 23:59 23:59 Intake Total 500 / 500 1999 Balance 500 / 500 1999 Lab / Micro Data 02/23/23 07:05 02/23/23 07:05 Labs: Laboratory Results - last 24 hr 02/23/23 21:33: POC Glucose 179 H 02/23/23 23:25: Urine Color Yellow, Urine Clarity Sl. Cloudy, Urine pH 6.0, Ur Specific [place] 1.010, Urine Protein 15 H, Urine Glucose (UA) Normal, Urine Ketones Negative, Urine Occult Blood 25 H, Urine Nitrite Positive H, Urine Bilirubin Negative, Urine Urobilinogen Normal, Ur Leukocyte Esterase 500 H, Urine RBC 0 SEEN, Urine WBC >100 SEEN, Ur Squamous Epith Cells 0-5 SEEN, Urine Bacteria 1+, Urine Mucus 0 SEEN, Urine Yeast 1+ 02/24/23 03:13: POC Glucose 228 H 02/24/23 11:11: POC Glucose 190 H 02/24/23 16:52: POC Glucose 205 H Micro: Microbiology 02/22/23 20:28 Mucosa - Nose SARS-CoV-2, Influenza & RSV (PCR) - Final SARS-CoV-2 (COVID 19) Physical Exam Narrative alert and no apparent distress Constitutional Narrative: Patient exhibits some mild cognitive impairment General Appearance: cooperative, well kempt and well developed Orientation / Consciousness: awake, oriented to person and oriented to place HEENT normocephalic, head/scalp atraumatic and moist oral mucous membranes Eyes PERRL, EOMs intact bilaterally and conjunctivae normal Neck supple, no JVD, thyroid normal and no carotid bruits General: trachea midline Resp normal respiratory effort, no retractions and no use of accessory muscles Resp Narrative: Breath sounds are distant bilaterally Auscultation: Negative for rales, rhonchi or wheezes Cardio regular rate, regular rhythm, S1 normal heart sound, S2 normal heart sound, no murmurs, no rub and no gallops GI normal to inspection, nondistended, normoactive bowel sounds, soft to palpation, non-tender and non-distended Extremity no clubbing, cyanosis or edema Skin no rashes or lesions noted General Skin Exam: no breakdown Neuro CN's II-XII intact bilaterally, moves all extremities, no focal motor deficits and no sensory deficits noted Sensorium / Orientation: awake, alert, oriented to person and oriented to place Speech: speech normal Psych affect normal Psych Narrative: Patient has some mild cognitive impairment, she is able to carry on conversation and answer questions appropriately Assessment & Plan Assessment/Plan (1) Generalized weakness: PLAN: Plan 1. Acute hypoxia secondary to exacerbation of chronic obstructive pulmonary disease with a backdrop of recent COVID 19 infection-patient will remain on inhaled budesonide and DuoNeb, pulse ox will be monitored #2 acute debility secondary to recent COVID-19 infection and exacerbation of chronic obstructive pulmonary disease-PT and OT are seeing the patient, she will need to go to an extended care facility upon discharge from the hospital, her caregiver at home has COVID and is unable to take care of her. #3 chronic anxiety-patient takes Xanax twice a day as needed anxiety, she has not been asking for this medication, I discussed this with the patient and the patient's family. #4 type 2 diabetes-patient's blood sugars will be monitored, sliding scale insulin will be given as needed #5 hyperlipidemia-patient is on a statin #6 hypothyroidism-patient is currently on Synthroid Total clinical time spent by myself addressing patient's medical issues, reviewing all of her data, and collaborating with patient's care team: 35 minutes Charges/Coding Visit Charges Inpatient E&M: 94756 Subs Hosp L2
[2023-02-24] MEDS: Atorvastatin Calcium 20 MG Tablet PO (21:54)
[2023-02-24 22:27] LABS: Bedside Glucose 266 mg/dL (74-106)
[2023-02-25] VITALS (14 sets, daily range): BP systolic 95–118; BP diastolic 57–75; PULSE 76–101; RESP 14–24; TEMP 36.8–37.4; O2SAT 88–94
[2023-02-25] MEDS: Insulin Lispro 100 UNIT/ML INSULN.PEN SC ×3 (05:14→22:14)
[2023-02-25] MEDS: Levothyroxine 100 MCG Tablet PO (05:16)
[2023-02-25] MEDS: guaiFENesin Dm 10 ML UDC PO (05:24)
[2023-02-25 06:35] LABS: Bedside Glucose 162 mg/dL (74-106)
[2023-02-25] MEDS: Ipratropium/Albuterol Sulfate 3 ML AMPUL.NEB INHALATION ×3 (07:29→21:15)
[2023-02-25] MEDS: Budesonide Respules 0.5 MG/2 ML AMPUL.NEB. INHALATION ×2 (07:29→21:15)
[2023-02-25] MEDS: Aspirin 81 MG TAB.CHEW PO (08:04)
[2023-02-25] MEDS: Gabapentin 300 MG Capsule PO ×2 (08:07→18:08)
[2023-02-25] MEDS: Celecoxib 200 MG Capsule PO (10:31)
[2023-02-25] MEDS: Loratadine 10 MG Tablet PO (10:31)
[2023-02-25] MEDS: Pantoprazole Sodium 40 MG Tablet PO (10:31)
[2023-02-25] MEDS: Heparin Injection (Vial) 5,000 UNIT/ML VIAL 5000 UNIT SC ×2 (10:32→22:14)
[2023-02-25] MEDS: Magnesium Chloride 64 MG Delay Rel.Tablet 128 MG PO ×2 (10:32→22:13)
[2023-02-25] MEDS: Raloxifene HCl 60 MG Tablet PO (10:32)
[2023-02-25] MEDS: Cephalexin 500 MG Capsule PO ×2 (10:32→22:14)
[2023-02-25] MEDS: NYSTATIN 500,000 UNIT/5 ML UDC 500000 UNIT PO ×3 (10:32→22:13)
[2023-02-25] MEDS: Metoprolol(XL)Succ 25 MG Tablet PO (10:33)
--- NOTE | 2023-02-25 11:10 | CASEMGMT ---
Addendum entered by Milli Morales 02/25/23 16:11: Social Work SW spoke with pt regarding next of kin. Pt requesting dgt Carol Ann Lloyd be primary contact [phone]. Demographic sheet updated. SAUL Robles Addendum entered by Milli Morales 02/25/23 14:50: Social Work SW spoke with physician who states pt is now requesting to go to [facility] instead of the [facility]. SW and physician met with pt, pts dgt Carol Ann and pt's granddaughter Brigitte. Pt now stating that she wants to go to [facility] where dgangel Maharaj is employed. DC assistant guest services manager updated and referral to the [facility] cancelled and referral to [facility] made. Plan: [facility], pending acceptance and precert SAUL Robles Original Note: Social Work SW met with pt and introduced self and role of SW. SW met with pt over the weekend and referral was made to [facility]. Pt now stating she does not want to go to [facility] but now requesting to go to the [facility]. DC assistant guest services manager updated and to send referral to [facility]. Plan: [facility], pending acceptance and precert SAUL Robles
[2023-02-25 12:21] LABS: Bedside Glucose 164 mg/dL (74-106)
--- NOTE | 2023-02-25 14:25 | CASEMGMT ---
Discharge Planning Referral sent to [facility] with acceptance. Kath Newell, Discharge Planning Asst.
--- NOTE | 2023-02-25 14:42 | CASEMGMT ---
Discharge Planning Referral sent via [facility] to [facility]. Kath Newell, Discharge Planning Asst.
--- NOTE | 2023-02-25 15:34 | NURSING ---
Patient contact center associate (Liyah) called and asked about update and discharge to SNF. Notified that patient will not be discharged today. Pending precert to Ritika.
[2023-02-25 17:13] LABS: Bedside Glucose 281 mg/dL (74-106)
--- NOTE | 2023-02-25 19:21 | PN.HOSP_ITS ---
Reason for Visit Reason for Visit: Diagnoses Weakness (02/25/23) COVID-19 (02/25/23) Subjective Subjective Patient was seen and examined today, she appears anxious at times but does not appear to be acutely short of breath at rest. Family was in the room and we discussed discharge planning with them, patient told licensed clinical social worker this morning she wanted to go to [facility], daughter wants her to go to [facility] so we will have to fill out another pre-CERT for the patient. Patient was made an admission today due to her persistent hypoxia and need for continued aerosol treatments and monitoring. Objective Data Objective Data Vital Signs: Vital Signs Temp Pulse Resp BP Pulse Ox O2 Del Method O2 Flow Rate 98.3 F 91 20 H 104/62 93 Nasal Cannula 3 02/25/23 11:20 02/25/23 13:30 02/25/23 13:30 02/25/23 11:20 02/25/23 13:31 02/25/23 13:31 02/25/23 13:31 Oxygen Flow Rate (L/min) [ 2 AMBULATING with Oxygen #1] Oxygen Flow Rate (L/min) 3 Oxygen Delivery Method Nasal Cannula Weight: 73.9 kg Body Mass Index (BMI) 27.9 Intake & Output: Intake and Output for Last 24 Hours 02/23/23 02/24/23 02/25/23 23:59 23:59 23:59 Intake Total 1999 720 / 720 Balance 1999 720 / 720 Lab / Micro Data 02/23/23 07:05 02/23/23 07:05 Labs: Laboratory Results - last 24 hr 02/24/23 21:53: POC Glucose 266 H 02/25/23 05:13: POC Glucose 162 H 02/25/23 11:41: POC Glucose 164 H 02/25/23 16:28: POC Glucose 281 H Micro: Microbiology 02/23/23 23:25 Urine, Clean Catch Urine Culture - Preliminary GNR lactose patient navigator 02/22/23 20:28 Mucosa - Nose SARS-CoV-2, Influenza & RSV (PCR) - Final SARS-CoV-2 (COVID 19) Physical Exam Narrative alert and no apparent distress Constitutional Narrative: Patient exhibits some mild cognitive impairment General Appearance: cooperative, well kempt and well developed Orientation / Consciousness: awake, oriented to person and oriented to place HEENT normocephalic, head/scalp atraumatic and moist oral mucous membranes Eyes PERRL, EOMs intact bilaterally and conjunctivae normal Neck supple, no JVD, thyroid normal and no carotid bruits General: trachea midline Resp normal respiratory effort, no retractions and no use of accessory muscles Resp Narrative: Breath sounds are distant bilaterally Auscultation: Negative for rales, rhonchi or wheezes Cardio regular rate, regular rhythm, S1 normal heart sound, S2 normal heart sound, no murmurs, no rub and no gallops GI normal to inspection, nondistended, normoactive bowel sounds, soft to palpation, non-tender and non-distended Extremity no clubbing, cyanosis or edema Skin no rashes or lesions noted General Skin Exam: no breakdown Neuro CN's II-XII intact bilaterally, moves all extremities, no focal motor deficits and no sensory deficits noted Sensorium / Orientation: awake, alert, oriented to person and oriented to place Speech: speech normal Psych Patient appears anxious at times Psych Narrative: Patient has some mild cognitive impairment, she is able to carry on conversation and answer questions appropriately Assessment & Plan Assessment/Plan (1) Generalized weakness: PLAN: Plan 1. Acute hypoxia secondary to exacerbation of chronic obstructive pulmonary disease with a backdrop of recent COVID 19 infection-patient will remain on inhaled budesonide and DuoNeb, pulse ox will be monitored #2 acute debility secondary to recent COVID-19 infection and exacerbation of chronic obstructive pulmonary disease-PT and OT are seeing the patient, she will need to go to an extended care facility upon discharge from the hospital, her c aregiver at home has COVID and is unable to take care of her. #3 chronic anxiety-patient takes Xanax twice a day as needed anxiety, she is aware she will have to ask for this medication. #4 type 2 diabetes-patient's blood sugars will be monitored, sliding scale insulin will be given as needed #5 hyperlipidemia-patient is on a statin #6 hypothyroidism-patient is currently on Synthroid Total clinical time spent by myself addressing patient's medical issues, reviewing all of her data, and collaborating with patient's care team: 25 minutes [employer]acity Legal Freelance Web Designer Reflex Medical hold order details:: IF a medical hold is selected below, a suggested order for a MEDICAL HOLD will reflex upon signing the document. Next of kin: [place] law dictates a PRIORITY LIST for identifying legal decision-maker/legal next of kin in the following order (LNOK): 1st: The patient?s legal guardian, if any 2nd: The patient's spouse (if status is questionable, consult Risk Management) 3rd: The patient?s adult child(be) (majority, if multiple children) 4th: The patient?s parents 5th: The patient?s adult siblings (majority, if multiple children siblings) Charges/Coding Visit Charges Inpatient E&M: 82209 Subs Hosp L1
[2023-02-25] MEDS: Atorvastatin Calcium 20 MG Tablet PO (22:14)
[2023-02-25] MEDS: ALPRAZolam 0.5 MG Tablet PO (22:18)
[2023-02-25 22:42] LABS: Bedside Glucose 216 mg/dL (74-106)
[2023-02-26] VITALS (10 sets, daily range): BP systolic 115–134; BP diastolic 71–87; PULSE 79–96; RESP 18–21; TEMP 35.6–37.6; O2SAT 92–94
[2023-02-26] MEDS: Levothyroxine 100 MCG Tablet PO (05:36)
[2023-02-26] MEDS: guaiFENesin Dm 10 ML UDC PO (05:38)
[2023-02-26] MEDS: Insulin Lispro 100 UNIT/ML INSULN.PEN SC ×4 (06:35→21:09)
[2023-02-26] MEDS: Budesonide Respules 0.5 MG/2 ML AMPUL.NEB. INHALATION ×2 (06:54→19:06)
[2023-02-26] MEDS: Ipratropium/Albuterol Sulfate 3 ML AMPUL.NEB INHALATION ×3 (06:54→19:06)
[2023-02-26 07:01] LABS: Bedside Glucose 202 mg/dL (74-106)
[2023-02-26] MEDS: Metoprolol(XL)Succ 25 MG Tablet PO (08:05)
[2023-02-26] MEDS: Aspirin 81 MG TAB.CHEW PO (08:05)
[2023-02-26] MEDS: Pantoprazole Sodium 40 MG Tablet PO (08:05)
[2023-02-26] MEDS: Cephalexin 500 MG Capsule PO ×2 (08:05→21:10)
[2023-02-26] MEDS: Magnesium Chloride 64 MG Delay Rel.Tablet 128 MG PO (08:05)
[2023-02-26] MEDS: Celecoxib 200 MG Capsule PO (08:05)
[2023-02-26] MEDS: Gabapentin 300 MG Capsule PO ×2 (08:06→17:54)
[2023-02-26] MEDS: Raloxifene HCl 60 MG Tablet PO (08:06)
[2023-02-26] MEDS: Heparin Injection (Vial) 5,000 UNIT/ML VIAL 5000 UNIT SC ×2 (08:06→21:10)
[2023-02-26] MEDS: Loratadine 10 MG Tablet PO (08:06)
[2023-02-26] MEDS: Acetaminophen 325 MG Tablet 650 MG PO (08:06)
[2023-02-26] MEDS: NYSTATIN 500,000 UNIT/5 ML UDC 500000 UNIT PO ×4 (08:06→21:10)
[2023-02-26 13:46] LABS: Bedside Glucose 154 mg/dL (74-106)
--- NOTE | 2023-02-26 14:44 | CASEMGMT ---
Discharge Planning [facility] has obtained auth. SW updated. Kath Newell, Discharge Planning Asst.
--- NOTE | 2023-02-26 15:11 | TREXTCAR_ITS ---
Diet Diet Order/Speech Therapy: 02/22/23 23:16 Diet: Consistent Carb - Calorie Controlled Food consistency:: Regular Liquid Consistency:: Regular/Thin Type of Dietary Supplement:: Glucerna Shake Diet Comments: 120mL glucerna shake TID w/ meals How many daily calories?: 1800 calorie Routine Orders/Code Status Routine Lab Work: - (Fingerstick blood sugars AC nightly, Humalog subcu per protocol: 200-250: 5 units, 251-300: 8 units, 301-350: 12 units) Code Status: Full Code Therapies Weight Bearing: Full weight bearing Physical Therapy: Eval and Treat Occupational Therapy: Eval and Treat Problem/Diagnosis (1) Generalized weakness: Status: Acute Code(s): R53.1 - Weakness Plan 1. Acute hypoxia secondary to exacerbation of chronic obstructive pulmonary disease with a backdrop of recent COVID 19 infection-patient will remain on inhaled budesonide and DuoNeb, pulse ox will be monitored #2 acute debility secondary to recent COVID-19 infection and exacerbation of chronic obstructive pulmonary disease-PT and OT are seeing the patient, she will need to go to an extended care facility upon discharge from the hospital, her caregiver at home has COVID and is unable to take care of her. #3 chronic anxiety-patient takes Xanax twice a day as needed anxiety, she is aware she will have to ask for this medication. #4 type 2 diabetes-patient's blood sugars will be monitored, sliding scale insulin will be given as needed #5 hyperlipidemia-patient is on a statin #6 hypothyroidism-patient is currently on Synthroid Total clinical time spent by myself addressing patient's medical issues, reviewing all of her data, and collaborating with patient's care team: 25 minutes Allergies/Procedures Done in Hospital Allergies Penicillins Allergy (Verified 02/13/23 14:00) Swelling clindamycin Adverse Reaction (Intermediate, Verified 02/13/23 14:00) Abd cramps/diarrhea Procedures: None Type of Care/Length of Stay Estimated LOS: Convalescent Care Less Than 30 days Type of Care Needed: Skilled Rehab Potential: Good Prognosis: Good Additional Orders/Day of Discharge H&P will serve as current which was dated: 02/22/23 Day of Discharge: 02/26/23 Dietary and Speech Recommendations Dietitian Recommendations/Changes: Continue 1800 calorie/carb-controlled diet; liberalize diet as needed. Will change glucerna shake from w/ medpass to 120mL TID w/ meals instead. Additional ONS as needed if PO does not improve at follow-up. Discharge Plan Admission Admit Date/Time: 02/25/23 16:00 Primary Reason for Your Visit: Hypoxia, exacerbation of COPD, late effects of COVID-19 infection Attending Provider: Lux Borrero Primary Care Provider: Reece Salas Consulting Providers: Anna Reid Instructions Additional Instructions / Restrictions: Oxygen at 3 L/min via nasal cannula continuously, maintain pulse ox 90% or above Discharge Orders/Prescriptions Prescriptions: New nystatin 100,000 unit/mL Suspension 500,000 unit PO 4X/DAY Qty: 0 0RF ipratropium-albuterol 0.5 mg-3 mg(2.5 mg base)/3 mL Solution For Nebulization 3 ml inhalation Q6HWA.RT Qty: 1 0RF dextromethorphan-guaifenesin 10-100 mg/5 mL Syrup 10 ml PO Q6H PRN PRN (Reason: COUGH) Qty: 0 0RF alprazolam 0.5 mg Tablet 0.5 mg PO BID PRN PRN (Reason: Anxiety) Qty: 4 0RF cephalexin 500 mg Capsule 500 mg PO Q12 Qty: 1 0RF Rx Instructions: continue for a total of 13 doses starting 02/26/2023 nitroglycerin 0.4 mg Tablet, Sublingual 0.4 mg sublingual Q5M PRN (Reason: Cardiac/Chest Pain) Qty: 1 0RF budesonide 0.5 mg/2 mL Suspension For Nebulization 0.5 mg inhalation BID.RT Qty: 1 0RF oxycodone 5 mg Tablet 2.5 - 5 mg PO Q4H PRN PRN (Reason: Pain Score 4-10) 2 Days Qty: 10 0RF Continued simvastatin 20 MG tablet 40 mg PO QHS Patient Comments: cholesterol aspirin 81 MG tablet,chewable 81 mg PO DAILY@0800 Patient Comments: heart health raloxifene 60 MG tablet 60 mg PO DAILY Patient Comments: bone health loratadine 10 MG tablet 10 mg PO DAILY Patient Comments: allergies gabapentin 300 MG capsule 300 mg PO BIDCM Patient Comments: neuropathy/pain magnesium oxide 400 MG tablet 400 mg PO BID Patient Comments: supplement pantoprazole 40 MG tablet 40 mg PO DAILY celecoxib [Celebrex] 200 mg Capsule 200 mg PO DAILY levothyroxine [Euthyrox] 100 mcg tablet 100 mcg PO DAILY glimepiride 2 mg tablet 2 mg PO DAILY albuterol sulfate 2.5 MG/3 ML solution for nebulization 2.5 mg inhalation Q2H PRN PRN (Reason: SOB &/OR WHEEZING) Qty: 1 0RF metoprolol succinate [Toprol XL] 25 mg tablet extended release 24 hr 25 mg PO DAILY Discontinued acetaminophen-codeine 1 TABLET tablet 1 tab PO BID PRN (Reason: Pain) Patient Comments: pain metformin 500 MG tablet 250 mg PO MOWEFR acetaminophen [Tylenol] 325 MG tablet 650 mg PO Q6H PRN PRN (Reason: Mild Pain (1-3)/Temp > 100.7 F) 0RF alprazolam 0.25 mg tablet 0.5 mg PO BID PRN (Reason: anxiety) levofloxacin 500 mg tablet 500 mg PO DAILY Patient Comments: TAKE 1 TABLET BY MOUTH ONCE DAILY FOR 7 DAYS. STARTED 02/21/23 prednisone 10 mg tablet See Taper PO DAILY Taper: Prednisone Taper 50 mg WITH BREAKFAST for 3 Days 30 mg WITH BREAKFAST for 3 Days 10 mg WITH BREAKFAST for 3 Days Referrals / Follow Up: Reece Salas DO [Primary Care Provider] - Disposition Disposition (needs filled in before D/C Order can be placed): [facility]
--- NOTE | 2023-02-26 15:27 | PCM.DC.SUM ---
Providers Date of Admission: 02/25/23 Date of Discharge: 02/27/23 Primary Care Physician: Dr. Reece Salas, Consultations 02/23/23 16:57 Consult: Software Performance Engineer / Pulmonary Medicine Routine Consulting Provider: Intensivists/Pulmonary Med Reason for Consult: family request, COPD EMERGENT Consult: No MD Notified: Yes Date Notified: 02/23/23 Time Notified: 16:57 Method of Notification: Text Reason For Visit: DEBILITY AND WEAKNESS, COVID Diagnosis Discharge Diagnosis (1) Generalized weakness: Status: Acute Code(s): R53.1 - Weakness Plan 1. Acute hypoxia secondary to exacerbation of chronic obstructive pulmonary disease with a backdrop of recent COVID 19 infection-patient will remain on inhaled budesonide and DuoNeb, pulse ox will be monitored #2 acute debility secondary to recent COVID-19 infection and exacerbation of chronic obstructive pulmonary disease-PT and OT are seeing the patient, she will need to go to an extended care facility upon discharge from the hospital, her caregiver at home has COVID and is unable to take care of her. #3 chronic anxiety-patient takes Xanax twice a day as needed anxiety, she is aware she will have to ask for this medication. #4 type 2 diabetes-patient's blood sugars will be monitored, sliding scale insulin will be given as needed #5 hyperlipidemia-patient is on a statin #6 hypothyroidism-patient is currently on Synthroid Total clinical time spent by myself addressing patient's medical issues, reviewing all of her data, and collaborating with patient's care team: 25 minutes Medications at Discharge Home Medications aspirin 81 mg chewable tablet 81 mg PO DAILY@0800 cardiovascular 05/22/14 gabapentin 300 mg capsule 300 mg PO BIDCM nerve pain 05/22/14 loratadine 10 mg tablet 10 mg PO DAILY allergies 05/22/14 raloxifene 60 mg tablet 60 mg PO DAILY osteoarthritis 05/22/14 simvastatin 20 mg tablet 40 mg PO QHS high cholesterol 05/22/14 magnesium oxide 400 mg (241.3 mg magnesium) tablet 400 mg PO BID electrolyte 09/19/15 metoprolol succinate 25 mg tablet,extended release 24 hr (Toprol XL) 25 mg PO DAILY Cardiovascular 01/18/17 pantoprazole 40 mg tablet,delayed release 40 mg PO DAILY reflux 05/09/18 celecoxib 200 mg capsule (Celebrex) 200 mg PO DAILY 10/30/20 glimepiride 2 mg tablet 2 mg PO DAILY 02/22/23 levothyroxine 100 mcg tablet (Euthyrox) 100 mcg PO DAILY 02/22/23 albuterol sulfate 2.5 mg/3 mL (0.083 %) solution for nebulization 2.5 mg (3 mL) inhalation Q2H PRN PRN SOB &/OR WHEEZING ##1 02/26/23 alprazolam 0.5 mg tablet 0.5 mg PO BID PRN PRN Anxiety #4 tabs 02/26/23 budesonide 0.5 mg/2 mL suspension for nebulization 0.5 mg (2 mL) inhalation BID.RT #1 mL 02/26/23 cephalexin 500 mg capsule 500 mg PO Q12 #1 cap 02/26/23 dextromethorphan-guaifenesin 10 mg-100 mg/5 mL oral syrup 10 ml PO Q6H PRN PRN COUGH #0 mL 02/26/23 ipratropium 0.5 mg-albuterol 3 mg (2.5 mg base)/3 mL nebulization soln 3 ml inhalation Q6HWA.RT #1 mL 02/26/23 nitroglycerin 0.4 mg sublingual tablet 0.4 mg sublingual Q5M PRN Cardiac/Chest Pain #1 TAB 02/26/23 nystatin 100,000 unit/mL oral suspension 500,000 unit (5 mL) PO 4X/DAY #0 mL 02/26/23 oxycodone 5 mg tablet 2.5 - 5 mg (0.5 - 1 x 5 mg) PO Q4H PRN PRN Pain Score 4-10 2 days #10 tabs 02/26/23 Hospital Course Operations None Procedures None Summary of Care Provided Minutes Spent on Discharge: 31 Hospital Course: This 78-year-old white female was seen in the emergency room at [facility] with a chief complaint of weakness and dyspnea. She had been diagnosed with COVID-19 approximately 12 days ago, she complained of having diarrhea but no bloody stools. Patient had been started on Levaquin and prednisone the day before but she stated that she felt worse. Patient's family also complained about some mild confusion that the patient has had recently. Labs obtained in the emergency room showed a normal white blood cell count, hemoglobin was 12.7, creatinine was 1.12, glucose was 324. Patient's chest x-ray showed no active disease. Patient required 2 L of oxygen to maintain her pulse ox above 90%. Patient was admitted to [facility], she was placed on aerosol treatments, due to the timeframe of the COVID-19 she was not given remdesivir or Decadron. She was placed on aerosol treatments and Pulmicort, she was seen at her request by pulmonary medicine who recommended continuing the present medications. Patient remained confused at times but for the most part was able answer simple questions. Patient was felt to be too weak to go home, she stated her caregiver had COVID and would not be there to help her, patient's family requested patient be placed temporarily in a fdc facility for short-term rehab services. I felt that the proper diagnosis for the patient was acute exacerbation of COPD secondary to recent COVID-19 infection. Patient made slow improvement while she was in the hospital, she required supplemental oxygen at a low flow rate. On 02/27/2023, patient was seen and examined: On examination she appeared in good health and spirits, she does not appear to be in any distress. Vital signs as documented. Skin warm and dry and without overt rashes. Neck without JVD, thyroid appears normal, trachea is midline, neck is supple. Lungs clear, normal air movement was noted. Heart exam notable for regular rhythm, normal sounds and absence of murmurs, rubs or gallops. Abdomen unremarkable and without evidence of organomegaly, masses, or abdominal aortic enlargement, bowel sounds are present in all 4 quadrants, no abdominal tenderness was noted. Extremities nonedematous, no cyanosis was noted, no clubbing was noted. Neuro: Cranial nerves II through XII are grossly intact, no focal motor deficits were noted, sensation to light touch and pinprick is intact, motor exam 5/5 throughout. Psych: Patient is alert and oriented , she does not appear anxious or depressed, she does not appear agitated. Patient was felt to be stable for discharge on 02/27/2023. Weight / BMI Weight Weight: 73.9 kg Body Mass Index (BMI) 27.9 ABG / Lab / Microbiology Data 02/23/23 07:05 02/23/23 07:05 Laboratory: Laboratory Results - last 24 hr 02/25/23 16:28: POC Glucose 281 H 02/25/23 22:13: POC Glucose 216 H 02/26/23 06:34: POC Glucose 202 H 02/26/23 12:31: POC Glucose 154 H Microbiology: Microbiology 02/23/23 23:25 Urine, Clean Catch Urine Culture - Preliminary GNR lactose radiology clerk 02/22/23 20:28 Mucosa - Nose SARS-CoV-2, Influenza & RSV (PCR) - Final SARS-CoV-2 (COVID 19) Meaningful Use Info Meaningful Use Diagnoses (Choose all that apply): None applicable Discharge Plan Admission Admit Date/Time: 02/25/23 16:00 Primary Reason for Your Visit: Hypoxia, exacerbation of COPD, late effects of COVID-19 infection Attending Provider: Lux Borrero Primary Care Provider: Reece Salas Consulting Providers: Anna Reid Instructions Additional Instructions / Restrictions: Oxygen at 3 L/min via nasal cannula continuously, maintain pulse ox 90% or above Discharge Orders/Prescriptions Prescriptions: New nystatin 100,000 unit/mL Suspension 500,000 unit PO 4X/DAY Qty: 0 0RF ipratropium-albuterol 0.5 mg-3 mg(2.5 mg base)/3 mL Solution For Nebulization 3 ml inhalation Q6HWA.RT Qty: 1 0RF dextromethorphan-guaifenesin 10-100 mg/5 mL Syrup 10 ml PO Q6H PRN PRN (Reason: COUGH) Qty: 0 0RF alprazolam 0.5 mg Tablet 0.5 mg PO BID PRN PRN (Reason: Anxiety) Qty: 4 0RF cephalexin 500 mg Capsule 500 mg PO Q12 Qty: 1 0RF Rx Instructions: continue for a total of 13 doses starting 02/26/2023 nitroglycerin 0.4 mg Tablet, Sublingual 0.4 mg sublingual Q5M PRN (Reason: Cardiac/Chest Pain) Qty: 1 0RF budesonide 0.5 mg/2 mL Suspension For Nebulization 0.5 mg inhalation BID.RT Qty: 1 0RF oxycodone 5 mg Tablet 2.5 - 5 mg PO Q4H PRN PRN (Reason: Pain Score 4-10) 2 Days Qty: 10 0RF Continued simvastatin 20 MG tablet 40 mg PO QHS Patient Comments: cholesterol aspirin 81 MG tablet,chewable 81 mg PO DAILY@0800 Patient Comments: heart health raloxifene 60 MG tablet 60 mg PO DAILY Patient Comments: bone health loratadine 10 MG tablet 10 mg PO DAILY Patient Comments: allergies gabapentin 300 MG capsule 300 mg PO BIDCM Patient Comments: neuropathy/pain magnesium oxide 400 MG tablet 400 mg PO BID Patient Comments: supplement pantoprazole 40 MG tablet 40 mg PO DAILY celecoxib [Celebrex] 200 mg Capsule 200 mg PO DAILY levothyroxine [Euthyrox] 100 mcg tablet 100 mcg PO DAILY glimepiride 2 mg tablet 2 mg PO DAILY albuterol sulfate 2.5 MG/3 ML solution for nebulization 2.5 mg inhalation Q2H PRN PRN (Reason: SOB &/OR WHEEZING) Qty: 1 0RF metoprolol succinate [Toprol XL] 25 mg tablet extended release 24 hr 25 mg PO DAILY Discontinued acetaminophen-codeine 1 TABLET tablet 1 tab PO BID PRN (Reason: Pain) Patient Comments: pain metformin 500 MG tablet 250 mg PO MOWEFR acetaminophen [Tylenol] 325 MG tablet 650 mg PO Q6H PRN PRN (Reason: Mild Pain (1-3)/Temp > 100.7 F) 0RF alprazolam 0.25 mg tablet 0.5 mg PO BID PRN (Reason: anxiety) levofloxacin 500 mg tablet 500 mg PO DAILY Patient Comments: TAKE 1 TABLET BY MOUTH ONCE DAILY FOR 7 DAYS. STARTED 02/21/23 prednisone 10 mg tablet See Taper PO DAILY Taper: Prednisone Taper 50 mg WITH BREAKFAST for 3 Days 30 mg WITH BREAKFAST for 3 Days 10 mg WITH BREAKFAST for 3 Days Referrals / Follow Up: Reece Salas DO [Primary Care Provider] - Disposition Disposition (needs filled in before D/C Order can be placed): [facility] Charges/Coding Visit Charges Inpatient E&M: 70494 Disch Hosp >30min
--- NOTE | 2023-02-26 15:35 | PHA.DC.MR.R ---
Pharmacy [facility] Reconciliation Pharmacy Service has performed discharge medication reconciliation for this patient. The patient's discharge medication list was reviewed for discrepancies and discrepancies were resolved. Medications at Discharge Home Medications aspirin 81 mg chewable tablet 81 mg PO DAILY@0800 cardiovascular 05/22/14 gabapentin 300 mg capsule 300 mg PO BIDCM nerve pain 05/22/14 loratadine 10 mg tablet 10 mg PO DAILY allergies 05/22/14 raloxifene 60 mg tablet 60 mg PO DAILY osteoarthritis 05/22/14 simvastatin 20 mg tablet 40 mg PO QHS high cholesterol 05/22/14 magnesium oxide 400 mg (241.3 mg magnesium) tablet 400 mg PO BID electrolyte 09/19/15 metoprolol succinate 25 mg tablet,extended release 24 hr (Toprol XL) 25 mg PO DAILY Cardiovascular 01/18/17 pantoprazole 40 mg tablet,delayed release 40 mg PO DAILY reflux 05/09/18 celecoxib 200 mg capsule (Celebrex) 200 mg PO DAILY 10/30/20 glimepiride 2 mg tablet 2 mg PO DAILY 02/22/23 levothyroxine 100 mcg tablet (Euthyrox) 100 mcg PO DAILY 02/22/23 albuterol sulfate 2.5 mg/3 mL (0.083 %) solution for nebulization 2.5 mg (3 mL) inhalation Q2H PRN PRN SOB &/OR WHEEZING ##1 02/26/23 alprazolam 0.5 mg tablet 0.5 mg PO BID PRN PRN Anxiety #4 tabs 02/26/23 budesonide 0.5 mg/2 mL suspension for nebulization 0.5 mg (2 mL) inhalation BID.RT #1 mL 02/26/23 cephalexin 500 mg capsule 500 mg PO Q12 #1 cap 02/26/23 dextromethorphan-guaifenesin 10 mg-100 mg/5 mL oral syrup 10 ml PO Q6H PRN PRN COUGH #0 mL 02/26/23 ipratropium 0.5 mg-albuterol 3 mg (2.5 mg base)/3 mL nebulization soln 3 ml inhalation Q6HWA.RT #1 mL 02/26/23 nitroglycerin 0.4 mg sublingual tablet 0.4 mg sublingual Q5M PRN Cardiac/Chest Pain #1 TAB 02/26/23 nystatin 100,000 unit/mL oral suspension 500,000 unit (5 mL) PO 4X/DAY #0 mL 02/26/23 oxycodone 5 mg tablet 2.5 - 5 mg (0.5 - 1 x 5 mg) PO Q4H PRN PRN Pain Score 4-10 2 days #10 tabs 02/26/23
[2023-02-26 16:15] LABS: Bedside Glucose 177 mg/dL (74-106)
--- NOTE | 2023-02-26 16:37 | CASEMGMT ---
Discharge Planning Discharge orders, signed med list, and transport time sent to [facility] via [facility]. Physicians sill transport patient by wheelchair at 7:30p. Nursing and SW updated. Kath Newell, Discharge Planning Asst.
--- NOTE | 2023-02-26 16:38 | CASEMGMT ---
Social Work Precert attained. Pt to [facility] today, D/C Weld Engineer Kath setting up discharge, set it up for 7:30pm pickup. SW called daughter Carol Ann to let her know([phone]), and she wanted to check in w/pt so SW put her on the phone w/pt. SW let pt know the 7:30pickup time also, RN aware as well. SW completed PASRR, PASRR w/results will be sent w/pt and placed on chart. No further needs. GINA Ortiz
--- NOTE | 2023-02-26 19:18 | PCA ---
PHYSICIANS CALLED TO LET ME KNOW THE PATIENT TRANSPORTATION IS RUNNING BEHIND. SUPPOSE TO BEEN HERE AT 0 AND NOW IS POSTPONED TO 2129. THIS DATA PROCESSING SPECIALIST CALLED AND TOLD NELLIE GARCIA THE TIME OF ARRIVAL
[2023-02-26] MEDS: Atorvastatin Calcium 20 MG Tablet PO (21:10)
[2023-02-26] MEDS: ALPRAZolam 0.5 MG Tablet PO (21:11)
[2023-02-26 22:51] LABS: Bedside Glucose 207 mg/dL (74-106)
[2023-02-27 03:46] VITALS: BP 105/58; PULSE 90; RESP 18; TEMP 37.1; O2SAT 92
[2023-02-27] MEDS: Insulin Lispro 100 UNIT/ML INSULN.PEN SC (06:22)
[2023-02-27] MEDS: Levothyroxine 100 MCG Tablet PO (06:22)
[2023-02-27 06:54] LABS: Bedside Glucose 196 mg/dL (74-106)
[2023-02-27 07:29] VITALS: PULSE 90; RESP 21; O2SAT 93
[2023-02-27] MEDS: Ipratropium/Albuterol Sulfate 3 ML AMPUL.NEB INHALATION (07:29)
[2023-02-27 08:11] VITALS: BP 109/70; PULSE 93; RESP 18; TEMP 37.2; O2SAT 90
== END 2023-02-27 09:01 | disposition skilled nursing facility (03) | DRG 191 ==
LOC: ED 22:04 → MS3 23:06
PROVIDERS: Admitting Provider Student in an Organized Health Care Education/Training Program; Emergency Provider Emergency Medicine; PCP Family Medicine; Visit Provider Internal Medicine
DX: J44.1 Chronic obstructive pulmonary disease with (acute) exacerbation (principal); N30.00 Acute cystitis without hematuria; E03.9 Hypothyroidism, unspecified; E11.65 Type 2 diabetes mellitus with hyperglycemia; I10 Essential (primary) hypertension; E78.2 Mixed hyperlipidemia; F17.210 Nicotine dependence, cigarettes, uncomplicated; F41.9 Anxiety disorder, unspecified; U09.9 Post COVID-19 condition, unspecified; R09.02 Hypoxemia; Z79.82 Long term (current) use of aspirin; Z79.810 Long term (current) use of selective estrogen receptor modulators (SERMs); Z79.84 Long term (current) use of oral hypoglycemic drugs; Z79.899 Other long term (current) drug therapy
CPT/HCPCS: 36415; 71045; 80048; 81001; 82962; 83880; 85025; 87077; 87086; 87088; 87186; 87631; 93005; 94640; 94668; 94762; 97110; 97116; 97162; 97166; 97530; 97535; 97802; 99285; J7030; A4216; J2405

== ENCOUNTER → 2023-05-24 | Outpatient (CLI) | payer MEDICARE, MEDICAID, SELFPAY ==
--- NOTE | 2023-05-24 15:56 | CT_ITS ---
EXAM: CT ANGIOGRAPHY CHEST WITHOUT AND WITH INTRAVENOUS CONTRAST CLINICAL INDICATION: SOB TECHNIQUE: Helically acquired angiography images were obtained of the chest without and with intravenous contrast. This CT exam was performed using one or more of the following dose reduction techniques: automated exposure control, adjustment of the mA and/or kV according to patient size, and/or use of iterative reconstruction technique. MIP reconstructed images were created and reviewed. CONTRAST: IV 100mL Isovue-370 RADIATION DOSE: CTDIvol = 13.98 mGy, DLP = 421.58 mGy-cm COMPARISON: No relevant prior studies available. FINDINGS: PULMONARY ARTERIES: Unremarkable. Normal in caliber. No evidence of pulmonary embolism. AORTA: Unremarkable. Normal in caliber. No evidence of dissection. GREAT VESSELS OF AORTIC ARCH: Unremarkable. Normal in caliber. No evidence of dissection. LUNGS AND PLEURAL SPACES: Low to moderate lung volumes. Prominent diffuse interstitial thickening most likely representing fibrosis and possibly mild interstitial edema. Widespread streaky densities of both lungs consistent with areas of scarring and subsegmental atelectasis. No definite mass. No pneumothorax. No effusions. HEART: Mild cardiomegaly. No pericardial effusion. Mild coronary artery calcifications. MEDIASTINUM: There is a huge hiatal hernia containing most of the stomach. No mediastinal or hilar adenopathy. Esophagus is unremarkable. THYROID: Unremarkable. No thyroid lesions. BONES/JOINTS: Degenerative changes throughout the bones. CT/CTA Chest W/WO Contrast IMPRESSION: 1. No evidence for PE. 2. Huge hiatal hernia. 3. Probable chronic pulmonary disease with interstitial fibrosis along with patchy areas of atelectasis and scarring. Electronically Signed: Dion Pineda MD at 21:43 EDT ,
[2023-05-24 16:33] LABS: CREATININE FINGERSTICK 1.1 mg/dL (0.55-1.02)
== END | disposition home or self-care (01) ==
LOC: CT 15:52
PROVIDERS: PCP Family Medicine; Referring Provider Family Medicine; Visit Provider Internal Medicine Cardiovascular Disease
DX: J44.9 Chronic obstructive pulmonary disease, unspecified (principal); I27.20 Pulmonary hypertension, unspecified; R06.02 Shortness of breath; Z87.891 Personal history of nicotine dependence
CPT/HCPCS: 71275; Q9967; A4216

== ENCOUNTER 2023-07-15 18:25 | Emergency (ER) | payer MEDICARE, MEDICAID, SELFPAY ==
[2023-07-15 18:26] VITALS: BP 86/42; PULSE 90; RESP 16; TEMP 35.7; O2SAT 98
--- NOTE | 2023-07-15 21:43 | EX.ED.DYSGE1 ---
HPI History of Present Illness Chief Complaint: Rash Informant: patient Onset/Context/Timing Onset: Weeks (2 weeks) Context: Gradual Onset Narrative Narrative: Patient presents secondary to rash. She states that she developed a rash 2 weeks ago when she was still in a senior care. She initially developed rash in the axilla bilaterally and then it spread to her back. After returning to her home she notes it is spread to her chest and her extremities. She has been using oral Benadryl and hydrocortisone cream topically. She did see her primary care physician who stopped a couple of her medications, primarily because he did not feel that she needed them, not necessarily because of rash. She denies shortness of breath. She was noted to have a low blood pressure in triage at 86/42. She states she is never had a blood pressure reading that low. [facility] Medical History Vision loss of right eye Vision loss of left eye Hearing loss, left Hearing loss, right Irregular heart beat COVID Chronic pain Rheumatoid arthritis Kidney stones GERD (gastroesophageal reflux disease) Sleep apnea Smoker Hypertension Diabetes mellitus Syncope Hyperlipemia, mixed Anxiety and depression PTSD (post-traumatic stress disorder) COPD (chronic obstructive pulmonary disease) Nicotine addiction Heart palpitations Pre-syncope Dizziness PVC's (premature ventricular contractions) Dyslipidemia MVP (mitral valve prolapse) Hypothyroid Panic attacks Osteoporosis Home Medications ?Medication ?Instructions ?Recorded ?Last Taken ?Type aspirin 81 mg chewable tablet 81 mg PO DAILY@0800 cardiovascular 05/22/14 05/09/18 History 81 mg gabapentin 300 mg capsule 300 mg PO BIDCM nerve pain 05/22/14 09/19/15 History loratadine 10 mg tablet 10 mg PO DAILY allergies 05/22/14 05/09/18 History 10 mg raloxifene 60 mg tablet 60 mg PO DAILY osteoarthritis 05/22/14 05/09/18 History 60 mg metoprolol succinate 25 mg 25 mg PO DAILY Cardiovascular 01/18/17 10/29/20 23:00 History tablet,extended release 24 hr (Toprol XL) pantoprazole 40 mg tablet,delayed 40 mg PO DAILY reflux 05/09/18 Unknown History release celecoxib 200 mg capsule (Celebrex) 200 mg PO DAILY 10/30/20 Unknown History levothyroxine 100 mcg tablet 100 mcg PO DAILY 01/12/24 Unknown History (Euthyrox) albuterol sulfate 2.5 mg/3 mL 2.5 mg (3 mL) inhalation Q2H PRN 02/26/23 Unknown Rx (0.083 %) solution for nebulization PRN SOB &/OR WHEEZING ##1 alprazolam 0.5 mg tablet 0.5 mg PO BID PRN PRN Anxiety #4 02/26/23 Unknown Rx tabs budesonide 0.5 mg/2 mL suspension 0.5 mg (2 mL) inhalation BID.RT #1 02/26/23 Unknown Rx for nebulization mL dextromethorphan-guaifenesin 10 10 ml PO Q6H PRN PRN COUGH #0 mL 02/26/23 Unknown Rx mg-100 mg/5 mL oral syrup ipratropium 0.5 mg-albuterol 3 mg 3 ml inhalation Q6HWA.RT #1 mL 02/26/23 Unknown Rx (2.5 mg base)/3 mL nebulization soln nystatin 100,000 unit/mL oral 500,000 unit (5 mL) PO 4X/DAY #0 mL 02/26/23 Unknown Rx suspension oxycodone 5 mg tablet 2.5 - 5 mg (0.5 - 1 x 5 mg) PO Q4H 02/26/23 Unknown Rx PRN PRN Pain Score 4-10 2 days #10 tabs cholecalciferol (vitamin D3) 25 25 mcg PO DAILY 05/06/23 Unknown History mcg (1,000 unit) capsule cyanocobalamin (vitamin B-12) 500 500 mcg PO DAILY 05/06/23 Unknown History mcg tablet (Vitamin B-12) furosemide 20 mg tablet 20 mg PO DAILY 05/06/23 Unknown History Lactobacillus acidophilus 1 1,000 mmu cells PO DAILY 05/08/23 Unknown History billion cell tablet fluticasone propionate 115 2 puff inhalation BID 05/08/23 Unknown History mcg-salmeterol 21 mcg/actuation HFA inhaler (Advair HFA) magnesium oxide 400 mg (241.3 mg 400 mg PO TID electrolyte 05/08/23 Unknown History magnesium) tablet metformin 500 mg tablet,extended 1,000 mg PO BID 05/08/23 Unknown History release 24 hr sertraline 50 mg tablet 50 mg PO DAILY 05/08/23 Unknown History simvastatin 40 mg tablet 40 mg PO QPM 05/08/23 Unknown History sitagliptin phosphate 50 mg tablet 50 mg PO DAILY 05/08/23 Unknown History (Januvia) prednisone 20 mg tablet 40 mg (2 x 20 mg) PO DAILY #8 tabs 07/15/23 Unknown Rx Allergy/AdvReac Type Severity Reaction Status Date / Time Penicillins Allergy Swelling Verified 07/15/23 18:31 clindamycin AdvReac Intermediate Abd Verified 07/15/23 18:31 cramps/diarrhea Family History Mother CAD (coronary artery disease) Other Heart disease Hypertension Myocardial infarction Surgical History History of mandibular surgery Hx of knee surgery History of cholecystectomy History of appendectomy Previous section History of gastric surgery Social History household members: none Smoking Status: Former smoker quit date: 01/11/23 alcohol intake: never substance use type: does not use caffeine: Yes Type: coffee Number of servings: 3 ROS ROS ED Constitutional Constitutional ED: Denies chills or fever(s) ENT ENT ED: Denies rhinorrhea or sore throat Cardiovascular Cardiovascular: Denies chest pain or palpitations Respiratory/Chest Respiratory/Chest: Denies cough or dyspnea Gastrointestinal Gastrointestinal: Denies abdominal pain, nausea or vomiting Musculoskeletal Musculoskeletal: Denies back pain or extremity pain Integumentary Reports rash; Denies Abrasions Neurologic Neurologic: Denies headache(s) or weakness Psychiatric Psychiatric: Denies anxiety or depression Allergic/Immunologic Allergic/Immunologic ED: Denies lip swelling or urticaria EXAM Physical Exam Const Vital Signs: 07/15/23 18:26 Temperature 96.3 F L Temperature Source Temporal Pulse Rate 90 Respiratory Rate 16 Blood Pressure 86/42 L Blood Pressure Mean 56 Pulse Ox 98 Oxygen Delivery Method Nasal Cannula Oxygen Flow Rate (L/min) 3 Positive well nourished and well developed General Appearance ED: well developed HEENT Reports moist mucous membranes Eyes EOMs intact bilaterally Neck no lymphadenopathy Chest Wall inspection of chest normal and palpation of chest normal Resp normal respiratory effort and clear to auscultation bilaterally Cardio regular rate and regular rhythm GI non-tender Palpation: soft Extremity normal to inspection Neuro oriented x3 Skin Skin Narrative: Patient with scattered dry erythematous rash over her trunk and extremities. No lesions noted on her face. No urticarial lesions. No vesicles. MDM MDM MDM Narrative Medical decision making narrative: Patient's blood pressure the time of my exam is 138/92. She has strong distal pulses throughout. Patient is still on several medications that could potentially cause rash. She is unsure what medications are What she has been on quite some time. I will add a course of prednisone for her to help control her rash. She will continue Benadryl as needed. I will also give her information for dermatology follow-up if not improving. She voices understanding and agreement with the plan. Discharge Plan Triage Chief Complaint: Rash ED Provider: Samantha Burgos Dx/Rx/DC Orders Clinical Impression: Rash Instructions: Nonspecific Skin Rash Prescriptions: New prednisone 20 mg tablet 40 mg PO DAILY Qty: 8 0RF No Action furosemide 20 mg tablet 20 mg PO DAILY cyanocobalamin (vitamin B-12) [Vitamin B-12] 500 mcg tablet 500 mcg PO DAILY cholecalciferol (vitamin D3) 25 mcg (1,000 unit) capsule 25 mcg PO DAILY fluticasone propion-salmeterol [Advair HFA] 115-21 mcg/actuation HFA aerosol inhaler 2 puff inhalation BID Januvia 50 mg tablet 50 mg PO DAILY Lactobacillus acidophilus 1 billion cell tablet 1,000 mmu cells PO DAILY metformin 500 mg tablet extended release 24 hr 1,000 mg PO BID sertraline 50 mg tablet 50 mg PO DAILY simvastatin 40 mg tablet 40 mg PO QPM aspirin 81 MG tablet,chewable 81 mg PO DAILY@0800 Patient Comments: heart health raloxifene 60 MG tablet 60 mg PO DAILY Patient Comments: bone health loratadine 10 MG tablet 10 mg PO DAILY Patient Comments: allergies gabapentin 300 MG capsule 300 mg PO BIDCM Patient Comments: neuropathy/pain magnesium oxide 400 mg (241.3 mg magnesium) tablet 400 mg PO TID Patient Comments: supplement pantoprazole 40 MG tablet 40 mg PO DAILY celecoxib [Celebrex] 200 mg Capsule 200 mg PO DAILY levothyroxine [Euthyrox] 100 mcg tablet 100 mcg PO DAILY nystatin 100,000 unit/mL Suspension 500,000 unit PO 4X/DAY Qty: 0 0RF ipratropium-albuterol 0.5 mg-3 mg(2.5 mg base)/3 mL Solution For Nebulization 3 ml inhalation Q6HWA.RT Qty: 1 0RF dextromethorphan-guaifenesin 10-100 mg/5 mL Syrup 10 ml PO Q6H PRN PRN (Reason: COUGH) Qty: 0 0RF alprazolam 0.5 mg Tablet 0.5 mg PO BID PRN PRN (Reason: Anxiety) Qty: 4 0RF budesonide 0.5 mg/2 mL Suspension For Nebulization 0.5 mg inhalation BID.RT Qty: 1 0RF oxycodone 5 mg Tablet 2.5 - 5 mg PO Q4H PRN PRN (Reason: Pain Score 4-10) 2 Days Qty: 10 0RF albuterol sulfate 2.5 MG/3 ML solution for nebulization 2.5 mg inhalation Q2H PRN PRN (Reason: SOB &/OR WHEEZING) Qty: 1 0RF metoprolol succinate [Toprol XL] 25 mg tablet extended release 24 hr 25 mg PO DAILY Primary Care Provider: Reece Salas Referrals: Reece Salas DO [Primary Care Provider] - Bren Pineda MD [Non-Staff] - 1 Week if not improving Activity Restrictions/Additional Instructions: Dr. Pineda works at [facility] dermatology. They do have an office in [place] that you can make an appointment for. You can see any of the providers at the office. Print Language: Mohawk Disposition Disposition: Home, Self Care
[2023-07-15 21:58] VITALS: BP 129/71; PULSE 80; RESP 16; TEMP 36.8; O2SAT 100
[2023-07-15 21:59] VITALS: BMI 28.2
[2023-07-15] MEDS: predniSONE 20 MG Tablet 40 MG PO (22:03)
== END 2023-07-15 22:05 | disposition home or self-care (01) ==
LOC: ED 21:53
PROVIDERS: Emergency Provider Emergency Medicine; PCP Family Medicine; Visit Provider Emergency Medicine
DX: R21 Rash and other nonspecific skin eruption (principal); E11.9 Type 2 diabetes mellitus without complications; I10 Essential (primary) hypertension; E78.5 Hyperlipidemia, unspecified; Z79.82 Long term (current) use of aspirin; Z79.899 Other long term (current) drug therapy; K21.9 Gastro-esophageal reflux disease without esophagitis; E03.9 Hypothyroidism, unspecified; Z79.84 Long term (current) use of oral hypoglycemic drugs; F41.8 Other specified anxiety disorders; Z90.49 Acquired absence of other specified parts of digestive tract; Z87.891 Personal history of nicotine dependence
CPT/HCPCS: 99282

== ENCOUNTER 2023-10-23 19:44 | Emergency (ER) | payer MEDICARE, MEDICAID, SELFPAY ==
[2023-10-23 19:45] VITALS: BP 125/79; PULSE 89; RESP 16; TEMP 36.8; O2SAT 98; BMI 28.0
--- NOTE | 2023-10-23 20:28 | ED.VIS.LOWEX ---
HPI History of Present Illness Chief Complaint: Edema Detail of Chief Complaint: Swelling to right foot Informant: patient Narrative Narrative: Patient presents with swelling to the right foot. Swelling has been there for about a week. Patient states that she took Lasix that she had leftover for 3 days and really did not seem to improve the swelling. She denies recent travel or surgery. She denies injury to the foot. She does not have history of gout as far she knows. Patient states the top of the foot slightly painful. Patient was seen in urgent care and referred to the ER to rule out DVT. She denies chest pain or shortness of breath. Patient states that she had an episode of leg swelling that required admission for IV Lasix for about 5 days. She denies kidney disease or history of CHF. She had history of COVID about 5 months ago and just recently got off daytime O2 but still uses oxygen at night. [facility] Medical History Vision loss of right eye Vision loss of left eye Hearing loss, left Hearing loss, right Irregular heart beat COVID Chronic pain Rheumatoid arthritis Kidney stones GERD (gastroesophageal reflux disease) Sleep apnea Smoker Hypertension Diabetes mellitus Syncope Hyperlipemia, mixed Anxiety and depression PTSD (post-traumatic stress disorder) COPD (chronic obstructive pulmonary disease) Nicotine addiction Heart palpitations Pre-syncope Dizziness PVC's (premature ventricular contractions) Dyslipidemia MVP (mitral valve prolapse) Hypothyroid Panic attacks Osteoporosis Home Medications ?Medication ?Instructions ?Recorded ?Last Taken ?Type aspirin 81 mg chewable tablet 81 mg PO DAILY@0800 cardiovascular 05/22/14 05/09/18 History 81 mg gabapentin 300 mg capsule 300 mg PO BIDCM nerve pain 05/22/14 09/19/15 History loratadine 10 mg tablet 10 mg PO DAILY allergies 05/22/14 05/09/18 History 10 mg raloxifene 60 mg tablet 60 mg PO DAILY osteoarthritis 05/22/14 05/09/18 History 60 mg metoprolol succinate 25 mg 25 mg PO DAILY Cardiovascular 01/18/17 10/29/20 23:00 History tablet,extended release 24 hr (Toprol XL) pantoprazole 40 mg tablet,delayed 40 mg PO DAILY reflux 05/09/18 Unknown History release celecoxib 200 mg capsule (Celebrex) 200 mg PO DAILY 10/30/20 Unknown History levothyroxine 100 mcg tablet 100 mcg PO DAILY 02/22/23 Unknown History (Euthyrox) albuterol sulfate 2.5 mg/3 mL 2.5 mg (3 mL) inhalation Q2H PRN 02/26/23 Unknown Rx (0.083 %) solution for nebulization PRN SOB &/OR WHEEZING ##1 alprazolam 0.5 mg tablet 0.5 mg PO BID PRN PRN Anxiety #4 02/26/23 Unknown Rx tabs budesonide 0.5 mg/2 mL suspension 0.5 mg (2 mL) inhalation BID.RT #1 02/26/23 Unknown Rx for nebulization mL dextromethorphan-guaifenesin 10 10 ml PO Q6H PRN PRN COUGH #0 mL 02/26/23 Unknown Rx mg-100 mg/5 mL oral syrup ipratropium 0.5 mg-albuterol 3 mg 3 ml inhalation Q6HWA.RT #1 mL 02/26/23 Unknown Rx (2.5 mg base)/3 mL nebulization soln nystatin 100,000 unit/mL oral 500,000 unit (5 mL) PO 4X/DAY #0 mL 02/26/23 Unknown Rx suspension oxycodone 5 mg tablet 2.5 - 5 mg (0.5 - 1 x 5 mg) PO Q4H 02/26/23 Unknown Rx PRN PRN Pain Score 4-10 2 days #10 tabs cholecalciferol (vitamin D3) 25 25 mcg PO DAILY 05/06/23 Unknown History mcg (1,000 unit) capsule cyanocobalamin (vitamin B-12) 500 500 mcg PO DAILY 05/06/23 Unknown History mcg tablet (Vitamin B-12) furosemide 20 mg tablet 20 mg PO DAILY 05/06/23 Unknown History Lactobacillus acidophilus 1 1,000 mmu cells PO DAILY 05/08/23 Unknown History billion cell tablet fluticasone propionate 115 2 puff inhalation BID 05/08/23 Unknown History mcg-salmeterol 21 mcg/actuation HFA inhaler (Advair HFA) magnesium oxide 400 mg (241.3 mg 400 mg PO TID electrolyte 05/08/23 Unknown History magnesium) tablet metformin 500 mg tablet,extended 1,000 mg PO BID 05/08/23 Unknown History release 24 hr sertraline 50 mg tablet 50 mg PO DAILY 05/08/23 Unknown History simvastatin 40 mg tablet 40 mg PO QPM 05/08/23 Unknown History sitagliptin phosphate 50 mg tablet 50 mg PO DAILY 05/08/23 Unknown History (Febuvia) prednisone 20 mg tablet 40 mg (2 x 20 mg) PO DAILY #8 tabs 07/15/23 Unknown Rx Allergy/AdvReac Type Severity Reaction Status Date / Time Penicillins Allergy Swelling Verified 10/23/23 20:20 Sulfa (Sulfonamide Allergy Rash Verified 10/23/23 20:20 Antibiotics) clindamycin AdvReac Intermediate Abd Verified 10/23/23 20:20 cramps/diarrhea Family History Mother CAD (coronary artery disease) Other Heart disease Hypertension Myocardial infarction Surgical History History of mandibular surgery Hx of knee surgery History of cholecystectomy History of appendectomy Previous section History of gastric surgery Social History household members: none Smoking Status: Former smoker quit date: 01/11/23 alcohol intake: never substance use type: does not use caffeine: Yes Type: coffee Number of servings: 3 ROS ROS ED Review of Systems ROS Unobtainable: other Constitutional Constitutional ED: Reports lethargy; Denies chills, fever(s), sweats or weight loss Eyes Eyes: Denies blurry vision, change in vision or diplopia ENT ENT ED: Denies rhinorrhea or sore throat Cardiovascular Cardiovascular: Denies chest pain, orthopnea or racing heartbeat Respiratory/Chest Respiratory/Chest: Denies cough, dyspnea, dyspnea on exertion, orthopnea or sputum Gastrointestinal Gastrointestinal: Denies abdominal pain, diarrhea, nausea or vomiting Genitourinary Genitourinary ED: Denies dysuria, hematuria or urinary frequency Musculoskeletal Musculoskeletal: Reports other Details: Right foot swelling ; Denies arthralgias, back pain, myalgias or neck pain Integumentary Denies abscess, Abrasions or rash Neurologic Neurologic: Denies headache(s) or weakness Psychiatric Psychiatric: Denies anxiety, depression or suicidal thoughts Endocrine Endocrinology: Denies polydipsia, polyphagia or polyuria Hematologic/Lymphatic Hematologic/Lymphatic: Denies easy bleeding, easy bruising or lymphadenopathy Allergic/Immunologic Allergic/Immunologic ED: Denies mouth swelling, tongue swelling or urticaria EXAM Physical Exam Const Vital Signs: 10/23/23 19:45 10/23/23 20:16 Temperature 98.2 F Temperature Source Temporal Pulse Rate 89 Respiratory Rate 16 Respiratory Effort Normal Respiratory Pattern Normal Blood Pressure 125/79 H Blood Pressure Mean 94 Pulse Ox 98 Oxygen Delivery Method Room Air Positive well nourished and well developed General Appearance ED: well developed and NAD HEENT Reports TM's clear and moist mucous membranes normocephalic and atraumatic; Negative for trauma or tenderness Tympanic Membrane ED: Yes TM's clear Eyes PERRL and EOMs intact bilaterally General Eye ED: Negative for pale conjunctiva or scleral icterus Neck no lymphadenopathy, supple and no JVD General: Negative for tenderness Chest Wall inspection of chest normal and palpation of chest normal Chest: Negative for tenderness Resp normal respiratory effort and clear to auscultation bilaterally Effort and Inspection: Negative for respiratory distress or pain with movement Auscultation: Negative for rhonchi, wheezes or diminished lung sounds Cardio regular rate, regular rhythm, S1 normal heart sound, S2 normal heart sound and no murmurs Peripheral Pulses: pulses 2+ throughout GI normal to inspection, nondistended, normoactive bowel sounds, soft to palpation, non-tender, non-distended and no masses Back/Spine no CVA tenderness and no thoracic nor lumbar tenderness Extremity Extremity Narrative: Right foot-patient has some edema noted to the foot dorsum. No significant cellulitic changes or erythema. No ecchymosis or bruising. No significant discomfort on exam and palpation of the foot. No significant calf tenderness. General Extremety ED: Negative for edema General Extremity: Negative for edema Neuro oriented x3, CN's II-XII intact bilaterally, no sensory deficits noted and gait normal Sensorium / Orientation: awake, alert, oriented to person, oriented to place and oriented to time Motor Exam: strength 5/5 throughout and strength abnormal Psych mental status grossly normal Skin no rashes or lesions noted and no wounds MDM MDM MDM Narrative Medical decision making narrative: Patient presents with isolated swelling to her right foot. Sent from urgent care to have DVT rule out. Patient denies any injury or trauma. No history of gout. Patient exam does reveal some diffuse edema to the foot without significant edema proximal to that. She is neurovascularly intact. No cellulitic changes. She had a venous Doppler that was negative for DVT. This point etiology of the swelling is unclear. In the differential would be sprain or strain or possibly even gout although she is not very painful. I do not feel x-rays are indicated as she has had no injury or trauma and she is in agreement. Patient will be discharged home and advised to follow-up with her primary care physician within next 3 to 5 days. Radiography Diagnostic Testing: Clinical Impression(s) from Imaging Studies Venous Duplex 10/23/23 20:29 IMPRESSION: Normal venous Doppler ultrasound of the lower extremity. Electronically Signed: Dagoberto Adames MD at 21:51 EDT , Discharge Plan Triage Chief Complaint: Edema ED Provider: Pawan Gomez Dx/Rx/DC Orders Clinical Impression: Leg edema Instructions: ED Peripheral Edema, Unilateral Prescriptions: No Action furosemide 20 mg tablet 20 mg PO DAILY cyanocobalamin (vitamin B-12) [Vitamin B-12] 500 mcg tablet 500 mcg PO DAILY cholecalciferol (vitamin D3) 25 mcg (1,000 unit) capsule 25 mcg PO DAILY fluticasone propion-salmeterol [Advair HFA] 115-21 mcg/actuation HFA aerosol inhaler 2 puff inhalation BID Januvia 50 mg tablet 50 mg PO DAILY Lactobacillus acidophilus 1 billion cell tablet 1,000 mmu cells PO DAILY metformin 500 mg tablet extended release 24 hr 1,000 mg PO BID sertraline 50 mg tablet 50 mg PO DAILY simvastatin 40 mg tablet 40 mg PO QPM aspirin 81 MG tablet,chewable 81 mg PO DAILY@0800 Patient Comments: heart health raloxifene 60 MG tablet 60 mg PO DAILY Patient Comments: bone health loratadine 10 MG tablet 10 mg PO DAILY Patient Comments: allergies gabapentin 300 MG capsule 300 mg PO BIDCM Patient Comments: neuropathy/pain magnesium oxide 400 mg (241.3 mg magnesium) tablet 400 mg PO TID Patient Comments: supplement pantoprazole 40 MG tablet 40 mg PO DAILY celecoxib [Celebrex] 200 mg Capsule 200 mg PO DAILY levothyroxine [Euthyrox] 100 mcg tablet 100 mcg PO DAILY nystatin 100,000 unit/mL Suspension 500,000 unit PO 4X/DAY Qty: 0 0RF ipratropium-albuterol 0.5 mg-3 mg(2.5 mg base)/3 mL Solution For Nebulization 3 ml inhalation Q6HWA.RT Qty: 1 0RF dextromethorphan-guaifenesin 10-100 mg/5 mL Syrup 10 ml PO Q6H PRN PRN (Reason: COUGH) Qty: 0 0RF alprazolam 0.5 mg Tablet 0.5 mg PO BID PRN PRN (Reason: Anxiety) Qty: 4 0RF budesonide 0.5 mg/2 mL Suspension For Nebulization 0.5 mg inhalation BID.RT Qty: 1 0RF oxycodone 5 mg Tablet 2.5 - 5 mg PO Q4H PRN PRN (Reason: Pain Score 4-10) 2 Days Qty: 10 0RF albuterol sulfate 2.5 MG/3 ML solution for nebulization 2.5 mg inhalation Q2H PRN PRN (Reason: SOB &/OR WHEEZING) Qty: 1 0RF prednisone 20 mg tablet 40 mg PO DAILY Qty: 8 0RF metoprolol succinate [Toprol XL] 25 mg tablet extended release 24 hr 25 mg PO DAILY Primary Care Provider: Reece Salas Referrals: Reece Salas DO [Primary Care Provider] - 3-5 Days Print Language: Greenlandic Disposition Disposition: Home, Self Care
--- NOTE | 2023-10-23 20:29 | US_ITS ---
STUDY: VENOUS DOPPLER ULTRASOUND - RIGHT LOWER EXTREMITY REASON FOR EXAM: Female, 78 years old. RT FOOT REDNESS AND SWELLING TECHNIQUE: Ultrasound evaluation of the deep vein system to include estrada-scale imaging and compression was performed. Estrada-scale imaging and Doppler sonographic evaluation, including duplex spectral analysis and qualitative color flow sonography, was performed. COMPARISON: February 08, 2023 FINDINGS: Common Femoral Vein: Normal compression, spontaneity and augmentation. Normal color Doppler. Common Femoral Vein/Greater Saphenous Junction: Normal compression, spontaneity and augmentation. Normal color Doppler. Deep Femoral Vein: Normal compression, spontaneity and augmentation. Normal color Doppler. Femoral Proximal: Normal compression, spontaneity and augmentation. Normal color Doppler. Femoral Middle: Normal compression, spontaneity and augmentation. Normal color Doppler. Femoral Distal: Normal compression, spontaneity and augmentation. Normal color Doppler. Popliteal Vein: Normal compression, spontaneity and augmentation. Normal color Doppler. Posterior Tibial Vein: Normal compression, spontaneity and augmentation. Normal color Doppler. Peroneal Vein: Normal compression, spontaneity and augmentation. Normal color Doppler. There is no demonstrated deep venous thrombosis. US/Venous Duplex Imag/Limited/Uni IMPRESSION: Normal venous Doppler ultrasound of the lower extremity. Electronically Signed: Dagoberto Adames MD at 21:51 EDT ,
[2023-10-23 21:44] VITALS: BP 139/66; PULSE 51; RESP 16; O2SAT 92
[2023-10-23 22:06] VITALS: BP 139/66; PULSE 51; RESP 16; TEMP 36.4; O2SAT 92
== END 2023-10-23 22:06 | disposition home or self-care (01) ==
PROVIDERS: Emergency Provider Emergency Medicine; PCP Family Medicine; Visit Provider Emergency Medicine
DX: R60.0 Localized edema (principal); J44.9 Chronic obstructive pulmonary disease, unspecified; E11.9 Type 2 diabetes mellitus without complications; I10 Essential (primary) hypertension; E78.2 Mixed hyperlipidemia; Z79.51 Long term (current) use of inhaled steroids; Z79.52 Long term (current) use of systemic steroids; Z79.82 Long term (current) use of aspirin; Z79.84 Long term (current) use of oral hypoglycemic drugs; Z79.899 Other long term (current) drug therapy; Z86.16 Personal history of COVID-19; Z87.891 Personal history of nicotine dependence
CPT/HCPCS: 93971; 99282

== ENCOUNTER → 2023-12-10 | Outpatient (CLI) | payer MEDICARE, MEDICAID, SELFPAY ==
--- NOTE | 2023-12-10 13:03 | ST.MBS ---
Modified Barium Swallow Patient Information Study Date: 12/10/23 Study Time: 13:00 Direct Billable Minutes: 120 Total Minutes procedure & reportin Diagnosis: Dysphagia R13.10 Referring Physician: Nishant Kelley V Reason for Referral: Objectively assess swallow function, assess risk for aspiration, and determine recommendations for least restrictive diet textures and compensatory strategies to improve safety of swallow. Medical History: PMH per pt report: COVID-19, PNA 2X, UTI 3X (COVID-19, PNA X2, and UTI X3 all occurred from 01/2023-03/2022 and required 2 week hospitalization and rehabilitation at SNF until ~02/2023 before returning home), hiatal hernia, broken jaw w/ surgery (age 34), brain aneurysm (no sx, induced coma 3 months per pt, then resolved per pt, age 34), choking on pills requiring Heimlich 3X and loss of consciousness 1X w/ EMS called multiple times, pill dysphagia since childhood. 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 Patient presents for MBSS 12/10/2023 reporting above PMH and chronic dysphagia, which has worsened in the past 1.5 years. Caregiver, Sade, present and provided some of the history above. Pt has choked on pills and foods (bread, potatoes, belarusian fries), losing consciousness 1X, requiring the Heimlich multiple times, and requiring EMS multiple times. She reports that she swallows liquids well, but gets strangled on her spit. Her jacquard loom card changer referred her for a MBSS to further assess concerns for aspiration and choking w/ oral intake. Current Diet Ordered: Soft solids, mostly soups / Thin liquids Dentition: Upper Dentures and Missing Teeth Mental Status: WNL Respiratory Status: Oxygenating on Room Air Penetration-Aspiration Scale Penetration-Aspiration Scale: OBJECTIVE ASSESSMENT OF SWALLOW FUNCTION (QUANTITATIVE ? PER TRIAL): PENETRATION / ASPIRATION SCALE (YOUNG): 1 = does not enter airway 2 = enters airway/above vocal folds/ejected 3 = enters airway/above vocal folds/not ejected 4 = enters airway/contacts vocal folds/ejected 5 = enters airway/contacts vocal folds/not ejected 6 = enters airway/below vocal folds/ejected 7 = enters airway/below vocal folds/not ejected despite effort 8 = enters airway/below vocal folds/no effort VIDEOFLOROSCOPIC SCALE SCORE (YOUNG): Grade I = aspiration of material that has penetrated into the laryngeal vestibule, intact cough reflex Grade II = aspiration < 10 % of the bolus, intact cough reflex Grade III = aspiration of < 10 % of the bolus, reduced cough reflex or aspiration of > 10 % of the bolus, intact cough reflex Grade IV = aspiration of > 10 % of the bolus, reduced cough reflex Penetration-Aspiration Scale Score Thin Liquid via teaspoon: Result: 2= enter airway/above vocal folds/ejected Thin Liquid via teaspoon Trial 2: Result: 1= does not enter airway Thin Liquid via small single sip: cup: Result: 4= enters airway/contacts vocal folds/ejected [place] Thick Liquid via small single sip: cup: Result: 1= does not enter airway Pudding via teaspoon: Result: 1= does not enter airway Comment: Esophageal screen - Retention in lower portion of esophagus with no emptying through the LES. 02/14 Cookie: Result: 1= does not enter airway Thin Liquid via single sip: straw: Result: 2= enter airway/above vocal folds/ejected Thin Liquid via small single sip: cup Effortful swallow: Result: 2= enter airway/above vocal folds/ejected Comment: Cued double swallow, as well. Barium Tablet w/ pudding and water to wash: Result: 1= does not enter airway Comment: Pt unable to swallow tablet w/ pudding. TOOL FILER provided water wash recommending very small sip. She swallowed pill and it caught in the vallecula, a dry swallow cleared the medication which then became caught in the upper-middle esophagus. Oral Phase Labial Seal: No Labial Escape Tongue Control During Bolus Hold: Posterior escape of less than half of bolus Bolus Preparation/Mastication: Slow prolonged chewing/mashing with complete recollection Bolus Transport/Lingual Motion: Repetitive/disorganized tongue motion Oral Residue: Majority of bolus remaining (piecemeal deglutition) Pharyngeal Phase Initiation of Pharyngeal Swallow: Bolus head in pyriforms Soft Palate Elevation: Trace column of contrast/air between soft palate and pharyngeal wall Laryngeal Elevation: Partial superior movement thyroid cart/partial apprx aryt-epig petiole Anterior Hyoid Excursion: Partial anterior movement Epiglottic Movement: Complete inversion Laryngeal Vestibule Closure at Height of Swallow: Complete; no air/contrast in laryngeal vestibule Pharyngeal Stripping Wave: Present - diminished Pharyngoesophageal Segment Opening: Parital distension and partial duration; parital obstruction of flow Tongue Base Retraction: Narrow column of contrast between tongue base & post. pharyngeal wall Pharyngeal Residue: Collection of residue within or on pharyngeal structures Esophageal Phase Esophageal Clearance: Esophageal retention w/ retrograde flow below pharyngoesophageal seg. Diagnosis/Impression Diagnosis: Moderate oropharyngeal dysphagia R13.12; Esophageal dysphagia R13.14 Impression: The oral phase is primarily marked by... -Disorganized tongue motion for placing bolus on tongue prior to A-P transport. Her tongue would only propel and swallow small amounts of pudding and cookie at a time requiring 6 swallows to clear 1 bite of pudding from oral cavity. She felt this was due to feeling discoordinated, as well as fearful of swallowing. -Posterior loss of <1/2 of various boluses to the pharynx prior to swallow onset. -Slow, but complete mastication of cookie. The pharyngeal phase is primarily marked by... -Mild-moderate pharyngeal residues most notable w/ pudding due to decreased tongue base retraction, pharyngeal stripping wave, and UES opening and duration. -Decreased airway closure during the swallow due to decreased anterior hyoid excursion. -No aspiration observed. Laryngeal penetration to the vocal folds of thin by cup, which fully ejected after the swallow. Use of effortful swallow decreased risk for aspiration. -PT IS AT HIGH RISK FOR CHOKING ON MEDICATION. BARIUM TABLET BECAME CAUGHT IN VALLECULA, CLEARED WITH A SECOND SWALLOW, AND THEN BECAME CAUGHT IN HER UPPER-MIDDLE ESOPHAGUS. PT TAKES 18-20 PILLS DAILY AND HAS HAD CHOKING EPISODES ON PILLS RESULTING IN NEED FOR HEIMLICH 3X AND LOSS OF CONSCIOUSNESS 1X. STRONGLY RECOMMEND MEDICATIONS CRUSHED IN A PUREE. The esophageal phase is primarily marked by... -CP bar at the level of C4-C5, which did not appear to impact bolus clearance through the UES. -Retention of all barium consistencies in a collection in the lower esophagus. Some emptying of barium through LES in esophageal screen. TOOL FILER to review esophageal screens w/ Dr. Bentley. Recommendations Diet: Mechanical Soft Textures (Soft and Bite Size Textures - IDDSI Level 6) and Thin Liquids Comment: Consider smaller, more frequent meals (4-5 small meals as compared to 3 large meals). If sensation of retention, reflux, or retrograde flow of food/drink/pills, STOP oral intake and resume at a later time. MEDICATIONS CRUSHED IN APPLESAUCE, PT IS AT RISK FOR CHOKING ON WHOLE MEDICATIONS, PLEASE DISCUSS WITH PHYSICIAN IF PILLS THAT CAN'T BE CRUSHED CAN BE PROVIDED IN ANOTHER FORM, IF PT REQUIRES A WHOLE MEDICATION THAT CANNOT BE GIVEN IN ANOTHER FORM THEN PLEASE TAKE 1 AT A TIME W/ LIQUID WASH AND DOUBLE SWALLOW THE PATIENT WAS UNABLE TO SWALLOW THE BARIUM TABLET WHOLE IN PUDDING. Compensatory Strategies: Small Sips (Effortful/hard swallows), Slow Rate, Multiple Swallows (Double swallows w/ bites and sips) and Sitting upright (During and 60min after food/drink) Recommend Repeat Modified Barium Swallow: TBD Need for Skilled Speech Therapy Services: Yes Comment: OP Dysphagia therapy recommended. POC to include the following: -Train the patient in use of strategies to decrease risk for choking, aspiration, and reflux aspiration. -Ongoing assessment of diet tolerance of recommended textures. Training in diet texture testing/preparation. -Train the patient in oral motor and oropharyngeal exercise program to improve lingual strength and coordination to promote improved A-P transport, as well as exercises to address impairments in tongue base retraction, airways closure, pharyngeal stripping wave, and UES opening/duration (lingual resistance and coordination, Amy, Dominga, Effortful, Shaker). -Frequency of intervention to be determined by treating OP therapist. Recommended Referrals: GI Consult Education Completed: 1. Described result of evaluation., 2. Pt understands evaluation & agrees with goals and treatment plan., 4. Family/caregivers understand evaluation & agree w/ goals & tx plan. and 7. Pt requires further education on strategies & risks. Comment: Handout, review of images, and extensive verbal discussion re: results and recommendations of MBSS was provided to pt and caregiver, Devorah, by TOOL FILER. TOOL FILER educated both on concerns for pt being high choking risk. Both acknowledged understanding of need for pills crushed. Status Active ST Patient: Active Contact Information [facility] Speech Therapy:: Sada Acevedo M.A. [facility]TOOL FILER? Speech-Language Pathologist?? [facility] [address] [place] [address]? [email or web address]?? [phone]
[2023-12-10 15:46] LABS: Erythrocyte Sedimentation Rate 19 mm/hr (0-30)
[2023-12-10 16:18] LABS: CRP < 2.90 mg/L (0.0-3.0); Rheumatoid Factor < 10.0 IU/mL (<15)
--- OUTSIDE RECORDS SUMMARY | 2023-12-10 18:28 | XMS RPT_ITS | CCD ---
Author Organization [facility] Inform ion Partnership [facility] Care Team Providers Care Phlebotomy Coordinator Name Role Phone Reece Salas Primary Care Provider REECE SALAS Primary Care Unavailable LENI CINTRON Referring Unavailable CRISS, LENI Attending Unavailable LENI CINTRON Referring Unavailable LENI CINTRON Attending Unavailable CANDELARIO REECE Severino Primary Care Unavailable Candelario KAY Reece Severino Primary Care Provider [phone] Candelario KAY Reece Severino Primary Care Provider [phone] REECE SALAS Attending Unavailable REECE SALAS Primary Care Unavailable REECE SALAS Attending Unavailable CANDELARIO REECE Primary Care Unavailable PRAKASH LEON Attending Unavailable CANDELARIO REECE Primary Care Unavailable Allergies Allergy Classification Reported Allergen(s) Allergy Type Date of Onset Reaction(s) Facility Lincosamides (antibiotic) (3 sources) Clindamycin Drug Allergy 4 [facility] nickel sulfate (3 sources) nickel sulfate Drug Allergy 4 [facility] Penicillins (antibiotic) (3 sources) Penicillins Drug Allergy 5 Hives, Rash [facility] (8 sources) Penicillin; Translations: [PENICILLIN] Drug Allergy 9 Hives [facility] (20 sources) Penicillins Drug Intolerance 5 Hives, Rash [facility] (20 sources) Other Propensity to adverse reactions 3 Other [facility] (12 sources) Clindamycin Drug Allergy 4 [facility] (7 sources) nickel sulfate Drug Allergy 4 [facility] Medications Current Medications Medication Drug Class(es) Dates [...] (7-10). 60 tablet 1 01/16/2023 03/17/2023 Active Start: 02-28-2022 End: 11-18-2022 take 1 tablet by mouth twice daily as needed for pain acetaminophen-codeine (Tylenol #3) 300-3 0 MG tablet Indications: DDD (degenerative disc disease), lumbar Take 1 tablet by mouth 2 times daily as needed for severe pain (7-10). 60 tablet 2 08/21/2022 10/19/2022 Discontinued (Reorder) Start: 01-16-2018 End: 01-16-2022 take 1 tablet by mouth every twelve hours as needed acetaminophen-codeine (TYLENOL-COD #3) 300-30 mg per tablet Take 1 tablet by mouth twice daily as needed. 0 01/16/2018 01/16/2022 Active End: 08-14-2023 take 1 tablet by mouth every six hours as needed for pain acetaminophen-codeine (Tylenol #3) 300-3 0 MG tablet Take 1 tablet by mouth every 6 hours as needed for severe pain (7-10). 08/14/2023 Discontinued (Side effects) Comment on above: Take 1 tablet by isabel th twice daily as needed. [id number] 200 actuat albuterol 0.09 mg/actuat metered dose inhaler (20 sources) beta2-Adrenergic Agonist Start: 02-28-2022 End: 06-25-2023 take 2 puff(s) by inhalation every four hours as needed for wheezing albuterol 108 (90 Base) MCG/ACT inhaler Inhale 2 puffs every 4 hours as needed for shortness of breath or wheezing. 18 g 2 06/25/2023 Active Start: 04-11-2018 take 2 puff(s) by in halation every four hours as needed albuterol HFA (PROVENTIL HFA, VENTOLIN HFA) 90 mcg/actuation inhaler Indications: Bronchitis , Influenza-like illness Inhale 2 Puffs as instructed every 4 hours as needed. 1 Inhaler 0 04/11/2018 Active Comment on above: Inhale 2 Puffs as in structed every 4 hours as needed. albuterol 0.833 mg/ml / ipratropium bromide 0.167 mg/ml inhalation solution (14 sources) Anticholinergic, beta2-Adrenergic Agonist ipratropium-albutero l (Duo-Neb) 0.5-2.5 mg/3 mL nebulizer solution Take 3 mL by nebulization 4 times daily. Active ALPRAZolam 0.5 mg oral tablet (20 sources) Benzodiazepine Start: 07-13-19 End: 10-08-19 take 1 tablet by mouth twice daily as needed for anxiety ALPRAZolam (Xanax) 0.5 MG tablet Indications: Post traumatic stress disorder (PTSD) Take 1 tablet (0.5 mg) by mouth 2 times daily as needed for anxiety. 60 tablet 1 10/08/2023 Active Start: 01-16-2023 take 1 tablet by isabel th twice daily as needed for anxiety ALPRAZolam (Xanax) 0.5 MG tablet Indications: Post traumatic stress disorder (PTSD) Take 1 tablet (0.5 mg) by mouth 2 times daily as needed for anxiety. 60 tablet 1 01/16/2023 Active Start: 01-16-2018 End: 12-19-2022 take 1 tablet by mouth twice daily as needed for anxiety ALPRAZolam (Xanax) 0.5 MG tablet Indications: Post traumatic stress disorder (PTSD) Take 1 tablet (0.5 mg) by mouth 2 times daily as needed for anxiety. 60 tablet 2 08/21/2022 12/19/2022 Discontinued (Reorder) Comment on above: Take 0.5 mg by mouth twice daily as needed for Anxiety. ascorbic acid 500 mg chewable tablet (20 sources) Vitamin C Start: 09-20-19 take 1 tablet by mouth once daily Ascorbic Acid (vitamin C) 500 MG tablet Take 500 mg by mouth daily. 09/19/2021 Active aspirin 81 mg / calcium carbonate 777 mg oral tablet (20 sources) Platelet Aggregation Inhibitor, Nonsteroidal Anti-inflammatory Drug take 1 tablet by mouth in the morning Aspirin-Calcium Carbonate 81-777 MG tablet Take 81 mg by mouth in the morning. Active Comment on above: Take 81 mg by mouth once daily. budesonide 0.25 mg/ml inhalation suspension (14 sources) Corticosteroid Start: 08-14-19 budesonide (Pulmicort) 0.5 MG/2ML nebulizer solution Take 2 mL (0.5 mg) by nebulization in the morning and 2 mL (0.5 mg) in the evening. 60 mL 11 08/14/2023 Active Start: 02-26-2023 End: 08-14-2023 take 0.5 mg by inhalation in the morning budesonide (Pulmicort) 0.5 MG/2ML nebulizer solution Inhale 0.5 mg in the morning and 0.5 mg in the evening. 02/26/2023 08/14/2023 Discontinued (Reorder) chlorhexidine gluconate 1.2 mg/ml mouthwash (6 sources) Start: 09-18-2023 End: 10-18-2023 take 5 mL by mouth four times daily as needed for pain chlorhexidine (Peridex) 0.12 % solution Use 5 mL in the mouth or throat 4 times daily as needed (mouth pain). 473 mL 3 09/18/2023 10/18/2023 Active Start: 05-22-2023 End: 09-18-2023 chlorhexidine (Peridex) 0.12 % solution 05/22/2023 09/18/2023 Discontinued (Reorder) cholecalciferol 0.025 mg oral capsule (14 sources) Vitamin D take 1 capsule by mouth once daily cholecalciferol (Vitamin D-3) 25 MCG (1000 UT) capsule Take 1 capsule by mouth daily. Active ciprofloxacin 250 mg oral tablet (2 sources) Quinolone Antimicrobial Start: 023 End: 023 take 1 tablet by mouth twice daily ciprofloxacin (Cipro) 250 MG tablet Take 1 tablet (250 mg) by mouth 2 times daily for 7 days. 14 tablet 0 09/21/2022 09/28/2022 Active Start: 07-10-2022 End: 07-17-2022 take 1 tablet by mouth twice daily ciprofloxacin (Cipro) 250 MG tablet Take 1 tablet (250 mg) by mouth 2 times daily for 7 days. 14 tablet 0 07/10/2022 07/17/2022 Active docusate sodium 50 mg / sennosides, nursing home 8.6 mg oral tablet (14 sources) take 8.6-50 mg by mouth once daily senna-docusate (Katheryn-Colace) 8.6-50 MG tablet Take 1 tablet by mouth daily. Active ferrous sulfate 325 mg oral tablet (4 sources) Start: 06-04-2023 take 1 tablet by mouth once daily at lunch SV Iron 325 (65 Fe) MG tablet TAKE 1 TABLET BY MOUTH ONCE DAILY WITH LUNCH FOR ANEMIA 06/04/2023 Active End: 07-07-2023 take 1 tablet by mouth once daily at breakfast ferrous sulfate 325 (65 Fe) MG EC tablet Take 325 mg by mouth daily (with breakfast). Do not crush, chew, or split. 0 07/07/2023 Discontinued (Therapy completed) 120 actuat fluticasone propionate 0.115 mg/actuat / salmeterol 0.021 mg/actuat metered dose inhaler (20 sources) Corticosteroid, beta2-Adrenergic Agonist Start: 05-21-2022 End: 06-24-2024 take 2 puff(s) by inhalation in the morning fluticasone-salmeterol (Advair) 115-21 MCG/ACT inhaler Inhale 2 puffs in the morning and 2 puffs in the evening. Rinse mouth with water after use to reduce aftertaste and incidence of candidiasis. Do not swallow.. 12 g 11 06/25/2023 06/24/2024 Active gabapentin 300 mg oral capsule (20 sources) Anti-epileptic Agent Start: 01-16-2018 End: 10-08-2023 take 1 capsule by mouth twice daily gabapentin (Neurontin) 300 MG capsule Indications: Type 2 diabetes mellitus with hyperglycemia, without long-term current use of insulin (HCC) Take 1 capsule (300 mg) by mouth 2 times daily. 60 capsule 2 10/08/2023 Active Comment on above: Take 300 mg by mouth twice daily. hydrOXYzine pamoate 25 mg oral capsule (11 sources) Antihistamine Start: 08-01-2023 End: 08-16-2023 take 1 capsule by mouth every eight hours as needed hydrOXYzine pamoate (Vistaril) 25 MG capsule Take 1 capsule (25 mg) by mouth every 8 hours as needed for itching for up to 20 doses. 20 capsule 08/16/2023 Active isopropyl alcohol 0.7 ml/ml medicated pad (20 sources) Start: 04-24-2021 End: 07-29-2023 Alcohol Swabs (B-D SINGLE USE SWABS REGULAR) pads USE TWICE DAILY 100 each 11 07/29/2023 Active Lactobacillus (14 sources) take 1 capsule by mouth once daily LACTOBACILLUS PO Take 1 capsule by mouth daily. Active take 1 capsule by mouth once maddi ly LACTOBACILLUS PO Take 1 capsule by mouth daily. 0 Active levoFLOXacin 500 mg oral tablet (1 source) Quinolone Antimicrobial Start: 02-21-2023 End: 02-28-2023 take 1 tablet by mouth once daily levoFLOXacin (Levaquin) 500 MG tablet Take 1 tablet (500 mg) by mouth daily for 7 days. 7 tablet 0 02/21/2023 02/28/2023 Active levothyroxine sodium 0.1 mg oral tablet (20 sources) l-Thyroxine Start: 12-21-2022 End: 04-05-2024 take 1 tablet by mouth once daily levothyroxine (Synthroid, Levoxyl) 100 MCG tablet Indications: Acquired hypothyroidism Take 1 tablet (100 mcg) by mouth daily. 90 tablet 1 10/08/2023 04/05/2024 Active Start: 03-04-2022 End: 05-21-2022 take 1 tablet by mouth in the morning levothyroxine (Synthroid, Levoxyl) 88 MCG tablet Take 1 tablet (88 mcg) by mouth in the morning. 30 tablet 11 03/04/2022 05/21/2022 Discontinued (Side effects) Start: 01-16-2018 End: 02-17-2023 take 1 tablet by mouth once daily levothyroxine (Synthroid, Levoxyl) 75 MCG tablet Take 1 tablet (75 mcg) by mouth daily for 180 doses. 90 tablet 1 08/21/2022 12/21/2022 Discontinued Comment on above: Take 1 tablet by isabel th once daily. loratadine 10 mg oral tablet (20 sources) Start: 09-04-2022 End: 08-01-2023 loratadine (Claritin) 10 MG tablet One BID for 2 wks for itchy rash, then dec to one q am 90 tablet 1 08/01/2023 Active Start: 01-16-2018 take 1 tablet by isabel th in the morning loratadine (Claritin) 10 MG tablet Take 10 mg by mouth in the morning. 0 01/16/2018 Active Comment on above: Take 10 mg by mouth once daily. magnesium oxide 400 mg oral tablet (20 sources) Start: 06-25-2023 End: 06-19-2024 take 2 tablets by mouth twice daily magnesium oxide (Mag-Ox) 400 (240 Mg) MG tablet Take 2 tablets (800 mg) by mouth 2 times daily. 120 tablet 5 06/25/2023 06/19/2024 Active Start: 02-28-2022 End: 06-25-2023 take 1 tablet by mouth twice daily magnesium oxide (Mag-Ox) 400 (240 Mg) MG tablet Take 1 tablet (400 mg) by mouth 2 times daily. 180 tablet 1 01/08/2023 06/25/2023 Discontinued (Reorder) Start: 01-16-2018 take 1 capsule by mo uth twice daily magnesium oxide 400 mg cap Take 1 capsule by mouth twice daily. 0 01/16/2018 Active Comment on above: Take 1 capsule by mo ut twice daily. meloxicam 7.5 mg oral tablet (3 sources) Nonsteroidal Anti-inflammatory Drug Start: End: take 1 tablet by mouth once daily meloxicam (Mobic) 7.5 MG tablet Indications: Osteoporosis, unspecified osteoporosis type, unspecified pathological fracture presence Take 1 tablet (7.5 mg) by mouth daily. 30 tablet 5 10/08/2023 04/05/2024 Active End: 06-25-2023 take 1 tablet by mouth once daily meloxicam (Mobic) 7.5 MG tablet Take 7.5 mg by mouth daily. 0 06/25/2023 Discontinued (Therapy completed) metFORMIN hydrochloride 500 mg oral tablet (20 sources) Biguanide Start: 02-28-2022 End: 05-21-2022 metFORMIN (Glucophage) 500 MG tablet Take two tablets in the am and one tablet in the pm 270 tablet 0 02/28/2022 05/21/2022 Discontinued (Reorder) Start: 09-21-2020 End: 04-05-2024 take 1 tablet by mouth in the morning metFORMIN (Glucophage) 500 MG tablet Indications: Type 2 diabetes mellitus with hyperglycemia, without long-term current use of insulin (HCC) Take 1 tablet (500 mg) by mouth in the morning and 1 tablet (500 mg) in the evening. Take with meals. Do all this for 360 doses. 180 tablet 1 10/08/2023 04/05/2024 Active 24 hr metoprolol succinate 25 mg extended release oral tablet (20 sources) beta-Adrenergic Beni Start: 05-21-2022 End: 04-05-2024 take 1 tablet by mouth once daily metoprolol succinate XL (Toprol-XL) 25 MG 24 hr tablet Indications: Essential hypertension Take 1 tablet (25 mg) by mouth daily for 180 doses. Do not crush or chew. 90 tablet 1 10/08/2023 04/05/2024 Active Start: 01-16-2018 End: 05-21-2022 take 1 tablet by mouth once daily metoprolol tartrate, short acting, (LOPRESSOR) 25 mg tablet Take 1 tablet by mouth once daily. 0 01/16/2018 Active Comment on above: Take 1 tablet by isabel th once daily. pantoprazole 40 mg delayed release oral tablet (20 sources) Proton Pump Inhibitor Start: End: take 1 tablet by mouth once daily before breakfast pantoprazole (ProtoNix) 40 MG EC tablet Take 1 tablet (40 mg) by mouth every morning (before breakfast). 90 tablet 1 10/08/2023 Active Comment on above: Take 1 tablet by isabel th once daily. phenazopyridine hydrochloride 200 mg oral tablet (1 source) Start: End: take 1 tablet by mouth three times daily as needed phenazopyridine (PYRIDIUM, GERIDIUM) 200 mg tablet Indications: Dysuria , Recurrent UTI (urinary tract infection) Take 1 tablet by mouth three times daily as needed for up to 2 days. 6 tablet 0 07/28/2021 07/30/2021 Active Comment on above: Take 1 tablet by isabel th three times daily as needed for up to 2 days. phenylephrine hydrochloride 25 mg/ml ophthalmic solution (2 sources) alpha-1 Adrenergic Agonist Start: End: PHENYLephrine 2.5 % 1 Drop (AK-DILATE, SINCERE-SYNEPHRINE) Start: 06-01-2021 End: 06-02-2021 PHENYLephrine 2.5 % 1 Drop ( AK-DILATE, SINCERE-SYNEPHRINE) proparacaine hydrochloride 5 mg/ml ophthalmic solution (2 sources) Local Anesthetic Start: 12-14-2021 End: 12-15-2021 proparacaine 0.5 % 1 Drop (ALCAINE) Start: 06-01-2021 End: 06-02-2021 proparacaine 0.5 % 1 Drop (A LCAINE) raloxifene hydrochloride 60 mg oral tablet (20 sources) Estrogen Agonist/Antagonist Start: 01-16-2018 End: 06-02-2024 take 1 tablet by mouth once daily raloxifene (Evista) 60 MG tablet Take 1 tablet (60 mg) by mouth daily. 90 tablet 1 12/05/2023 06/02/2024 Active Comment on above: Take 1 tablet by isabel th once daily. simvastatin 40 mg oral tablet (20 sources) HMG-CoA Reductase Inhibitor Start: 01-16-2018 End: 10-08-2023 take 1 tablet by mouth once daily in the evening simvastatin (Zocor) 40 MG tablet Indications: Mixed hypercholesterolemia and hypertriglyceridemia Take 1 tablet (40 mg) by mouth every evening. 90 tablet 1 10/08/2023 Active End: 05-21-2022 take 1 tablet by mouth once daily simvastatin (Zocor) 20 MG tablet Take 20 mg by mouth Nightly. 0 05/21/2022 Discontinued (Reorder) Comment on above: Take 1 tablet by isabel th once daily. SITagliptin 100 mg oral tablet (16 sources) Dipeptidyl Peptidase 4 Inhibitor Start: End: take 1 tablet by mouth once daily Januvia 100 MG tablet Indications: Type 2 diabetes mellitus with hyperglycemia, without long-term current use of insulin (HCC) Take 1 tablet (100 mg) by mouth daily for 180 doses. 90 tablet 1 10/08/2023 04/05/2024 Active spironolactone 25 mg oral tablet (16 sources) Aldosterone Antagonist Start: End: take 1 tablet by mouth once daily spironolactone (Aldactone) 25 MG tablet Indications: Essential hypertension Take 1 tablet (25 mg) by mouth daily for 180 doses. 90 tablet 1 10/08/2023 04/05/2024 Active sulfamethoxazole 800 mg / trimethoprim 160 mg oral tablet (1 source) Dihydrofolate Reductase Inhibitor Antibacterial, Sulfonamide Antimicrobial Start: End: take 1 tablet by mouth every twelve hours sulfamethoxazole-tri methoprim (BACTRIM DS,SEPTRA DS) 800-160 mg per tablet Indications: Dysuria , Recurrent UTI (urinary tract infection) Take 1 tablet by mouth every 12 hours for 10 days. 20 tablet 0 07/28/2021 08/07/2021 Active Comment on above: Take 1 tablet by isabel th every 12 hours for 10 days. tropicamide 10 mg/ml ophthalmic solution (2 sources) Anticholinergic Start: End: tropicamide 1 % 1 Drop (MYDRIACYL) Start: 06-01-2021 End: 06-02-2021 tropicamide 1 % 1 Drop (MYDR IACYL) vitamin b12 0.5 mg oral tablet (15 sources) Vitamin B12 Start: 08-16-2023 End: 08-16-2023 take 1 tablet by mouth once daily cyanocobalamin (Vitamin B-12) 500 MCG tablet Take 1 tablet (500 mcg) by mouth daily. 90 tablet 1 08/16/2023 Active Completed/Discontinued Medications Medication Drug Class(es) Dates Sig (Normalized) Sig (Original) benzonatate 100 mg oral capsule (3 sources) Non-narcotic Antitussive Start: 04-11-2018 End: 07-28-2021 take 1-2 capsules by mouth three times daily as needed benzonatate (TESSALON PERLES) 100 mg capsule Indications: Bronchitis , Influenza-like illness Take 1-2 capsules by mouth three times daily as needed. 30 capsule 0 04/11/2018 07/28/2021 Discontinued Comment on above: Take 1-2 capsules by mouth three times daily as needed. celecoxib 200 mg oral capsule (20 sources) Nonsteroidal Anti-inflammatory Drug Start: 06-25-2023 End: 08-14-2023 celecoxib (CeleBREX) 200 MG capsule One q AM with food 90 capsule 1 06/25/2023 08/14/2023 Discontinued (Side effects) Start: 01-16-2018 End: 06-25-2023 take 1 capsule by mouth twice daily celecoxib (CeleBREX) 200 MG capsule Take 1 capsule (200 mg) by mouth 2 times daily. 180 capsule 1 01/08/2023 06/25/2023 Discontinued Start: 01-16-2018 take 1 capsule by mo uth once daily in the morning celecoxib (CELEBREX) 200 mg capsule Take 1 capsule by mouth every morning. 0 01/16/2018 Active Comment on above: Take 1 capsule by mo uth every morning. Take 1 capsule by mo uth twice daily. Continuous Blood Gluc Hospice Care Transitions Coordinator (FreeStyle Gennaro 14 Day [place]) device (18 sources) Start: 12-19-2022 End: 06-25-2023 Continuous Blood Gluc Hospice Care Transitions Coordinator (FreeStyle Gennaro 14 Day [place]) device 1 each 2 times daily. E11.9 1 each 0 12/19/2022 06/25/2023 Discontinued (Therapy completed) Start: 12-19-2022 Continuous Blo od Gluc Hospice Care Transitions Coordinator (FreeStyle Gennaro 14 Day [place]) device 1 each 2 times daily. E11.9 1 each 0 12/19/2022 Active Start: 08-21-2022 End: 12-19-2022 Continuous Blood Gluc Receiv er (FreeStyle Gennaro 14 Day [place]) device 1 each 2 times daily. E11.9 1 each 0 08/21/2022 12/19/2022 Discontinued (Reorder) Start: 08-21-2022 Continuous Blo od Gluc Hospice Care Transitions Coordinator (FreeStyle Gennaro 14 Day [place]) device 1 each 2 times daily. E11.9 1 each 0 08/21/2022 Active End: 08-21-2022 Continuous Blood Gluc Receiv er (FreeStyle Gennaro 14 Day [place]) device 1 each 2 times daily. 0 08/21/2022 Discontinued (Reorder) Continuous Blood Gluc Sensor (FreeStyle Gennaro 2 Sensor) [facility] (20 sources) Start: 12-19-2022 End: 06-25-2023 Continuous Blood Gluc Sensor (FreeStyle [place] 2 Sensor) [facility] [place]ications: Type 2 diabetes mellitus with hyperglycemia, without long-term current use of insulin ([facility]) E11.9 Change sensor every 14 days 2 each 11 12/19/2022 06/25/2023 Discontinued (Therapy completed) Start: 12-19-2022 Continuous Blo od Gluc Sensor (FreeStyle Gennaro 2 Sensor) [facility] [place]ications: Type 2 diabetes mellitus with hyperglycemia, without long-term current use of insulin (HCC) E11.9 Change sensor every 14 days 2 each 11 12/19/2022 Active Start: 08-21-2022 End: 12-19-2022 Continuous Blood Gluc Sensor (FreeStyle Gennaro 2 Sensor) mis Indications: Type 2 diabetes mellitus with hyperglycemia, without long-term current use of insulin ([facility]) E11.9 Change sensor every 14 days 2 each 08/21/2022 12/19/2022 Discontinued (Reorder) Start: 08-21-2022 Continuous Blo od Gluc Sensor (FreeStyle Gennaro 2 Sensor) mis Indications: Type 2 diabetes mellitus with hyperglycemia, without long-term current use of insulin ([facility]) E11.9 Change sensor every 14 days 2 each 08/21/2022 Active Start: 08-21-2022 Continuous Blo od Gluc Sensor (FreeStyle Gennaro 2 Sensor) mis Indications: Type 2 diabetes mellitus with hyperglycemia, without long-term current use of insulin ([facility]) ([facility]) E11.9 Change sensor every 14 days 2 each 08/21/2022 Active Start: 02-28-2022 End: 08-21-2022 Continuous Blood Gluc Sensor (FreeStyle Gennaro 2 Sensor) mis Indications: Type 2 diabetes mellitus with hyperglycemia, without long-term current use of insulin ([facility]) ([facility]) Change sensor every 14 days 2 each 02/28/2022 08/21/2022 Discontinued (Reorder) Start: 02-28-2022 Continuous Blo od Gluc Sensor (FreeStyle Gennaro 2 Sensor) mis Indications: Type 2 diabetes mellitus with hyperglycemia, without long-term current use of insulin ([facility]) ([facility]) Change sensor every 14 days 2 each 02/28/2022 Active famotidine 40 mg oral tablet (10 sources) Histamine-2 Receptor Antagonist Start: 08-01-2023 End: 10-08-2023 take 1 tablet by mouth once daily famotidine (Pepcid) 40 MG tablet Take 1 tablet (40 mg) by mouth daily for 14 days. 14 tablet 08/16/2023 10/08/2023 Discontinued (Med list cleanup) furosemide 20 mg oral tablet (8 sources) Loop Diuretic Start: 06-25-2023 End: 09-23-2023 take 1 tablet by mouth once daily furosemide (Lasix) 20 MG tablet Take 1 tablet (20 mg) by mouth daily for 90 doses. 90 tablet 1 06/25/2023 08/14/2023 Discontinued (Side effects) glimepiride 2 mg oral tablet (4 sources) Sulfonylurea Start: 01-08-2023 End: 01-08-2024 take 1 tablet by mouth once daily before breakfast glimepiride (Amaryl) 2 MG tablet Take 1 tablet (2 mg) by mouth every morning (before breakfast). 30 tablet 2 01/08/2023 06/25/2023 Discontinued (Alternate therapy) glipiZIDE 5 mg oral tablet (1 source) Sulfonylurea Start: 06-04-2023 End: 06-25-2023 take 1 tablet by mouth once daily at breakfast glipiZIDE (Glucotrol) 5 MG tablet Take 5 mg by mouth daily (with breakfast). 0 06/04/2023 06/25/2023 Discontinued (Alternate therapy) Krill Oil Ultra Strength 1500 MG capsule (20 sources) End: 06-25-2023 take 1 capsule by mouth in the morning Krill Oil Ultra Strength 1500 MG capsule Take 1 capsule by mouth in the morning. 0 06/25/2023 Discontinued (Cost of medication) take 1 capsule by mouth in the m orning Krill Oil Ultra Strength 1500 MG capsule Take 1 capsule by mouth in the morning. 0 Active [id number] tx (KRILL OIL, OMEGA 3 AND 6,) 1,500-165-67.5 mg cap (4 sources) take 1 capsule by mouth once daily [id number] (KRILL OIL, OMEGA 3 AND 6,) 1,500-165-67.5 mg cap Take 1 capsule by mouth once daily. 0 Active Comment on above: Take 1 capsule by mo ut once daily. [id number] tx 1,500-165-67.5 mg cap (3 sources) take 1 capsule by mouth once daily [id number] 1,500-165-67.5 mg cap Take 1 capsule by mouth once daily. 0 Active Comment on above: Take 1 capsule by mo uth once daily. lisinopril 5 mg oral tablet (3 sources) Angiotensin Converting Enzyme Inhibitor S t a r t : 0 9 - 2 9 - 2 0 2 1 E n d : 0 6 - 1 7 - 2 0 2 2 lisinopril (ZESTRIL, PRINIVI L) 5 mg tablet One 5 mg tab q AM 0 11/09/2020 07/28/2021 Discontinued Comment on above: One 5 mg tab q AM losartan potassium 25 mg ora l tablet (1 source) Angiotensin 2 Receptor Beni S t a r t : 0 1 - 1 8 - 2 0 2 3 E n d : 0 4 - 1 0 - 2 0 2 3 take 1 tablet by mouth once daily losartan (Cozaar) 25 MG tablet Take 1 tablet (25 mg) by mouth daily. 90 tablet 0 02/28/2022 05/21/2022 Discontinued (Alternate therapy) meclizine hydrochloride 25 m g oral tablet (8 sources) Antiemetic S t a r t : 1 2 - 0 6 - 2 0 1 8 meclizine (ANTIVERT) 25 mg t ab Take 12.5 mg by mouth three times daily as needed. 0 01/16/2018 Active Start: 01-16-2018 End: 05-21-2022 meclizine (Antivert) 25 MG t ablet Take 12.5 mg by mouth every 8 hours as needed. 0 01/16/2018 05/21/2022 Discontinued (Ineffective) Comment on above: Take 12.5 mg by mout h three times daily as needed. melatonin 3 mg oral tablet (20 sources) Start: 3 End: 4 take 1 tablet by mouth once daily melatonin 3 MG tablet Take 1 tablet (3 mg) by mouth daily. 90 tablet 0 02/28/2022 06/25/2023 Discontinued (Therapy completed) naloxone hydrochloride 40 mg/ml nasal spray (1 source) Opioid Antagonist Start: 3 End: 3 naloxone (Narcan) 4 mg/0.1 mL nasal spray Administer 1 spray (4 mg) into affected nostril(s) Once for 1 dose. May repeat every 2-3 minutes if needed, alternating nostrils, until medical assistance becomes available. 1 each 0 10/16/2022 10/16/2022 predniSONE 10 mg oral tablet (2 sources) Start: 4 End: 4 predniSONE (Deltasone) 10 MG tablet 5 qday for 3 days, then 3 qday for 3 days, then one qday till gone 27 tablet 5 02/21/2023 06/25/2023 Discontinued (Therapy completed) sertraline 50 mg oral tablet (14 sources) Serotonin Reuptake Inhibitor Start: End: take 1 tablet by mouth once daily sertraline (Zoloft) 50 MG tablet Take 1 tablet (50 mg) by mouth daily for 90 doses. 90 tablet 1 06/25/2023 10/08/2023 Discontinued (Therapy completed) Problems Active Problems Problem Classification Problem Date Documented Date Episodic/Chronic Anxiety disorders (20 sources) Anxiety; Translations: [Anxiety disorder, unspecified] Onset: 10-29-1912-21-2020 Chronic Cardiac dysrhythmias (20 sources) Ventricular premature beats; Translations: [Ventricular premature depolarization] Onset: 10-29-1912-21-2020 Chronic Chronic obstructive pulmonary disease and bronchiectasis (14 sources) Mild chronic obstructive pulmonary disease; Translations: [Chronic obstructive pulmonary disease, unspecified] Onset: 12-22-1912-21-2020 Chronic Deficiency and other anemia (2 sources) Anemia; Translations: [Anemia, unspecified] 06-25-2023 Episodic Diabetes mellitus with complications (20 sources) Type [...] reflux disease without esophagitis] Onset: 10-29-1912-21-2020 Chronic Essential hypertension (20 sources) Essential hypertension; Translations: [Essential (primary) hypertension] Onset: 06-26-1912-21-2020 Chronic Genitourinary symptoms and ill-defined conditions (1 source) Dysuria; Translations: [Dysuria] Episodic Heart valve disorders (20 sources) Mitral valve prolapse; Translations: [Nonrheumatic mitral (valve) prolapse] Onset: 10-29-1912-21-2020 Chronic Mood disorders (15 sources) Depressive disorder; Translations: [Depression, unspecified depression type] Onset: 06-25-1906-25-2023 Chronic Osteoarthritis (20 sources) Arthritis of hip; [...] Dysphagia; Translations: [Dysphagia, unspecified] 12-19-2022 Episodic Other hereditary and degenerative nervous system [...] diseases of liver] Onset: 10-29-1912-21-2020 Chronic Other lower respiratory disease (1 source) Fibrosis of lung; Translations: [Pulmonary fibrosis, unspecified] 06-25-2023 Chronic Other lower respiratory disease (2 sources) Pulmonary fibrosis, unspecified; Translations: [Pulmonary fibrosis, unspecified (HCC)] Onset: 06-25-19 Chronic Other nervous system disorders (15 sources) Ulnar neuritis; Translations: [Lesion of ulnar nerve, unspecified upper limb] Onset: 06-25-1906-25-2023 Chronic Other nervous system disorders (2 sources) Lesion of ulnar nerve, unspecified upper limb; Translations: [Lesion of ulnar nerve, unspecified upper limb] Onset: 06-25-19 Chronic Other non-traumatic joint disorders (2 sources) Pain in right knee; Translations: [Pain in joint, lower leg] 08-21-2022 Episodic Other nutritional; endocrine; and metabolic disorders (2 sources) Hypomagnesemia; Translations: [Hypomagnesemia] Onset: 06-25-1906-25-2023 Chronic Other nutritional; endocrine; and metabolic disorders (1 source) Hypomagnesemia; Translations: [Hypomagnesemia] Onset: 06-25-19 Chronic Other upper respiratory disease (20 sources) Allergic rhinitis; Translations: [Allergic rhinitis, unspecified] Onset: 10-05-1912-21-2020 Chronic Retinal detachments; defects; vascular occlusion; and retinopathy (20 sources) Pattern dystrophy of macula; Translations: [Dystrophies primarily involving the retinal pigment epithelium] Onset: 08-22-19 Chronic Screening and history of mental health and substance abuse codes (1 source) Ex-smoker; Translations: [Personal history of nicotine dependence] 06-25-2023 Episodic Spondylosis; intervertebral disc disorders; other back problems (20 sources) Cervical spondylosis; Translations: [Spondylosis without myelopathy or radiculopathy, cervical region] Onset: 10-29-1912-21-2020 Chronic Substance-related disorders (20 sources) Nicotine dependence; Translations: [Nicotine dependence, unspecified, uncomplicated] Onset: 01-17-20 18 12-21-2020 Chronic Thyroid disorders (20 sources) Hypothyroidism; Translations: [Hypothyroidism, unspecified] Onset: 10-29-1912-21-2020 Chronic Unclassified (1 source) Personal history of COVID-19; Translations: [Personal history of COVID-19] Onset: 06-25-19 Past or Other Problems Problem Classification Problem Date Documented Da te Episodic/Chronic Abdominal hernia (17 sources) Gastroesophageal reflux disease with hiatal hernia; Translations: [Diaphragmatic hernia without obstruction or gangrene] Onset: 5 06-25-2023 Episodic Deficiency and other anemia (2 sources) Anemia, unspecified; Translations: [Anemia, unspecified] Onset: Episodic Other aftercare (20 sources) Patient encounter status; Translations: [correction (current) use of non-steroidal anti-inflammatories (NSAID)] Onset: 5 11-25-2021 Episodic Other aftercare (1 source) correction current use of non-steroidal anti-inflammatory drug; Translations: [correction (current) use of non-steroidal anti-inflammatories (NSAID)] Onset: 5 11-25-2021 Episodic Other connective tissue disease (7 sources) Impingement syndrome of shoulder region; Translations: [Impingement syndrome of unspecified shoulder] Onset: 1 12-21-2020 Episodic Other gastrointestinal disorders (2 sources) Dysphagia, unspecified; Translations: [Dysphagia, unspecified] Onset: 3 Episodic Other infections; including parasitic (15 sources) Personal history of other infectious and parasitic diseases; Translations: [History of COVID-19] Onset: 4 06-25-2023 Episodic Other lower respiratory disease (20 sources) Nodule of lung; Translations: [Solitary pulmonary nodule] Onset: 5 11-25-2021 Episodic Residual codes; unclassified (7 sources) Insomnia; Translations: [Insomnia, unspecified] Onset: 9 12-21-2020 Episodic Residual codes; unclassified (20 sources) Family history of breast cancer; Translations: [Family history of malignant neoplasm of breast] Onset: 5 11-25-2021 Episodic Spondylosis; intervertebral disc disorders; other back problems (7 sources) Cervical nerve root pain; Translations: [Radiculopathy, cervical region] Onset: 1 12-21-2020 Episodic Syncope (7 sources) Syncope; Translations: [Syncope and collapse] Onset: 1 12-21-2020 Episodic Unclassified (1 source) Personal history of COVID-19; Translations: [Personal history of COVID-19] Onset: 4 Urinary tract infections (3 sources) Recurrent urinary tract infection; Translations: [Urinary tract infection, site not specified] Onset: 3 Episodic Viral infection (20 sources) Disease caused by 2019-nCoV; Translations: [COVID-19] Onset: 2 11-25-2021 Episodic Results Test Name Value Interpretation Reference Range Facility AMB POC HEMOGLOBIN A1Con HbA1c (Bld) [Mass fraction] 7.2 % Abnormal - 5.7 % [facility] HbA1c (Bld) [Mass fraction]o n 10-08-2023 Interpretation and review of laboratory results Abnormal [facility] Office Visiton 10-08-2023 Follow-up visit [id number] Tabitha,Leoncio delaney Benavides 1945 F Date Provider Department Center 10/08/2023 [id number] SIEGEL [facility] Family History Problem Relation Age of Onset Heart disease Mother Comments: MD at age 58 Other Father Comments: unknown Breast cancer Sister 74 Coronary artery disease Sister Comments: age 80 in 10/2019 Cancer Sister Comments: Renal CA No Known Problems Brother Family Status - Relation Status Age at Mother 58 Father Other Sister Sister Alive Brother Alive Level of Service:18416 [place] OFFICE/OUTPATIENT ESTABLISHED MOD MDM 30 MIN Reason for Visit and Comments: Follow-up [041461] - 3 month med check, wants to try meloxicam, wants to try something to replace tylenol with codine Normal [facility] Progress Noteon 10-08-2023 Progress Note - Chronic stable cur rent A1c is 7.2 will continue on Januvia 100 mg daily and metformin 500 mg twice a day. Normal [facility] Progress Note - Chronic and stable continue on levothyroxine 100 mcg daily. Normal [facility] Progress Note - Chronic stable sti ll has generalized arthritic pain requesting to switch from Celebrex back to meloxicam due to secondary rash that is developed Normal [facility] Progress Note - Chronic stable con tinue on metoprolol 25 mg daily and spironolactone 25 mg daily will recheck CMP today. Normal [facility] Progress Note [facility] [address] [place] [address] [address] [facility] [address] Dept: [phone] Dept Loc: [phone] Visit type: Established Patient Reason for Visit: Follow-up (3 month med check, wants to try meloxicam, wants to try something to replace tylenol with codine) Assessment and Plan 1. Type 2 diabetes mellitus with hyperglycemia, without long-term current use of insulin (HCC) Assessment & Plan: - Chronic stable current A1c is 7.2 will continue on Januvia 100 mg daily and metformin 500 mg twice a day. Orders: - AMB POC HEMOGLOBIN A1C - Comprehensive metabolic panel - gabapentin (Neurontin) 300 MG capsule; Take 1 capsule (300 mg) by mouth 2 times daily., Starting Sat10/08/2023, Normal - Januvia 100 MG tablet; Take 1 tablet (100 mg) by mouth daily for 180 doses., Starting Sat10/08/2023, Until 04/05/2024, Normal - metFORMIN (Glucophage) 500 MG tablet; Take 1 tablet (500 mg) by mouth in the morning and 1 tablet (500 mg) in the evening. Take with meals. Do all this for 360 doses., Starting Sat10/08/2023, Until Sat04/05/2024, Normal 2. Osteoporosis, unspecified osteoporosis type, unspecified pathological fracture presence Assessment & Plan: - Chronic stable still has generalized arthritic pain requesting to switch from Celebrex back to meloxicam due to secondary rash that is developed Orders: - meloxicam (Mobic) 7.5 MG tablet; Take 1 tablet (7.5 mg) by mouth daily., Starting Sat10/08/2023, Until Sat04/05/2024, Normal 3. Anemia, unspecified type - CBC auto differential 4. Acquired hypothyroidism Comments: Stable, continue Levothyroid Assessment & Plan: - Chronic and stable continue on levothyroxine 100 mcg daily. Orders: - levothyroxine (Synthroid, Levoxyl) 100 MCG tablet; Take 1 tablet (100 mcg) by mouth daily., Starting Sat10/08/2023, Until Sat04/05/2024, Normal 5. Mixed hypercholesterolemia and hypertriglyceridemia - simvastatin (Zocor) 40 MG tablet; Take 1 tablet (40 mg) by mouth every evening., Starting Sat10/08/2023, Normal 6. Essential hypertension Assessment & Plan: - Chronic stable continue on metoprolol 25 mg daily and spironolactone 25 mg daily will recheck CMP today. Orders: - metoprolol succinate XL (Toprol-XL) 25 MG 24 hr tablet; Take 1 tablet (25 mg) by mouth daily for 180 doses. Do not crush or chew., Starting Sat10/08/2023, Until Sat04/05/2024, Normal - spironolactone (Aldactone) 25 MG tablet; Take 1 tablet (25 mg) by mouth daily for 180 doses., Starting e 10/08/2023, Until 04/05/2024, Normal 7. Post traumatic stress disorder (PTSD) Comments: Stable, continue Xanax as needed. Risk of benzodiazepines discussed Orders: - ALPRAZolam (Xanax) 0.5 MG tablet; Take 1 tablet (0.5 mg) by mouth 2 times daily as needed for anxiety., Starting Sat10/08/2023, Normal Follow up in about 3 months (around 01/08/2024). Subjective HPI this is a 78-year-old female with underlying history of type 2 diabetes, mitral valve prolapse, osteoporosis, with degenerative disc disease, hypothyroidism, cholesterol, GERD and anxiety who presents to the office today for medication refill. Concern about an rash outbreak that looked like chickenpox Started on celebrex and re developed a rash. Wants to go back on meloxicam Patient was primarily concerned today coming in to get her meds refilled as she states this is at the end and she comes in every 3 months that she is on gabapentin and Xanax. O[facility] report reviewed and appropriate. She also has developed a suspect rash illness appears like a pemphigoid type rash on her back and her arms. She was concerned that it might be chickenpox or shingles . But was not really sure Kyler Lopez was secondary to medication which is certainly likely or possible as she states when she started back on her Celebrex the rash reappeared she has since discontinued the Celebrex and would like to go back to meloxicam she was on 7 and half milligrams and that seemed to do well and control her pain. She denies any current nausea vomiting diarrhea no shortness of breath chest pain palpitation. There is some concern of stress incontinence the daughter at bedside acted as an independent historian although the patient states she feels okay and does not want any further medication at this time. She was also concerned about her B12 levels and states she was post to have this checked in the past she continued to take supplements. She also states she has had degenerative eye disease and was concerned about what vitamins and supplementations were good for her eyes we talked about vitamin A as well as use of beta cottonoids. Review of Systems Constitutional: Negative for chills and fever. HENT: Negative for congestion and sore throat. Respiratory: Negative for cough and shortness of breath. Cardiovascular: Negative for chest pain. Gastroin (more content not included)... [place] [id number] 36 Recent Visits Date Type Provider Dept 06/25/23 Office Visit Reece Salas, DO [facility] 12/19/22 Office Visit Reece Salas, DO [facility] Showing recent visits within past 365 days and meeting all other requirements Future Appointments Date Type Provider Dept 10/08/23 Appointment Prakash Leon PA-C [facility] Showing future appointments within next 90 days and meeting all other requirements Requested Prescriptions Pending Prescriptions Disp Refills gabapentin (Neurontin) 300 MG capsule [Pharmacy Med Name: Gabapentin 300 MG Oral Capsule] 180 capsule 0 Sig: Take 1 capsule by mouth twice daily Provider: Reece Salas DO Overdue for visit: No If yes - patient scheduled? Yes Most recent labs completed in chart? Yes Verified pharmacy: yes Verified day(s) supplied: yes Verified refill(s) needed (previous prescription showing no refills in chart): Yes Have you received any controlled medications from any other provider? No None [facility] 09-18-2023 36 Talked to patient an d she said she was to use this mouthwash after her 4 different inhalers and to keep her from getting Thrush. She was to rinse and spit once in the morning after inhalers and once in the evening after her other inhalers. RX loaded [place] [id number] 36 Last OV:06/25/23 Scheduled:10/08/23 [place] [id number] Name of caller: Carlton alberts Contact phone number: [phone] Relationship to Patient: patient Provider: [facility] Practice: [facility] Chief Complaint/Reason for Call: Patient is requesting Chlorhexidine gluconate. She said she was given this in the assisted and needs a refill. Please advise Best time of day caller can be reached: any Patient advised that office/PCP has 24-48 business hours to return their call: No [address] 08-16-2023 36 Talked to patient an d relayed message and she will stop the lasix but does not want to stop taking her Celebrex as she has been taking for at least ten years and doesn't think it is causing the rash or itching. Patient did say she will increase her spironolactone. She did quit taking the Zoloft and the rash does seem to be improving. Patient hasn't scheduled yet with dermatology but does have an appointment with you on 08/27/23. Patient does need refills, RX loaded Next ov 08/27/23 [facility] 36on 08-14-2023 36 S: Patient spoke wit h [facility] nurse regarding medication refill request B: Onset of symptoms/concern today A: Medication Refill request - 1) Hydroxyzine pamoate 25 mg every 8 hours as needed. 2) Famotidine 40 mg daily question is reorder for itching, prescribed 08/01/23 for 14 days. Pt endorses continue itching with rash back/shoulder and arms. 3) Cyanocobalamin 500 MCG daily. Pharmacy and allergies. Pt endorses stopped Zoloft due to itching. Pt requesting to have provider review medication list and see if any other medication can be the cause of itching. R: Message sent to provider for further assistance at this time. No further needs at this time. Patient instructed to call back with new or worsening symptoms. Reason for Disposition [1] Prescription refill request for NON-ESSENTIAL medicine (i.e., no harm to patient if med not taken) AND [2] triager unable to refill per department policy Protocols used: Medication Refill and Renewal [facility] 36 Ordering provider: Historical Provider, Documenting User: Samantha Chávez MA Date of last office visit: 06/25/2023 Date of next office visit: 08/27/2023 Updated/Validated preferred pharmacy: Yes Patient instructed to contact the pharmacy prior to picking up the medication: Yes (1) Medication name: Budesonide nebulizer solution Medication dosage: 0.5 mg (Miligrams Monthly quantity needed: N/A How many day supply requesting: N/A Medication route: inhalation (inhaler) Medication administration time(s): 2 times a day (BID) If taking medication PRN, reason for taking medication: N/A If this is a controlled substance do you receive this or any other controlled medication from any other doctor or facility: No Date of last refill (see medication tab): 02/26/2023 [facility] 36on 08-01-2023 36 Talked to patient an d relayed message and she verbalized understanding. [facility] 36on 07-31-2023 36 S: Patient spoke lance [facility] nurse regarding rash, itching B: Onset of symptoms/concern ongoing A: Patient endorses ongoing itching and rash. [place] 06/24 and states rash was evaluated at this time. Patient endorses ED visit 07/15 and was given prednisone which she since finished. She states she felt fine for about 3 days and then rash reappeared again after finishing medication stating it is on her back, shoulders, and tops of arms. She states she took herself off some of the new medications she was prescribed at the assisted including Januvia and Zoloft and one other that she cannot remember stating she thinks the rash may have been initially caused by one of those medications. She states she is continuing taking the loratadine, benadryl, and hydrocortisone as directed. She states she has been taking benadryl BID for relief stating that is the only thing that seems to help. Endorses she is itching so bad it is causing some scabbing stating she is keeping the sites clean with alcohol swabs. Endorses rash looks as it did during PCP OV but states it has gotten a little bit worse. Patient states she does not drive and lives in [place] and is hard to get in for an appt and is wanting to know if MD can send script for itching/rash without being seen. States the prednisone did help but will take whatever MD recommendation is. Denies: fever, SOB, s/s infection, facial swelling, joint swelling, or blisters endorsing her hands are still mildly swollen but the same as they were at OV stating she thinks it was the Zoloft that caused this. Endorses her BG levels are still sitting around 200. States she is still taking the additional 500 mg of metformin as previously directed. She is wanting to know if she should take something else instead/in addition since she took herself off of the Januvia. R: Offered VV as patient unable to come in for OV; she declined at this time. Per [place] ED discharge paperwork, patient advised to follow up with dermatology in [place]. Patient aware of TE to PCP for follow up. Allergies and pharmacy verified. Patient understands care advice. No further needs at this time. Patient instructed to call back with new or worsening symptoms. Reason for Disposition SEVERE itching Protocols used: Rash or Redness - [id number] [facility] 36on 07-29-2023 36 Recent Visits Date Type Provider Dept 06/25/23 Office Visit Reece Salas DO [facility] 12/19/22 Office Visit Reece Mere DO [facility] 08/21/22 Office Visit Reece Severino DO [facility] Showing recent visits within past 365 days and meeting all other requirements Future Appointments Date Type Provider Dept 08/27/23 Appointment Reece Severino DO [facility] Showing future appointments within next 90 days and meeting all other requirements Requested Prescriptions Pending Prescriptions Disp Refills Alcohol Swabs (B-D SINGLE USE SWABS REGULAR) pads [Pharmacy Med Name: B-D SWABS REG PAD] 100 each 0 Sig: USE TWICE DAILY Provider: Reece Salas DO Verified pharmacy: yes Verified day(s) supplied: yes Verified refill(s) needed (previous prescription showing no refills in chart): Yes Have you received any controlled medications from any other provider? N/A Overdue for visit: No If yes - patient scheduled? Yes Most recent labs completed in chart? N/A [facility] 36on 07-19-2023 36 S: Patient spoke wit h [facility] nurse regarding hyperglycemia B: Onset of symptoms/concern 1 day A: Patient states she was given Prednisone 40mg and she is on 4/5 days. Patient states her sugar last night was 389. She felt sluggish , weak, and dizzy. This morning glucose was 277. Patient denies shortness of breath, nausea and vomiting. Patient is currently taking Metformin 500mg BID and Januvia 100mg daily R: Call to Dr Salas. He advised patient take Additional Metformin 500mg now, and starting tomorrow patient take Metformin 1000mg in morning and 500mg at night for the next week. He advised patient's glucose could remain elevated for 5-7 days, but should start to come down then. Patient informed and agreeable. Advised her to call back is her glucose does not come down. Patient understands care advice. No further needs at this time. Patient instructed to call back with new or worsening symptoms. Reason for Disposition Blood glucose > 300 mg/dL (16.7 mmol/L) AND two or more times in a row Protocols used: Diabetes - High Blood [id number] [facility] [id number] 36 Talked to patient an d relayed to her message of medication called in and she will pick it up and start taking it. She also mentioned that she had been to [place] ER for itching and she wanted to schedule an appointment for ER follow up. Appointment made for first available 07/30/23. [facility] 07-15-2023 36 Placed call to wenceslao porter to discuss rx being sent in and to check her pharmacy. Message left on voicemail to return call. [facility] 07-05-2023 36 Rx loaded [place] [id number] 36 Placed call to wenceslao porter. Unable to reach them by phone to discuss lab results. Left detailed message to return call to discuss results. Please release information to patient [facility] 36 ----- Message from Eliu Friend MA sent at 07/01/2023 7:36 AM EDT ----- ----- Message ----- From: Reece Salas DO Sent: 06/30/2023 6:36 PM EDT To: [facility] Clinical Threshing Department Supervisor CBC within normal limits and no longer anemic.. Chemistries and hemoglobin A1c at goal. Continue all current meds as is. [facility] Office Visiton 06-25-2023 Follow-up visit [id number] Leoncio Lu 1945 F Date Provider Department Center 06/25/2023 [id number] SALAS [facility] JULIA [facility] Family History Problem Relation Age of Onset Heart disease Mother Comments: MD at age 58 Other Father Comments: unknown Breast cancer Sister 74 Coronary artery disease Sister Comments: age 80 in 10/2019 Cancer Sister Comments: Renal CA No Known Problems Brother Family Status - Relation Status Age at Mother 58 Father Other Sister Sister Alive Brother Alive Level of Service:11558 [place] OFFICE/OUTPATIENT ESTABLISHED HIGH MDM 40 MIN Reason for Visit and Comments: Hospital & SNUF discharge [Other] - 02/10/2023 - Discharged from [facility] 06/12/2023 - Discharged from [facility] Med Refill [[id number]] - Tylenol with codeine - pills Normal [facility] Progress Noteon 06-25-2023 Progress Note [facility] [address] [facility] [id number] Visit type: Established Patient Reason for Visit: Hospital & SNUF discharge (02/10/2023 - Discharged from [facility] /06/12/2023 - Discharged from [facility] ) and Med Refill (Tylenol with codeine - pills ) Assessment / Plan: Javier was seen today for hospital & snuf discharge and med refill. Diagnoses and all orders for this visit: Chronic obstructive pulmonary disease, unspecified COPD type (HCC) (Primary) Comments: Severe, O2 dependent, continue all pulmonary meds and follow-up with Dr. Hahn on PFTs and clearance for any hiatal hernia repair Ex-smoker Comments: Noted, praise given Mixed hypercholesterolemia and hypertriglyceridemia Acquired hypothyroidism Comments: Stable, continue Levothyroid Orders: - levothyroxine (Synthroid, Levoxyl) 100 MCG tablet; Take 1 tablet (100 mcg) by mouth daily. Pulmonary fibrosis (HCC) Essential hypertension Type 2 diabetes mellitus with hyperglycemia, without long-term current use of insulin (HCC) Comments: Stable, continue Januvia only DDD (degenerative disc disease), lumbar History of COVID-19 Comments: Resolved, COVID booster soon Hiatal hernia with gastroesophageal reflux Comments: Large historically, questionable candidate for fundoplication. Changed to Protonix 40 mg daily. Avoidance measures. Ulnar neuritis, unspecified laterality Comments: Chronic, await response to Celebrex, if no improvement possible EMG study Anemia, unspecified type - CBC auto differential; Future - Comprehensive metabolic panel; Future - Iron and TIBC; Future - Hemoglobin A1c; Future - CBC auto differential - Comprehensive metabolic panel - Iron and TIBC - Hemoglobin A1c - Vitamin B12; Future - Vitamin B12 Hypomagnesemia - Magnesium; Future - Magnesium Other orders - Discontinue: pantoprazole (ProtoNix) 40 MG EC tablet; Take 1 tablet (40 mg) by mouth every morning (before breakfast). - Discontinue: celecoxib (CeleBREX) 200 MG capsule; One q AM with food - magnesium oxide (Mag-Ox) 400 (240 Mg) MG tablet; Take 2 tablets (800 mg) by mouth 2 times daily. - spironolactone (Aldactone) 25 MG tablet; Take 1 tablet (25 mg) by mouth daily for 90 doses. - simvastatin (Zocor) 40 MG tablet; Take 1 tablet (40 mg) by mouth every evening. - sertraline (Zoloft) 50 MG tablet; Take 1 tablet (50 mg) by mouth daily for 90 doses. - raloxifene (Evista) 60 MG tablet; Take 1 tablet (60 mg) by mouth daily. - pantoprazole (ProtoNix) 40 MG EC tablet; Take 1 tablet (40 mg) by mouth every morning (before breakfast). - metoprolol succinate XL (Toprol-XL) 25 MG 24 hr tablet; Take 1 tablet (25 mg) by mouth daily for 180 doses. Do not crush or chew. - metFORMIN (Glucophage) 500 MG tablet; Take 1 tablet (500 mg) by mouth in the morning and 1 tablet (500 mg) in the evening. Take with meals. Do all this for 180 doses. - loratadine (Claritin) 10 MG tablet; Take 1 tablet (10 mg) by mouth in the morning. - Januvia 100 MG tablet; Take 1 tablet (100 mg) by mouth daily for 90 doses. - gabapentin (Neurontin) 300 MG capsule; Take 1 capsule (300 mg) by mouth 2 times daily. - furosemide (Lasix) 20 MG tablet; Take 1 tablet (20 mg) by mouth daily for 90 doses. - fluticasone-salmeterol (Advair) 115-21 MCG/ACT inhaler; Inhale 2 puffs in the morning and 2 puffs in the evening. Rinse mouth with water after use to reduce aftertaste and incidence of candidiasis. Do not swallow.. - celecoxib (CeleBREX) 200 MG capsule; One q AM with food - albuterol 108 (90 Base) MCG/ACT inhaler; Inhale 2 puffs every 4 hours as needed for shortness of breath or wheezing. 50 Minutes spent on reviewing pertinent history, patient interview, physical exam, discussion of diagnosis and treatment and work-up options. Subjective: Patient ID: Javier Lu is a 78 y.o. female. HPI ex-smoker for about 5 months presents to the office after being in a local assisted after developing COVID illness and early February 2024. Substantially ill and placed on steroids in the hospital. Subsequently discharged to assisted and took her few months to get stronger. Now on home oxygen and probably permanently. Pulmonary fibrosis found on x-ray. Saw Dr. Selma grewal in [place] and is getting PFTs. He actually is recommending to help her that perhaps she get a fundoplication for her large hiatal hernia. There is a question of aspirating as causes due to malaise and the nursing. Also had a couple UTIs. Now living alone in the last 3 weeks. Back to her baseline and feels pretty comfortable with less dyspnea. Has multiple questions concerning her stomach with acid reflux, intermittent bloating. Fatigue and weakness. Also has numbness and pain down the ulnar aspect of both hands. Review of Systems and review of her weight is down 3 (more content not included)... [facility] 06-24-2023 36 Okay to fit in with Dr Salas on 06/25/23 at 12:30. Per Dr Salas [facility] 36 Name of caller: carlton alberts Contact phone number: [phone] Relationship to Patient: patient Provider: Dr. Salas Practice: [facility] Chief Complaint/Reason for Call: pt called back in for help with schedueling transcare appt.no openings with pcp, please call pt. And advise Best time of day caller can be reached: AM Patient advised that office/PCP has 24-48 business hours to return their call: Yes [facility] 3606-21-2023 36 Name of Caller: Carlton alberts Contact Reason for Appointment: Patient requesting transitional care appointment with Dr. Salas on 06/25/23. Patient states its only day she would have transportation. Please advise. Office Name: [facility] Medication Refills need, if any: n/a Medication Name: n/a [facility] 36on 06-04-2023 36 Spoke with Zenia and pt is scheduled with Dr Salas June 16. 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 eZnia states pt would feel more calm leaving facility today knowing she has appt scheduled. Please advise. 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 Please advise. Best time of day caller can be reached: Any Patient advised that office/PCP has 24-48 business hours to return their call: [facility] 36on 02-21-2023 36 Placed call to wenceslao porter. Two patient identifers confirmed. Was able to speak to patient. All concerns in message have been addressed. No questions at this time. Call ended [facility] 36 S: Patient spoke lance leblanc [facility] nurse regarding Covid positive. Short of breath and wheezing. B: Onset of symptoms/concern A: Patient seen in [place] ED 1/ for Covid and missed follow up today. [...] 100.0 F (37.8 C) and bedridden (e.g., assisted patient, stroke, chronic illness, recovering from surgery) Protocols used: Breathing [id number] [facility] 36on 02-20-2023 36 Faxed over request a nd called and they said they would fax report today. [facility] 36 ----- Message from Makayla Leon PA-C sent at 02/20/2023 12:31 PM EST ----- Regarding: er note This patient is an ER follow-up can we see if we can track down where she was seen I think it was we will start and get the copy of the ER note for me please Thanks carlos [address] 02-17-2023 36 S: Patient spoke wit h [facility] nurse regarding continued Covid symptoms. B: Onset of symptoms/concern 02/11/23 Last OV 12/19/22 ED visit 02/13/23 [place] A: States she tested positive for Covid on 02/13/23. Reports temp of 100.6 with 2 Tylenol and 2 Ibuprofen. She reports productive cough with green phlegm and constant shortness of breath even at rest and wheezing. R: Advised to report to ED now. Advised if she does not have transportation to call EMS. She reports she will report to [place] ED. Patient understands care advice. No further needs at this time. Patient instructed to call back with new or worsening symptoms. Reason for Disposition MODERATE difficulty breathing (e.g., speaks in phrases, SOB even at rest, pulse 100-120) Protocols used: Coronavirus (COVID-19) Diagnosed or [id number] 01-17-2023 36 Patient is scheduled 03/20/[address] 01-16-2023 36 Rx loaded Next ov 03/20/22 [place] [address] Name of caller: Carlton alberts Contact phone number: [phone] Relationship to Patient: patient Provider: [facility] Practice: [facility] Chief Complaint/Reason for Call: Pt calling regarding two medications: With the acetaminophen-codeine (Tylenol #3) 300-30 MG tablet she states that her script is only showing 1 refill but it should have 2. This script goes to [facility]. Also, pt's ALPRAZolam (Xanax) 0.5 MG tablet that appears to have been called into [facility], they did not get it since they say that they have no scripts there for her. She states this script should also go to [facility]. Please advise pt on the processing of her request. Best time of day caller can be reached: any Patient advised that office/PCP has 24-48 business hours to return their call: Yes [address] 01-10-2023 36 Patient says she miranda l call the drug store [address] 01-09-2023 36 Pt said her Xanax wa s called into [facility] instead of [facility] and she is gonna call [facility] today. [address] 01-08-2023 Medicines refilled a nd I did change her metformin to glimepiride 2 mg each day. So she is to stop the metformin for now. Begin glimepiride each morning. It is a smaller pill. Only issue is I cannot bring up a OARRS report on this patient. In the record it says I refilled the Xanax at her December appointment. Ask her if she obtained that refill already. Get me the [place] report to review [place] [address] Spoke to patient all was addressed [place] [address] Rx loaded Patient says if you can change her sugar pill to a smaller pill that will really help so please switch that one she says she can take all her pills when her aid is there in the morning its just at night its difficult. [address] 01-07-2023 36 Tried to call [place] again left another message and patient was also sent a letter to return call to the office. [address] 01-02-2023 Left message for raji stiles to return call to the office. Please release message to patient. [place] [address] Patient states she k eeps choking on her celecoxib (CeleBREX) 200 MG capsule, gabapentin (Neurontin) 300 MG capsule, magnesium oxide (Mag-Ox) 400 (240 Mg) MG tablet and metFORMIN (Glucophage) 500 MG tablet pills and would like to know if they come in a liquid form. States she's had to call the squad twice. Ordering provider: Dr Salas Date of last office visit: 12/19/22 Date of next office visit: 03/20/2023 Updated/Validated preferred pharmacy: Yes Patient instructed to contact the pharmacy prior to picking up the medication: Yes (1) Medication name: ALPRAZolam (Xanax) Medication dosage: 0.5 MG tablet Monthly quantity needed: 60 How many day supply requestin days Medication route: oral (PO) Medication administration time(s): 2 times a day (BID) If taking medication PRN, reason for taking medication: as needed for anxiety If this is a controlled substance do you receive this or any other controlled medication from any other doctor or facility: Yes Date of last refill (see medication tab): 12/19/22 (2) Medication name: loratadine (Claritin) Medication dosage: 10 MG tablet Monthly quantity needed: 90 How many day supply requestin days Medication route: oral (PO) Medication administration time(s): daily If taking medication PRN, reason for taking medication: N/A If this is a controlled substance do you receive this or any other controlled medication from any other doctor or facility: N/A Date of last refill (see medication tab): 09/04/22 (3) Medication name: celecoxib (CeleBREX) Medication dosage: 200 MG capsule Monthly quantity needed: 180 How many day supply requestin days Medication route: oral (PO) Medication administration time(s): 2 times a day (BID) If taking medication PRN, reason for taking medication: N/A If this is a controlled substance do you receive this or any other controlled medication from any other doctor or facility: N/A Date of last refill (see medication tab): 08/21/22 (4) Medication name: gabapentin (Neurontin) Medication dosage: 300 MG capsule Monthly quantity needed: 180 How many day supply requestin days Medication route: oral (PO) Medication administration time(s): 2 times a day (BID) If taking medication PRN, reason for taking medication: N/A If this is a controlled substance do you receive this or any other controlled medication from any other doctor or facility: Yes Date of last refill (see medication tab): 08/21/22 (5) Medication name: metFORMIN (Glucophage) Medication dosage: 500 MG tablet Monthly quantity needed: 135 How many day supply requesting: unk Medication route: oral (PO) Medication administration time(s): Take one tablet in the am and one half tab with supper If taking medication PRN, reason for taking medication: N/A If this is a controlled substance do you receive this or any other controlled medication from any other doctor or facility: N/A Date of last refill (see medication tab): 08/21/22 (6) Medication name: metoprolol succinate XL (Toprol-XL) Medication dosage: 25 MG 24 hr tablet Monthly quantity needed: 90 How many day supply requestin days Medication route: oral (PO) Medication administration time(s): daily If taking medication PRN, reason for taking medication: N/A If this is a controlled substance do you receive this or any other controlled medication from any other doctor or facility: N/A Date of last refill (see medication tab): 08/21/22 (7) Medication name: pantoprazole (ProtoNix) Medication dosage: 40 MG EC tablet Monthly quantity needed: 90 How many day supply requestin days Medication route: oral (PO) Medication administration time(s): daily If taking medication PRN, reason for taking medication: N/A If this is a controlled substance do you receive this or any other controlled medication from any other doctor or facility: N/A Date of last refill (see medication tab): 08/21/22 (8) Medication name: raloxifene (Evista) Medication dosage: 60 MG tablet Monthly quantity needed: 90 How many day supply requestin days Medication route: oral (PO) Medication administration time(s): daily If taking medication PRN, reason for taking medication: N/A If this is a controlled substance do you receive this or any other controlled medication from any other doctor or facility: N/A Date of last refill (see medication tab): 08/21/22 (9) Medication name: simvastatin (Zocor) Medication dosage: 40 MG tablet Monthly quantity needed: 90 How many day supply requestin days Medication route: oral (PO) Medication administration time(s): daily If taking medication PRN, reason for taking medication: N/A If this is a controlled substance do you receive this or any other controlled medication from any other doctor or facility: N/A Date of last refill (see medication tab): 08/21/22 (10) Medication name: magnesium oxide (Mag-Ox) Medication dosage: 400 (240 Mg) (more content not included)... [address] 12-31-2022 36 Rx loaded for [facility] pharmacy Next ov 03/20/23 [facility] 36 Faxed new order sign ed and dated. [facility] 36on 12-28-2022 36 Name of caller: Carlton aleman Contact phone number: [phone] Relationship to Patient: patient Provider: Dr. Salas Practice: [facility] Chief Complaint/Reason for Call: The patient is calling in stating her two prescriptions went to the wrong pharmacy. The patient is wondering if the prescriptions called ALPRAZolam (Xanax) 0.5 MG tablet and acetaminophen-codeine (Tylenol #3) 300-30 MG tablet can be sent to [facility] on file. Please advise. Best time of day caller can be reached: Any Patient advised that office/PCP has 24-48 business hours to return their call: No [place] [address] Name of caller: Adore brendan Contact phone number: [phone] Relationship to Patient: [facility] Provider: Dr Salas Practice: [facility] Chief Complaint/Reason for Call: Caller stated that they have received the signed form for patient Dexcom G7, but they are faxing a clean copy of the form to be signed and dated again. Caller stated that medicare would not accept form due to date being marked across. Please advise. Thank you. Best time of day caller can be reached: Any Patient advised that office/PCP has 24-48 business hours to return their call: No [place] [address] Placed call to wenceslao porter. Two patient identifers confirmed. Was able to speak to patient. All concerns in message have been addressed. No questions at this time. Call ended [facility] 36 When I got a hold of this patient to let her know of the increase to synthroid she thinks that it is causing her to break out in a sweat and feel sick to her stomach 25 minutes after she takes it. Could this also be caused by her blasting helper who also has her taking magnesium?? [facility] 36on 12-26-2022 36 Requested paperwork faxed to number given. [place] [address] Name of caller: Leah Contact phone number: [phone] Relationship to Patient: [place] Provider: Dr. Salas Practice: [facility] Chief Complaint/Reason for Call: Caller stated that they faxed in a request to have a signed and dated DWO and Clinical notes by the doctor. They received the DWO back but no date, and no notes. Requesting to resendthe DWO with a Date and Clinical notes. Fax signed DWO to [phone] and Clinical notes with in the last 6 moths to [phone]. Please advise, thank you. Best time of day caller can be reached: Any Patient advised that office/PCP has 24-48 business hours to return their call: Yes [facility] 36 L/M for patient of h er change in synthroid and advised I will try and call her back again. [facility] 36on 12-25-2022 36 Orders pended for doctor's signature [facility] 36on 12-21-2022 36 We now have labs fro [facility] and they are scanned into Safety And Security Officer for you to review. Normal [facility] 36 Name of caller: Carlton alberts Contact phone number: [phone] Relationship to Patient: patient Provider: Practice: [facility] Chief Complaint/Reason for Call: Pt called in stating that from 12/19 was supposed to reach out to her lab in [place] and get the results of her blood work. Pt states that she spoke with lab and was advised they did not have a fax number for . Pt states needs that they need to receive a call and be given fax number alba so her lab work can be viewed by before he views her medication. Please advise. Best time of day caller can be reached: Any Patient advised that office/PCP has 24-48 business hours to return their call: No Normal [facility] Office Visiton 12-19-2022 Follow-up visit [id number] Leoncio Lu 1945 F Date Provider Department Center 12/19/2022 [id number] SALAS [facility] Family History Problem Relation Age of Onset Heart disease Mother Comments: MD at age 58 Other Father Comments: unknown Breast cancer Sister 74 Coronary artery disease Sister Comments: age 80 in 10/2019 Cancer Sister Comments: Renal CA No Known Problems Brother Family Status - Relation Status Age at Mother 58 Father Other Sister Sister Alive Brother Alive Level of Service:55629 [place] OFFICE/OUTPATIENT ESTABLISHED MOD MDM 30-39 MIN Reason for Visit and Comments: 4 month follow up [Other] Diabetes [34] - Has never received the gennaro - would like to assistance in getting this device Medication Problem [65] - Has started choking when trying to swallow pills. Requesting to have all meds converted to liquid when available Feels Synthroid is to strong Normal [facility] Progress Noteon 12-19-2022 Progress Note Medication requestin g liquid form if available: Celebrex Gabapentin Krill Oil Magnesium Oxide Metformin Zocor Normal [facility] Progress Note [facility] [address] [facility] [address] Visit type: Established Patient Reason for Visit: 4 month follow up , Diabetes (Has never received the gennaro - would like to assistance in getting [...] Orders: - Continuous Blood Gluc Sensor (FreeStyle Gennaro 2 Sensor) misc; E11.9 Change sensor every [...] Future Other orders - Continuous Blood Gluc Hospice Care Transitions Coordinator ([employer] Gennaro 14 Day [place]) device; 1 each 2 times daily. E11.9 [...] half tab with supper 135 tablet 0 (more content not included)... [facility] Progress Noteon 11-13-2022 Progress Note Per chart review raji stiles is getting the Gennaro and not the dexcom, LM for patient to call back to to clarify [place] [address]on 10-26-2022 36 Talked to patient an d she does not need doctor to put orders in as she found them in her purse. We have faxed [place] for lab results and have not yet received them. She is awaiting the results of her lab work and will call [place] to send us results also. [facility] 36on 10-25-2022 36 Placed call to wenceslao porter to discuss and clarify what orders she needs and if she got a mammogram last year. Message left on voicemail to return call. [place] [address] 10-24-2022 36 Patient would like t o get orders for sonogram and mammogram. Please advise. Request was faxed to [place] [facility] to get lab results. [facility] 36 Name of caller: Carlton Lu Contact phone number: [phone] Relationship to Patient: patient Provider: Dr. Salas Practice: [facility] Chief Complaint/Reason for Call: Pt states chest xray, sonogram and mammogram was not sent to [facility] and patient would like to receive blood test results from [facility] taken last week . Please advise. Thank you Best time of day caller can be reached: Any Patient advised that office/PCP has 24-48 business hours to return their call: Yes [address] 10-19-2022 36 Rx loaded looks like wasn't sent. [place] [address] Pt called in request ing the acetaminophen-codeine (Tylenol #3) 300-30 MG tablet be sent to the pharmacy. It looks like the naloxone (Narcan) 4 mg/0.1 mL nasal spray was sent and authorized yesterday. Pt stated the pharmacy did not have the prescription there. Please advise. [address] 10-16-2022 36 Pharmacy called and states patient was wanting to slat pickler a Rx that was sent in on 08.21.22 They no longer have this Rx after 14 days. [facility] 36 faxed [place] [address] Rx loaded [address] 10-15-2022 36 Reason for Dispositi on Caller requesting a CONTROLLED substance prescription refill (e.g., narcotics, ADHD medicines) Protocols used: Medication Refill and Renewal [id number] S: patient calls for medication request B: patient states her tylenol three prescription was refused today would like refills called in R: patient advised her request will be forwarded to practice and they will address. Patient verbalizes understanding of same [address] 10-12-2022 36 Name of caller: Isabela dia Contact phone number: [phone] Relationship to Patient: [facility] Provider: Dr Salas Practice: [facility] Chief Complaint/Reason for Call: Caller stated that patient is there to get xrays, but does not have orders and they would like to get xray orders faxed to [phone]. Please advise. Thank you. Best time of day caller can be reached: Any Patient advised that office/PCP has 24-48 business hours to return their call: No Normal [facility] 36on 10-10-2022 36 Name of caller: Latha singh - [place] Contact phone number: [phone] Relationship to Patient: n/a Provider: Reece Salas Practice: [facility] Chief Complaint/Reason for Call: Order request was faxed from [place] on 10/06/22 for Dexcom Sensor and Hospice Care Transitions Coordinator. Divya calling to check on status. It is not listed in Media Tab or Order tab. Divya is requesting the ORDER be faxed to fax# [phone]. She also needs OFFICE NOTE faxed to a different number: fax [phone] Best time of day caller can be reached: any Patient advised that office/PCP has 24-48 business hours to return their call: Yes Divya was advised office is moving and may not receive a response until 10/16 or 10/17. Normal [facility] CNPNon 09-21-2021 CNPN Telephone ([facility]) ----- JAVIER LU ([id number]) 1945 F Date Time Provider Department 09/21/[address] [facility] During your visit today, we recorded the following information about you: CAROLANN Case 09/21/2021 1:41 PM Signed Left voicemail following up on [employer] message that had been sent regarding genetics consult received from Dr. Cintron. Provided instructions and Genetics appt line to call. Allergies As of Date: 09/21/2021 Noted Allergy Reaction PENICILLIN 04/11/2018 4 - Hives Date Reviewed: 07/28/2021 Reviewed by: Sada Miller Ma - Fully Assessed Reason for Visit: Appointment [186] Prescriptions as of 09/21/2021 - metFORMIN (GLUCOPHAGE) 500 mg tablet - ALPRAZolam (XANAX) 0.5 mg tablet Take 0.5 mg by mouth twice daily as needed for Anxiety. - acetaminophen-codeine (TYLENOL-COD #3) 300-30 mg per tablet Take 1 tablet by mouth twice daily as needed. - aspirin-calcium carbonate 81 mg-300 mg calcium(777 mg) tab Take 81 mg by mouth once daily. - celecoxib (CELEBREX) 200 mg capsule Take 1 capsule by mouth every morning. - gabapentin (NEURONTIN) 300 mg capsule Take 300 mg by mouth twice daily. - oilwx-od1-xwo-epa-om6-lip -astx (KRILL OIL, OMEGA 3 AND 6,) 1,500-165-67.5 [...] as needed. Problem List As Of Date 09/21/2021 Noted Resolved Allergic rhinitis [J30.9] 12/21/2020 Anxiety [...] valve prolapse [I34.1] 12/21/2020 Mixed hypercholesterolemia and hypertriglycerid*12/22/19 Nicotine dependence [F17.200] 12/21/2020 Osteoporosis [M81.0] 12/21/2020 Post traumatic stress disorder (PTSD) [F43.10] 12/21/2020 Type 2 diabetes mellitus (HCC) [E11.9] 08/22/2017 PVC (premature ventricular contraction) [I49.3] 12/21/2020 Syncope [R55] 12/21/2020 Encounter Status:Closed by ANNIKA RIOJAS on 09/21/21 Normal [facility] UA DIP, URINE (POC)on 2021 BILIRUBIN UA (POCT) Negative Negative [facility] CLARITY UA (POCT) Clear [facility] COLOR UA (POCT) Yellow [facility] GLUCOSE UA (POCT) Negative Negative mg/dL [facility] HEMOGLOBIN/BLOOD UA (POCT) Large Abnormal Negative [facility] KETONE UA (POCT) Negative Negative mg/dL [facility] LEUKOCYTES UA (POCT) Small Abnormal Negative [facility] NITRITE UA (POCT) Negative Negative [facility] PH UA (POCT) 5.5 4.5 - 8.0 [facility] Protein Ql (U) 30 mg/dL Abnormal Negative mg/dL [facility] SPECIFIC GRAVITY UA (POCT) 1.020 1.005 - 1.030 [facility] UROBILINOGEN UA (POCT) 0.2 E.U./dL Normal E.U./dL [facility] No Panel Information [facility] Vital Signs Date Time Vital Sign Value Performing Clinician Faci lity 10-08-2023 14:36-0400 Body height 162.6 cm Prakash Leon PA-C Work Phone: [facility] 10-08-2023 14:36-0400 Body mass index (BMI) [Ratio] 28.05 kg/m2 Prakash Coleso PA-C Work Phone: [facility] 10-08-2023 14:36-0400 Body temperature 97.7 [degF] Prakash Coleso PA-C Work Phone: [facility] 10-08-2023 14:36-0400 Body weight 74.12 kg Prakash Coleso PA-C Work Phone: [facility] 10-08-2023 14:36-0400 Diastolic blood pressure 68 mm[Hg] Prakash Coleso PA-C Work Phone: [facility] 10-08-2023 14:36-0400 Heart rate 90 /min Prakash Coleso PA-C Work Phone: [facility] 10-08-2023 14:36-0400 SaO2% (BldA) [Mass fraction] 96 % Prakash Coleso PA-C Work Phone: [facility] 10-08-2023 14:36-0400 Systolic blood pressure 119 mm[Hg] Prakash Coleso PA-C Work Phone: [facility] 06-25-2023 12:40-0400 Body height 162.6 cm Reece Newtonroshan DO Work Phone: [facility] 06-25-2023 12:40-0400 Body mass index (BMI) [Ratio] 28.36 kg/m2 Reece Salas DO Work Phone: [facility] 06-25-2023 12:40-0400 Body temperature 97.2 [degF] Reece Salas DO Work Phone: [facility] 06-25-2023 12:40-0400 Body weight 74.93 kg Reece Salas DO Work Phone: [facility] 06-25-2023 12:40-0400 Diastolic blood pressure 72 mm[Hg] Reece Salas DO Work Phone: [facility] 06-25-2023 12:40-0400 Heart rate 69 /min Reece Salas DO Work Phone: [facility] 06-25-2023 12:40-0400 Respiratory rate 16 /min Reece Salas DO Work Phone: [facility] 06-25-2023 12:40-0400 Systolic blood pressure 110 mm[Hg] Reece Salas DO Work Phone: [facility] 12-19-2022 17:21-0500 Diastolic blood pressure 76 mm[Hg] Reece Salas DO Work Phone: [facility] 12-19-2022 17:21-0500 Systolic blood pressure 138 mm[Hg] Reece Salas DO Work Phone: [facility] 12-19-2022 16:28-0500 Body mass index (BMI) [Ratio] 29.94 kg/m2 Reece Salas DO Work Phone: [facility] 12-19-2022 16:28-0500 Body weight 79.11 kg Reece Salas DO Work Phone: [facility] 08-21-2022 16:15-0400 Body height 162.6 cm Reece Salas DO Work Phone: [facility] 08-21-2022 16:15-0400 Body mass index (BMI) [Ratio] 29.87 kg/m2 Reece Salas DO Work Phone: [facility] 08-21-2022 16:15-0400 Body temperature 97.11 [degF] Reece Salas DO Work Phone: [facility] 08-21-2022 16:15-0400 Body weight 78.93 kg Reece Salas DO Work Phone: [facility] 08-21-2022 16:15-0400 Diastolic blood pressure 75 mm[Hg] Reece Salas DO Work Phone: [facility] 07-11-2023 16:15-0400 Systolic blood pressure 117 mm[Hg] Reece Salas DO Work Phone: [facility] 05-21-2022 15:56-0400 Body height 162.6 cm Reece Salas DO Work Phone: [facility] 05-21-2022 15:56-0400 Body mass index (BMI) [Ratio] 29.01 kg/m2 Reece Salas DO Work Phone: [facility] 05-21-2022 15:56-0400 Body temperature 97.3 [degF] Reece Salas DO Work Phone: [facility] 05-21-2022 15:56-0400 Body weight 76.66 kg Reece Salas DO Work Phone: [facility] 05-21-2022 15:56-0400 Diastolic blood pressure 83 mm[Hg] Reece Salas DO Work Phone: [facility] 05-21-2022 15:56-0400 Heart rate 68 /min Reece Salas DO Work Phone: [facility] 05-21-2022 15:56-0400 SaO2% (BldA) [Mass fraction] 97 % Reece Salas DO Work Phone: [facility] 05-21-2022 15:56-0400 Systolic blood pressure 124 mm[Hg] Reece Salas DO Work Phone: [facility] 07-28-2021 18:12-0400 Body weight 75.75 kg Bethrocky Jennings PA-C Work Phone: [facility] 07-28-2021 18:12-0400 Diastolic blood pressure 87 mm[Hg] Bethrocky Artisaugh PA-C Work Phone: [facility] 07-28-2021 18:12-0400 Heart rate 67 /min Bethrocky Artisaugh PA-C Work Phone: [facility] 07-28-2021 18:12-0400 Systolic blood pressure 101 mm[Hg] Beth Slabaugh PA-C Work Phone: [facility] Encounters Encounter Date Encounter Type Care Provider Facility Start: 12-04-2023 End: 12-05-2023 Refill Reece Salas DO Work Phone: [facility] [place] Start: 10-08-2023 End: 10-08-2023 ambulatory PRAKASH LEON [facility] Start: 10-08-2023 End: 10-08-2023 Office outpatient visit 25 minutes Prakash Leon PA-C Work Phone: [facility] Comment on above: Type 2 diabetes radhika itus with hyperglycemia, without long-term current use of insulin (HCC) (Primary Dx); Osteoporosis, unspecified osteoporosis type, unspecified pathological fracture presence; Anemia, unspecified type; Acquired hypothyroidism; Mixed hypercholesterolemia and hypertriglyceridemia; Essential hypertension; Post traumatic stress disorder (PTSD) Start: 09-24-2023 End: 09-24-2023 Refill Reece Meltona DO Work Phone: [facility] Start: 09-18-2023 End: 09-18-2023 Orders Only Reece Meltona DO Work Phone: [facility] Start: 09-17-2023 End: 10-04-2023 Orders Only Reece Meltona DO Work Phone: [facility] Comment on above: New Med Request Start: 08-14-2023 End: 08-16-2023 Orders Only Reece Meltona DO Work Phone: [facility] Start: 08-01-2023 End: 08-01-2023 Orders Only Reece Meltona DO Work Phone: [facility] Start: 07-29-2023 End: 07-29-2023 Refill Reece Meltona DO Work Phone: [facility] Start: 07-19-2023 ambulatory Evita Davey RN [facility] Clinical Communication Start: 07-19-2023 Patient encounter procedure Evita Davey RN [facility] Communication Start: 07-07-2023 Orders Only Reece islas DO Work Phone: [facility] Start: 06-25-2023 End: 06-25-2023 ambulatory REECE SALAS [facility] Start: 06-25-2023 End: 06-25-2023 Office outpatient visit 40 minutes Reece Salas DO Work Phone: [facility] Comment on above: Chronic obstructive pulmonary disease, unspecified COPD type (HCC) (Primary Dx); Ex-smoker; Mixed hypercholesterolemia and hypertriglyceridemia; Acquired hypothyroidism; Pulmonary fibrosis (HCC); Essential hypertension; Type 2 diabetes mellitus with hyperglycemia, without long-term current use of insulin (HCC); DDD (degenerative disc disease), lumbar; History of COVID-19; Hiatal hernia with gastroesophageal reflux; Ulnar neuritis, unspecified laterality; Anemia, unspecified type; Hypomagnesemia; Depression, unspecified depression type Start: 02-21-2023 Orders Only Reece islas DO Work Phone: [facility] Start: 01-08-2023 Refill Reece islas DO Work Phone: [facility] Comment on above: Post traumatic stres s disorder (PTSD) Start: 12-25-2022 Telephone encounter Reece Rider kaylakenjiroshan DO Work Phone: [facility] Comment on above: Orders (LDCT) Start: 12-24-2022 Telephone encounter Reece Rider kaylarilla DO Work Phone: [facility] Comment on above: Orders (RACHEL / Dr Jordy werner / Dr Aguilera) Start: 12-19-2022 End: 12-19-2022 Office outpatient visit 25 minutes Reece Salas DO Work Phone: [facility] Comment on above: Dysphagia, unspecifi ed type (Primary Dx); Essential hypertension; Smoker; Generalized anxiety disorder; Type 2 diabetes mellitus with hyperglycemia, without long-term current use of insulin (HCC); Pattern dystrophy of macula; Acquired hypothyroidism; Mixed hypercholesterolemia and hypertriglyceridemia; Pulmonary emphysema, unspecified emphysema type (HCC); Post traumatic stress disorder (PTSD); DDD (degenerative disc disease), lumbar; Localized osteoarthritis of right knee Start: 12-19-2022 End: 12-19-2022 ambulatory REECE SALAS [facility] Start: 10-15-2022 Refill Reece islas DO Work Phone: [facility] Comment on above: DDD (degenerative di sc disease), lumbar Start: 10-10-2022 Telephone encounter Reece frazier DO Work Phone: [facility] Comment on above: Orders (Follow up on order faxed 10/06/22 for Dexcom sensor & Receive along with Clinical Note.) Start: 09-21-2022 Orders Only Reece islas DO Work Phone: [facility] Start: 08-21-2022 End: 08-21-2022 Office outpatient visit 25 minutes Reece Severino Candelario DO Work Phone: [facility] Comment on above: Type 2 diabetes radhika itus with hyperglycemia, without long-term current use of insulin (CMS/HCC) (HCC) (Primary Dx); DDD (degenerative disc disease), lumbar; Post traumatic stress disorder (PTSD); Essential hypertension; Generalized anxiety disorder; Sedative, 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, hypnotic or anxiolytic-induced disorder (HCC); Primary osteoarthritis of left hip; Chronic pain of right knee; Acquired hypothyroidism; Smoker Start: 08-21-2022 Telephone encounter Reece gonzalezroshan DO Work Phone: [facility] Comment on above: Orders (Referral to Dr Jennings or Dr Truong) Start: 08-09-2022 End: 08-09-2022 ambulatory REECE Severino CANDELARIO Facility:[facility] Start: 08-09-2022 End: 08-09-2022 Patient encounter procedure Leni Cintron MD, PhD Work Phone: Ophthalmology Comment on above: Pattern dystrophy of macula; Type 2 diabetes mellitus without complication, without long-term current use of insulin (HCC); Blunt trauma of left eye, subsequent encounter; Posterior vitreous detachment of right eye; 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; Vitelliform macular dystrophy Start: 08-03-2022 ambulatory Davion Malik RN [facility] Comment on above: GIGI CHUNG RN ( Medication Adherence review per request of payer) Start: 07-10-2022 Orders Only Reece Severino Lamar belloeliu DO Work Phone: [facility] Comment on above: New Med Request Start: 06-12-2022 Telephone encounter Reece Severino Tereso frazier DO Work Phone: [facility] Comment on above: assisted Start: 05-21-2022 End: 05-21-2022 Office outpatient visit 25 minutes Reece Severino Candelario DO Work Phone: [facility] Comment on above: Chronic obstructive pulmonary disease, unspecified COPD type (HCC) (Primary Dx); DDD (degenerative disc disease), lumbar; Post traumatic stress disorder (PTSD); Type 2 diabetes mellitus with hyperglycemia, without long-term current use of insulin ([facility]/HCC) (HCC); Essential hypertension; Acquired hypothyroidism Start: 12-14-2021 End: 12-14-2021 ambulatory LENI CINTRON Facility:[facility] Start: 12-14-2021 End: 12-14-2021 Patient encounter procedure Leni Cintron MD, PhD Work Phone: Ophthalmology Comment on above: Pattern dystrophy of macula; Type 2 diabetes mellitus without complication, without long-term current use of insulin (HCC); Blunt trauma of left eye, subsequent encounter; Posterior vitreous detachment of right eye; 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; Vitelliform macular dystrophy Start: 09-21-2021 Telephone encounter Annika Riojas [facility] Work Phone: [facility] Comment on above: Appointment Start: 07-28-2021 End: 07-28-2021 Patient encounter procedure Beth Jennings PA-C Work Phone: [facility] Comment on above: Recurrent UTI (urina ry tract infection) (Primary Dx); Dysuria Start: 06-05-2022 Orders Only Leni Cintron MD, PhD Work Phone: Ophthalmology Comment on above: Type 1 macular telan giectasis of both eyes (Primary Dx); Pattern dystrophy of macula; Vitelliform macular dystrophy Start: 06-01-2021 End: 06-01-2021 Patient encounter procedure Leni Cintron MD, PhD Work Phone: Ophthalmology Comment on above: Pattern dystrophy of macula (Primary Dx); Type 2 diabetes mellitus without complication, without long-term current use of insulin (HCC); Blunt trauma of left eye, subsequent encounter; Posterior vitreous detachment of right eye; 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; Vitelliform macular dystrophy; Early dry stage nonexudative age-related macular degeneration of both eyes Procedures Date Procedure Procedure Detail Performing Clinician Start: 10-08-2023 Hemoglobin glycosyla joann a1c Prakash Leon PA-C Work Phone: Start: 08-09-2022 Computerized ophthal sushma imaging retina Leni Cintron MD, PhD Work Phone: Start: 02-28-2022 Adult depression scr eening assessment Reece Candelario DO Work Phone: Start: 02-28-2022 Thyrotropin [Units/v olume] in Serum or Plasma Reece Candelario DO Work Phone: Start: 12-14-2021 Computerized ophthal sushma imaging retina Leni Cintron MD, PhD Work Phone: Start: 08-21-2021 Lipid 1996 panel - S nani or Plasma Reece Candelario DO Work Phone: Start: 07-28-2021 Urnls dip stick/tabl et rgnt auto w/o microscopy [facility] Provider Start: 06-01-2021 Computerized ophthal sushma imaging retina Leni Cintron MD, PhD Work Phone: Plan of Treatment Date Care Activity Detail Author Start: 10-13-2023 COVID-19 Vaccine () COVID-19 Vaccine () [employer] Start: 10-13-2023 Influenza vaccination Influenza Vaccine (#1) [employer] Start: 10-08-2023 End: 10-08-2023 Patient encounter procedure 10/08/2023 2:20 PM EDT Office Visit [facility] [address] [place] [address] Prakash Leon PA-C [address] [place] [address] [facility] Start: 10-08-2023 End: 10-07-2024 CBC W Auto Differential panel - Blood CBC auto differential Lab Routine Anemia, unspecified type Expected: 10/08/2023 (Approximate), Expires: 10/07/2024 [facility] Work Phone: Comment on above: Expected: 10/08/2023 (Approximate), Expi res: 10/07/2024 Start: 10-08-2023 End: 10-07-2024 Comprehensive metabolic 1998 panel - Serum or Plasma Comprehensive metabolic panel Lab Routine Type 2 diabetes mellitus with hyperglycemia, without long-term current use of insulin (HCC) Expected: 10/08/2023 (Approximate), Expires: 10/07/2024 [facility] Comment on above: Expected: 10/08/2023 (Approximate), Expi res: 10/07/2024 Start: 08-27-2023 End: 08-27-2023 Patient encounter procedure 08/27/2023 3:00 PM EDT Office Visit [facility] [address] [place] [address] Reece Salas DO [address] [place] [address] [facility] Start: 08-24-2023 End: 01-31-2024 OCT MACULA CIRRUS OU (BOTH EYES) OCT MACULA CIRRUS OU (BOTH EYES) OPHT Imaging Routine Pattern dystrophy of macula Type 2 diabetes mellitus without complication, without long-term current use of insulin (HCC) Blunt trauma of left eye, subsequent encounter Posterior vitreous detachment of right eye 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 Work Phone: Comment on above: Expected: 08/24/2023, Expires: Start: 08-10-2023 Hepatitis C antibody, confirmatory test DILATED RETINAL EXAM [facility] Start: 08-06-2023 End: 08-06-2023 Patient encounter procedure 08/06/2023 12:00 PM EDT Office Visit [facility] [address] [place] [address] Reece Salas, [address] [place] [address] [facility] Start: 07-30-2023 End: 07-30-2023 Patient encounter procedure 07/30/2023 1:00 PM EDT Office Visit [facility] [address] [place] [address] Prakash Leon PA-C [address] [place] [address] [facility] Start: 06-25-2023 End: 06-24-2024 CBC W Auto Differential panel - Blood CBC auto differential Lab Routine Anemia, unspecified type Expected: 06/25/2023 (Approximate), Expires: 06/24/2024 [facility] Work Phone: Comment on above: Expected: 06/25/2023 (Approximate), Expi res: 06/24/2024 Start: 06-25-2023 End: 06-24-2024 Cobalamin (Vitamin B12) [Mass/volume] in Serum or Plasma Vitamin B12 Lab Routine Anemia, unspecified type Expected: 06/25/2023 (Approximate), Expires: 06/24/2024 [facility] Comment on above: Expected: 06/25/2023 (Approximate), Expi res: 06/24/2024 Start: 06-25-2023 End: 06-24-2024 Comprehensive metabolic 1998 panel - Serum or Plasma Comprehensive metabolic panel Lab Routine Anemia, unspecified type Expected: 06/25/2023 (Approximate), Expires: 06/24/2024 [facility] Comment on above: Expected: 06/25/2023 (Approximate), Expi res: 06/24/2024 Start: 06-25-2023 End: 06-24-2024 Hemoglobin A1c measurement Hemoglobin A1c Lab Routine Anemia, unspecified type Expected: 06/25/2023 (Approximate), Expires: 06/24/2024 [facility] Comment on above: Expected: 06/25/2023 (Approximate), Expi res: 06/24/2024 Start: 06-25-2023 End: 06-24-2024 Iron and Iron binding capacity panel - Serum or Plasma Iron and TIBC Lab Routine Anemia, unspecified type Expected: 06/25/2023 (Approximate), Expires: 06/24/2024 [facility] Comment on above: Expected: 06/25/2023 (Approximate), Expi res: 06/24/2024 Start: 06-25-2023 End: 06-24-2024 Magnesium [Mass/volume] in Serum or Plasma Magnesium Lab Routine Hypomagnesemia Expected: 06/25/2023 (Approximate), Expires: 06/24/2024 [facility] Comment on above: Expected: 06/25/2023 (Approximate), Expi res: 06/24/2024 Start: 03-30-2023 Medicare Advantage Annual Wellness Visit (AWV) Medicare Advantage Annual Wellness Visit (AWV) [facility] Start: 03-20-2023 End: 03-20-2023 Patient encounter procedure 03/20/2023 4:30 PM EST Office Visit [facility] [address] [place] [address] Reece Salas DO [address] [place] [address] [facility] Start: 02-28-2023 Depression Screening Depression Screening [facility] Start: 02-28-2023 Thyroid stimulating hormone measurement TSH Level [facility] Start: 02-11-2023 Medicare Advantage Annual Wellness Visit Medicare Advantage Annual Wellness Visit [facility] Start: 12-29-2022 End: 06-07-2023 Camera fundoscopy FUNDUS PHOTOS OU (BOTH EYES) OPHT Imaging Routine Pattern dystrophy of macula Type 2 diabetes mellitus without complication, without long-term current use of insulin (HCC) Blunt trauma of left eye, subsequent encounter Posterior vitreous detachment of right eye 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 Expected: 12/29/2022, Expires: 06/07/2023 [facility] [employer] Work Phone: Comment on above: Expected: 12/29/2022, Expires: 4 Start: 12-29-2022 End: 06-07-2023 FUNDUS AUTOFLUORESCENCE PHOTO (FAF) OU (BOTH EYES) FUNDUS AUTOFLUORESCENCE PHOTO (FAF) OU (BOTH EYES) OPHT Imaging Routine Pattern dystrophy of macula Type 2 diabetes mellitus without complication, without long-term current use of insulin (HCC) Blunt trauma of left eye, subsequent encounter Posterior vitreous detachment of right eye 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 Expected: 12/29/2022, Expires: 06/07/2023 [facility] [employer] Work Phone: Comment on above: Expected: 12/29/2022, Expires: 4 Start: 12-29-2022 End: 06-07-2023 OCT MACULA CIRRUS OU (BOTH EYES) OCT MACULA CIRRUS OU (BOTH EYES) OPHT Imaging Routine Pattern dystrophy of macula Type 2 diabetes mellitus without complication, without long-term current use of insulin (HCC) Blunt trauma of left eye, subsequent encounter Posterior vitreous detachment of right eye 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 Expected: 12/29/2022, Expires: 06/07/2023 [facility] [employer] Work Phone: Comment on above: Expected: 12/29/2022, Expires: 4 Start: 12-27-2022 End: 03-27-2023 CT Chest for screening WO contrast CT lung screening low dose Imaging Routine Smoker Pulmonary nodule Expected: 12/27/2022 (Approximate), Expires: 03/27/2023 [facility] Work Phone: Comment on above: Expected: 12/27/2022 (Approximate), Expi res: 03/27/2023 Start: 12-21-2022 Glaucoma screening Diabetes: Retinopathy Screening [facility] Start: 12-19-2022 End: 12-20-2023 XR Knee - right 3 Views XR knee 3 views right Imaging Routine Localized osteoarthritis of right knee Expected: 12/19/2022, Expires: 12/20/2023 [facility] [employer] Work Phone: Comment on above: Expected: 12/19/2022, Expires: Start: 12-14-2022 Hepatitis C antibody, confirmatory test DILATED RETINAL EXAM [facility] Start: 11-22-2022 End: 11-22-2022 Patient encounter procedure [facility] Start: 10-12-2022 COVID-19 Vaccine () COVID-19 Vaccine () [facility] Start: 10-12-2022 Influenza vaccination [facility] Start: 08-28-2022 Depression Monitoring Depression Monitoring [facility] Start: 08-21-2022 End: 08-21-2022 Patient encounter procedure 08/21/2022 4:30 PM EDT Office Visit [facility] [address] [place] [address] Reece Salas DO [address] [place] [address] [facility] Start: 08-21-2022 End: 08-22-2023 CBC W Auto Differential panel - Blood CBC auto differential Lab Routine Essential hypertension Expected: 08/21/2022 (Approximate), Expires: 08/22/2023 [facility] Comment on above: Expected: 08/21/2022 (Approximate), Expi res: 08/22/2023 Start: 08-21-2022 End: 08-22-2023 Comprehensive metabolic 1998 panel - Serum or Plasma Comprehensive metabolic panel Lab Routine Essential hypertension Expected: 08/21/2022 (Approximate), Expires: 08/22/2023 [facility] Comment on above: Expected: 08/21/2022 (Approximate), Expi res: 08/22/2023 Start: 08-21-2022 End: 08-22-2023 Hemoglobin A1c/Hemoglobin.total in Blood Hemoglobin A1c Lab Routine Essential hypertension Expected: 08/21/2022 (Approximate), Expires: 08/22/2023 [facility] Draft Comment on above: Expected: 08/21/2022 (Approximate), Expi res: 08/22/2023 Start: 08-21-2022 End: 08-22-2023 Lipid 1996 panel - Serum or Plasma Lipid panel Lab Routine Essential hypertension Expected: 08/21/2022 (Approximate), Expires: 08/22/2023 [facility] Draft Comment on above: Expected: 08/21/2022 (Approximate), Expi res: 08/22/2023 Start: 08-21-2022 Lipid panel Lipid Panel [facility] Draft Start: 08-21-2022 End: 08-22-2023 Thyrotropin [Units/volume] in Serum or Plasma TSH Lab Routine Acquired hypothyroidism Expected: 08/21/2022 (Approximate), Expires: 08/22/2023 [facility] Draft Comment on above: Expected: 08/21/2022 (Approximate), Expi res: 08/22/2023 Start: 08-21-2022 End: 08-22-2023 XR Hip - left 3 Views XR hip left 2 or 3 views Imaging Routine Primary osteoarthritis of left hip Expected: 08/21/2022, Expires: 08/22/2023 [facility] Draft Comment on above: Expected: 08/21/2022, Expires: Start: 08-21-2022 End: 08-22-2023 XR Knee - right 4 Views XR knee 4+ views right Imaging Routine Chronic pain of right knee Expected: 08/21/2022, Expires: 08/22/2023 [facility] Draft System Work Phone: Comment on above: Expected: 08/21/2022, Expires: Start: 08-21-2022 End: 08-22-2023 XR Lumbar spine Views W flexion and W extension XR lumbar spine 4-5 view Imaging Routine DDD (degenerative disc disease), lumbar Expected: 08/21/2022, Expires: 08/22/2023 [facility] Comment on above: Expected: 08/21/2022, Expires: 4 Start: 06-16-2022 End: 11-23-2022 OCT MACULA CIRRUS OU (BOTH EYES) OCT MACULA CIRRUS OU (BOTH EYES) OPHT Imaging Routine Pattern dystrophy of macula Type 2 diabetes mellitus without complication, without long-term current use of insulin (HCC) Blunt trauma of left eye, subsequent encounter Posterior vitreous detachment of right eye 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 Work Phone: Comment on above: Expected: 06/16/2022, Expires: 3 Start: 06-01-2022 Hepatitis C antibody, confirmatory test DILATED RETINAL EXAM [facility] Start: 05-29-2022 Hemoglobin A1c measurement Diabetes: Hemoglobin A1C [facility] Start: 05-21-2022 Hemoglobin A1c/Hemoglobin.total in Blood HBA1C [facility] Start: 02-11-2022 ADVANCE DIRECTIVE DISCUSSION ADVANCE DIRECTIVE DISCUSSION [facility] Start: 02-11-2022 DEPRESSION ASSESSMENT DEPRESSION ASSESSMENT [facility] Start: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 Constitutional: General: She is not in acute distress. Appearance: Normal appearance. She is not ill-appearing or toxic-appearing. Eyes: General: No scleral icterus. Conjunctiva/sclera: Conjunctivae normal. Pupils: Pupils are equal, round, and reactive to light. Neck: Vascular: No carotid bruit. Cardiovascular: Rate and Rhythm: Normal rate and regular rhythm. Heart sounds: Normal heart sounds. Pulmonary: Effort: Pulmonary effort is normal. No respiratory distress. Breath sounds: Normal breath sounds. No wheezing or rales. Abdominal: General: Bowel sounds are normal. There is no distension. Palpations: Abdomen is soft. There is no mass. Tenderness: There is no abdominal tenderness. There is no guarding. Musculoskeletal: Cervical back: Normal range of motion and neck supple. No rigidity. Lymphadenopathy: Cervical: No cervical adenopathy. Skin: General: Skin is warm and dry. Comments: Patient has linear slightly raised almost reoccurring type rash on the antecubital fossa right arm that appears more histamine driven from scratching at it. Rash of concern was on her back as well as on her arm that appeared to be well-circumscribed slightly elevated lesions that appear in very stages of healing that appear more consistent with a pemphigoid type rash. Neurological: Mental Status: She is alert. Psychiatric: Mood and Affect: Mood normal. Data Reviewed and Summarized Labs: Imaging/Testing: Prakash Leon PA-C 10/08/2023 Please note that portions of this note may have been completed with voice recognition software. Documentation reviewed prior to signing but minor errors in paint tester may have occurred. documented in this encounter [facility] 09-24-2023 Telephone encounter Note Recent Visits Date Type Provider Dept 06/25/23 Office Visit DO Maryam Vicente [facility] 12/19/22 Office Visit Reece Salas DO [facility] Showing recent visits within past 365 days and meeting all other requirements Future Appointments Date Type Provider Dept 10/08/23 Appointment Prakash Leon PA-C [facility] Showing future appointments within next 90 days and meeting all other requirements Requested Prescriptions Pending Prescriptions Disp Refills gabapentin (Neurontin) 300 MG capsule [Pharmacy Med Name: Gabapentin 300 MG Oral Capsule] 180 capsule 0 Sig: Take 1 capsule by mouth twice daily Provider: Reece Salas DO Overdue for visit: No If yes - patient scheduled? Yes Most recent labs completed in chart? Yes Verified pharmacy: yes Verified day(s) supplied: yes Verified refill(s) needed (previous prescription showing no refills in chart): Yes Have you received any controlled medications from any other provider? No None [facility] 09-24-2023 Miscellaneous Notes Recent Visits Date Type Provider Dept 06/25/23 Office Visit Reece Salas, DO [facility] 12/19/22 Office Visit Reece Salas, DO [facility] Showing recent visits within past 365 days and meeting all other requirements Future Appointments Date Type Provider Dept 10/08/23 Appointment Prakash Leon PA-C [facility] Showing future appointments within next 90 days and meeting all other requirements Requested Prescriptions Pending Prescriptions Disp Refills gabapentin (Neurontin) 300 MG capsule [Pharmacy Med Name: Gabapentin 300 MG Oral Capsule] 180 capsule 0 Sig: Take 1 capsule by mouth twice daily Provider: Reece Salas DO Overdue for visit: No If yes - patient scheduled? Yes Most recent labs completed in chart? Yes Verified pharmacy: yes Verified day(s) supplied: yes Verified refill(s) needed (previous prescription showing no refills in chart): Yes Have you received any controlled medications from any other provider? No None documented in this encounter [facility] 09-18-2023 Telephone encounter Note Talked to patient and she said she was to use this mouthwash after her 4 different inhalers and to keep her from getting Thrush. She was to rinse and spit once in the morning after inhalers and once in the evening after her other inhalers. RX loaded [facility] 09-18-2023 Miscellaneous Notes Talked to patient and she said she was to use this mouthwash after her 4 different inhalers and to keep her from getting Thrush. She was to rinse and spit once in the morning after inhalers and once in the evening after her other inhalers. RX loaded Last OV:06/25/23 Scheduled:10/08/23 Name of caller: Javier Contact phone number: [phone] Relationship to Patient: patient Provider: [facility] Practice: [facility] Chief Complaint/Reason for Call: Patient is requesting Chlorhexidine gluconate. She said she was given this in the assisted and needs a refill. Please advise Best time of day caller can be reached: any Patient advised that office/PCP has 24-48 business hours to return their call: No documented in this encounter [facility] 09-17-2023 Telephone encounter Note Last OV:06/25/23 Scheduled:10/08/23 [facility] Draft 09-17-2023 Telephone encounter Note Name of caller: Javier Contact phone number: [phone] Relationship to Patient: patient Provider: [facility] Practice: [facility] Chief Complaint/Reason for Call: Patient is requesting Chlorhexidine gluconate. She said she was given this in the assisted and needs a refill. Please advise Best time of day caller can be reached: any Patient advised that office/PCP has 24-48 business hours to return their call: No [facility] 08-16-2023 Telephone encounter Note Talked to patient and relayed message and she will stop the lasix but does not want to stop taking her Celebrex as she has been taking for at least ten years and doesn't think it is causing the rash or itching. Patient did say she will increase her spironolactone. She did quit taking the Zoloft and the rash does seem to be improving. Patient hasn't scheduled yet with dermatology but does have an appointment with you on 08/27/23. Patient does need refills, RX loaded Next ov 08/27/23 [facility] 08-16-2023 Miscellaneous Notes Talked to patient and relayed message and she will stop the lasix but does not want to stop taking her Celebrex as she has been taking for at least ten years and doesn't think it is causing the rash or itching. Patient did say she will increase her spironolactone. She did quit taking the Zoloft and the rash does seem to be improving. Patient hasn't scheduled yet with dermatology but does have an appointment with you on 08/27/23. Patient does need refills, RX loaded Next ov 08/27/23 S: Patient spoke with [facility] nurse regarding medication refill request B: Onset of symptoms/concern today A: Medication Refill request - 1) Hydroxyzine pamoate 25 mg every 8 hours as needed. 2) Famotidine 40 mg daily question is reorder for itching, prescribed 08/01/23 for 14 days. Pt endorses continue itching with rash back/shoulder and arms. 3) Cyanocobalamin 500 MCG daily. Pharmacy and allergies. Pt endorses stopped Zoloft due to itching. Pt requesting to have provider review medication list and see if any other medication can be the cause of itching. R: Message sent to provider for further assistance at this time. No further needs at this time. Patient instructed to call back with new or worsening symptoms. Reason for Disposition [1] Prescription refill request for NON-ESSENTIAL medicine (i.e., no harm to patient if med not taken) AND [2] triager unable to refill per department policy Protocols used: Medication Refill and Renewal [id number] documented in this encounter [facility] 08-14-2023 Telephone encounter Note S: Patient spoke with [facility] nurse regarding medication refill request B: Onset of symptoms/concern today A: Medication Refill request - 1) Hydroxyzine pamoate 25 mg every 8 hours as needed. 2) Famotidine 40 mg daily question is reorder for itching, prescribed 08/01/23 for 14 days. Pt endorses continue itching with rash back/shoulder and arms. 3) Cyanocobalamin 500 MCG daily. Pharmacy and allergies. Pt endorses stopped Zoloft due to itching. Pt requesting to have provider review medication list and see if any other medication can be the cause of itching. R: Message sent to provider for further assistance at this time. No further needs at this time. Patient instructed to call back with new or worsening symptoms. Reason for Disposition [1] Prescription refill request for NON-ESSENTIAL medicine (i.e., no harm to patient if med not taken) AND [2] triager unable to refill per department policy Protocols used: Medication Refill and Renewal [id number] [facility] 08-14-2023 Telephone encounter Note Ordering provider: Tim German MD Documenting User: Samantha Chávez MA Date of last office visit: 06/25/2023 Date of next office visit: 08/27/2023 Updated/Validated preferred pharmacy: Yes Patient instructed to contact the pharmacy prior to picking up the medication: Yes (1) Medication name: Budesonide nebulizer solution Medication dosage: 0.5 mg (Miligrams Monthly quantity needed: N/A How many day supply requesting: N/A Medication route: inhalation (inhaler) Medication administration time(s): 2 times a day (BID) If taking medication PRN, reason for taking medication: N/A If this is a controlled substance do you receive this or any other controlled medication from any other doctor or facility: No Date of last refill (see medication tab): 02/26/2023 [facility] 08-14-2023 Miscellaneous Notes Ordering provider: Tim German MD Documenting User: Samantha Chávez MA Date of last office visit: 06/25/2023 Date of next office visit: 08/27/2023 Updated/Validated preferred pharmacy: Yes Patient instructed to contact the pharmacy prior to picking up the medication: Yes (1) Medication name: Budesonide nebulizer solution Medication dosage: 0.5 mg (Miligrams Monthly quantity needed: N/A How many day supply requesting: N/A Medication route: inhalation (inhaler) Medication administration time(s): 2 times a day (BID) If taking medication PRN, reason for taking medication: N/A If this is a controlled substance do you receive this or any other controlled medication from any other doctor or facility: No Date of last refill (see medication tab): 02/26/2023 documented in this encounter [facility] 07-29-2023 Telephone encounter Note Recent Visits Date Type Provider Dept 06/25/23 Office Visit Reece Salas DO [facility] 12/19/22 Office Visit Reece Salas DO [facility] 08/21/22 Office Visit Reece Salas DO [facility] [place] Showing recent visits within past 365 days and meeting all other requirements Future Appointments Date Type Provider Dept 08/27/23 Appointment Reece Salas DO [facility] Showing future appointments within next 90 days and meeting all other requirements Requested Prescriptions Pending Prescriptions Disp Refills Alcohol Swabs (B-D SINGLE USE SWABS REGULAR) pads [Pharmacy Med Name: B-D SWABS REG PAD] 100 each 0 Sig: USE TWICE DAILY Provider: Reece Salas DO Verified pharmacy: yes Verified day(s) supplied: yes Verified refill(s) needed (previous prescription showing no refills in chart): Yes Have you received any controlled medications from any other provider? N/A Overdue for visit: No If yes - patient scheduled? Yes Most recent labs completed in chart? N/A [facility] 07-29-2023 Miscellaneous Notes Recent Visits Date Type Provider Dept 06/25/23 Office Visit Reece Salas, DO [facility] 12/19/22 Office Visit Reece Salas, DO [facility] 08/21/22 Office Visit Reece Salas, DO [facility] Showing recent visits within past 365 days and meeting all other requirements Future Appointments Date Type Provider Dept 08/27/23 Appointment Reece Salas, DO [facility] Showing future appointments within next 90 days and meeting all other requirements Requested Prescriptions Pending Prescriptions Disp Refills Alcohol Swabs (B-D SINGLE USE SWABS REGULAR) pads [Pharmacy Med Name: B-D SWABS REG PAD] 100 each 0 Sig: USE TWICE DAILY Provider: Reece Salas DO Verified pharmacy: yes Verified day(s) supplied: yes Verified refill(s) needed (previous prescription showing no refills in chart): Yes Have you received any controlled medications from any other provider? N/A Overdue for visit: No If yes - patient scheduled? Yes Most recent labs completed in chart? N/A documented in this encounter [facility] 07-19-2023 Telephone encounter Note S: Patient spoke with [facility] nurse regarding hyperglycemia B: Onset of symptoms/concern 1 day A: Patient states she was given Prednisone 40mg and she is on 4/5 days. Patient states her sugar last night was 389. She felt sluggish , weak, and dizzy. This morning glucose was 277. Patient denies shortness of breath, nausea and vomiting. Patient is currently taking Metformin 500mg BID and Januvia 100mg daily R: Call to Dr Salas. He advised patient take Additional Metformin 500mg now, and starting tomorrow patient take Metformin 1000mg in morning and 500mg at night for the next week. He advised patient's glucose could remain elevated for 5-7 days, but should start to come down then. Patient informed and agreeable. Advised her to call back is her glucose does not come down. Patient understands care advice. No further needs at this time. Patient instructed to call back with new or worsening symptoms. Reason for Disposition Blood glucose > 300 mg/dL (16.7 mmol/L) AND two or more times in a row Protocols used: Diabetes - High Blood [id number] [facility] 07-19-2023 Miscellaneous Notes S: Patient spoke with [facility] nurse regarding hyperglycemia B: Onset of symptoms/concern 1 day A: Patient states she was given Prednisone 40mg and she is on 4/5 days. Patient states her sugar last night was 389. She felt sluggish , weak, and dizzy. This morning glucose was 277. Patient denies shortness of breath, nausea and vomiting. Patient is currently taking Metformin 500mg BID and Januvia 100mg daily R: Call to Dr Salas. He advised patient take Additional Metformin 500mg now, and starting tomorrow patient take Metformin 1000mg in morning and 500mg at night for the next week. He advised patient's glucose could remain elevated for 5-7 days, but should start to come down then. Patient informed and agreeable. Advised her to call back is her glucose does not come down. Patient understands care advice. No further needs at this time. Patient instructed to call back with new or worsening symptoms. Reason for Disposition Blood glucose > 300 mg/dL (16.7 mmol/L) AND two or more times in a row Protocols used: Diabetes - High Blood [id number] documented in this encounter [facility] 06-25-2023 History of Present illness Narrative Images from the original note were not included. [facility] MEDICINE [address] [place] [address] [address] [facility] [id number] Visit type: Established Patient Reason for Visit: Hospital & SNUF discharge (02/10/2023 - Discharged from [facility] /06/12/2023 - Discharged from [facility] ) and Med Refill (Tylenol with codeine - pills ) Assessment / Plan: Javier was seen today for hospital & snuf discharge and med refill. Diagnoses and all orders for this visit: Chronic obstructive pulmonary disease, unspecified COPD type (HCC) (Primary) Comments: Severe, O2 dependent, continue all pulmonary meds and follow-up with Dr. Hahn on PFTs and clearance for any hiatal hernia repair Ex-smoker Comments: Noted, praise given Mixed hypercholesterolemia and hypertriglyceridemia Acquired hypothyroidism Comments: Stable, continue Levothyroid Orders: - levothyroxine (Synthroid, Levoxyl) 100 MCG tablet; Take 1 tablet (100 mcg) by mouth daily. Pulmonary fibrosis (HCC) Essential hypertension Type 2 diabetes mellitus with hyperglycemia, without long-term current use of insulin (HCC) Comments: Stable, continue Januvia only DDD (degenerative disc disease), lumbar History of COVID-19 Comments: Resolved, COVID booster soon Hiatal hernia with gastroesophageal reflux Comments: Large historically, questionable candidate for fundoplication. Changed to Protonix 40 mg daily. Avoidance measures. Ulnar neuritis, unspecified laterality Comments: Chronic, await response to Celebrex, if no improvement possible EMG study Anemia, unspecified type - CBC auto differential; Future - Comprehensive metabolic panel; Future - Iron and TIBC; Future - Hemoglobin A1c; Future - CBC auto differential - Comprehensive metabolic panel - Iron and TIBC - Hemoglobin A1c - Vitamin B12; Future - Vitamin B12 Hypomagnesemia - Magnesium; Future - Magnesium Other orders - Discontinue: pantoprazole (ProtoNix) 40 MG EC tablet; Take 1 tablet (40 mg) by mouth every morning (before breakfast). - Discontinue: celecoxib (CeleBREX) 200 MG capsule; One q AM with food - magnesium oxide (Mag-Ox) 400 (240 Mg) MG tablet; Take 2 tablets (800 mg) by mouth 2 times daily. - spironolactone (Aldactone) 25 MG tablet; Take 1 tablet (25 mg) by mouth daily for 90 doses. - simvastatin (Zocor) 40 MG tablet; Take 1 tablet (40 mg) by mouth every evening. - sertraline (Zoloft) 50 MG tablet; Take 1 tablet (50 mg) by mouth daily for 90 doses. - raloxifene (Evista) 60 MG tablet; Take 1 tablet (60 mg) by mouth daily. - pantoprazole (ProtoNix) 40 MG EC tablet; Take 1 tablet (40 mg) by mouth every morning (before breakfast). - metoprolol succinate XL (Toprol-XL) 25 MG 24 hr tablet; Take 1 tablet (25 mg) by mouth daily for 180 doses. Do not crush or chew. - metFORMIN (Glucophage) 500 MG tablet; Take 1 tablet (500 mg) by mouth in the morning and 1 tablet (500 mg) in the evening. Take with meals. Do all this for 180 doses. - loratadine (Claritin) 10 MG tablet; Take 1 tablet (10 mg) by mouth in the morning. - Januvia 100 MG tablet; Take 1 tablet (100 mg) by mouth daily for 90 doses. - gabapentin (Neurontin) 300 MG capsule; Take 1 capsule (300 mg) by mouth 2 times daily. - furosemide (Lasix) 20 MG tablet; Take 1 tablet (20 mg) by mouth daily for 90 doses. - fluticasone-salmeterol (Advair) 115-21 MCG/ACT inhaler; Inhale 2 puffs in the morning and 2 puffs in the evening. Rinse mouth with water after use to reduce aftertaste and incidence of candidiasis. Do not swallow.. - celecoxib (CeleBREX) 200 MG capsule; One q AM with food - albuterol 108 (90 Base) MCG/ACT inhaler; Inhale 2 puffs every 4 hours as needed for shortness of breath or wheezing. 50 Minutes spent on reviewing pertinent history, patient interview, physical exam, discussion of diagnosis and treatment and work-up options. Subjective: Patient ID: Javier Lu is a 78 y.o. female. HPI ex-smoker for about 5 months presents to the office after being in a local assisted after developing COVID illness and early February 2024. Substantially ill and placed on steroids in the hospital. Subsequently discharged to assisted and took her few months to get stronger. Now on home oxygen and probably permanently. Pulmonary fibrosis found on x-ray. Saw Dr. Selma grewal in [place] and is getting PFTs. He actually is recommending to help her that perhaps she get a fundoplication for her large hiatal hernia. There is a question of aspirating as causes due to malaise and the nursing. Also had a couple UTIs. Now living alone in the last 3 weeks. Back to her baseline and feels pretty comfortable with less dyspnea. Has multiple questions concerning her stomach with acid reflux, intermittent bloating. Fatigue and weakness. Also has numbness and pain down the ulnar aspect of both hands. Review of Systems and review of her weight is down 3 to 4 pounds. Has had long history of large hiatal hernia with reflux. Has been able to take Celebrex without issues. Has been on Protonix. She has been on half dose Protonix at the emergency room and having some breakthrough heartburn. No melena blood or change in bowels. Her bowels are back to normal after having workup in January for bloating and diarrhea. CT negative. No neck pain or radicular symptoms. No sense of weakness. Generally her Celebrex has helped her back and neck and shoulders. Diabetes garay her glucose is doing well. Was taken off glimepiride and placed on glipizide and hypoglycemia. Better on Januvia. Glucose levels are improved. Now on meloxicam for generalized arthritis and would like to go back on Celebrex. Recent echocardiogram with preserved left ventricular function she is on Aldactone and Lasix for some reason. Has some mild edema of the right leg. Recent CT of the chest showed substantial pulmonary fibrosis. Has been referred for PFTs and she would like that opinion on whether she is a candidate for fundoplication for large hiatal hernia. She denies dysphagia or overt vomiting. Weight has been stable Also now on Zoloft for depression and her children would like my opinion on it. Allergies Allergen Reactions Clindamycin Other Reaction(s): Abd cramps/diarrhea Other Other Hair Dye Penicillins Hives and Rash Current Outpatient Medications on File Prior to Visit Medication Sig Dispense Refill Alcohol Swabs (Easy Touch Alcohol Prep Medium) 70 % pads Inject 1 each under the skin 2 times daily. 100 each 2 ALPRAZolam (Xanax) 0.5 MG tablet Take 1 tablet (0.5 mg) by mouth 2 times daily as needed for anxiety. 60 tablet 1 Ascorbic Acid (vitamin C) 500 MG tablet Take 500 mg by mouth daily. Aspirin-Calcium Carbonate 81-777 MG tablet Take 81 mg by mouth in the morning. budesonide (Pulmicort) 0.5 MG/2ML nebulizer solution Inhale 0.5 mg in the morning and 0.5 mg in the evening. cholecalciferol (Vitamin D-3) 25 MCG (1000 UT) capsule Take 1 capsule by mouth daily. cyanocobalamin (Vitamin B-12) 500 MCG tablet Take 1 tablet by mouth daily. ferrous sulfate 325 (65 Fe) MG EC tablet Take 325 mg by mouth daily (with breakfast). Do not crush, chew, or split. Glucose Blood (Blood Glucose Test) strip Use as directed 2x day. Type: ( E11.9) ipratropium-albuterol (Duo-Neb) 0.5-2.5 mg/3 mL nebulizer solution Take 3 mL by nebulization 4 times daily. LACTOBACILLUS PO Take 1 capsule by mouth daily. senna-docusate (Katheryn-Colace) 8.6-50 MG tablet Take 1 tablet by mouth daily. [DISCONTINUED] albuterol 108 (90 Base) MCG/ACT inhaler Inhale 2 puffs every 4 hours as needed for shortness of breath or wheezing. 18 g 2 [DISCONTINUED] fluticasone-salmeterol (Advair) 115-21 MCG/ACT inhaler Inhale 2 puffs in the morning and 2 puffs in the evening. Rinse mouth with water after use to reduce aftertaste and incidence of candidiasis. Do not swallow.. 12 g 11 [DISCONTINUED] furosemide (Lasix) 20 MG tablet Take 20 mg by mouth daily. [DISCONTINUED] gabapentin (Neurontin) 300 MG capsule Take 1 capsule (300 mg) by mouth 2 times daily. 180 capsule 0 [DISCONTINUED] Januvia 100 MG tablet Take 100 mg by mouth daily. [DISCONTINUED] levothyroxine (Synthroid, Levoxyl) 100 MCG tablet Take 1 tablet (100 mcg) by mouth daily. 30 tablet 2 [DISCONTINUED] loratadine (Claritin) 10 MG tablet Take 1 tablet (10 mg) by mouth in the morning. 90 tablet 1 [DISCONTINUED] magnesium oxide (Mag-Ox) 400 (240 Mg) MG tablet Take 1 tablet (400 mg) by mouth 2 times daily. (Patient taking differently: Take 800 mg by mouth 2 times daily.) 180 tablet 1 [DISCONTINUED] metFORMIN (Glucophage) 500 MG tablet Take 500 mg by mouth in the morning and 500 mg in the evening. Take with meals. [DISCONTINUED] metoprolol succinate XL (Toprol-XL) 25 MG 24 hr tablet Take 1 tablet (25 mg) by mouth daily for 180 doses. Do not crush or chew. 90 tablet 1 [DISCONTINUED] raloxifene (Evista) 60 MG tablet Take 1 tablet (60 mg) by mouth daily. 90 tablet 1 [DISCONTINUED] sertraline (Zoloft) 50 MG tablet Take 50 mg by mouth daily. [DISCONTINUED] simvastatin (Zocor) 40 MG tablet Take 1 tablet (40 mg) by mouth every evening. 90 tablet 1 [DISCONTINUED] spironolactone (Aldactone) 25 MG tablet Take 25 mg by mouth daily. [DISCONTINUED] celecoxib (CeleBREX) 200 MG capsule Take 1 capsule (200 mg) by mouth 2 times daily. 180 capsule 1 [DISCONTINUED] Continuous Blood Gluc Hospice Care Transitions Coordinator (FreeStyle Gennaro 14 Day [place]) device 1 each 2 times daily. E11.9 1 each 0 [DISCONTINUED] Continuous Blood Gluc Sensor (FreeStyle Gennaro 2 Sensor) misc E11.9 Change sensor every 14 days 2 each 11 [DISCONTINUED] glimepiride (Amaryl) 2 MG tablet Take 1 tablet (2 mg) by mouth every morning (before breakfast). (Patient not taking: Reported on 06/25/2023) 30 tablet 2 [DISCONTINUED] glipiZIDE (Glucotrol) 5 MG tablet Take 5 mg by mouth daily (with breakfast). [DISCONTINUED] Krill Oil Ultra Strength 1500 MG capsule Take 1 capsule by mouth in the morning. [DISCONTINUED] melatonin 3 MG tablet Take 1 tablet (3 mg) by mouth daily. (Patient not taking: Reported on 06/25/2023) 90 tablet 0 [DISCONTINUED] meloxicam (Mobic) 7.5 MG tablet Take 7.5 mg by mouth daily. [DISCONTINUED] pantoprazole (ProtoNix) 40 MG EC tablet Take 1 tablet (40 mg) by mouth every morning (before breakfast). 90 tablet 1 [DISCONTINUED] predniSONE (Deltasone) 10 MG tablet 5 qday for 3 days, then 3 qday for 3 days, then one qday till gone (Patient not taking: Reported on 06/25/2023) 27 tablet 5 No current facility-administered medications on file prior [...] Last attempt to quit: 11/27/2013 Years since quittin.5 Smokeless tobacco: Never Tobacco comments: Quit smoking: E-cigg Substance Use Topics Alcohol use: No Alcohol/week: 0.0 standard drinks of alcohol Past Surgical History: Procedure Laterality Date APPENDECTOMY 1995 DELIVERY ONLY (HISTORICAL) CHOLECYSTECTOMY [address] 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 Well-hydrated. Comfortable on O2. No JVD adenopathy or carotid bruits. Oropharynx normal. Normal eardrums. No skin breakdowns. Heart is regular without new murmurs or ectopy. Lungs are severely diminished in the bases. No wheezing or egophony. Abdomen obese without pain hepatosplenomegaly masses or bruits. There is a question of a hernia but I do not appreciate 1. CT of the abdomen did not show that. No ascites. Femoral pulses are good. She has no asymmetric swelling the legs. Has some mild edema in the pretibial area. Posterior pulses are good. Negative Spurling's. There is no motor loss of the upper extremities. Reflexes normal. No fasciculations. Positive Tinel's of the ulnar space. Negative carpal tunnel signs. Color and temperature of the hand is normal. documented in this encounter [facility] 02-21-2023 Telephone encounter Note Placed call to patient. Two patient identifers confirmed. Was able to speak to patient. All concerns in message have been addressed. No questions at this time. Call ended [facility] 02-21-2023 Miscellaneous Notes Placed call to patient. Two patient identifers confirmed. Was able to speak to patient. All concerns in message have been addressed. No questions at this time. Call ended S: Patient spoke with CAC nurse regarding Covid positive. Short of breath and wheezing. B: Onset of symptoms/concern A: Patient seen in [place] ED 1/3 for Covid and missed follow [...] 100.0 F (37.8 C) and bedridden (e.g., assisted patient, stroke, chronic illness, recovering from surgery) Protocols used: Breathing [id number] documented in this encounter [facility] 02-21-2023 Telephone encounter Note S: Patient spoke with CAC nurse regarding Covid positive. Short of breath and wheezing. B: Onset of symptoms/concern A: Patient seen in [place] ED 1/3 for Covid and missed follow [...] 100.0 F (37.8 C) and bedridden (e.g., assisted patient, stroke, chronic illness, recovering from surgery) Protocols used: Breathing [id number] [facility] 01-08-2023 Telephone encounter Note Rx loaded Patient says if you can change her sugar pill to a smaller pill that will really help so please switch that one she says she can take all her pills when her aid is there in the morning its just at night its difficult. [facility] 01-08-2023 Miscellaneous Notes Rx loaded Patient says if you can change her sugar pill to a smaller pill that will really help so please switch that one she says she can take all her pills when her aid is there in the morning its just at night its difficult. documented in this encounter [facility] 12-25-2022 Telephone encounter Note Orders pended for doctor's signature [facility] 12-25-2022 Miscellaneous Notes Orders pended for doctor's signature documented in this encounter [facility] 12-24-2022 Note Referrals and Orders pended for dx and doctor's signature [facility] 12-24-2022 Telephone encounter Note Referrals and Orders pended for dx and doctor's signature [facility] 12-24-2022 Miscellaneous Notes Referrals and Orders pended for dx and doctor's signature documented in this encounter [facility] 12-19-2022 History of Present illness Narrative Medication requesting liquid form if available: Celebrex Gabapentin Krill Oil Magnesium Oxide Metformin Zocor Images from the original note were not included. [facility] [address] [place] [address] [address] [facility] [id number] Visit type: Established Patient Reason for Visit: 4 month follow up , Diabetes (Has never received the gennaro - would like to assistance in getting [...] Orders: - Continuous Blood Gluc Sensor (FreeStyle Gennaro 2 Sensor) misc; E11.9 Change sensor every [...] Future Other orders - Continuous Blood Gluc Hospice Care Transitions Coordinator ([employer] Gennaro 14 Day [place]) device; 1 each 2 times daily. E11.9 [...] 60 tablet 0 [DISCONTINUED] Continuous Blood Gluc Hospice Care Transitions Coordinator ([employer] Gennaro 14 Day [place]) device 1 each 2 times daily. E11.9 (Patient not taking: Reported on 12/19/2022) 1 each 0 [DISCONTINUED] Continuous Blood Gluc Sensor (FreeStyle Gennaro 2 Sensor) misc E11.9 Change sensor every 14 days (Patient [...] 90s PALATE SURGERY 2015 torus lesion per [facility] Family History Problem Relation Name Age of Onset Heart disease Mother MD at age 58 Other ([id number]) Father unknown Breast cancer Sister 74 Coronary [...] valgus stress noted. documented in this encounter [facility] 11-13-2022 History of Present illness Narrative Per chart review patient is getting the Gennaro and not the dexcom, LM for patient to call back to to clarify documented in this encounter [facility] 10-19-2022 Telephone encounter Note Rx loaded looks like wasn't sent. [facility] 10-19-2022 Miscellaneous Notes Rx loaded looks like wasn't sent. Pt called in requesting the acetaminophen-codeine (Tylenol #3) 300-30 MG tablet be sent to the pharmacy. It looks like the naloxone (Narcan) 4 mg/0.1 mL nasal spray was sent and authorized yesterday. Pt stated the pharmacy did not have the prescription there. Please advise. Pharmacy called and states patient was wanting to slat pickler a Rx that was sent in on 08.21.22 They no longer have this Rx after 14 days. documented in this encounter [facility] 10-19-2022 Telephone encounter Note Pt called in requesting the acetaminophen-codeine (Tylenol #3) 300-30 MG tablet be sent to the pharmacy. It looks like the naloxone (Narcan) 4 mg/0.1 mL nasal spray was sent and authorized yesterday. Pt stated the pharmacy did not have the prescription there. Please advise. [facility] 10-16-2022 Telephone encounter Note Pharmacy called and states patient was wanting to slat pickler a Rx that was sent in on 08.21.22 They no longer have this Rx after 14 days. [facility] 10-16-2022 Telephone encounter Note Rx loaded [facility] 10-16-2022 Miscellaneous Notes Rx loaded Reason for Disposition Caller requesting a CONTROLLED substance prescription refill (e.g., narcotics, ADHD medicines) Protocols used: Medication Refill and Renewal [id number] S: patient calls for medication request B: patient states her tylenol three prescription was refused today would like refills called in R: patient advised her request will be forwarded to practice and they will address. Patient verbalizes understanding of same documented in this encounter [facility] 10-15-2022 Telephone encounter Note Reason for Disposition Caller requesting a CONTROLLED substance prescription refill (e.g., narcotics, ADHD medicines) Protocols used: Medication Refill and Renewal [id number] S: patient calls for medication request B: patient states her tylenol three prescription was refused today would like refills called in R: patient advised her request will be forwarded to practice and they will address. Patient verbalizes understanding of same [facility] 10-10-2022 Telephone encounter Note Name of caller: [employer] Contact phone number: [phone] Relationship to Patient: n/a Provider: Reece Salas Practice: [facility] Chief Complaint/Reason for Call: Order request was faxed from [employer] on 10/06/22 for Dexcom Sensor and Hospice Care Transitions Coordinator. Divya calling to check on status. It is not listed in Media Tab or Order tab. Divya is requesting the ORDER be faxed to fax# [phone]. She also needs OFFICE NOTE faxed to a different number: fax [phone] Best time of day caller can be reached: any Patient advised that office/PCP has 24-48 business hours to return their call: Yes Divya was advised office is moving and may not receive a response until 10/16 or 10/17. [facility] 10-10-2022 Miscellaneous Notes Name of caller: Divya - [employer] Contact phone number: [phone] Relationship to Patient: n/a Provider: Reece Salas Practice: [facility] Chief Complaint/Reason for Call: Order request was faxed from [employer] on 10/06/22 for Dexcom Sensor and Hospice Care Transitions Coordinator. Divya calling to check on status. It is not listed in Media Tab or Order tab. Divya is requesting the ORDER be faxed to fax# [phone]. She also needs OFFICE NOTE faxed to a different number: fax [phone] Best time of day caller can be reached: any Patient advised that office/PCP has 24-48 business hours to return their call: Yes Divya was advised office is moving and may not receive a response until 10/16 or 10/17. documented in this encounter [facility] 10-10-2022 Miscellaneous Notes Name of caller: Divya Zuberance Contact phone number: [phone] Relationship to Patient: n/a Provider: Reece Salas Practice: [facility] Chief Complaint/Reason for Call: Order request was faxed from [employer] on 10/06/22 for Dexcom Sensor and Hospice Care Transitions Coordinator. Divya calling to check on status. It is not listed in Media Tab or Order tab. Divya is requesting the ORDER be faxed to fax# [phone]. She also needs OFFICE NOTE faxed to a different number: fax [phone] Best time of day caller can be reached: any Patient advised that office/PCP has 24-48 business hours to return their call: Yes Divya was advised office is moving and may not receive a response until 10/16 or 10/17. documented in this encounter [facility] 08-21-2022 Telephone encounter Note Referral pended for doctor's signature [facility] 08-21-2022 Miscellaneous Notes Referral pended for doctor's signature documented in this encounter [facility] 08-21-2022 History of Present illness Narrative Images from the original note were not included. [facility] [address] [facility] [id number] Visit type: Established Patient Reason for Visit: Follow-up (Follow up on medications) Assessment / Plan: Javier was seen today for follow-up. Diagnoses and all orders for this visit: Type 2 diabetes mellitus with hyperglycemia, without long-term current use of insulin (CMS/HCC) ([facility]) (Primary) Comments: Stable, continue metformin calorie restriction Orders: - Continuous Blood Gluc Sensor (FreeStyle Gennaro 2 Sensor) misc; E11.9 Change sensor every [...] mouth every evening. - Continuous Blood Gluc Hospice Care Transitions Coordinator ([employer] Gennaro 14 Day [place]) device; 1 each 2 times daily. E11.9 [...] 180 capsule 0 [DISCONTINUED] Continuous Blood Gluc Hospice Care Transitions Coordinator ([employer] Gennaro 14 Day [place]) device 1 each 2 times daily. [DISCONTINUED] Continuous Blood Gluc Sensor (FreeStyle Gennaro 2 Sensor) misc Change sensor every 14 [...] the PALATE SURGERY 12/26 torus lesion per [facility] Family History Problem Relation Name Age of Onset Heart disease Mother MD at age 58 Other ([id number]) Father unknown Breast cancer Sister 74 Coronary [...] joint effusion noted. documented in this encounter [facility] 08-09-2022 Note HNO ID: [id number] Author: Leni Cintron MD, PhD Service: ? [...] of its relevant components. Leni Cintron MD [facility] 08-09-2022 History of Present illness Narrative [...] Leni Cintron MD documented in this encounter [facility] 08-03-2022 Note Patient Outreach (NE TNAV) JAVIER LU ([id number]) 1945 F Date Time Provider Department 08/03/22 DAVION MALIK During your visit today, we recorded the following information about you: Davion Malik RN 08/03/2022 8:38 AM Signed [facility] JULIET RN Action/FYI: Medication Adherence review completed per request of payer. NO PROVIDER ACTION REQUIRED Please see requests in the Summary/Findings section below Patient identified by name and date of . Patient Attributed To: E Payer: [facility] Reason for review or outreach: Medication Adherence Medication Adherence Review Details: Hypertension Summary / Findings: Patient has switched to a PHILLIP Draft PCP Action Taken: Data submitted to Payer Other Contact made with patient: No, Chart review only. Signature: Davion Malik RN Allergies As of Date: 08/03/2022 Noted Allergy Reaction PENICILLIN 04/11/2018 4 - Hives Date Reviewed: 12/14/2021 Reviewed by: Leni Cintron MD, PhD - Fully Assessed Reason for Visit: ACM JULIET RN [[id number]] Cmt: Medication Adherence review per request of [...] 300 mg by mouth twice daily. - [id number] 1,500-165-67.5 mg cap Take 1 capsule by [...] Encounter Status:Closed by DAVION MALIK on 08/03/22 [facility] 08-03-2022 Telephone encounter Note Noted. [facility] 08-03-2022 Miscellaneous Notes Noted. Message released to [...] Name of caller: javier Contact phone number: [phone] Relationship to Patient: patient Provider: candelario Practice: [facility] Chief Complaint/Reason for Call: pt called in [...] their call: No documented in this encounter [facility] 08-03-2022 Telephone encounter Note Message released to patient as written. Patient's further questions if applicable: Yes The patient called in and set up an appointment. Were all questions from office addressed or relayed to the patient from encounter: Yes [facility] 08-03-2022 Note HNO ID: [id number] Author: Davion Malik RN Service: ? Author Type: Registered Nurse Type: Progress Notes Filed: 08/03/2022 8:38 AM Note Text: ACGloria CHUNG RN Action/FYI: Medication Adherence review completed per request of payer. NO PROVIDER ACTION REQUIRED Please see requests in the Summary/Findings section below Patient identified by name and date of . Patient Attributed To: QAE Payer: [facility] Reason for review or outreach: Medication Adherence Medication Adherence Review Details: Hypertension Summary / Findings: Patient has switched to a [facility] PCP Action Taken: Data submitted to Payer Other Contact made with patient: No, Chart review only. Signature: Davion Malik RN [facility] 08-03-2022 History of Present illness Narrative ACGloria CHUNG RN Action/FYI: Medication Adherence review completed per request of payer. NO PROVIDER ACTION REQUIRED Please see requests in the Summary/Findings section below Patient identified by name and date of . Patient Attributed To: MILADYS Payer: [facility] Reason for review or outreach: Medication Adherence Medication Adherence Review Details: Hypertension Summary / Findings: Patient has switched to a [facility] PCP Action Taken: Data submitted to Payer Other Contact made with patient: No, Chart review only. Signature: Davion Malik RN documented in this encounter [facility] 07-10-2022 Telephone encounter Note Talked to patient and relayed message and she will call for an appointment if she doesn't get any better. [facility] 07-10-2022 Telephone encounter Note Name of caller: javier Contact phone number: [phone] Relationship to Patient: patient Provider: candelario Practice: [facility] Chief Complaint/Reason for Call: pt called in and wanted to know if cipro could be alled in. Pt reported that she had another UTI and that she had some left over from last tie and she took them yesterday. Best time of day caller can be reached: any Patient advised that office/PCP has 24-48 business hours to return their call: No [facility] 06-12-2022 Telephone encounter Note Spoke to Tali and she said she needs a Med box set up that patient can't see the pills and this would be 1 x a wk. [facility] 06-12-2022 Miscellaneous Notes Spoke to Tali and she said she needs a Med box set up that patient can't see the pills and this would be 1 x a wk. Please assist Name of caller: Tali Contact phone number: [phone] Relationship to Patient: [facility] Provider: Candelario Practice: [facility] Chief Complaint/Reason for Call: Tali called stating they will start assisted for med set ups weekly. This will start Saturday06/18/2022. Will the doctor follow and sign orders. Please advise Best time of day caller can be reached: any Patient advised that office/PCP has 24-48 business hours to return their call: no documented in this encounter [facility] 06-12-2022 Telephone encounter Note Please assist [facility] 06-12-2022 Telephone encounter Note Name of caller: Tali Contact phone number: [phone] Relationship to Patient: [facility] Provider: Candelario Practice: [facility] Chief Complaint/Reason for Call: Tali called stating they will start assisted for med set ups weekly. This will start Saturday06/18/2022. Will the doctor follow and sign orders. Please advise Best time of day caller can be reached: any Patient advised that office/PCP has 24-48 business hours to return their call: no [facility] 05-21-2022 History of Present illness Narrative Images from the original note were not included. [facility] [address] [facility] [id number] Visit type: Established Patient Reason for Visit: [...] hyperglycemia, without long-term current use of insulin ([facility]) (HCC) Comments: Stable with some hyperglycemia, decrease [...] the morning. Continuous Blood Gluc Sensor (FreeStyle Gennaro 2 Sensor) misc Change sensor every 14 [...] the PALATE SURGERY 12/26 torus lesion per [facility] Family History Problem Relation Name Age of Onset Heart disease Mother MD at age 58 Other ([id number]) Father unknown Breast cancer Sister 74 Coronary artery disease Sister age 80 in 10/2019 Other ([id number]) Sister Renal CA No Known Problems Brother [...] feet or toes. documented in this encounter [facility] 12-14-2021 Note HNO ID: [id number] Author: Leni Cintron MD, PhD Service: ? [...] of its relevant components. Leni Cintron MD [facility] 12-14-2021 History of Present illness Narrative [...] Leni Cintron MD documented in this encounter [facility] 09-21-2021 Miscellaneous Notes Left voicemail following up on [employer] message that had been sent regarding genetics consult received from Dr. Cintron. Provided instructions and Genetics appt line to call. documented in this encounter [facility] 07-28-2021 Instructions Beth Jennings PA-C - 07/28/2021 [...] Beth Jennings PA-C documented in this encounter [facility] 07-28-2021 History of Present illness Narrative 07/28/2021 [...] Take 300 mg by mouth twice daily. [id number] (KRILL OIL, OMEGA 3 AND 6,) 1,500-165-67.5 [...] which included preparing to see the patient, [id number]-[id number] patient care, completing clinical documentation, performing a medically appropriate examination, counseling and educating the patient/family/caregiver, ordering medications, tests, or procedures and communicating results to the patient/family/caregiver. 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 Early dry stage nonexudative age-related macular degeneration of both eyes [facility] 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 Vitelliform macular dystrophy Dystrophies primarily involving the retinal pigment epithelium [facility] Diagnosis Recurrent UTI (urinary tract infection)- Primary Urinary tract infection, site not specified Dysuria [facility] Diagnosis 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 Type 2 diabetes mellitus without complication, without long-term current use of insulin ([facility]) Blunt trauma of left eye, subsequent encounter Posterior vitreous detachment of right eye 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 [facility] Diagnosis Chronic obstructive pulmonary disease, unspecified COPD type ([facility])- Primary DDD (degenerative disc disease), lumbar Degeneration of lumbar or lumbosacral intervertebral disc Post traumatic stress disorder (PTSD) Type 2 diabetes mellitus with hyperglycemia, without long-term current use of insulin ([facility]) (HCC) Essential hypertension Unspecified essential hypertension Acquired hypothyroidism Unspecified hypothyroidism [facility] Diagnosis 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 Type 2 diabetes mellitus without complication, without long-term current use of insulin (HCC) Blunt trauma of left eye, subsequent encounter Posterior vitreous detachment of right eye 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 [facility] Diagnosis Chronic pain of right knee [facility] Diagnosis Type 2 diabetes mellitus with hyperglycemia, without long-term current use of insulin ([facility]) (HCC)- Primary DDD (degenerative disc disease), lumbar Degeneration of lumbar or lumbosacral intervertebral disc Post traumatic stress disorder (PTSD) Essential hypertension Unspecified essential hypertension Generalized anxiety disorder Sedative, 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, hypnotic or anxiolytic-induced disorder ([facility]) Primary osteoarthritis of left hip Chronic pain of right knee Acquired hypothyroidism Unspecified hypothyroidism Smoker Tobacco use disorder [facility] Diagnosis DDD (degenerative disc disease), lumbar Degeneration of lumbar or lumbosacral intervertebral disc [facility] Diagnosis Dysphagia, unspecified type- Primary Essential hypertension Unspecified essential hypertension Smoker Tobacco use disorder Generalized anxiety disorder Type 2 diabetes mellitus with hyperglycemia, without long-term current use of insulin (HCC) Pattern dystrophy of macula Acquired hypothyroidism Unspecified hypothyroidism Mixed hypercholesterolemia and hypertriglyceridemia Mixed hyperlipidemia Pulmonary emphysema, unspecified emphysema type ([facility]) Post traumatic stress disorder (PTSD) DDD (degenerative disc disease), lumbar Degeneration of lumbar or lumbosacral intervertebral disc Localized osteoarthritis of right knee [facility] Diagnosis Localized osteoarthritis of right knee- Primary Moderate smoker (20 or less per day) Tobacco use disorder Dysphagia, unspecified type Gastroesophageal reflux disease with esophagitis, unspecified whether hemorrhage [facility] Diagnosis Smoker- Primary Tobacco use disorder Moderate smoker (20 or less per day) Tobacco use disorder Pulmonary nodule Other diseases of lung, not elsewhere classified [facility] Diagnosis Post traumatic stress disorder (PTSD) [facility] Diagnosis DDD (degenerative disc disease), lumbar Degeneration of lumbar or lumbosacral intervertebral disc [facility]* Diagnosis Chronic obstructive pulmonary disease, unspecified COPD type (HCC)- Primary Ex-smoker Personal history of tobacco use, presenting hazards to health Mixed hypercholesterolemia and hypertriglyceridemia Mixed hyperlipidemia Acquired hypothyroidism Unspecified hypothyroidism Pulmonary fibrosis (HCC) Postinflammatory pulmonary fibrosis Essential hypertension Unspecified essential hypertension Type 2 diabetes mellitus with hyperglycemia, without long-term current use of insulin (HCC) DDD (degenerative disc disease), lumbar Degeneration of lumbar or lumbosacral intervertebral disc History of COVID-19 Hiatal hernia with gastroesophageal reflux Ulnar neuritis, unspecified laterality Anemia, unspecified type Hypomagnesemia Disorders of magnesium metabolism Depression, unspecified depression type documented [facility]* Diagnosis Type 2 diabetes mellitus with hyperglycemia, without long-term current use of insulin (HCC)- Primary Osteoporosis, unspecified osteoporosis type, unspecified pathological fracture presence Anemia, unspecified type Acquired hypothyroidism Unspecified hypothyroidism Mixed hypercholesterolemia and hypertriglyceridemia Mixed hyperlipidemia Essential hypertension Unspecified essential hypertension Post traumatic stress disorder (PTSD) [facility] Consultation (Routine) - Pending Review Specialty Diagnoses / Procedures Referred By Waldo ortiz Referred To Contact Orthopedic Surgery Diagnoses Chronic pain of right knee Reece Salas DO [address] [place] [address] Jerry Jennings MD [address] [place] [phone] Referral ID Status Reason Start Date Expiration Date Visits Requested Visits Authorized [id number] Pending Review Specialty Services Required 08/21/2022 08/21/2023 1 1 Scheduling Instructions Possible (R) [facility] Consultation (Routine) - Pending Review Specialty Diagnoses / Procedures Referred By Waldo ortiz Referred To Contact Orthopedic Surgery Diagnoses Localized osteoarthritis of right knee Reece Salas DO [address] [facility] [address] [place] [address] Aaron Shoemaker MD [address] [facility] [address] [place] [address] Referral ID Status Reason Start Date Expiration Date Visits Requested Visits Authorized [id number] Pending Review Specialty Services Required 3 12/24/2023 1 1 * Consultation (Routine) - Pending Review Specialty Diagnoses / Procedures Referred By Waldo t Referred To Contact Gastroenterology Diagnoses Dysphagia, unspecified type Gastroesophageal reflux disease with esophagitis, unspecified whether hemorrhage Procedures [place] OFFICE/OUTPATIENT [facility] MDM 60-74 MINUTES Reece Salas DO [address] [facility] [address] [place] [address] Friend, Alexi [address], [address] [place] [address] Referral ID Status Reason Start Date Expiration Date Visits Requested Visits Authorized [id number] Pending Review Specialty Services Required 3 12/24/2023 1 1 [facility] Reason for Referral Specialty Diagnoses / Procedures Referred By Waldo t Referred To Contact Diagnoses 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 Procedures CONSULT TO OPHTHALMIC GENETIC COUNSELING MEDICAL GENETICS COUNSELING EACH 30 MINUTES Leni Cintron MD, PhD [address] [place] [address] [id number] [place] [address] Referral ID Status Reason Start Date Expiration Date Visits Requested Visits Authorized [id number] Authorized PCP Requested Referral Auto-Generate d Referral 07/16/2021 07/16/2022 1 1 Specialty Diagnoses / Procedures Referred By Waldo t Referred To Contact Diagnoses 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 Procedures CONSULT TO OPHTHALMIC GENETIC COUNSELING MEDICAL GENETICS COUNSELING EACH 30 MINUTES Leni Cintron MD, PhD [address] [place] [address] [facility] [address] [place] [address] Referral ID Status Reason Start Date Expiration Date Visits Requested Visits Authorized [id number] Authorized PCP Requested Referral Auto-Generate d Referral 12/14/2021 12/14/2022 1 1 Specialty Diagnoses / Procedures Referred By Contac t Referred To Contact Radiology Diagnoses Smoker Pulmonary nodule Procedures CT lung screening low dose Reece Salas, DO [address] [place] [address] Referral ID Status Reason Start Date Expiration Date V isits Requested Visits Authorized [id number] Pending Review 12/27/2022 12/27/2023 1 1 Medications [...] Documents on File Type Date Recorded Patient Rn Outpatient Surgery Expl anation DNR (Do Not Resuscitate) 12/16/2014 Documents on File Type Date Recorded Patient Rn Outpatient Surgery Expl casandra DNR (Do Not Resuscitate) 12/16/2014 Summary Purpose [...] or prosecute any alcohol or drug abuse patient.[facility] the event this information is protected by the Federal Confidentiality of Alcohol and Drug Abuse Patient Records regulations: The Federal rules restrict any use of the information to criminally investigate or prosecute any alcohol or drug abuse patient.[facility] [place] the event this information is protected by the Federal Confidentiality of Alcohol and Drug Abuse Patient Records regulations: The Federal rules restrict any use of the information to criminally investigate or prosecute any alcohol or drug abuse patient.[facility] [place] the event this information is protected by the Federal Confidentiality of Alcohol and Drug Abuse Patient Records regulations: The Federal rules restrict any use of the information to criminally investigate or prosecute any alcohol or drug abuse patient.[facility] [place] the event this information is protected by the Federal Confidentiality of Alcohol and Drug Abuse Patient Records regulations: The Federal rules restrict any use of the information to criminally investigate or prosecute any alcohol or drug abuse patient.[facility] [place] the event this information is protected by the Federal Confidentiality of Alcohol and Drug Abuse Patient Records regulations: The Federal rules restrict any use of the information to criminally investigate or prosecute any alcohol or drug abuse patient.[facility] [place] the event this information is protected by the Federal Confidentiality of Alcohol and Drug Abuse Patient Records regulations: The Federal rules restrict any use of the information to criminally investigate or prosecute any alcohol or drug abuse patient.[facility] Reason for Visit (unrecogniz ed section and content) Reason Comments Macular Hole Evaluation Both Eyes Non-insulin Dependent Diabetes Mellitus Reason Comments UTI chronic uti's for th e past 2 years. Last month Cipro was called in, but no culture was ran. Reason Comments Appointment Reason Comments Macular Dystrophy Follow Up Diabetes Reason Comments Follow-up 3 month med check Cough Reason Onset Date Comments assisted 06/12/2022 Reason Onset Date Comments ACM JULIET [...] up Diabetes Has never received t he gennaro - would like to assistance in getting [...] Onset Date Comments Shortness of Breath 02/21/2023 Reason Onset Date Comments Medication Question 10/15/2022 Reason Comments [facility] discharge 02/10/2023 - D ischarged from [facility] 06/12/2023 - Discharged from [facility] Living Med Refill Tylenol with codeine - pills Reason Onset Date Comments Blood Sugar Problem 07/19/2023 Reason Comments Med Refill Reason Onset Date Comments Med Refill 08/14/2023 Reason Onset Date Comments New Med Request 09/17/2023 Reason Comments Follow-up 3 month med check, w ants to try meloxicam, wants to try something to replace tylenol with codine Care Teams (unrecognized sec tion and content) Phlebotomy Coordinator Relationship Specialty Start Date End Date Reece Salas PCP - General 11/02/04 Phlebotomy Coordinator Relationship Specialty Start Date End Date Reece Salas PCP - General 11/02/04 Phlebotomy Coordinator Relationship Specialty Start Date End Date Reece Salas PCP - General 11/02/04 Phlebotomy Coordinator Relationship Specialty Start Date End Date Reece Salas PCP - General 11/02/04 Phlebotomy Coordinator Relationship Specialty Start Date End Date Reece Salas PCP - General 11/02/04 Phlebotomy Coordinator Relationship Specialty Start Date End Date Reece Salas, DO [address] [place] [address] PCP - General 07/12/18 Phlebotomy Coordinator Relationship Specialty Start Date End Date Reece Salas, DO [address] [place] [address] PCP - General 07/12/18 Phlebotomy Coordinator Relationship Specialty Start Date End Date Reece Salas DO [address] [place] [address] PCP - General 07/12/18 Phlebotomy Coordinator Relationship Specialty Start Date End Date Reece Salas PCP - General 11/02/04 Phlebotomy Coordinator Relationship Specialty Start Date End Date Reece SalasDO [address] [place] [address] PCP - General 07/12/18 Phlebotomy Coordinator Relationship Specialty Start Date End Date Reece Salas PCP - General 11/02/04 Phlebotomy Coordinator Relationship Specialty Start Date End Date Reece Salas [address] [place] [address] PCP - General 07/12/18 Phlebotomy Coordinator Relationship Specialty Start Date End Date Reece Salas, DO [address] [place] [address] PCP - General 07/12/18 Phlebotomy Coordinator Relationship Specialty Start Date End Date Reece Salas, DO [address] [place] [address] PCP - General 07/12/18 Phlebotomy Coordinator Relationship Specialty Start Date End Date Reece Salas, [address] [place] [address] PCP - General 07/12/18 Phlebotomy Coordinator Relationship Specialty Start Date End Date Reece Salas, DO [address] [place] [address] PCP - General 07/12/18 Phlebotomy Coordinator Relationship Specialty Start Date End Date Reece Salas, DO [address] [place] [address] PCP - General 07/12/18 Phlebotomy Coordinator Relationship Specialty Start Date End Date Reece Salas, DO [address] [place] [phone] PCP - General 07/12/18 Phlebotomy Coordinator Relationship Specialty Start Date End Date Reece Salas, DO [address] [place] [phone] PCP - General 07/12/18 Phlebotomy Coordinator Relationship Specialty Start Date End Date Reece Salas, DO [address] [place] [phone] PCP - General 07/12/18 Phlebotomy Coordinator Relationship Specialty Start Date End Date Reece Salas, DO [address] [place] [address] PCP - General 07/12/18 Phlebotomy Coordinator Relationship Specialty Start Date End Date Reece Salas, DO [address] [place] [address] PCP - General 07/12/18 Phlebotomy Coordinator Relationship Specialty Start Date End Date Reece Salas, DO [address] [place] [phone] PCP - General 07/12/18 Phlebotomy Coordinator Relationship Specialty Start Date End Date Reece Salas, DO [address] [place] [phone] PCP - General 07/12/18 Phlebotomy Coordinator Relationship Specialty Start Date End Date Reece Salas, DO [address] [place] [phone] PCP - General 07/12/18 Phlebotomy Coordinator Relationship Specialty Start Date End Date Reece Salas, DO [address] [place] [phone] PCP - General 07/12/18 Phlebotomy Coordinator Relationship Specialty Start Date End Date Reece Salas, DO [address] [place] [phone] PCP - General 07/12/18 Phlebotomy Coordinator Relationship Specialty Start Date End Date Candelario Reece Severino, DO [address] [place] [phone] PCP - General 07/12/18 Phlebotomy Coordinator Relationship Specialty Start Date End Date Candelario Reece Severino, DO [address] [place] [phone] PCP - General 07/12/18 Phlebotomy Coordinator Relationship Specialty Start Date End Date Candelario Reece Severino, DO [address] [place] [phone] PCP - General 07/12/18 Phlebotomy Coordinator Relationship Specialty Start Date End Date Reece Salas Mere, DO [address] [place] [phone] PCP - General 07/12/18 Phlebotomy Coordinator Relationship Specialty Start Date End Date Candelario Reece Severino, DO [address] [place] [phone] PCP - General 07/12/18 Phlebotomy Coordinator Relationship Specialty Start Date End Date Candelario Reece Severino, DO [address] [place] [phone] PCP - General 07/12/18 Phlebotomy Coordinator Relationship Specialty Start Date End Date Candelario Reece Severino, DO [address] [place] [phone] PCP - General 07/12/18 Phlebotomy Coordinator Relationship Specialty Start Date End Date Reece Salas DO [address] [facility] [address] [place] [address] PCP - General 07/12/18 INFORMATION SOURCE (unrecogn ized section and content) DATE CREATED AUTHOR 08/10/2022 [facility] DATE CREATED AUTHOR AUTHOR'S SHEFALI ATCHELI 10/10/2023 [facility] FOR RECORDS PERTAINING TO PATIENTS WHO [...] BE BASED ON THE PRIMARY CLINICAL RECORDS. [facility]. provides no warranty or guarantee of the accuracy or completeness of information in this document.
[2023-12-12 12:10] LABS: ANTINUCLEAR ANTIBODIES DIRECT Negative (Negative)
[2023-12-15 21:12] LABS: Angiotensin Convert Enzyme 72 U/L (14-82); Immunoglobulin A 179 mg/dL (64-422); Immunoglobulin E 42 IU/mL (6-495); Immunoglobulin G 893 mg/dL (586-1602); Immunoglobulin M 122 mg/dL (26-217)
== END | disposition home or self-care (01) ==
PROVIDERS: PCP Family Medicine; Referring Provider Internal Medicine Pulmonary Disease; Visit Provider Internal Medicine Pulmonary Disease
DX: R13.10 Dysphagia, unspecified (principal); J84.9 Interstitial pulmonary disease, unspecified
CPT/HCPCS: 36415; 74230; 82164; 82784; 82785; 85652; 86038; 86140; 86431; 92611

== ENCOUNTER → 2024-04-08 | Outpatient (CLI) | payer MEDICARE, MEDICAID, SELFPAY ==
--- NOTE | 2024-04-08 13:56 | ART_ITS ---
Reason For Study Reason For Study: PVD Procedure A bilateral lower extremity continuous wave Doppler with analog waveform analysis,segmental pressures,and ankle brachial indexes without exercise. Left Segmental Pressures Left brachial= 129mmHg. Left calf = 150mmHg. Left posterior tibial artery = 159mmHg. Left dorsalis pedis artery = 129mmHg. Left digit = 55 mmHg. The left posterior tibial artery waveforms are triphasic. The left dorsalis pedis waveforms are triphasic. Right Segmental Pressures Right brachial= 145mmHg. Right calf = 161mmHg. Right posterior tibial artery = 137mmHg. Right dorsalis pedis artery = 136mmHg. Right digit = 72 mmHg. The right posterior tibial artery waveforms are triphasic. The right dorsalis pedis waveforms are triphasic. Indices The right ankle brachial index by the posterior tibial artery is 0.94. The right ankle brachial index by the dorsalis pedis is 0.94. The right digital-brachial index is 0.50. The left ankle brachial index by the posterior tibial artery is 1.10. The left ankle brachial index by the dorsalis pedis is 0.89. The left digital-brachial index is 0.38. VL/Lower Ext Art Exam w/o Exercis Interpretation Summary Right CRISTY 0.94, mild arterial insufficiency. Doppler/PVR waveforms and segmenta l pressures reveal infrapopliteal disease Left CRISTY 1.1, normal. Doppler/PVR waveforms of the left leg normal at rest. TBI diminished, pedal/digit disease vs spasm. Ordering Physician: Farhad Choudhary Referring Physician: FARHAD CHOUDHARY DPM Performed By: Arjun Acosta RVT
== END | disposition home or self-care (01) ==
LOC: CVS 13:52
PROVIDERS: PCP Family Medicine; Referring Provider Podiatrist; Visit Provider Podiatrist
DX: I73.89 Other specified peripheral vascular diseases (principal)
CPT/HCPCS: 93923

== ENCOUNTER 2024-05-13 14:30 | Outpatient (RCR) | payer MEDICARE, MEDICAID, SELFPAY ==
--- NOTE | 2024-04-10 17:43 | HP.PTEVAL_ITS ---
Patient's Visit Information Visit Information Visit Information: DIAN PAUL is a 79 year old F referred to Physical Therapy by Dr. Fox Weston DO with a diagnosis of DEGENERATIVE SCOLIOSIS AND R KNEE DJD. Date of Evaluation: 03/13/24 Physical Therapist: Priscilla Cramer PT, Cert MDT Visit Plan Frequency: 2x /Week Duration: 4-6 Weeks Plan: Neutral Spine Core Stability Exercises and Nara LE Hip Flexor, Hamstring and Calf Stretching to help reduce stress to the Lumbar Spine with all Daily Activities. Nara LE Strengthening. Instruction in Proper Posture Control, Body Mechanics, and Appropriate Activity Modifications. HEP Instruction. 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 Present symptoms: L HIP PAIN MAKING IT REALLY HARD TO WALK. PAIN MANAGEMENT PENDING FOR INJECTION CONSULT WITH DR. NUÑEZ NEXT WEEK. BACK PAIN AND WEAKNESS MAKING IT REALLY HARD TO HOLD SELF UPRIGHT TO WALK. COULD WALK BETTER A MONTH AGO THAN CAN NOW. IT IS LIKE SOMETHING SHIFTED. ALSO R KNEE PAIN BUT PATIENT STATES SHE CAN DEAL WITH HER KNEE AND HER BACK AND HIP ARE HER PRIORITY RIGHT NOW. Present since: MID JAN 2024 AND STEADILY GETTING WORSE. Pain Scale: WORST 9/10, LEAST 2/10 Currently: 2/10 Is it getting better, worse or staying the same: GETTING WORSE Commenced as a result of: NO APPARENT REASON Worse: RISING FROM SITTING, STANDING AND WALKING. GETTING IN/OUT OF THE SHOWER. BENDING. LIFTING EVEN A POUND OR TWO. Better: IBUPROFEN, GABAPENTIN Disturbed sleep: YES Gait: CAN WALK ABOUT 300 FEET OR SO LEANING ON ROLLATOR BUT CAN ONLY TAKE A FEW STEPS IF NOT HOLDING ON TO ANYTHING. LAST FALL WAS ABOUT 3 MONTHS AGO. 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 HAS ALSO FALLEN IN THE PAST WHEN R KNEE HAS GIVEN OUT. LIVES IN MOBILE HOME AND WALKS UP RAMP WITH ROLLATOR WITH BIG WHEELS. Bowel or Bladder Dysfunction: H/O UTI'S. STRESS UI. Imaging: YES - [facility] [place]: 02/24/24 LUMBAR X-RAY: X-RAY - XR Spine Lumbar 2 or 3 Views COMPARISON: Prior study dated: 11/14/2021 FINDINGS: VERTEBRAE: Preserved vertebral body height. No fracture. Preservation of the normal lumbar lordosis. Mild levoscoliosis. DISCS: Multilevel disc space narrowing. Facet arthropathy of the lower lumbar spine. Mild anterolisthesis of L4 over L5. Minimal retrolisthesis of L2 over L3. Facet arthropathy of the lower lumbar spine. INCLUDED ABDOMEN: Included bowel gas pattern is non-obstructive. RAD/Lumbar Spine 2 or 3 Views IMPRESSION: Degenerative changes of the lumbar spine essentially unchanged. 02/24/24: X-RAY L HIP AND PELVIS: Mild degenerative arthrosis of the hip joints bilaterally. No demonstrated acute fracture. 02/24/24 R KNEE X-RAY: Moderate tricompartment degenerative arthrosis. Small joint effusion. No demonstrated fracture. PMH/Recent major surgery: Vision loss of right eye Vision loss of left eye Hearing loss, left Hearing loss, right Irregular heart beat COVID Chronic pain Rheumatoid arthritis Kidney stones GERD (gastroesophageal reflux disease) Sleep apnea Smoker Hypertension Diabetes mellitus Syncope Hyperlipemia, mixed Anxiety and depression PTSD (post-traumatic stress disorder) COPD (chronic obstructive pulmonary disease) Nicotine addiction Heart palpitations Pre-syncope Dizziness PVC's (premature ventricular contractions) Dyslipidemia MVP (mitral valve prolapse) Hypothyroid Panic attacks Osteoporosis History of mandibular surgery Hx of knee surgery History of cholecystectomy History of appendectomy Previous section History of gastric surgery Objective Objective: THIS PT WAS BROUG[facility] AIDE KIKO IN W/C. SHE DID NOT BRING ROLLATOR WITH HER TODAY. Sitting/Standing Posture: STANDS WITH EXCESSIVE TRUNK FLEXION AND STANDING TOLERANCE IS POOR. VERY SCOLIOTIC APPEARING. ONLY ABLE TO PARTIALLY CORRECT POSTURE ACTIVELY AND PATIENT C/O IT FEEL LIKE SOMETHING IS GOING TO COME APART BACK THERE WHEN ATTEMPTS TO CORRECT POSTURE. Other Observations: GAIT WITH DEPARTMENT PROVIDED ROLLATOR X ~ 40 FEET WITH EXCESSIVE TRUNK FLEXION, DECREASED CADANCE, SHORT NARA STRIDE LENGTH AND PAIN LIMITED BY C/O L HIP AND BACK PAIN. Sensory deficit: NARA LE LIGHT TOUCH SENSATION GROSSLY INTACT WITH R SWOLLEN AND TENDER KNEE. ROM deficit: NARA HIP ROTATOR, HIP FLEXOR, HS AND CALF TIGHTNESS. Motor deficit: R HIP 4-/5, KNEE 3-/5, ANKLE 4/5. L HIP 3-/5, KNEE 4-/5, ANKLE 4/5. Lumbar mvmt loss: flex - MIN ext - RISHABH R SG - RISHABH L SG - RISHABH Core strength: POOR Palpation: R KNEE SWOLLEN AND TENDER. ACUTE TENDERNESS THROUGHOUT R HIP AND LOW BACK REGIONS. Balance/Special Test Scores Lower Extremity Functional Score: 16 Goals Goal 1:: DECREASE C/O BACK AND NARA LE PAIN BY AT LEAST 50% TO EASE ADL'S Goal Time Frame: 6-8 Weeks Goal 2:: IMPROVE BENDING, LIFTING, STANDING AND WALKING FUNCTION TO EASE ADL'S. Goal Time Frame: 6-8 Weeks Goal 3:: HEP Goal Time Frame: 6-8 Weeks Rehabilitation Potential Physical Therapy Diagnosis: CORE AND LE PAIN, STIFFNESS AND WEAKNESS WITH DIFFICULTY WITH GAIT. Rehabilitation Potential: Good Anticipated Interventions Patient/Client Instruction: Educate patient on: Condition, Plan of Care and Risk Factors For the Purpose of:: To improve self management Therapeutic Exercise to Include: Strength training, Body mechanics, Postural training, Flexibilty training, Gait and locomotor training, Neuromotor development and Dynamic Lumbar Stabilization For the Purpose of:: To decrease pain, To improve muscle performance and motor function, To increase tolerance to activity/condition/position, To improve ability of physical actions for home/community/work/leisure, To improve gait and locomotor functions, To increase flexibility/ROM, To improve safety with gait and To improve self management Thermo therapy (hot pack): Yes Ultrasound (thermal/non thermal): Yes For the Purpose of:: To decrease pain and To improve nutrient delivery to tissue Text: Thank you for the opportunity to evaluate your patient. For Medicare and Medicare HMO plans, please review the plan of care and approve it. It will need to be FAXED BACK to us at [phone] for Medicare purposes. For Medicare only, by signing this I certify the plan of care. Please let me know if there are questions or concerns regarding this plan of care. Physician Signature: Date:
--- NOTE | 2024-05-11 17:52 | HP.PTREVAL ---
Re-Evaluation Intro: Dr. Fox Weston, DO, It has been my pleasure to treat DIAN PAUL over the last 3 visits for DEGENERATIVE SCOLIOSIS AND R KNEE DJD. Please see the progress note below for an update on the physical therapy plan of care! Subjective Subjective: PATIENT REPORTS SHE HAD THE FLU FOR 2 WEEKS AND SHE THOUGHT SHE WAS OVER IT THEN IT STARTED UP AGAIN. SHE ALSO REPORTS SHE HAD TO MISS PT FOR A DENTIST MATTHEW'T THAT SHE WAS WAITING ON FRO 2 MONTHS. SHE REPORTS SHE IS TAKING THE PAIN PILLS PAIN MGMT GAVE HER AND THEY REALLY HELP THE PAIN BUT THEY MAKE HER TIRED. PATIENT REPORTS THAT HER HIP IS BETTER THAN WHEN SHE WAS HERE LAST BUT HER BACK ISN'T. PATIENT STATES I NEED STRENGTH IN MY BACK AND LEGS. SHE STATES SHE CAN BARELY GET UP. PATIENT STATES SHE WANTED TO GO STAY WITH HER DAUGHTER FOR 2 NIGHTS BUT COULDN'T BECAUSE HER TOLIET IS TOO LOW AND SHE KNEW SHE WOULDN'T BE ABLE TO GET UP OFF OF IT. STARTED RIDING STATIONARY BIKE AT HOME WITHOUT RESISTANCE X ABOUT 15 MIN OR SO A DAY. Objective Objective/Function: ASSESSMENT OF CURRENT SX'S, GAIT AND TRANSFER TRAINING. TUG TIME WITH SUPERVISION AND ROLLATOR: TRIAL 1 - . TRIAL 2 - .22 TRIAL 3 - 30 STS TEST: 3 WITH NARA UE ASSIST. PATIENT WANTED TO ATTEMP TUG TEST WITHOUT ROLLATOR AND 1/2 WAY BACK STARTED TO GET INCREASED BACK PAIN. THE INCREASED BACK PAIN RESOLVED QUICKLY WITH REST IN SITTING. SHE REPORTS SHE HAS BEEN PUSHING TO WALK IN HER HOUSE WITHOUT THE ROLLATOR AND IT DOES CAUSE INCREASED PAIN. GAIT DEVIATIONS INCREASE SIGNIFICANTLY WITHOUT ROLLATOR. THIS PT RECOMMENDED CONTINUED USE OF ROLLATOR AT ALL TIMES FOR SAFETY AND PAIN MGMT - PATIENT VERBALIZES UNDERSTANDING. PATIENT FATIGUES EASILY TODAY. SHE WALKED BACK TO TREATMENT ROOM FROM [facility] FOR TREATMENT WITHOUT ANY REST BREAKS BUT NEEDED TWO REST BREAKS UPON DEPARTURE. INCREASED LBP WITH STS TESTING THAT RESOLVES QUICKLY WITH USE OF LUMBAR SUPPORT IN SITTING. REST BREAKS DURING WALKING NEEDED FOR FATIGUE NOT PAIN PER PATIENT REPORT. Plan Plan Plan: RESUME PT 2X'S A WK X 3-4 WKS: Neutral Spine Core Stability Exercises and Nara LE Hip Flexor, Hamstring and Calf Stretching to help reduce stress to the Lumbar Spine with all Daily Activities. Nara LE Strengthening. Instruction in Proper Posture Control, Body Mechanics, and Appropriate Activity Modifications. HEP Instruction. Balance/Gait/Functional tests Balance/Special Test Scores Lower Extremity Functional Score: 16 Goals Goals Goal 1:: DECREASE C/O BACK AND NARA LE PAIN BY AT LEAST 50% TO EASE ADL'S Goal Time Frame: 6-8 Weeks Goal 2:: IMPROVE BENDING, LIFTING, STANDING AND WALKING FUNCTION TO EASE ADL'S. Goal Time Frame: 6-8 Weeks Goal 3:: HEP Goal Time Frame: 6-8 Weeks Anticipated Interventions Anticipated Interventions Patient/Client Instruction: Educate patient on: Condition, Plan of Care and Risk Factors For the Purpose of:: To improve self management Therapeutic Exercise to Include: Strength training, Body mechanics, Postural training, Flexibilty training, Gait and locomotor training, Neuromotor development and Dynamic Lumbar Stabilization For the Purpose of:: To decrease pain, To improve muscle performance and motor function, To increase tolerance to activity/condition/position, To improve ability of physical actions for home/community/work/leisure, To improve gait and locomotor functions, To increase flexibility/ROM, To improve safety with gait and To improve self management Thermo therapy (hot pack): Yes Ultrasound (thermal/non thermal): Yes For the Purpose of:: To decrease pain and To improve nutrient delivery to tissue Re-Evaluation Ending Re-evaluation ending: Please do not hesitate to contact me at [phone] by phone or if you have questions or concerns regarding this new plan of care! Sincerely, Priscilla Cramer, PT, Cert MDT
--- NOTE | 2024-05-20 15:02 | HP.PT.NRP ---
Patient Information Patient Information: DIAN PAUL was seen in my office for initial evaluation on 03/13/24. The following Plan of Care was established for this patient: POC Established Initial Frequency: 2x /Week Initial Duration: 4-6 Weeks Anticipated Interventions Patient/Client Instruction: Educate patient on: Condition, Plan of Care and Risk Factors For the Purpose of:: To improve self management Therapeutic Exercise to Include: Strength training, Body mechanics, Postural training, Flexibilty training, Gait and locomotor training, Neuromotor development and Dynamic Lumbar Stabilization For the Purpose of:: To decrease pain, To improve muscle performance and motor function, To increase tolerance to activity/condition/position, To improve ability of physical actions for home/community/work/leisure, To improve gait and locomotor functions, To increase flexibility/ROM, To improve safety with gait and To improve self management Thermo therapy (hot pack): Yes Ultrasound (thermal/non thermal): Yes For the Purpose of:: To decrease pain and To improve nutrient delivery to tissue Last Seen Last Seen: This patient was last seen in our office 05/13/24. Pertinent comments regarding their Physical therapy will appear below: It has been my pleasure to see this patient for a total of 4 visits. She is appropriate to return to MD for further follow-up as needed. This patient arrived to her appointment today with her aide Sade reporting she really isn't up for therapy today but felt pressured to come. Her aide states they were planning to inquire about home health services. Patient reports she has been worrying about this appointment for two days. She states she did ok with last appointment but it is just too stressful and tiering for her to get here. Patient required approximately 5 rest breaks while walking from lobby to treatment room with rollator as she was expressing concerns about being here. This PT is agreeable with them inquiring about home health services with their PCP. Held therapy today and patient expressed relief. Will D/C at this time at patients request. At this point I will be discontinuing this patient from physical therapy. I would be happy to see this patient again in the future if found appropriate by the physician. Thank you! Priscilla Cramer, PT, Cert MDT Balance/Gait/Functional tests Balance/Special Test Scores Lower Extremity Functional Score: 16
== END 2024-05-13 19:00 | disposition home or self-care (01) ==
LOC: PT 14:30
PROVIDERS: PCP Family Medicine; Referring Provider Orthopaedic Surgery; Visit Provider Orthopaedic Surgery
DX: M41.50 Other secondary scoliosis, site unspecified (principal); M17.11 Unilateral primary osteoarthritis, right knee
CPT/HCPCS: 97110; 97162; 97530

== ENCOUNTER → 2024-09-09 | Outpatient (CLI) | payer MEDICARE, MEDICAID, SELFPAY ==
[2024-09-09 14:54] LABS: Hematocrit 37.7 % (37-47); Hemoglobin 12.2 g/dL (12.0-15.0); Immature Granulocytes Count 0.030 X10^3/uL (0.0-0.0); Mean Corp Hgb Conc 32.4 g/dL (32-36); Mean Corpuscular Volume 95.9 fL (81-99); Mean Platelet Vol. 9.8 fl (6.2-12.0); NRBC Flagged by Analyzer 0 % (0-5); Platelet Count 225 K/mm3 (150-450); RBC Distribution Width CV 13.1 % (11.6-14.6); RBC Distribution Width SD 46.5 fl (35.1-43.9); Red Blood Count 3.93 M/mm3 (4.2-5.4); White Blood Count 7.3 K/mm3 (4.4-11.0)
[2024-09-09 15:21] LABS: AST(SGOT) 32 U/L (<=31); Alanine Aminotransfer ALT/SGPT 16 U/L (<=34); Albumin, Serum 4.0 g/dL (3.4-4.8); Alkaline Phosphatase 45 U/L (35-104); Anion Gap 13 (5-15); BUN 11 mg/dL (4-19); BUN/Creat Ratio 8.4 RATIO (10-20); Calcium,Total 9.6 mg/dL (7.6-11.0); Carbon Dioxide 23.5 mmol/L (21.0-32.0); Chloride 104 mmol/L (98-108); Globulin 2.9 g/dL (2.2-4.2); Glucose 218 mg/dL (70-99); Potassium 4.6 mmol/L (3.3-5.1)
== END | disposition home or self-care (01) ==
LOC: LAB 14:22
PROVIDERS: PCP Family Medicine; Referring Provider Family Medicine; Visit Provider Family Medicine
DX: J44.9 Chronic obstructive pulmonary disease, unspecified (principal)
CPT/HCPCS: 36415; 80053; 83036; 84443; 85025

== ENCOUNTER → 2024-09-09 | Outpatient (CLI) | payer MEDICARE, MEDICAID, SELFPAY ==
--- NOTE | 2024-09-09 14:44 | MRI_ITS ---
PROCEDURE: SPINE LUMBAR (ROUTINE) 09/09/2024 REASON FOR EXAM: PAIN TECHNIQUE: SPINE LUMBAR (ROUTINE) COMPARISON: February 24, 2024 x-ray FINDINGS: Vertebrae: Vertebral body height is preserved. Alignment: Mild curvature of the lumbar spine to the left centered at L3. The normal lumbar lordosis is preserved. Grade 1 anterolisthesis L4 on L5 is a proximally 7.8 mm. Retrolisthesis of L1 on L2 of a proximally 5.4 mm, and L2 on L3 of approximately 4 mm. Conus Medullaris: Terminates at L1 and is normal in signal. T12-L1: Normal in the sagittal plane. L1-2: Mild loss of disc height. Mild, diffuse disc bulge and disc uncovering. No central stenosis. Mild thickening of ligamentum flavum. Exit foramen on the right is narrowed as it is associated with the spinal curvature. The left is patent. Correlate with right L1 radiculopathy. L2-3: Minimal loss of disc height. Mild, diffuse disc bulge as well as some disc uncovering. Moderate thickening of ligamentum flavum. Mild bilateral facet hypertrophy. Exit foramina are clear. No central stenosis. L3-4: Mild loss of disc height. Mild, diffuse disc bulging. Rdwqk-mfkltkk-wrub-left moderate facet hypertrophy and thickening of ligamentum flavum. Mild distortion of the central canal the no jayme stenosis. Exit foramen on the right is narrowed related to the curvature and degenerative change. Correlate with right L3 radiculopathy. L4-5: Mild loss of disc height. Mnwdnftb-en-thurmi diffuse disc bulge and some disc uncovering related to spondylolisthesis. Severe bilateral facet hypertrophy and mild thickening of ligamentum flavum. Hypertrophic changes particularly on the left related to the facet narrowing of the sub foraminal zone on the left. Bilateral exit foraminal narrowing is seen. Left L5 radiculopathy and bilateral L4 radiculopathy. L5-S1: Aiyj-sl-zqujuipm disc space narrowing. Diffuse disc bulge. Moderate bilateral facet hypertrophy. Wjdn-xx-grbiekhd thickening of ligamentum flavum. There may be contact of the traversing S1 nerve root at the sub foraminal zone from disc and facet osteophyte. Mild narrowing of the left exit foramen from disc and facet osteophyte. Correlate with left L5 and S1 radiculopathy. Sacrum: No acute abnormality MRI/Spine Lumbar (Routine) IMPRESSION: 1. Curvature of the lumbar spine to the left. Multilevel degenerative disc di sease and spondylolisthesis. Spondylolisthesis is greatest at L4 on L5. See above descriptions. No central stenosis or there ar e areas of exit foraminal narrowing that may account for some radiculopathy if present. Reading Location: [id number]
== END | disposition home or self-care (01) ==
LOC: MRI 14:24
PROVIDERS: PCP Family Medicine; Referring Provider Anesthesiology; Visit Provider Anesthesiology
DX: M51.16 Intervertebral disc disorders with radiculopathy, lumbar region (principal); M43.16 Spondylolisthesis, lumbar region
CPT/HCPCS: 72148